=== PATIENT | female | born 1950 | race Caucasian/White ===

== ENCOUNTER → 2017-07-04 16:09 | Outpatient (CLI) | payer OTHER, SELFPAY ==
[2017-07-07 08:16] LABS: Hep C Antibodies <0.1 s/co ratio (0.0-0.9)
== END ==
PROVIDERS: Family Provider Family Medicine; PCP Family Medicine; Visit Provider Family Medicine
DX: E55.9 Vitamin D deficiency, unspecified (principal); Z11.59 Encounter for screening for other viral diseases
CPT/HCPCS: 86803

== ENCOUNTER → 2017-07-11 08:27 | Outpatient (CLI) | payer OTHER, SELFPAY ==
--- NOTE | 2017-07-11 08:33 | HPBI_ITS ---
MAMMOGRAPHY - BILATERAL SCREENING 3-D IVAN SYNTHESIS REASON FOR EXAM: Female, 66 years old. Bilateral Screening 3-D tomosynthesis PERTINENT HISTORY: History of benign breast biopsy.. TECHNIQUE: 2-D mammograms and 3-D Ivan synthesis of the breast (s) were performed. CAD was performed. COMPARISON: None. FINDINGS: The breast composition is heterogeneously dense that can obscure small breast masses. Stable punctate and vascular calcifications.. No dense spiculated masses or suspicious microcalcifications are identified. No architectural distortion is identified. There is no skin thickening or retraction. There has been no significant change since the prior study. HPBI/SCREENING MAMM (CAD), BILAT IMPRESSION: No mammographic signs of malignancy. Routine yearly mammograms recommended. ASSESSMENT CATEGORY: BIRADS Category 2: Benign. A letter regarding these results will be sent to the patient by the facility within 30 days. FOLLOW UP RECOMMENDATION: Yearly follow up mammogram recommended. (A) Approximately 10% of breast cancers are not detected by mammography. A normal mammogram should not delay biopsy of a clinically suspicious abnormality. Electronically Signed: Kem Mckeon MD at 8:35 EDT , Service support ,
== END ==
PROVIDERS: Family Provider Family Medicine; PCP Family Medicine; Visit Provider Family Medicine
DX: Z12.31 Encounter for screening mammogram for malignant neoplasm of breast (principal)
CPT/HCPCS: 77063; 77067

== ENCOUNTER 2018-04-04 20:18 | Observation (INO) | payer OTHER, SELFPAY ==
[2018-04-04 20:19] VITALS: BP 127/90; PULSE 72; RESP 18; TEMP 36.4; O2SAT 96; BMI 32.5
[2018-04-04 20:31] VITALS: BP 127/82; PULSE 75; RESP 18; TEMP 36.4
--- NOTE | 2018-04-04 21:20 | RAD_ITS ---
STUDY: X-RAY CHEST REASON FOR EXAM: Female, 67 years old. Nausea with vomiting and diarrhea TECHNIQUE: AP COMPARISON: None. FINDINGS: The lungs are clear and expanded. There is no demonstrated pleural abnormality. Normal size heart. Normal mediastinum and preeti. Normal visualized pulmonary arteries. Normal visualized aortic arch and descending thoracic aorta. Opacity with air-fluid level in the retrocardiac region likely represents a hiatal hernia. RAD/Chest 1 View (Portable) IMPRESSION: Nonacute portable x-ray examination of the chest. Probable hiatal hernia. Electronically Signed: Vu Mccabe MD at 21:37 EST , Service support ,
--- NOTE | 2018-04-04 21:20 | ED.DCSUM_ITS ---
- ER Visit Summary Date of Service: 04/04/18 Chief Complaint: Nausea, vomiting, diarrhea History of Present Illness: The patient is a 67 F presenting with nausea, vomiting, diarrhea. This started today. She has had 5 episodes of vomiting and 4 episodes of diarrhea today. No blood in her stool or emesis. Her grandchildren have been ill with vomiting. She has had no recent antibiotics. She denies possibility of bad food exposure. Denies fever. She complains of chills. She complains of lightheadedness with standing, denies syncope. She denies chest pain or shortness of breath. Denies abdominal pain. Denies other complaints. Physical Examination: Vitals are stable. Patient is afebrile. Alert no acute distress. HEENT exam is unremarkable. Neck is supple. Lungs are clear and equal bilaterally. Heart is regular rate and rhythm. Abdomen is soft nontender nondistended. No guarding or rebound. Extremities are unremarkable. Skin is warm and dry. No focal neurologic deficit. Remainder of exam is unremarkable. Emergency Department Course and Treatment: Patient given IV fluids, Zofran. EKG is sinus rate of 60 with no acute ischemic changes. Chest x-ray shows no acute process. CBC is unremarkable. Chemistries normal except for glucose 134. Liver lipase are normal. Urinalysis shows 25-50 white blood cells, 50-100 red blood cells. Troponin is negative. Urine culture was sent. She was given Rocephin IV. She continues to deny abdominal pain. With orthostatic vitals patient became very dizzy with standing and her heart rate increased. She was given additional IV fluids. She continues to be very dizzy with standing and does not feel that she can go home. Discussed with the hospitalist for observation. Disposition: Observation Impression: Vomiting, diarrhea, UTI, dehydration This note was generated with [employer] Interactive dictation software. It may contain incorrect words, spelling, and punctuation that were not noted in review of the chart prior to signing ED Disposition - Plan for ED Patient: Chief Complaint: Nausea/Vomiting/Diarrhea Referrals: Stanton Altman MD [Primary Care Provider] -
--- NOTE | 2018-04-04 21:22 | EKG12_ITS ---
Test Reason : VOMITING Blood Pressure : / mmHG Vent. Rate : 060 BPM Atrial Rate : 060 BPM P-R Int : 160 ms QRS Dur : 072 ms QT Int : 438 ms P-R-T Axes : 037 -12 017 degrees QTc Int : 438 ms Normal sinus rhythm Possible Left atrial enlargement Borderline ECG Confirmed by PRESLEY BARLOW, SOLO ([id number]), development editor CECIL HOPPER ([id number]) on 04/08/2018 3:30:20 PM Referred By: ROSELYN Confirmed By:SOLO SHERWOOD MD
--- NOTE | 2018-04-04 21:25 | ED.RN ---
NO OLD EKGS IN MUSE
[2018-04-04 21:28] VITALS: BP 132/83; PULSE 71; RESP 14; TEMP 36.4
[2018-04-04 21:29] LABS: Absolute Lymphocyte Count 1.11 X10^3/ul (0.83-4.51); Absolute Neutrophil Count 6.8 X10^3/uL (2.0-7.7); Basophil# 0.02 X10^3/uL; Basophil% 0.2 % (0-1); Eosinophil# 0.04 X10^3/uL; Eosinophils% 0.5 % (0-5); Hematocrit 39.2 % (37-47); Hemoglobin 13.1 g/dl (12.0-15.0); Lymphocyte # 1.11 X10^3/ul (4.0); Lymphocyte % 13.2 % (19-41); Mean Corp Hgb Conc 33.4 g/gl (32-36); Mean Corpuscular Hgb 30.5 pg (27.0-32.0); Mean Corpuscular Volume 91.2 fL (81-99); Mean Platelet Vol. 8.7 fl (6.2-12.0); Monocyte# 0.42 X10^3/uL; Platelet Count 210 K/mm3 (150-450); RBC Distribution Width CV 13.2 % (11.6-14.6); RBC Distribution Width SD 43.5 fl (35.1-43.9); White Blood Count 8.4 K/mm3 (4.4-11.0)
[2018-04-04] MEDS: Ondansetron 4 MG/2 ML Vial IV (21:29)
[2018-04-04] MEDS: 0.9% Normal Saline 1,000 ML 1000 ML IV (21:29)
[2018-04-04 21:31] LABS: POSITIVE COUNT NO; POSITIVE DIFFERENTIAL NO; POSITIVE MORPHOLOGY NO
[2018-04-04 21:44] LABS: AST(SGOT) 12 U/L (15-37); Alanine Aminotransfer ALT/SGPT 15 U/L (13-56); Albumin, Serum 3.4 g/dL (3.2-5.0); Alkaline Phosphatase 104 U/L (45-117); Anion Gap 9 (5-15); BUN 12 mg/dL (7-18); BUN/Creat Ratio 23.8 RATIO (10-20); Bilirubin, Direct 0.14 mg/dL (0.00-0.30); Calcium,Total 8.1 mg/dL (8.5-10.1); Chloride 110 mmol/L (98-107); EST Glomerular Filtration Rate 130 mL/min (>60); Est Glom Filt Rate - Afr Amer 157 mL/min (>60); Estimated Creatinine Clearance 96.86 ml/min; Globulin 3.3 g/dL (2.2-4.2); Glucose 134 mg/dL (74-106); Lipase 76 U/L (73-393); Potassium 3.6 mmol/L (3.5-5.1); Protein, Total 6.7 g/dL (6.4-8.2); Sodium Level 142 mmol/L (136-145)
[2018-04-04 21:47] VITALS: BP 117/73; BP 128/84; BP 128/96; PULSE 62; PULSE 74; PULSE 84
[2018-04-04 22:15] VITALS: TEMP 36.4
[2018-04-04] MEDS: 0.9% Normal Saline 1,000 ML 500 ML IV (22:33)
[2018-04-04 22:38] VITALS: BP 123/82; PULSE 57; RESP 12; O2SAT 97
[2018-04-04 23:15] LABS: Bacteria 0 SEEN /hpf (None Seen)
[2018-04-04 23:16] LABS: Color, Urine Yellow (Yellow); Glucose, Dipstick Normal (Normal); Ketone-Dipstick 50 mg/dl (Negative); Leukocyte Esterase-Dipstick 500 /ul (Negative); Nitrite-Dipstick Negative (Negative); Occult Blood-Urine 250 /ul (Negative); Protein-Dipstick 30 mg/dl (Negative); Specific Gravity, Urine 1.015 (1.002-1.030); Urine Bilirubin Dipstick Negative (Negative); Urine Clarity Cloudy (Clear); Urine Urobilinogen Normal (Normal)
[2018-04-04 23:24] LABS: Mucous, Urine 2+ /hpf (<or=2+)
[2018-04-04 23:25] LABS: Squamous Epithelial Cells - UA 0-5 SEEN /hpf (5-10); White Blood Cells 25-50 SEEN /hpf (0-5)
[2018-04-04 23:27] LABS: Red Blood Cells-Urine 50-100 SEEN /hpf (0-5)
[2018-04-05] VITALS (9 sets, daily range): BP systolic 114–150; BP diastolic 68–91; PULSE 63–98; RESP 12–18; TEMP 36.4–37; O2SAT 94–98; BMI 31.4
[2018-04-05] MEDS: Ceftriaxone 1 GM/50 ML BAG IV ×2 (00:24→21:15)
--- NOTE | 2018-04-05 04:29 | PCM.HP.STD ---
Problem List (1) UTI (urinary tract infection) Status: Acute (2) BPV (benign positional vertigo) Status: Acute (3) N&V (nausea and vomiting) Status: Acute (4) Diarrhea Status: Acute History of Present Illness Date of Admission: 04/05/18 Chief Complaint: Vertigo The patient is a 67 year old female w/ h/o depression is admitted for benign positional vertigo. She has been caring for her sick grandchildren and daughter. She developed sudden onset dizziness today. Dizziness is worse with the head turn to the right. Dizziness improves if she stays still without moving her head. Her vertigo improves after awhile. However, her vertigo is so severe when she moves that she is unable to walk. She also has 4-5 episodes of loose stool. She also has been nausea secondary to her dizziness. 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 Denies: Abdominal Pain Genitourinary: Denies: Dysuria Musculoskeletal: Denies: Joint Pain, Joint Tenderness Skin: Denies: Rash, Wounds Neurological: Denies: Numbness, Tingling, Focal weakness Psychiatric: Denies: Anxiety, Depression, Homicidal Ideations, Suicidal Ideations Hematologic/ Lymphatic: Denies: Easy Bruising, Easy Bleeding VTE Information - Inpt Only VTE Present on Admission: No VTE Mechan Device Prophylaxis: SCD's VTE Pharm Prophylaxis ordered?: Yes Patient Problems: Active and Suspected Problems UTI (urinary tract infection) (Acute) BPV (benign positional vertigo) (Acute) N&V (nausea and vomiting) (Acute) Diarrhea (Acute) - Physical Exam General: Alert, Oriented x3, Cooperative HEENT: Atraumatic, PERRLA, EOMI, Normocephalic, - - mixed torsional and vertical nystagmus Neck: Supple, No JVD, Negative Carotid Bruits Lungs: Clear to auscultation, Normal air movement Cardiovascular: Regular rate, No murmurs Abdomen: Bowel Sounds Present, Soft, Non Tender Extremities: No edema, Capillary Refill Less than 3 Seconds Skin: No rashes, No breakdown Musculoskeletal: No Tenderness to Palpation of Joints or Extremities Neurological: Cranial nerves II-XII grossly intact Psych/Mental Status: Normal Affect, Appropriate Vital Signs Temp Pulse Resp BP Pulse Ox 97.8 F 66 14 119/81 H 96 04/05/18 01:02 04/05/18 01:02 04/05/18 01:02 04/05/18 01:02 04/05/18 01:02 Oxygen Delivery Method Room Air Weight: 84.4 kg Body Mass Index (BMI) 31.4 Laboratory Tests Past 24 Hrs 04/04/18 04/04/18 04/04/18 21:06 21:06 23:05 WBC 8.4 RBC 4.30 Hgb 13.1 Hct 39.2 MCV 91.2 MCH 30.5 MCHC 33.4 RDW 13.2 RDW Differential 43.5 Plt Count 210 MPV 8.7 Immature Gran % (Auto) 0.100 Neut % (Auto) 81.0 H Lymph % (Auto) 13.2 L [place] % (Auto) 5.0 Eos % (Auto) 0.5 Baso % (Auto) 0.2 Absolute Neuts (auto) 6.8 Absolute Lymphs (auto) 1.11 Total Counted Not Reportable Sodium 142 Potassium 3.6 Chloride 110 H Carbon Dioxide 23.0 Anion Gap 9 BUN 12 Creatinine 0.50 L Estim Creat Clear Calc 96.86 Est GFR (MDRD) Af Amer 157 Est GFR (MDRD) Non-Af 130 BUN/Creatinine Ratio 23.8 H Glucose 134 H Calcium 8.1 L Total Bilirubin 0.40 Direct Bilirubin 0.14 AST 12 L ALT 15 Alkaline Phosphatase 104 Troponin I < 0.015 Total Protein 6.7 Albumin 3.4 Globulin 3.3 Lipase 76 Urine Color Yellow Urine Clarity Cloudy Urine pH 6.0 Ur Specific [place] 1.015 Urine Protein 30 H Urine Glucose (UA) Normal Urine Ketones 50 H Urine Occult Blood 250 H Urine Nitrite Negative Urine Bilirubin Negative Urine Urobilinogen Normal Ur Leukocyte Esterase 500 H Urine RBC 50-100 SEEN Urine WBC 25-50 SEEN Ur Squamous Epith Cells 0-5 SEEN Urine Bacteria 0 SEEN Urine Mucus 2+ Assessment/Plan All Active Problems UTI (urinary tract infection) (Acute) BPV (benign positional vertigo) (Acute) N&V (nausea and vomiting) (Acute) Diarrhea (Acute) 67 year old female w/ h/o depression is admitted for benign positional vertigo. 1) Benign positional vertigo: Probably triggered by viral symptoms and decrease PO intake. Mixed torsional and vertical nystagmus provoked with head movement. Vertigo is provoke with head movement to the right and is paroxysmal and decline over time. Reduction of vertigo noted when head is kept to the right. IVF hydration. Supportive care. 2) UTI: No dyuria. Will hydrate. Will start ceftriaxone. Awaiting cultures. 3) N/V: Probably viral etiology. No electrolytes abnormalities. Supportive care. 4) Diarrhea: Will get C.diff. Supportive care. Code Visit OBSV E&M: 14833 Initial observation care L3
--- NOTE | 2018-04-05 04:36 | HP.PCM_ITS ---
Problem List (1) UTI (urinary tract infection) Status: Acute (2) BPV (benign positional vertigo) Status: Acute (3) N&V (nausea and vomiting) Status: Acute (4) Diarrhea Status: Acute History of Present Illness Date of Admission: 04/05/18 Chief Complaint: Vertigo The patient is a 67 year old female w/ h/o depression is admitted for benign positional vertigo. She has been caring for her sick grandchildren and daughter. She developed sudden onset dizziness today. Dizziness is worse with the head turn to the right. Dizziness improves if she stays still without moving her head. Her vertigo improves after awhile. However, her vertigo is so severe when she moves that she is unable to walk. She also has 4-5 episodes of loose stool. She also has been nausea secondary to her dizziness. 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 Denies: Abdominal Pain Genitourinary: Denies: Dysuria Musculoskeletal: Denies: Joint Pain, Joint Tenderness Skin: Denies: Rash, Wounds Neurological: Denies: Numbness, Tingling, Focal weakness Psychiatric: Denies: Anxiety, Depression, Homicidal Ideations, Suicidal Ideations Hematologic/ Lymphatic: Denies: Easy Bruising, Easy Bleeding VTE Information - Inpt Only VTE Present on Admission: No VTE Mechan Device Prophylaxis: SCD's VTE Pharm Prophylaxis ordered?: Yes Patient Problems: Active and Suspected Problems UTI (urinary tract infection) (Acute) BPV (benign positional vertigo) (Acute) N&V (nausea and vomiting) (Acute) Diarrhea (Acute) - Physical Exam General: Alert, Oriented x3, Cooperative HEENT: Atraumatic, PERRLA, EOMI, Normocephalic, - - mixed torsional and vertical nystagmus Neck: Supple, No JVD, Negative Carotid Bruits Lungs: Clear to auscultation, Normal air movement Cardiovascular: Regular rate, No murmurs Abdomen: Bowel Sounds Present, Soft, Non Tender Extremities: No edema, Capillary Refill Less than 3 Seconds Skin: No rashes, No breakdown Musculoskeletal: No Tenderness to Palpation of Joints or Extremities Neurological: Cranial nerves II-XII grossly intact Psych/Mental Status: Normal Affect, Appropriate Vital Signs Temp Pulse Resp BP Pulse Ox 97.8 F 66 14 119/81 H 96 04/05/18 01:02 04/05/18 01:02 04/05/18 01:02 04/05/18 01:02 04/05/18 01:02 Oxygen Delivery Method Room Air Weight: 84.4 kg Body Mass Index (BMI) 31.4 Laboratory Tests Past 24 Hrs 04/04/18 04/04/18 04/04/18 21:06 21:06 23:05 WBC 8.4 RBC 4.30 Hgb 13.1 Hct 39.2 MCV 91.2 MCH 30.5 MCHC 33.4 RDW 13.2 RDW Differential 43.5 Plt Count 210 MPV 8.7 Immature Gran % (Auto) 0.100 Neut % (Auto) 81.0 H Lymph % (Auto) 13.2 L [place] % (Auto) 5.0 Eos % (Auto) 0.5 Baso % (Auto) 0.2 Absolute Neuts (auto) 6.8 Absolute Lymphs (auto) 1.11 Total Counted Not Reportable Sodium 142 Potassium 3.6 Chloride 110 H Carbon Dioxide 23.0 Anion Gap 9 BUN 12 Creatinine 0.50 L Estim Creat Clear Calc 96.86 Est GFR (MDRD) Af Amer 157 Est GFR (MDRD) Non-Af 130 BUN/Creatinine Ratio 23.8 H Glucose 134 H Calcium 8.1 L Total Bilirubin 0.40 Direct Bilirubin 0.14 AST 12 L ALT 15 Alkaline Phosphatase 104 Troponin I < 0.015 Total Protein 6.7 Albumin 3.4 Globulin 3.3 Lipase 76 Urine Color Yellow Urine Clarity Cloudy Urine pH 6.0 Ur Specific [place] 1.015 Urine Protein 30 H Urine Glucose (UA) Normal Urine Ketones 50 H Urine Occult Blood 250 H Urine Nitrite Negative Urine Bilirubin Negative Urine Urobilinogen Normal Ur Leukocyte Esterase 500 H Urine RBC 50-100 SEEN Urine WBC 25-50 SEEN Ur Squamous Epith Cells 0-5 SEEN Urine Bacteria 0 SEEN Urine Mucus 2+ Assessment/Plan All Active Problems UTI (urinary tract infection) (Acute) BPV (benign positional vertigo) (Acute) N&V (nausea and vomiting) (Acute) Diarrhea (Acute) 67 year old female w/ h/o depression is admitted for benign positional vertigo. 1) Benign positional vertigo: Probably triggered by viral symptoms and decrease PO intake. Mixed torsional and vertical nystagmus provoked with head movement. Vertigo is provoke with head movement to the right and is paroxysmal and decline over time. Reduction of vertigo noted when head is kept to the right. IVF hydration. Supportive care. 2) UTI: No dyuria. Will hydrate. Will start ceftriaxone. Awaiting cultures. 3) N/V: Probably viral etiology. No electrolytes abnormalities. Supportive care. 4) Diarrhea: Will get C.diff. Supportive care. Code Visit OBSV E&M: 16745 Initial observation care L3
[2018-04-05] MEDS: 0.9% Normal Saline 1,000 ML 100 ML IV ×2 (06:48→14:26)
[2018-04-05 06:56] LABS: Absolute Lymphocyte Count 1.29 X10^3/ul (0.83-4.51); Absolute Neutrophil Count 6.1 X10^3/uL (2.0-7.7); Basophil# 0.01 X10^3/uL; Basophil% 0.1 % (0-1); Eosinophil# 0.02 X10^3/uL; Eosinophils% 0.3 % (0-5); Hematocrit 39.1 % (37-47); Hemoglobin 12.7 g/dl (12.0-15.0); Lymphocyte # 1.29 X10^3/ul (4.0); Lymphocyte % 16.3 % (19-41); Mean Corp Hgb Conc 32.5 g/gl (32-36); Mean Corpuscular Hgb 30.4 pg (27.0-32.0); Mean Corpuscular Volume 93.5 fL (81-99); Monocyte# 0.46 X10^3/uL; Monocyte% 5.8 % (0-10); Neutrophil # 6.09 X10^3/uL (2.7-7.7); Neutrophil % 77.2 % (47-70); Platelet Count 227 K/mm3 (150-450); RBC Distribution Width CV 13.3 % (11.6-14.6); RBC Distribution Width SD 44.2 fl (35.1-43.9); Red Blood Count 4.18 M/mm3 (4.2-5.4); White Blood Count 7.9 K/mm3 (4.4-11.0)
[2018-04-05 06:58] LABS: POSITIVE COUNT NO; POSITIVE DIFFERENTIAL NO; POSITIVE MORPHOLOGY NO
[2018-04-05 07:27] LABS: Anion Gap 8 (5-15); BUN 9 mg/dL (7-18); BUN/Creat Ratio 16.2 RATIO (10-20); Calcium,Total 8.5 mg/dL (8.5-10.1); Chloride 111 mmol/L (98-107); Creatinine, Serum 0.56 mg/dL (0.55-1.02); EST Glomerular Filtration Rate 117 mL/min (>60); Est Glom Filt Rate - Afr Amer 141 mL/min (>60); Estimated Creatinine Clearance 86.49 ml/min; Glucose 124 mg/dL (74-106); Potassium 3.7 mmol/L (3.5-5.1); Sodium Level 145 mmol/L (136-145)
--- NOTE | 2018-04-05 12:04 | PCM.PN.BLA ---
Progress Note Patient admitted for nausea, vomiting and diarrhea. Also, she complains of dizziness with skin sensation associated with nausea. Today, she is still symptomatic, complaining of spinning sensation with nausea. Denies chest pain or shortness of breath. Her vital signs are stable, afebrile. Her orthostatic vitals were normal. Physical examination is unremarkable except for nystagmus which is more pronounced when she looks to the right side. Assessment and plan: #1 dizzy spells/vertigo: With nystagmus. Doubt acute stroke at this time. Likely due to BPPV. Plan to start Antivert as needed, Zofran as needed for nausea and vomiting. #2 acute cystitis: On IV Rocephin, urine cultures pending. Plan for DC home tomorrow morning.
[2018-04-05] MEDS: 0.9% NaCl Peripheral Flush Adult/Peds IV (12:14)
[2018-04-05] MEDS: Ondansetron 4 MG/2 ML Vial IV ×2 (12:14→19:37)
[2018-04-05] MEDS: Meclizine HCl 25 MG Tablet PO ×2 (12:15→19:37)
[2018-04-05] MEDS: Enoxaparin 40 MG/0.4 ML Syringe SC (12:16)
[2018-04-06] MEDS: 0.9% Normal Saline 1,000 ML 100 ML IV ×3 (00:13→21:49)
[2018-04-06 05:49] VITALS: BP 102/68; PULSE 60; RESP 16; TEMP 36.8; O2SAT 92
[2018-04-06] MEDS: Ondansetron 4 MG/2 ML Vial IV (06:04)
[2018-04-06] MEDS: Meclizine HCl 25 MG Tablet PO ×2 (06:04→14:49)
--- NOTE | 2018-04-06 10:16 | MRI_ITS ---
STUDY: MRI BRAIN WITHOUT CONTRAST REASON FOR EXAM: Female, 67 years old. Nausea and dizziness x3 days. TECHNIQUE: Standardized multiplanar fat and water weighted pulse sequences were obtained. COMPARISON: None. FINDINGS: No restricted diffusion to suspect acute or subacute ischemic infarct. No remote cortical base ischemic infarct. No midline shift and no mass effects. Normal size of the ventricles and extra-axial spaces for the patient's age. Nonspecific solitary subcortical white matter T2 FLAIR hyperintensity focus in the left frontal operculum (series 7, image 14). The remaining white matter is normal. Normal bilateral basal ganglia. Normal thalami. There is no extra-axial fluid accumulation. Normal flow voids within the major intracranial circulation suggesting patency by spin echo criteria. Normal sella turcica, pituitary gland, infundibular stalk, optic chiasm and hypothalamus. Normal tectal plate and pineal gland. Normal midbrain, woody and medulla. Normal cerebellum. Normal basal cisterns. Normal bilateral temporal bones. Normal bilateral internal auditory canals. No demonstrated orbital abnormality, within the constraints of a routine brain study. Normal visualized paranasal sinuses. Normal calvarium and skull base. Normal visualized soft tissue structures. Normal visualized upper cervical spine. MRI/Brain without Contrast IMPRESSION: 1. No MRI evidence of acute or subacute ischemic infarct. 2. No MRI evidence of remote cortical-based ischemic infarct. 3. Small solitary nonspecific T2 FLAIR hyperintensity focus in the left frontal operculum subcortical white matter may represent gliosis from remote injury. Electronically Signed: Dieudonne Vizcaino MD at 13:54 EST , Service support ,
--- NOTE | 2018-04-06 10:18 | PN_ITS ---
Patient Problems: Active and Suspected Problems UTI (urinary tract infection) (Acute) BPV (benign positional vertigo) (Acute) N&V (nausea and vomiting) (Acute) Diarrhea (Acute) Dizziness (Acute) Subjective: Patient is a 67-year-old lady who presented with acute vertiginous symptoms in addition to generalized weakness. Patient was found to have cystitis treated with antibiotic therapy. Seen this a.m. patient still complains of vertigo and order was given for patient undergo subsequent evaluation with MRI of the head and neck and consultation placed to neurology Objective: GENERAL: cooperative HEENT: Atraumatic; EYES; Anicteric, Normal Conjunctiva NECK; supple, normal thyroid, RESPIRATORY: Diminished to auscultation bilaterally, CARDIOVASCULAR: Regular S1 S2, no audible murmurs GI: soft, non-tender, normoactive bowel sounds, : No Renal angle tenderness; EXTREMITIES: No edema, no clubbing, no cyanosis. MUSCULOSKELETAL: No Joint Tenderness; NEURO: Awake; no lateralizing signs. SKIN: No Rash PSYCH; Normal affect Vitals/I&O's: Vital Signs Temp Pulse Resp BP Pulse Ox 98.2 F 60 16 102/68 92 04/06/18 05:49 04/06/18 05:49 04/06/18 05:49 04/06/18 05:49 04/06/18 05:49 Oxygen Delivery Method Room Air Weight: 84.4 kg Body Mass Index (BMI) 31.4 Intake and Output for Last 24 Hours 04/04/18 04/05/18 04/06/18 23:59 23:59 23:59 Intake Total 1212 / 1212 724 / 724 Output Total 800 / 800 550 / 550 Balance 412 / 412 174 / 174 Current Medications Citalopram Hydrobromide (Celexa) 20 mg PO DAILY [facility] Last Admin: 04/05/18 10:50 Dose: Not Given Enoxaparin Sodium (Lovenox) 40 mg SC DAILY [facility] Last Admin: 04/05/18 12:16 Dose: 40 mg Sodium Chloride () 250 mls @ 15 mls/hr IV .[id number] PRN PRN Reason: SALINE FLUSH Ceftriaxone Sodium (Rocephin) 1 gm in 50 mls @ 100 mls/hr IV Q24@2200 [facility] Last Admin: 04/05/18 21:15 Dose: 100 mls/hr Sodium Chloride () 1,000 mls @ 100 mls/hr IV .Q10H [facility] Last Admin: 04/06/18 00:13 Dose: 100 mls/hr Meclizine HCl (Antivert) 25 mg PO TID PRN PRN PRN Reason: Vertigo Last Admin: 04/06/18 06:04 Dose: 25 mg Nutritional Formula (Lactose Free) (Ensure Clear) 120 ml PO 4X/DAY [facility] Last Admin: 04/05/18 21:13 Dose: Not Given Ondansetron HCl (Zofran) 4 mg IV Q6H PRN PRN PRN Reason: NAUSEA Last Admin: 04/06/18 06:04 Dose: 4 mg Sodium Chloride () 5 - 15 ml IV UD PRN PRN Reason: SALINE FLUSH Last Admin: 04/05/18 12:14 Dose: 10 ml Medical Necessity - Tobacco Use Smoking Status: Former smoker Tobacco Use: Non-smoker Assessment/Plan All Active Problems UTI (urinary tract infection) (Acute) BPV (benign positional vertigo) (Acute) N&V (nausea and vomiting) (Acute) Diarrhea (Acute) Dizziness (Acute) Patient is a 67-year-old lady who presented with acute vertiginous symptoms in addition to generalized weakness. Patient was found to have cystitis treated with antibiotic therapy. 1. Acute vertigo probably related to BPPV given persistent nature patient symptoms ordered MRI of the head and neck to rule out acute CVA consultation was also placed to neurology patient has been seen by Dr. Black. Consultation was also placed to physical therapy for vestibular therapy 2. Acute cystitis urine culture grew only mixed gram-positive organisms antibiotic therapy discontinued on 09/04/2017 3. Obesity with BMI of 31.4 4. Depression with anxiety patient is on SSRI 5. DVT prophylaxis SC Lovenox Active Medications Citalopram Hydrobromide (Celexa) 20 mg PO DAILY [facility] Last Admin: 04/06/18 11:51 Dose: 20 mg Enoxaparin Sodium (Lovenox) 40 mg SC DAILY [facility] Last Admin: 04/06/18 11:51 Dose: 40 mg Sodium Chloride () 250 mls @ 15 mls/hr IV .[id number] PRN PRN Reason: SALINE FLUSH Ceftriaxone Sodium (Rocephin) 1 gm in 50 mls @ 100 mls/hr IV Q24@2200 [facility] Last Admin: 04/05/18 21:15 Dose: 100 mls/hr Sodium Chloride () 1,000 mls @ 100 mls/hr IV .Q10H [facility] Last Admin: 04/06/18 11:44 Dose: 100 mls/hr Meclizine HCl (Antivert) 25 mg PO TID PRN PRN PRN Reason: Vertigo Last Admin: 04/06/18 06:04 Dose: 25 mg Nutritional Formula (Lactose Free) (Ensure Clear) 120 ml PO 4X/DAY [facility] Last Admin: 04/06/18 14:17 Dose: 120 ml Ondansetron HCl (Zofran) 4 mg IV Q6H PRN PRN PRN Reason: NAUSEA Last Admin: 04/06/18 06:04 Dose: 4 mg Sodium Chloride () 5 - 15 ml IV UD PRN PRN Reason: SALINE FLUSH Last Admin: 04/05/18 12:14 Dose: 10 ml Code Visit Inpatient E&M: 44386 Subs Hosp L3
[2018-04-06 11:49] VITALS: BP 117/70; PULSE 65; RESP 16; TEMP 36.9; O2SAT 94
[2018-04-06] MEDS: Enoxaparin 40 MG/0.4 ML Syringe SC (11:51)
[2018-04-06] MEDS: Citalopram 20 MG Tablet PO (11:51)
[2018-04-06] MEDS: LORazepam 2 MG/ML Syringe 1 MG IV (12:05)
--- NOTE | 2018-04-06 12:10 | MRI_ITS ---
STUDY: MRA NECK WITH AND WITHOUT CONTRAST REASON FOR EXAM: Female, 67 years old. Vertigo. Nausea and dizziness x3 days. TECHNIQUE: 3-D [id number] (TOF) imaging was performed in an 1.5 T MRI scanner. 8 ml of Gadavist was administered for the contrast enhanced images. COMPARISON: None. FINDINGS: RIGHT CAROTID ARTERIES: Normal right common carotid artery (CCA). Normal right internal carotid bulb. Normal origin of the right internal carotid (ICA) artery without a hemodynamically significant stenosis. Normal visualized cervical portion of the right internal carotid artery. Normal origin of the right external carotid artery (ECA). LEFT CAROTID ARTERIES: Normal left common carotid artery (CCA). Normal left internal carotid bulb. Normal origin of the left internal carotid (ICA) artery without a hemodynamically significant stenosis. Normal visualized cervical portion of the left internal carotid artery. Normal origin of the left external carotid artery (ECA). VERTEBRAL ARTERIES: Normal antegrade flow within the bilateral vertebral artery without a hemodynamically significant stenosis. AORTIC ARCH: Widely patent aortic arch and origins of the great vessels. The right vertebral artery is mildly hypoplastic. MRI/MRA Neck WITH and W/O Contrast IMPRESSION: 1. Normal MRA of the bilateral common carotid arteries, bilateral, common carotid bifurcations and bilateral internal carotid arteries. 2. Normal MRA of the vertebral arteries, right is hypoplastic. 3. Normal aortic arch and origins of the great vessels. Electronically Signed: Dieudonne Vizcaino MD at 13:58 EST , Service support ,
--- NOTE | 2018-04-06 12:10 | MRI_ITS ---
STUDY: MRA OF THE HEAD WITHOUT CONTRAST REASON FOR EXAM: Female, 67 years old. Vertigo. Nausea and dizziness x3 days. TECHNIQUE: 3-D [id number] (TOF) imaging was performed with MIPs. The study was performed unenhanced. COMPARISON: None. FINDINGS: Normal bilateral petrous carotid arteries. Normal right cavernous carotid artery with a normal supraclinoid bifurcation. Normal left cavernous carotid artery with a normal supraclinoid bifurcation. Normal right A1 segments of the anterior cerebral artery. Normal left A1 segments of the anterior cerebral artery. Normal intact anterior communicating artery (ACOM). Normal bilateral A2 segments of the anterior cerebral arteries. Normal right M1 and M2 segments of the middle cerebral arteries, with a normal M1 bifurcation. Normal left M1 and M2 segments of the middle cerebral arteries, with a normal M1 bifurcation. No visible right posterior communicating artery (PCOM). origin of the left SCALEMAKER off the left internal carotid artery rather than a widely patent left posterior communicating artery (PCOM). Normal bilateral vertebral arteries. Normal basilar artery with a normal basilar bifurcation. The visualized bilateral superior cerebellar (SCA) arteries are normal. 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 Normal right P1 segment. Normal bilateral P2 and visualized P3 segments of both posterior cerebral arteries. There is no demonstrated aneurysm of the craig of [place]. There is no major vessel occlusion or hemodynamically significant stenosis. MRI/MRA Head ONLY without Contrast IMPRESSION: Normal MRA of the head Electronically Signed: Dieudonne Vizcaino MD at 13:56 EST , Service support ,
--- NOTE | 2018-04-06 13:40 | PCM.CONS.GEN ---
Problem List (1) Dizziness Status: Acute Reason for Consult Date of Consultation: 04/06/18 Reason for Consultation: Dizziness History of Present Illness: The patient is a 67 year old CF with PMH Depression, ho macular degeneration admitted with dizziness and vomiting, diarrhea. Neurology consulted for dizziness, Per patient she started having dizziness about 3 days ago, she felt the whole room was spinning, had nausea and vomiting, denies any focal motor weakness, visual disturbances, speech disturbances, or sensory loss. denies any ARREOLA. Lives alone, does drive, denies any falls, and does not need any assistance for her ADLs per patient. Denies any ear ache, tinnitus or ear discharge. 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 Lives: Alone Smoking Status: Former smoker Tobacco Use: Non-smoker Alcohol: None Drugs: None - *Family History Maternal History Items: No pertinent history Review of Systems Constitutional: Reports: - - complete ROS negative except as documented in HPI Patient Problems: Active and Suspected Problems UTI (urinary tract infection) (Acute) BPV (benign positional vertigo) (Acute) N&V (nausea and vomiting) (Acute) Diarrhea (Acute) Dizziness (Acute) - Physical Exam General: Alert HEENT: Normocephalic Neck: Supple Lungs: Normal air movement Cardiovascular: Normal S1, Normal S2 Abdomen: Bowel Sounds Present Extremities: No cyanosis Neurological: - - consious, alert, CN 2-12 grossly intact, power 5/5 all 4 extremities, no sensory loss, no cerebellar signs, Reflexes + B/L B/S/T/K/A, gait deferred Vital Signs Temp Pulse Resp BP Pulse Ox 98.5 F 65 16 117/70 94 04/06/18 11:49 04/06/18 11:49 04/06/18 11:49 04/06/18 11:49 04/06/18 11:49 Oxygen Delivery Method Room Air Weight: 84.4 kg Body Mass Index (BMI) 31.4 Intake and Output for Last 24 Hours 04/04/18 04/05/18 04/06/18 23:59 23:59 23:59 Intake Total 1212 / 1212 724 / 724 Output Total 800 / 800 550 / 550 Balance 412 / 412 174 / 174 Microbiology Past 72 Hours 04/04/18 23:05 Urine Culture - Final Urine, Clean Catch Mixed Gram Positive Organisms Assessment/Plan All Active Problems UTI (urinary tract infection) (Acute) BPV (benign positional vertigo) (Acute) N&V (nausea and vomiting) (Acute) Diarrhea (Acute) Dizziness (Acute) The patient is a 67 year old CF with PMH Depression, h/o macular degeneration admitted with dizziness and vomiting, diarrhea. Neurology consulted for dizziness, Per patient she started having dizziness about 3 days ago, she felt the whole room was spinning, had nausea and vomiting, denies any focal motor weakness, visual disturbances, speech disturbances, or sensory loss. denies any ARREOLA. Lives alone, does drive, denies any falls, and does not need any assistance for her ADLs per patient. Denies any ear ache, tinnitus or ear discharge.Denies any neck pain. Per patient dizziness gets worse when she moves her head. Impression Dizziness-likely peripheral etiology Plan -MRI brain and MRA head/neck -Vestibular therapy -ENT referral -Check TTE -Fall precautions -GI/DVT prophylaxis -Please call with questions if any -Thank you for allowing us to participate in patient's care and management Code Visit Inpatient E&M: 27483 Init Hosp L3
--- NOTE | 2018-04-06 13:48 | CON.PCM_ITS ---
Problem List (1) Dizziness Status: Acute Reason for Consult Date of Consultation: 04/06/18 Reason for Consultation: Dizziness History of Present Illness: The patient is a 67 year old CF with PMH Depression, ho macular degeneration admitted with dizziness and vomiting, diarrhea. Neurology consulted for dizziness, Per patient she started having dizziness about 3 days ago, she felt the whole room was spinning, had nausea and vomiting, denies any focal motor weakness, visual disturbances, speech disturbances, or sensory loss. denies any ARREOLA. Lives alone, does drive, denies any falls, and does not need any assistance for her ADLs per patient. Denies any ear ache, tinnitus or ear discharge. 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 history Lives: Alone Smoking Status: Former smoker Tobacco Use: Non-smoker Alcohol: None Drugs: None - *Family History Maternal History Items: No pertinent history Review of Systems Constitutional: Reports: - - complete ROS negative except as documented in HPI Patient Problems: Active and Suspected Problems UTI (urinary tract infection) (Acute) BPV (benign positional vertigo) (Acute) N&V (nausea and vomiting) (Acute) Diarrhea (Acute) Dizziness (Acute) - Physical Exam General: Alert HEENT: Normocephalic Neck: Supple Lungs: Normal air movement Cardiovascular: Normal S1, Normal S2 Abdomen: Bowel Sounds Present Extremities: No cyanosis Neurological: - - consious, alert, CN 2-12 grossly intact, power 5/5 all 4 extremities, no sensory loss, no cerebellar signs, Reflexes + B/L B/S/T/K/A, gait deferred Vital Signs Temp Pulse Resp BP Pulse Ox 98.5 F 65 16 117/70 94 04/06/18 11:49 04/06/18 11:49 04/06/18 11:49 04/06/18 11:49 04/06/18 11:49 Oxygen Delivery Method Room Air Weight: 84.4 kg Body Mass Index (BMI) 31.4 Intake and Output for Last 24 Hours 04/04/18 04/05/18 04/06/18 23:59 23:59 23:59 Intake Total 1212 / 1212 724 / 724 Output Total 800 / 800 550 / 550 Balance 412 / 412 174 / 174 Microbiology Past 72 Hours 04/04/18 23:05 Urine Culture - Final Urine, Clean Catch Mixed Gram Positive Organisms Assessment/Plan All Active Problems UTI (urinary tract infection) (Acute) BPV (benign positional vertigo) (Acute) N&V (nausea and vomiting) (Acute) Diarrhea (Acute) Dizziness (Acute) The patient is a 67 year old CF with PMH Depression, h/o macular degeneration admitted with dizziness and vomiting, diarrhea. Neurology consulted for dizziness, Per patient she started having dizziness about 3 days ago, she felt the whole room was spinning, had nausea and vomiting, denies any focal motor weakness, visual disturbances, speech disturbances, or sensory loss. denies any ARREOLA. Lives alone, does drive, denies any falls, and does not need any assistance for her ADLs per patient. Denies any ear ache, tinnitus or ear discharge.Denies any neck pain. Per patient dizziness gets worse when she moves her head. Impression Dizziness-likely peripheral etiology Plan -MRI brain and MRA head/neck -Vestibular therapy -ENT referral -Check TTE -Fall precautions -GI/DVT prophylaxis -Please call with questions if any -Thank you for allowing us to participate in patient's care and management Code Visit Inpatient E&M: [id number] Init Hosp L3
--- NOTE | 2018-04-06 14:35 | ECHOD_ITS ---
Reason For Study: TIA/CVA Procedure This was a 2D Doppler, Color Flow transthoracic echocardiogram. Exam performed portable in patient room. Left Ventricle Normal LV size. Left ventricular systolic function is normal. The estimated ejection fraction is 65 %. Normal diastology for age. No regional wall motion abnormalities noted. Right Ventricle Normal RV size. Normal systolic function. Atria Normal left atrium. Normal right atrium. Bubble contrast study negative for right to left interatrial shunt. Mitral Valve Normal mitral valve. Tricuspid Valve Normal tricuspid valve. Mild (1+) tricuspid valve insufficiency. Right ventricular systolic pressure estimated to be 33 mmHg. Aortic Valve The aortic valve is not well visualized. Pulmonic Valve The pulmonic valve is not well visualized. Great Vessels Normal aortic root. The pulmonary artery is normal size. Pericardium/Pleural Small pericardial effusion. Medication Performed a rapid injection of agitated mix of 9 cc saline and 1cc air to assess for atrial septal defect. MMode/2D Measurements & Calculations LVIDd: 4.7 cm IVSd: 0.86 cm Ao root diam: 3.2 cm LVIDs: 3.1 cm LVPWd: 0.79 cm RVDd: 3.9 cm FS: 34.3 % LAV(MOD-bp): 44.4 ml LVAd ap4: 27.2 cm2 SV(MOD-sp4): 55.7 ml LAV(MOD-bp) Indexed: 23.4 ml/m2 EDV(MOD-sp4): 83.3 ml LAV(MOD-sp2): 51.6 ml EDV(sp4-el): 87.5 ml LAV(MOD-sp4): 36.6 ml LVAs ap4: 13.6 cm2 ESV(MOD-sp4): 27.6 ml ESV(sp4-el): 27.5 ml EF(MOD-sp4): 66.9 % EF(sp4-el): 68.5 % SV(sp4-el): 60.0 ml LA A4 area: 17.3 cm2 LA dimension(2D): 3.2 cm RA A4 area: 19.8 cm2 Time Measurements MV dec time: 0.18 sec Doppler Measurements & Calculations MV E max tommy: 123.0 cm/sec Lat Peak E' Tommy: 14.3 cm/sec Med Peak E' Tommy: 14.4 cm/sec MV A max tommy: 96.1 cm/sec E/E' lat: 8.6 E/E' med: 8.5 MV E/A: 1.3 Ao V2 max: 176.5 cm/sec LV V1 max: 130.9 cm/sec PA V2 max: 109.1 cm/sec Ao max P.5 mmHg LV V1 max P.9 mmHg TR max tommy: 289.1 cm/sec TR max P.4 mmHg Interpretation Summary Normal LV size. Left ventricular systolic function is normal. The estimated ejection fraction is 65 %. Normal diastology for age. Bubble contrast study negative for right to left interatrial shunt. Small pericardial effusion. Mild (1+) tricuspid valve insufficiency. Ordering Physician: Олег Denise Referring Physician: APUL HOPPER Performed By: Diana Sotelo RDCS
[2018-04-06] MEDS: 0.9% NaCl Peripheral Flush Adult/Peds IV (14:49)
[2018-04-06 17:49] VITALS: BP 115/63; PULSE 79; RESP 16; TEMP 37.3; O2SAT 94
[2018-04-06] MEDS: Ibuprofen 400 MG Tablet PO (19:07)
[2018-04-06 20:03] VITALS: BP 109/66; PULSE 65; RESP 16; TEMP 37.6; O2SAT 94
[2018-04-07 01:57] VITALS: BP 108/66; PULSE 63; RESP 16; TEMP 36.6; O2SAT 96
[2018-04-07 06:10] LABS: Hematocrit 32.7 % (37-47); Hemoglobin 10.6 g/dl (12.0-15.0); Mean Corp Hgb Conc 32.4 g/gl (32-36); Mean Corpuscular Hgb 30.5 pg (27.0-32.0); Mean Platelet Vol. 8.9 fl (6.2-12.0); Platelet Count 185 K/mm3 (150-450); RBC Distribution Width CV 13.2 % (11.6-14.6); RBC Distribution Width SD 43.5 fl (35.1-43.9); Red Blood Count 3.48 M/mm3 (4.2-5.4); White Blood Count 6.6 K/mm3 (4.4-11.0)
[2018-04-07 06:12] LABS: Scan Indicated on CBC? Y/N NO
[2018-04-07 06:22] LABS: Anion Gap 8 (5-15); BUN 7 mg/dL (7-18); Chloride 108 mmol/L (98-107); Creatinine, Serum 0.54 mg/dL (0.55-1.02); EST Glomerular Filtration Rate 121 mL/min (>60); Est Glom Filt Rate - Afr Amer 146 mL/min (>60); Estimated Creatinine Clearance 89.69 ml/min; Glucose 106 mg/dL (74-106); Magnesium 1.7 mg/dL (1.6-2.6); Potassium 2.9 mmol/L (3.5-5.1); Sodium Level 145 mmol/L (136-145)
[2018-04-07 08:14] VITALS: BP 124/71; PULSE 75; RESP 16; TEMP 36.8; O2SAT 97
[2018-04-07] MEDS: 0.9% Normal Saline 1,000 ML 100 ML IV (08:17)
[2018-04-07] MEDS: Enoxaparin 40 MG/0.4 ML Syringe SC (09:50)
[2018-04-07] MEDS: Citalopram 20 MG Tablet PO (09:50)
[2018-04-07] MEDS: Ibuprofen 400 MG Tablet PO (11:03)
--- NOTE | 2018-04-07 11:59 | DCINST_ITS ---
- Discharge Diagnoses Current Active Problems: Current Active and Chronic Problems UTI (urinary tract infection) (Acute) BPV (benign positional vertigo) (Acute) N&V (nausea and vomiting) (Acute) Diarrhea (Acute) Dizziness (Acute) You will use the following diet at home:: No restrictions Allergies/Adverse Reactions: Allergies No Known Allergies Allergy (Verified 04/04/18 20:21) Medications to take at Discharge Citalopram [Celexa] 20 mg PO DAILY 04/04/18 Ensure Clear 120 ml PO 4X/DAY liquid 04/07/18 Meclizine HCl [Antivert] 25 mg PO TID PRN PRN #30 tablet 04/07/18 Potassium Chloride [K-Dur] 20 meq PO BID #30 tablet 04/07/18 The following prescriptions were given: Meclizine HCl [Antivert] 25 mg PO TID PRN PRN #30 tablet PRN Reason: Vertigo Potassium Chloride [K-Dur] 20 meq PO BID #30 tablet Primary Care Physician: Stanton Altman MD [Primary Care Provider] - Please follow up with your Primary Care Physician in: in 5-7 days Test Results: Test results from this visit will be discussed in further detail at your follow- up appointment, if applicable. Proposed Discharge Date: 04/07/18
--- NOTE | 2018-04-07 11:59 | PCM.DC.SUM ---
Discharge Date and Diagnosis - Problem List Patient Problems: Active and Suspected Problems UTI (urinary tract infection) (Acute) BPV (benign positional vertigo) (Acute) N&V (nausea and vomiting) (Acute) Diarrhea (Acute) Dizziness (Acute) Date of Admission: 04/05/18 Date of Discharge: 04/07/18 - Primary Discharge Diagnosis Active and Suspected Problems UTI (urinary tract infection) (Acute) BPV (benign positional vertigo) (Acute) N&V (nausea and vomiting) (Acute) Diarrhea (Acute) Dizziness (Acute) Hospital Course and Treatment Summary of Care Provided: Patient is a 67-year-old lady who presented with acute vertiginous symptoms in addition to generalized weakness. Patient was found to have cystitis treated with antibiotic therapy. 1. Acute vertigo probably related to BPPV given persistent nature patient symptoms ordered MRI of the head and neck to rule out acute CVA the study was negative. Consultation was also placed to neurology patient was seen by Dr. Black. Consultation was also placed to physical therapy for vestibular therapy with plans for the vestibular therapy to continue as outpatient 2. Acute cystitis urine culture grew only mixed gram-positive organisms antibiotic therapy discontinued on 09/04/2017 3. Obesity with BMI of 31.4 4. Depression with anxiety patient is on SSRI 5. DVT prophylaxis SC Lovenox Patient Problems: Active and Suspected Problems UTI (urinary tract infection) (Acute) BPV (benign positional vertigo) (Acute) N&V (nausea and vomiting) (Acute) Diarrhea (Acute) Dizziness (Acute) - Physical Exam General: Alert, Oriented x3 HEENT: Atraumatic Oral: Moist Mucosa Lungs: Clear to auscultation Neurological: Neuro grossly intact Psych/Mental Status: Normal Affect Vital Signs Temp Pulse Resp BP Pulse Ox 98.3 F 75 16 124/71 H 97 04/07/18 08:14 04/07/18 08:14 04/07/18 08:14 04/07/18 08:14 04/07/18 08:14 Oxygen Delivery Method Room Air Weight: 84.4 kg Body Mass Index (BMI) 31.4 Intake and Output for Last 24 Hours 04/05/18 04/06/18 04/07/18 23:59 23:59 23:59 Intake Total 1212 / 1212 2281 / 2281 805 / 805 Output Total 800 / 800 1250 / 1250 Balance 412 / 412 1031 / 1031 805 / 805 Microbiology Past 72 Hours 04/04/18 23:05 Urine Culture - Final Urine, Clean Catch Mixed Gram Positive Organisms Laboratory Tests Past 24 Hrs 04/07/18 04/07/18 05:50 05:50 WBC 6.6 RBC 3.48 L Hgb 10.6 L Hct 32.7 L MCV 94.0 MCH 30.5 MCHC 32.4 RDW 13.2 RDW Differential 43.5 Plt Count 185 MPV 8.9 Sodium 145 Potassium 2.9 L Chloride 108 H Carbon Dioxide 29.0 Anion Gap 8 BUN 7 Creatinine 0.54 L Estim Creat Clear Calc 89.69 Est GFR (MDRD) Af Amer 146 Est GFR (MDRD) Non-Af 121 BUN/Creatinine Ratio 13.0 Glucose 106 Calcium 8.0 L Magnesium 1.7 Discharge Diet: No Restrictions Home Medications: Medications to take at Discharge Citalopram [Celexa] 20 mg PO DAILY 04/04/18 Ensure Clear 120 ml PO 4X/DAY liquid 04/07/18 Meclizine HCl [Antivert] 25 mg PO TID PRN PRN #30 tablet 04/07/18 Potassium Chloride [K-Dur] 20 meq PO BID #30 tablet 04/07/18 Following Prescrptions Were Given to Patient: Meclizine HCl [Antivert] 25 mg PO TID PRN PRN #30 tablet PRN Reason: Vertigo Potassium Chloride [K-Dur] 20 meq PO BID #30 tablet Primary Care Physician: Stanton Altman MD [Primary Care Provider] - Please follow up with your Primary Care Physician in: in 5-7 days Disposition: Home Minutes spent on discharge:: 35 Patient Condition:: Stable Medical Necessity - Tobacco Use Smoking Status: Former smoker Tobacco Use: Non-smoker Meaningful Use Info Meaningful Use Diagnoses (Choose all that apply): None applicable Code Visit OBSV E&M: 56539 Observation care discharge
[2018-04-07 14:36] VITALS: BP 118/76; PULSE 75; RESP 16; TEMP 37.3; O2SAT 96
--- NOTE | 2018-04-07 15:41 | NURSING ---
Notified Jose A in lab that repeat K+ draw is to be at 1630; she verbalizes understanding.
--- NOTE | 2018-04-07 17:10 | NURSING ---
Nurse contacts lab (spoke with Charo) to inquire about 1630 K+ recheck. Per Charo, they are aware and will be drawing soon.
[2018-04-07 17:40] LABS: Potassium 3.7 mmol/L (3.5-5.1)
[2018-04-07 19:28] VITALS: BP 139/85; PULSE 90; RESP 18; TEMP 37.6; O2SAT 98
--- OUTSIDE RECORDS SUMMARY | 2018-07-08 12:30 | XMS RPT_ITS ---
:1950 Author Organization OHIP Care Team Providers Name Role Phone Paul Hopper Primary Care Unavailable Sariah, Beltran Admitting Unavailable KitОлег nicole Attending Unavailable Wayne, Kd S. Consulting Unavailable Sariah, Beltran Admitting Unavailable Sariah, Beltran Attending Unavailable Hopper, Paul Primary Care Unavailable Sariah, Beltran Consulting Unavailable Sariah, Beltran Admitting Unavailable Kittoe, Олег Attending Unavailable Hopper, Paul Primary Care Unavailable Wayne, Kd S. Consulting Unavailable Kitbonnie, Олег Consulting Unavailable Sariah, Beltran Admitting Unavailable Kittodarinel, Олег Attending Unavailable Hopper, Paul Primary Care Unavailable Wayne, Kd S. Consulting Unavailable KittoОлег tena Consulting Unavailable Kitbonnie, Олег Attending Unavailable Kittoe, Олег Referring Unavailable Hopper, Paul Primary Care Unavailable Christiano Vazquez Attending Unavailable Kittodarinel, Олег Referring Unavailable [facility] Employee Attending Unavailable Hopper, Paul Attending Unavailable Hopper, Paul Primary Care Unavailable Hopper, Paul Attending Unavailable Hopper, Paul Primary Care Unavailable Hopper, Paul Referring Unavailable PROBLEMS PROBLEMS DATE TYPE CONDITION / CODE ATTENDING STATUS SOURCE 05/06/2018 Unknown H81.10 - Benign Олег Denise Active [place] paroxysmal [facility] vertigo, Hospital unspecified ear / Repository H81.10(ICD-10) PROCEDURES PROCEDURES No Procedure Records FoundRESULTS RESULTS PT D/C SUMMARY (1) Observed: 05/07/2018 Status: F Source: [place] 11:41 AM [facility] REPOSITORY [facility] Physical Therapy [facility] [address] [place] [address] / REHABILITATION SERVICES DISCHARGE SUMMARY MR#: [id number] Acct: [id number] Name: NADIA TRENT Rep #: [id number] : 1950 67 From: Malik Lopez DPT, OCS, CSCS Referring Dr.: Олег Denise MD Status: REG RCR Insurance: AET[employer] MEDICARE PART A B HP - PT D/C Summary It has been my pleasure to treat NADIA TRENT under orders from Олег Denise MD, for the diagnosis of BPV for a total of 3 visit(s). Discharge Date: 05/06/18 Please see the following information for a summary of their discharge status. - Subjective Subjective: Doing a lot better. Doesnt bother me to move my head left adn right. Maybe a couple times felt unsteady but no spinning. Activities normal home. Sleeping normal. Work is normal. - Overall Improvement % Improvement: 100 - Objective Objective/Function: No dizzyness with turns or VOR or positional testing today. Balance is good. - Goals Goal 1:: Abolish vertigenous feeling and feel 100% back to normal Goal Progress: Goal Met Goal 2:: FGA to diminish unsteadiness. Goal Progress: Goal Met - Plan Plan: D/C - D/C Information Discharge Comments: Dizzyness abolished adn will contact doctor if it returns. If there are questions or concerns regarding this patient's physical therapy, please feel free to call me at [phone]. Thank you for the referral of this patient. Sincerely, Malik Lopez DPT, OCS, CSCS <Electronically signed by Malik Lopez DPT, TODD, CSCS> 05/07/18 1141 CC: Олег Denise MD; Paul Hopper MD EBG Signed INITAL EVALUATION (1) Observed: 04/23/2018 Status: F Source: [facility] 9:25 AM [facility] Physical [facility] [address] [place] [address] [address] [place] [address] / REHABILITATION SERVICES INITIAL EVALUATION MR#: [id number] Acct: [id number] Name: NADIA TRENT Rep #: [id number] : 1950 67 From: Malik Lopez DPT, OCS, CSCS Referring Dr.: Олег Denise MD Status: REG RCR Insurance: AETNA MEDICARE PART A B Patient's Visit Information NADIA TRENT is a 67 year old F referred to Physical Therapy by Олег Denise MD with a diagnosis of BPV. Date of Evaluation: 04/22/18 Physical Therapist: Malik John, DPT, OCS, CSCS - Visit Plan Frequency: 1-2x /Week Duration: 2-4 Weeks Plan: 1-2x/week for 2-4 as needed for positional treatements and ex adn testing. Balance as needed. - Subjective Findings: Room was spinning last Friday night 2 weeks ago.. Worked the night before and felt a little dizzy. Went to ER as she was vomitting and given antivert adn anti nausea meds. Did a scan of head and heart tests which were OK. In hospital two days. Went home and daughter helped her get home as she was in pain from lying still. Since then has just felt off. Used mom's cane as she felt unsteady. Currently doesn't feel perfect but does not require AD. Doesn't feel stable. When head moves it throws her off for short time. Sleeping OK. 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 Not voerly active at home. feels wierd. - Objective c/s AROM WFL and without pain today. - B hallpike gay. + L roll test (geotropic)(10 sec) treated wtih BBQ roll. Walked safe and I on firm flat surface. - Balance Scores Functional Gait Assessment Score: 24 % Disability: 20.0000 CATSIB Score (Max score 120 seconds): 92 - Goals Goal 1:: Abolish vertigenous feeling and feel 100% back to normal Goal Time Frame: 2-4 Weeks Goal 2:: FGA 28/30 to diminish unsteadiness. Goal Time Frame: 2-4 Weeks - Rehabilitation Potential Physical Therapy Diagnosis: Positional vertigo, likely horizontal canal Rehabilitation Potential: Fair - Anticipated Interventions Patient/Client Instruction: Educate patient on: Condition, Plan of Care For the Purpose of:: To increase tolerance to activity/condition/position, To improve balance Therapeutic Exercise to Include: Balance training Comment: positional treatments For the Purpose of:: To increase tolerance to activity/condition/position Thank you for the opportunity to evaluate your patient. For Medicare and Medicare HMO plans, please review the plan of care and approve it. It will need to be FAXED BACK to us at [phone] for Medicare purposes. For Medicare only, by signing this I certify the plan of care. Please let me know if there are questions or concerns regarding this plan of care. Physician Signature: Date: <Electronically signed by Malik Lopez DPT, OCS, CSCS> 04/23/18 0943 CC: Олег Denise MD; Paul Hopper MD EBG Signed 12 LEAD ELECTROCARDIOGRAM Observed: 04/08/2018 Status: F Source: [place] 3:30 PM [facility] REPOSITORY [facility] Cardiovascular Services [address] [place] [address] 12 Lead EKG 04/04/182131 MR#: [id number] Acct: [id number] Name: NADIA TRENT Rep #: [id number] : 1950 67 From: Christiano Vazquez MD Attending Dr: Олег Denise MD Status: DIS HAN Ordering Dr: Janet Palmer MD Date: 04/04/18 Location: [facility] Sex: F C Admitted: 04/05/18 Test Reason : VOMITING Blood Pressure : / mmHG Vent. Rate : 060 BPM Atrial Rate : 060 BPM P-R Int : 160 ms QRS Dur : 072 ms QT Int : 438 ms P-R-T Axes : 037 -12 017 degrees QTc Int : 438 ms Normal sinus rhythm Possible Left atrial enlargement Borderline ECG Confirmed by PRSELEY BARLOW, CHRISTIANO ([id number]), editor city CECIL HOPPER ([id number]) on 04/08/2018 3:30:20 PM Referred By: ROSELYN Confirmed By:CHRISTIANO VAZQUEZ MD 04/08/18 1530 Date Christiano Vazquez MD CC: Janet Palmer MD; Олег Denise MD; Paul Hopper MD Signed POTASSIUM Collected: 04/07/2018 Status: F Source: [place] 5:05 PM [facility] REPOSITORY Order Comment: TIME CHANGED DUE TO INFUSION TYPE CODE TESTS RESULT OUT OF RANGE REFERENCE UNITS LAB L501.5600 3.5-5.1 mmol/L Normal K 3.7 Performed By: #### L501.5600 #### [facility] Laboratory [address] [place], [address] DISCHARGE SUMMARY Observed: 04/07/2018 Status: F Source: [place] 3:22 PM [facility] REPOSITORY [facility] Medical Records Department [address] [place] [address] Discharge Summary 04/07/18 1159 MR#: [id number] Acct: [id number] Name: NADIA TRENT Rep #: [id number] : 1950 67 From: Олег Denise MD PCP: Paul Hopper MD Status: ADM HAN Y Location: [place] [address] Discharge Date and Diagnosis - Problem List Patient Problems: Active and Suspected Problems UTI (urinary tract infection) (Acute) BPV (benign positional vertigo) (Acute) N AND V (nausea and vomiting) (Acute) Diarrhea (Acute) Dizziness (Acute) Date of Admission: 04/05/18 Date of Discharge: 04/07/18 - Primary Discharge Diagnosis Active and Suspected Problems UTI (urinary tract infection) (Acute) BPV (benign positional vertigo) (Acute) N AND V (nausea and vomiting) (Acute) Diarrhea (Acute) Dizziness (Acute) Hospital Course and Treatment Summary of Care Provided: Patient is a 67-year-old lady who presented with acute vertiginous symptoms in addition to generalized weakness. Patient was found to have cystitis treated with antibiotic therapy. 1. Acute vertigo probably related to BPPV given persistent nature patient symptoms ordered MRI of the head and neck to rule out acute CVA the study was negative. Consultation was also placed to neurology patient was seen by Dr. Black. Consultation was also placed to physical therapy for vestibular therapy with plans for the vestibular therapy to continue as outpatient 2. Acute cystitis urine culture grew only mixed gram-positive organisms antibiotic therapy discontinued on 09/04/2017 3. Obesity with BMI of 31.4 4. Depression with anxiety patient is on SSRI 5. DVT prophylaxis SC Lovenox Patient Problems: Active and Suspected Problems UTI (urinary tract infection) (Acute) BPV (benign positional vertigo) (Acute) N AND V (nausea and vomiting) (Acute) Diarrhea (Acute) Dizziness (Acute) - Physical Exam General: Alert, Oriented x3 HEENT: Atraumatic Oral: Moist Mucosa Lungs: Clear to auscultation Neurological: Neuro grossly intact Psych/Mental Status: Normal Affect Vital Signs Temp Pulse Resp BP Pulse Ox 98.3 F 75 16 124/71 H 97 04/07/18 08:14 04/07/18 08:14 04/07/18 08:14 04/07/18 08:14 04/07/18 08:14 Oxygen Delivery Method Room Air Weight: 84.4 kg Body Mass Index (BMI) 31.4 Intake and Output for Last 24 Hours Intake Total 1212 / 1212 2281 / 2281 805 / 805 Output Total 800 / 800 1250 / 1250 Balance 412 / 412 1031 / 1031 805 / 805 Microbiology Past 72 Hours 04/04/18 23:05 Urine Culture - Final Urine, Clean Catch Mixed Gram Positive Organisms Laboratory Tests Past 24 Hrs WBC 6.6 RBC 3.48 L Hgb 10.6 L Hct 32.7 L MCV 94.0 Discharge Diet: No Restrictions Home Medications: Medications to take at Discharge Citalopram [Celexa] 20 mg PO DAILY 04/04/18 Ensure Clear 120 ml PO 4X/DAY liquid 04/07/18 Meclizine HCl [Antivert] 25 mg PO TID PRN PRN #30 tablet 04/07/18 Potassium Chloride [K-Dur] 20 meq PO BID #30 tablet 04/07/18 Following Prescrptions Were Given to Patient: Meclizine HCl [Antivert] 25 mg PO TID PRN PRN #30 tablet PRN Reason: Vertigo Potassium Chloride [K-Dur] 20 meq PO BID #30 tablet Primary Care Physician: Paul Hopper MD [Primary Care Provider] - Please follow up with your Primary Care Physician in: in 5- 7 days Disposition: Home Minutes spent on discharge:: 35 Patient Condition:: Stable Medical Necessity - Tobacco Use Smoking Status: Former smoker Tobacco Use: Non-smoker Meaningful Use Info Meaningful Use Diagnoses (Choose all that apply): None applicable Code Visit OBSV E AND M: 33786 Observation care discharge 04/07/18 0115 <Electronically signed by Олег Denise MD> Date Олег Denise MD Cosigner Signature (if applicable): Date CC: Олег Denise MD; Paul Hopper MD Signed CONSULTATION Observed: 04/07/2018 Status: F Source: [place] 1:03 PM [facility] REPOSITORY [facility] Medical Records Department [address] [place] [address] Consultation 04/06/18 1340 MR#: [id number] Acct: [id number] Name: NADIA TRENT Rep #: [id number] : 1950 67 From: Kd Black MD PCP: Paul Hopper MD Status: ADM HAN Y Location: [place] [address]463-1 Problem List (1) Dizziness Status: Acute Reason for Consult Date of Consultation: 04/06/18 Reason for Consultation: Dizziness History of Present Illness: The patient is a 67 year old CF with PMH Depression, ho macular degeneration admitted with dizziness and vomiting, diarrhea. Neurology consulted for dizziness, Per patient she started having dizziness about 3 days ago, she felt the whole room was spinning, had nausea and vomiting, denies any focal motor weakness, visual disturbances, speech disturbances, or sensory loss. denies any ARREOLA. Lives alone, does drive, denies any falls, and does not need any assistance for her ADLs per patient. Denies any ear ache, tinnitus or ear discharge. 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 Lives: Alone Smoking Status: Former smoker Tobacco Use: Non-smoker Alcohol: None Drugs: None - *Family History Maternal History Items: No pertinent history Review of Systems Constitutional: Reports: - - complete ROS negative except as documented in HPI Patient Problems: Active and Suspected Problems UTI (urinary tract infection) (Acute) BPV (benign positional vertigo) (Acute) N AND V (nausea and vomiting) (Acute) Diarrhea (Acute) Dizziness (Acute) - Physical Exam General: Alert HEENT: Normocephalic Neck: Supple Lungs: Normal air movement Cardiovascular: Normal S1, Normal S2 Abdomen: Bowel Sounds Present Extremities: No cyanosis Neurological: - - consious, alert, CN 2-12 grossly intact, power 5/5 all 4 extremities, no sensory loss, no cerebellar signs, Reflexes + B/L B/S/T/K/A, gait deferred Vital Signs Temp Pulse Resp BP Pulse Ox 98.5 F 65 16 117/70 94 04/06/18 11:49 04/06/18 11:49 04/06/18 11:49 04/06/18 11:49 04/06/18 11:49 Oxygen Delivery Method Room Air Weight: 84.4 kg Body Mass Index (BMI) 31.4 Intake and Output for Last 24 Hours Intake Total 1212 / 1212 724 / 724 Output Total 800 / 800 550 / 550 Balance 412 / 412 174 / 174 Microbiology Past 72 Hours 04/04/18 23:05 Urine Culture - Final Urine, Clean Catch Mixed Gram Positive Organisms Assessment/Plan All Active Problems UTI (urinary tract infection) (Acute) BPV (benign positional vertigo) (Acute) N AND V (nausea and vomiting) (Acute) Diarrhea (Acute) Dizziness (Acute) The patient is a 67 year old CF with PMH Depression, h/o macular degeneration admitted with dizziness and vomiting, diarrhea. Neurology consulted for dizziness, Per patient she started having dizziness about 3 days ago, she felt the whole room was spinning, had nausea and vomiting, denies any focal motor weakness, visual disturbances, speech disturbances, or sensory loss. denies any ARREOLA. Lives alone, does drive, denies any falls, and does not need any assistance for her ADLs per patient. Denies any ear ache, tinnitus or ear discharge.Denies any neck pain. Per patient dizziness gets worse when she moves her head. Impression Dizziness-likely peripheral etiology Plan -MRI brain and MRA head/neck -Vestibular therapy -ENT referral -Check TTE -Fall precautions -GI/DVT prophylaxis -Please call with questions if any -Thank you for allowing us to participate in patient's care and management Code Visit Inpatient E AND M: 10540 Init Hosp L3 04/07/18 1303 <Electronically signed by Kd Black MD> Date Kd Black MD Cosigner Signature (if applicable): Date CC: Darren Black MD; Paul Hopper MD Signed DISCHARGE INSTRUCTION Observed: 04/07/2018 Status: F Source: [place] 11:59 AM [facility] REPOSITORY [facility] Medical Records Department [address] [place] [address] Instructions for Home/Discharge Instructions 04/07/18 1157 MR#: [id number] Acct: [id number] Name: NADIA TRENT Rep #: [id number] : 1950 67 From: Олег Denise MD PCP: Paul Hopper MD Status: ADM HAN - Discharge Diagnoses Current Active Problems: Current Active and Chronic Problems UTI (urinary tract infection) (Acute) BPV (benign positional vertigo) (Acute) N AND V (nausea and vomiting) (Acute) Diarrhea (Acute) Dizziness (Acute) You will use the following diet at home:: No restrictions Allergies/Adverse Reactions: Allergies No Known Allergies Allergy (Verified 04/04/18 20:21) Medications to take at Discharge Citalopram [Celexa] 20 mg PO DAILY 04/04/18 Ensure Clear 120 ml PO 4X/DAY liquid 04/07/18 Meclizine HCl [Antivert] 25 mg PO TID PRN PRN #30 tablet 04/07/18 Potassium Chloride [K-Dur] 20 meq PO BID #30 tablet 04/07/18 The following prescriptions were given: Meclizine HCl [Antivert] 25 mg PO TID PRN PRN #30 tablet PRN Reason: Vertigo Potassium Chloride [K-Dur] 20 meq PO BID #30 tablet Primary Care Physician: Paul Hopper MD [Primary Care Provider] - Please follow up with your Primary Care Physician in: in 5- 7 days Test Results: Test results from this visit will be discussed in further detail at your follow-up appointment, if applicable. Proposed Discharge Date: 04/07/18 04/07/18 1159 <Electronically signed by Олег Denise MD> Date Олег Denise MD CC: Darren Black MD; Paul Hopper MD ECHOCARDIOGRAM COMPLETE Observed: 04/07/2018 Status: F Source: [place] 10:39 AM [facility] REPOSITORY [facility] Cardiovascular Services [address] [place] [address] Echo Complete 04/07/18 0904 MR#: [id number] Acct: [id number] Name: NADIA TRENT Rep #: [id number] : 1950 67 From: Christiano Vazquez MD Attending Dr: Олег Denise MD Status: ADM HAN Ordering Dr: Олег Denise MD Date: 04/06/18 Location: [facility] Sex: F C Admitted: 04/05/18 Reason For Study: TIA/CVA Procedure This was a 2D Doppler, Color Flow transthoracic echocardiogram. Exam performed portable in patient room. Left Ventricle Normal LV size. Left ventricular systolic function is normal. The estimated ejection fraction is 65 %. Normal diastology for age. No regional wall motion abnormalities noted. Right Ventricle Normal RV size. Normal systolic function. Atria Normal left atrium. Normal right atrium. Bubble contrast study negative for right to left interatrial shunt. Mitral Valve Normal mitral valve. Tricuspid Valve Normal tricuspid valve. Mild (1+) tricuspid valve insufficiency. Right ventricular systolic pressure estimated to be 33 mmHg. Aortic Valve The aortic valve is not well visualized. Pulmonic Valve The pulmonic valve is not well visualized. Great Vessels Normal aortic root. The pulmonary artery is normal size. Pericardium/Pleural Small pericardial effusion. Medication Performed a rapid injection of agitated mix of 9 cc saline and 1cc air to assess for atrial septal defect. MMode/2D Measurements AND Calculations LVIDd: 4.7 cm IVSd: 0.86 cm Ao root diam: 3.2 cm LVIDs: 3.1 cm LVPWd: 0.79 cm RVDd: 3.9 cm FS: 34.3 % LAV(MOD-bp): 44.4 ml LVAd ap4: 27.2 cm2 SV(MOD-sp4): 55.7 ml LAV(MOD-bp) Indexed: 23.4 ml/m2 EDV(MOD-sp4): 83.3 ml LAV(MOD-sp2): 51.6 ml EDV(sp4-el): 87.5 ml LAV(MOD-sp4): 36.6 ml LVAs ap4: 13.6 cm2 ESV(MOD-sp4): 27.6 ml ESV(sp4-el): 27.5 ml EF(MOD-sp4): 66.9 % EF(sp4-el): 68.5 % SV(sp4-el): 60.0 ml LA A4 area: 17.3 cm2 LA dimension(2D): 3.2 cm RA A4 area: 19.8 cm2 Time Measurements MV dec time: 0.18 sec Doppler Measurements AND Calculations MV E max tommy: 123.0 cm/sec Lat Peak E' Tommy: 14.3 cm/sec Med Peak E' Tommy: 14.4 cm/sec MV A max tommy: 96.1 cm/sec E/E' lat: 8.6 E/E' med: 8.5 MV E/A: 1.3 Ao V2 max: 176.5 cm/sec LV V1 max: 130.9 cm/sec PA V2 max: 109.1 cm/sec Ao max P.5 mmHg LV V1 max P.9 mmHg TR max tommy: 289.1 cm/sec TR max P.4 mmHg Interpretation Summary Normal LV size. Left ventricular systolic function is normal. The estimated ejection fraction is 65 %. Normal diastology for age. Bubble contrast study negative for right to left interatrial shunt. Small pericardial effusion. Mild (1+) tricuspid valve insufficiency. Ordering Physician: Олег Denise Referring Physician: PAUL HOPPER Performed By: Diana Sotelo RDCS 04/07/18 1038 Date Christiano Vazquez MD CC: Олег Denise MD; Paul Hopper MD Date Dictated: 04/07/18 0904 Date Transcribed: 04/07/18 1038 Community Organization Worker: Signed CBC-COMPLETE BLOOD CNT Collected: 04/07/2018 Status: F Source: [place] NO DIFF 5:50 AM [facility] REPOSITORY TYPE CODE TESTS RESULT OUT OF RANGE REFERENCE UNITS LAB L100.1000 4.4-11.0 K/mm3 Normal WBC 6.6 LAB L100.1200 4.2-5.4 M/mm3 Low RBC 3.48 LAB L100.1300 12.0-15.0 g/dl Low HGB 10.6 LAB L100.1400 37-47 % Low HCT 32.7 LAB L100.1500 81-99 fL Normal MCV 94.0 LAB L100.1600 27.0-32.0 pg Normal MCH 30.5 LAB L100.1700 32-36 g/gl Normal MCHC 32.4 LAB L100.1810 11.6-14.6 % Normal RDW CV 13.2 LAB L100.1820 35.1-43.9 fl Normal RDW SD 43.5 LAB L100.1900 150-450 K/mm3 Normal PLT 185 LAB L100.2000 6.2-12.0 fl Normal MPV 8.9 Performed By: #### L100.0500 #### [facility] [address] [place], [address] BASIC METABOLIC Collected: 04/07/2018 Status: F Source: [place] PROFILE (BMP) 5:50 AM [facility] REPOSITORY TYPE CODE TESTS RESULT OUT OF RANGE REFERENCE UNITS LAB L501.0100 74-106 mg/dL Normal GLU 106 Result Comment: Fasting Glucose result from 100 to 125 mg/dL suggests IMPAIRED HOMEOSTASIS per A.D.A. criteria. Please note revised GLUCOSE reference range effective 2017. LAB L501.1000 7-18 mg/dL Normal BUN 7 LAB L501.1100 0.55-1.02 mg/dL Low CREAT,SERUM 0.54 Result Comment: The validity of the calculated GFR AND GFRAA in patients over 70 years has not been determined. Clinical correlation is essential. LAB L501.1110 >60 mL/min Normal EST GFR 121 Result Comment: Non- GFR Calc LAB L501.1115 >60 mL/min Normal EST GFR - AA 146 Result Comment: GFR Calc LAB L501.1255 ml/min Normal Estimated CRCL 89.69 LAB L501.1300 10-20 RATIO Normal BUN/CRE 13.0 LAB L501.2200 8.5-10 mg/dL Low .1 CA 8.0 LAB L501.5300 136-14 mmol/L Normal 5 NA 145 LAB L501.5600 3.5-5. mmol/L Low 1 K 2.9 LAB L501.5900 98-107 mmol/L High CL 108 LAB L501.6100 21.0-3 mmol/L Normal 2.0 CO2 29.0 LAB L501.6200 5-15 Normal GAP 8 Performed By: #### L500.2500, L501.5200 #### [facility] [address] [place], [address] MAGNESIUM Collected: 04/07/2018 Status: F Source: [place] 5:50 AM [facility] REPOSITORY TYPE CODE TESTS RESULT OUT OF RANGE REFERENCE UNITS LAB L501.5200 1.6-2.6 mg/dL Normal MG 1.7 Performed By: #### L500.2500, L501.5200 #### [facility] [address] [place], [address] MRA HEAD ONLY WITHOUT Observed: 04/06/2018 Status: F Source: [place] CONTRAST 12:11 PM [facility] REPOSITORY [facility] Imaging Services [address] [place] [address] MRA Head ONLY without Contrast MR#: [id number] Acct: [id number] Name: NADIA TRENT Rep #: [id number] : 1950 F 67 From: Dieudonne Vizcaino MD PCP: Paul Hopper MD Status: ADM HAN Study: MRA Head ONLY without Contrast Date of Exam: 04/06/18 Exam# [id number] Ordering Dr: Kd Black MD STUDY: MRA OF THE HEAD WITHOUT CONTRAST REASON FOR EXAM: Female, 67 years old. Vertigo. Nausea and dizziness x3 days. TECHNIQUE: 3-D izgh-xa-qlilgb (TOF) imaging was performed with MIPs. The study was performed unenhanced. COMPARISON: None. FINDINGS: Normal bilateral petrous carotid arteries. Normal right cavernous carotid artery with a normal supraclinoid bifurcation. Normal left cavernous carotid artery with a normal supraclinoid bifurcation. Normal right A1 segments of the anterior cerebral artery. Normal left A1 segments of the anterior cerebral artery. Normal intact anterior communicating artery (ACOM). Normal bilateral A2 segments of the anterior cerebral arteries. Normal right M1 and M2 segments of the middle cerebral arteries, with a normal M1 bifurcation. Normal left M1 and M2 segments of the middle cerebral arteries, with a normal M1 bifurcation. No visible right posterior communicating artery (PCOM). origin of the left BRIQUETTE OPERATOR off the left internal carotid artery rather than a widely patent left posterior communicating artery (PCOM). Normal bilateral vertebral arteries. Normal basilar artery with a normal basilar bifurcation. The visualized bilateral superior cerebellar (SCA) arteries are normal. 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 Normal right P1 segment. Normal bilateral P2 and visualized P3 segments of both posterior cerebral arteries. There is no demonstrated aneurysm of the [place]. There is no major vessel occlusion or hemodynamically significant stenosis. MRI/MRA Head ONLY without Contrast IMPRESSION: Normal MRA of the head Electronically Signed: Dieudonne Vizcaino MD at 13:56 EST , Service support , CC: Darren Black MD; Paul Hopper MD Community Organization Worker: Signed MRA NECK WITH AND W/O Observed: 04/06/2018 Status: F Source: [place] CONTRAST 12:11 PM [facility] REPOSITORY [facility] Imaging [facility] [address] [place] [address] MRA Neck WITH and W/O Contrast MR#: [id number] Acct: [id number] Name: NADIA TRENT Rep #: [id number] : 1950 F 67 From: Dieudonne Vizcaino MD PCP: Paul Hopper MD Status: ADM HAN Study: MRA Neck WITH and W/O Contrast Date of Exam: 04/06/18 Exam# [id number] Ordering Dr: Kd Black MD STUDY: MRA NECK WITH AND WITHOUT CONTRAST REASON FOR EXAM: Female, 67 years old. Vertigo. Nausea and dizziness x3 days. TECHNIQUE: 3-D qntv-cd-gccfod (TOF) imaging was performed in an 1.5 T MRI scanner. 8 ml of Gadavist was administered for the contrast enhanced images. COMPARISON: None. FINDINGS: RIGHT CAROTID ARTERIES: Normal right common carotid artery (CCA). Normal right internal carotid bulb. Normal origin of the right internal carotid (ICA) artery without a hemodynamically significant stenosis. Normal visualized cervical portion of the right internal carotid artery. Normal origin of the right external carotid artery (ECA). LEFT CAROTID ARTERIES: Normal left common carotid artery (CCA). Normal left internal carotid bulb. Normal origin of the left internal carotid (ICA) artery without a hemodynamically significant stenosis. Normal visualized cervical portion of the left internal carotid artery. Normal origin of the left external carotid artery (ECA). VERTEBRAL ARTERIES: Normal antegrade flow within the bilateral vertebral artery without a hemodynamically significant stenosis. AORTIC ARCH: Widely patent aortic arch and origins of the great vessels. The right vertebral artery is mildly hypoplastic. MRI/MRA Neck WITH and W/O Contrast IMPRESSION: 1. Normal MRA of the bilateral common carotid arteries, bilateral, common carotid bifurcations and bilateral internal carotid arteries. 2. Normal MRA of the vertebral arteries, right is hypoplastic. 3. Normal aortic arch and origins of the great vessels. Electronically Signed: Dieudonne Vizcaino MD at 13:58 EST , Service support , CC: Darren Black MD; Paul Hopper MD Community Organization Worker: Signed BRAIN WITHOUT Observed: 04/06/2018 Status: F Source: [place] CONTRAST 10:17 AM [facility] REPOSITORY [facility] Imaging Services [address] [place] [address] Brain without Contrast MR#: [id number] Acct: [id number] Name: NADIA TRENT Rep #: [id number] : 1950 F 67 From: Dieudonne Vizcaino MD PCP: Paul Hopper MD Status: ADM HAN Study: Brain without Contrast Date of Exam: 04/06/18 Exam# [id number] Ordering Dr: Олег Denise MD STUDY: MRI BRAIN WITHOUT CONTRAST REASON FOR EXAM: Female, 67 years old. Nausea and dizziness x3 days. TECHNIQUE: Standardized multiplanar fat and water weighted pulse sequences were obtained. COMPARISON: None. FINDINGS: No restricted diffusion to suspect acute or subacute ischemic infarct. No remote cortical base ischemic infarct. No midline shift and no mass effects. Normal size of the ventricles and extra-axial spaces for the patient's age. Nonspecific solitary subcortical white matter T2 FLAIR hyperintensity focus in the left frontal operculum (series 7, image 14). The remaining white matter is normal. Normal bilateral basal ganglia. Normal thalami. There is no extra-axial fluid accumulation. Normal flow voids within the major intracranial circulation suggesting patency by spin echo criteria. Normal sella turcica, pituitary gland, infundibular stalk, optic chiasm and hypothalamus. Normal tectal plate and pineal gland. Normal midbrain, woody and medulla. Normal cerebellum. Normal basal cisterns. Normal bilateral temporal bones. Normal bilateral internal auditory canals. No demonstrated orbital abnormality, within the constraints of a routine brain study. Normal visualized paranasal sinuses. Normal calvarium and skull base. Normal visualized soft tissue structures. Normal visualized upper cervical spine. MRI/Brain without Contrast IMPRESSION: 1. No MRI evidence of acute or subacute ischemic infarct. 2. No MRI evidence of remote cortical-based ischemic infarct. 3. Small solitary nonspecific T2 FLAIR hyperintensity focus in the left frontal operculum subcortical white matter may represent gliosis from remote injury. Electronically Signed: Dieudonne Vizcaino MD at 13:54 EST , Service support , CC: Олег Denise MD; Paul Hopper MD Community Organization Worker: Signed CBC W/DIFF, AUTOMATED Collected: 04/05/2018 Status: F Source: [place] 6:25 AM [facility] REPOSITORY TYPE CODE TESTS RESULT OUT OF RANGE REFERENCE UNITS LAB L100.1000 4.4-11.0 K/mm3 Normal WBC 7.9 LAB L100.1200 4.2-5.4 M/mm3 Low RBC 4.18 LAB L100.1300 12.0-15.0 g/dl Normal HGB 12.7 LAB L100.1400 37-47 % Normal HCT 39.1 LAB L100.1500 81-99 fL Normal MCV 93.5 LAB L100.1600 27.0-32.0 pg Normal MCH 30.4 LAB L100.1700 32-36 g/gl Normal MCHC 32.5 LAB L100.1810 11.6-14.6 % Normal RDW CV 13.3 LAB L100.1820 35.1-43.9 fl High RDW SD 44.2 LAB L100.1900 150-450 K/mm3 Normal PLT 227 LAB L100.2000 6.2-12.0 fl Normal MPV 9.0 LAB L100.2100 47-70 % High NEUT% 77.2 LAB L100.2200 19-41 % Low LY% 16.3 LAB L100.2300 0-10 % Normal MONO% 5.8 LAB L100.2400 0-5 % Normal EO% 0.3 LAB L100.2500 0-1 % Normal BASO% 0.1 LAB L100.2550 0.0-0.9 % Normal IM GRAN % 0.300 Result Comment: IG% - Immature Granulocytes (promyelocytes, myelocytes and metamyelocytes) > 1% indicates that a LEFT SHIFT is Present. LAB L100.2620 2.0-7.7 X10 3/uL Normal Absolute Neut 6.1 LAB L100.2720 0.83-4.51 X10 3/ul Normal Absolute Lymph 1.29 Performed By: #### L100.0100 #### [facility] [address] [place], [address] BASIC METABOLIC Collected: 04/05/2018 Status: F Source: [place] PROFILE (BMP) 6:25 AM [facility] REPOSITORY TYPE CODE TESTS RESULT OUT OF RANGE REFERENCE UNITS LAB L501.0100 74-106 mg/dL High GLU 124 Result Comment: Fasting Glucose result from 100 to 125 mg/dL suggests IMPAIRED HOMEOSTASIS per A.D.A. criteria. Please note revised GLUCOSE reference range effective 2017. LAB L501.1000 7-18 mg/dL Normal BUN 9 LAB L501.1100 0.55-1.02 mg/dL Normal CREAT,SERUM 0.56 Result Comment: The validity of the calculated GFR AND GFRAA in patients over 70 years has not been determined. Clinical correlation is essential. LAB L501.1110 >60 mL/min Normal EST GFR 117 Result Comment: Non- GFR Calc LAB L501.1115 >60 mL/min Normal EST GFR - AA 141 Result Comment: GFR Calc LAB L501.1255 ml/min Normal Estimated CRCL 86.49 LAB L501.1300 10-20 RATIO Normal BUN/CRE 16.2 LAB L501.2200 8.5-10 mg/dL Normal .1 CA 8.5 LAB L501.5300 136-14 mmol/L Normal 5 NA 145 LAB L501.5600 3.5-5. mmol/L Normal 1 K 3.7 LAB L501.5900 98-107 mmol/L High CL 111 LAB L501.6100 21.0-3 mmol/L Normal 2.0 CO2 26.0 LAB L501.6200 5-15 Normal GAP 8 Performed By: #### L500.2500 #### [facility] [address] [place], [address] HISTORY AND PHYSICAL Observed: 04/05/2018 Status: F Source: [place] EXAM 4:41 AM [facility] REPOSITORY [facility] Medical Records Department [address] [place] [address] History and Physical 04/05/18 0429 MR#: [id number] Acct: [id number] Name: NADIA TRENT Rep #: [id number] : 1950 67 From: Beltran Rolle MD PCP: Paul Hopper MD Status: ADM HAN Y Location: [facility] AI176-3 Problem List (1) UTI (urinary tract infection) Status: Acute (2) BPV (benign positional vertigo) Status: Acute (3) N AND V (nausea and vomiting) Status: Acute (4) Diarrhea Status: Acute History of Present Illness Date of Admission: 04/05/18 Chief Complaint: Vertigo The patient is a 67 year old female w/ h/o depression is admitted for benign positional vertigo. She has been caring for her sick grandchildren and daughter. She developed sudden onset dizziness today. Dizziness is worse with the head turn to the right. Dizziness improves if she stays still without moving her head. Her vertigo improves after awhile. However, her vertigo is so severe when she moves that she is unable to walk. She also has 4-5 episodes of loose stool. She also has been nausea secondary to her dizziness. 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 Lives: Alone Smoking Status: Former smoker Tobacco Use: Non-smoker Alcohol: None Drugs: None - *Family History Maternal History Items: No pertinent history Review of Systems Constitutional: Denies: Chills, Fever, Weight Change HEENT: Denies: Head Aches, Sinus Congestion, Sinus Drainage Cardiovascular: Denies: Chest Pain, Palpitations Respiratory: Denies: Cough, Shortness of breath at rest, Sputum production Gastrointestinal: Reports: Diarrhea, Nausea, Vomiting. Denies: Abdominal Pain Genitourinary: Denies: Dysuria Musculoskeletal: Denies: Joint Pain, Joint Tenderness Skin: Denies: Rash, Wounds Neurological: Denies: Numbness, Tingling, Focal weakness Psychiatric: Denies: Anxiety, Depression, Homicidal Ideations, Suicidal Ideations Hematologic/ Lymphatic: Denies: Easy Bruising, Easy Bleeding VTE Information - Inpt Only VTE Present on Admission: No VTE Mechan Device Prophylaxis: SCD's VTE Pharm Prophylaxis ordered?: Yes Patient Problems: Active and Suspected Problems UTI (urinary tract infection) (Acute) BPV (benign positional vertigo) (Acute) N AND V (nausea and vomiting) (Acute) Diarrhea (Acute) - Physical Exam General: Alert, Oriented x3, Cooperative HEENT: Atraumatic, PERRLA, EOMI, Normocephalic, - - mixed torsional and vertical nystagmus Neck: Supple, No JVD, Negative Carotid Bruits Lungs: Clear to auscultation, Normal air movement Cardiovascular: Regular rate, No murmurs Abdomen: Bowel Sounds Present, Soft, Non Tender Extremities: No edema, Capillary Refill Less than 3 Seconds Skin: No rashes, No breakdown Musculoskeletal: No Tenderness to Palpation of Joints or Extremities Neurological: Cranial nerves II-XII grossly intact Psych/Mental Status: Normal Affect, Appropriate Vital Signs Temp Pulse Resp BP Pulse Ox 97.8 F 66 14 119/81 H 96 04/05/18 01:02 04/05/18 01:02 04/05/18 01:02 04/05/18 01:02 04/05/18 01:02 Oxygen Delivery Method Room Air Weight: 84.4 kg Body Mass Index (BMI) 31.4 Laboratory Tests Past 24 Hrs Assessment/Plan All Active Problems UTI (urinary tract infection) (Acute) BPV (benign positional vertigo) (Acute) N AND V (nausea and vomiting) (Acute) Diarrhea (Acute) 67 year old female w/ h/o depression is admitted for benign positional vertigo. 1) Benign positional vertigo: Probably triggered by viral symptoms and decrease PO intake. Mixed torsional and vertical nystagmus provoked with head movement. Vertigo is provoke with head movement to the right and is paroxysmal and decline over time. Reduction of vertigo noted when head is kept to the right. IVF hydration. Supportive care. 2) UTI: No dyuria. Will hydrate. Will start ceftriaxone. Awaiting cultures. 3) N/V: Probably viral etiology. No electrolytes abnormalities. Supportive care. 4) Diarrhea: Will get C.diff. Supportive care. Code Visit OBSV E AND M: 65011 Initial observation care L3 04/05/18 0441 <Electronically signed by Beltran Rolle MD> Date Beltran Rolle MD Cosigner Signature: Date (if applicable) CC: Paul Hopper MD; Beltran Rolle MD Signed EMERGENCY DEPARTMENT Observed: 04/05/2018 Status: F Source: [place] SUMMARY 12:08 AM [facility] REPOSITORY [facility] Medical Records Department [address] [place] [address] Emergency Department Summary 04/04/18 2118 MR#: [id number] Acct: [id number] Name: NADIA TRETN Rep #: [id number] : 1950 67 From: Janet Palmer MD PCP: Paul Hopper MD Status: REG ER - ER Visit Summary Date of Service: 04/04/18 Chief Complaint: Nausea, vomiting, diarrhea History of Present Illness: The patient is a 67 F presenting with nausea, vomiting, diarrhea. This started today. She has had 5 episodes of vomiting and 4 episodes of diarrhea today. No blood in her stool or emesis. Her grandchildren have been ill with vomiting. She has had no recent antibiotics. She denies possibility of bad food exposure. Denies fever. She complains of chills. She complains of lightheadedness with standing, denies syncope. She denies chest pain or shortness of breath. Denies abdominal pain. Denies other complaints. Physical Examination: Vitals are stable. Patient is afebrile. Alert no acute distress. HEENT exam is unremarkable. Neck is supple. Lungs are clear and equal bilaterally. Heart is regular rate and rhythm. Abdomen is soft nontender nondistended. No guarding or rebound. Extremities are unremarkable. Skin is warm and dry. No focal neurologic deficit. Remainder of exam is unremarkable. Emergency Department Course and Treatment: Patient given IV fluids, Zofran. EKG is sinus rate of 60 with no acute ischemic changes. Chest x-ray shows no acute process. CBC is unremarkable. Chemistries normal except for glucose 134. Liver lipase are normal. Urinalysis shows 25-50 white blood cells, 50-100 red blood cells. Troponin is negative. Urine culture was sent. She was given Rocephin IV. She continues to deny abdominal pain. With orthostatic vitals patient became very dizzy with standing and her heart rate increased. She was given additional IV fluids. She continues to be very dizzy with standing and does not feel that she can go home. Discussed with the hospitalist for observation. Disposition: Observation Impression: Vomiting, diarrhea, UTI, dehydration This note was generated with Tiltap dictation software. It may contain incorrect words, spelling, and punctuation that were not noted in review of the chart prior to signing ED Disposition - Plan for ED Patient: Chief Complaint: Nausea/Vomiting/Diarrhea Referrals: Paul Hopper MD [Primary Care Provider] - What to do if you have Problems For any increased pain, shortness of breath, bleeding, nausea or vomiting, chest pain, or any unexpected problems, contact your Primary Care Provider. Call [facility] ([phone]) or report to the closest Emergency Room. Call 911 if necessary. 04/05/18 0008 <Electronically signed by Janet Palmer MD> Date Janet Palmer MD Cosigner Signature (If Indicated): Date CC: Paul Hopper MD URINALYSIS, COMPLETE Collected: 04/04/2018 Status: F Source: [place] 11:05 PM [facility] REPOSITORY Order Comment: How was Urine Obtained? CLEAN CATCH TYPE CODE TESTS RESULT OUT OF RANGE REFERENCE UNITS LAB L400.3000 Yellow COLOR Normal Yellow LAB L400.3050 Clear Normal CLARITY Cloudy LAB L400.3200 Normal mg/dl Normal GLUCOSE, UR Normal LAB L400.3300 Negative mg/dL Normal BILIRUBIN URINE Negative LAB L400.3400 Negative mg/dl High 50 KETONE UR LAB L400.3465 1.002-1.030 Normal SP.GR. DIPSTX 1.015 LAB L400.3550 5.0 - 8.0 pH UR Normal 6.0 LAB L400.3600 Negative mg/dl High PROT 30 DIPSTX LAB L400.3700 Normal mg/dl Normal UROBILI Normal LAB L400.3750 Negative Normal NITRITE UR Negative LAB L400.3780 Negative /ul High OCCULT BLOOD-UR 250 LAB L400.3800 Negative /ul High LEUK ESTERASE 500 LAB L400.4050 0-5 /hpf WBC Normal 25-50 SEEN LAB L400.4100 0-5 /hpf Normal RBC-UA 50-100 SEEN LAB L400.4150 5-10 /hpf SQUAM Normal EPI 0-5 SEEN LAB L400.4300 None Seen /hpf 0 Normal BACTERIA SEEN LAB L400.4350 <or=2+ /hpf 2+ Normal MUCUS, URINE Performed By: #### L400.0001 #### [facility] [address] [place], [address] Observed: 04/04/2018 Status: F Source: [place] CULTURE, URINE 11:05 PM [facility] REPOSITORY Urine Culture ORGANISM 1: Mixed Gram Positive Organisms [place] Count 11,000-25,000 MIX CULTURE Mixed contaminants. Submit a new specimen if indicated. Performed By: #### M100.0650 #### [facility] [address] [place], [place], [address] CHEST 1 VIEW Observed: 04/04/2018 Status: F Source: [place] (PORTABLE) 9:23 PM [facility] REPOSITORY [facility] Imaging Services [address] [place] [address] Chest 1 View (Portable) MR#: [id number] Acct: [id number] Name: NADIA TRENT Rep #: [id number] : 1950 F 67 From: Vu Mccabe MD PCP: Paul Hopper MD Status: REG ER Study: Chest 1 View (Portable) Date of Exam: 04/04/18 Exam# [id number] Ordering Dr: Janet Palmer MD STUDY: X-RAY CHEST REASON FOR EXAM: Female, 67 years old. Nausea with vomiting and diarrhea TECHNIQUE: AP COMPARISON: None. FINDINGS: The lungs are clear and expanded. There is no demonstrated pleural abnormality. Normal size heart. Normal mediastinum and preeti. Normal visualized pulmonary arteries. Normal visualized aortic arch and descending thoracic aorta. Opacity with air-fluid level in the retrocardiac region likely represents a hiatal hernia. RAD/Chest 1 View (Portable) IMPRESSION: Nonacute portable x-ray examination of the chest. Probable hiatal hernia. Electronically Signed: Vu Mccabe MD at 21:37 EST , Service support , CC: Janet Palmer MD; Paul Hopper MD Community Organization Worker: Signed CBC W/DIFF, AUTOMATED Collected: 04/04/2018 Status: F Source: [place] 9:06 PM [facility] REPOSITORY TYPE CODE TESTS RESULT OUT OF RANGE REFERENCE UNITS LAB L100.1000 4.4-11.0 K/mm3 Normal WBC 8.4 LAB L100.1200 4.2-5.4 M/mm3 Normal RBC 4.30 LAB L100.1300 12.0-15.0 g/dl Normal HGB 13.1 LAB L100.1400 37-47 % Normal HCT 39.2 LAB L100.1500 81-99 fL Normal MCV 91.2 LAB L100.1600 27.0-32.0 pg Normal MCH 30.5 LAB L100.1700 32-36 g/gl Normal MCHC 33.4 LAB L100.1810 11.6-14.6 % Normal RDW CV 13.2 LAB L100.1820 35.1-43.9 fl Normal RDW SD 43.5 LAB L100.1900 150-450 K/mm3 Normal PLT 210 LAB L100.2000 6.2-12.0 fl Normal MPV 8.7 LAB L100.2100 47-70 % High NEUT% 81.0 LAB L100.2200 19-41 % Low LY% 13.2 LAB L100.2300 0-10 % Normal MONO% 5.0 LAB L100.2400 0-5 % Normal EO% 0.5 LAB L100.2500 0-1 % Normal BASO% 0.2 LAB L100.2550 0.0-0.9 % Normal IM GRAN % 0.100 Result Comment: IG% - Immature Granulocytes (promyelocytes, myelocytes and metamyelocytes) > 1% indicates that a LEFT SHIFT is Present. LAB L100.2620 2.0-7.7 X10 3/uL Normal Absolute Neut 6.8 LAB L100.2720 0.83-4.51 X10 3/ul Normal Absolute Lymph 1.11 Performed By: #### L100.0100 #### [facility] [address] [place], [address] BASIC METABOLIC Collected: 04/04/2018 Status: F Source: [place] PROFILE (BMP) 9:06 PM [facility] REPOSITORY TYPE CODE TESTS RESULT OUT OF RANGE REFERENCE UNITS LAB L501.0100 74-106 mg/dL High GLU 134 Result Comment: Fasting Glucose result greater than or equal to 126 mg/dL suggests DIABETES MELLITUS per A.D.A. criteria. Please note revised GLUCOSE reference range effective 2017. LAB L501.1000 7-18 mg/dL Normal BUN 12 LAB L501.1100 0.55-1.02 mg/dL Low CREAT,SERUM 0.50 Result Comment: The validity of the calculated GFR AND GFRAA in patients over 70 years has not been determined. Clinical correlation is essential. LAB L501.1110 >60 mL/min Normal EST GFR 130 Result Comment: Non- GFR Calc LAB L501.1115 >60 mL/min Normal EST GFR - AA 157 Result Comment: GFR Calc LAB L501.1255 ml/min Normal Estimated CRCL 96.86 LAB L501.1300 10-20 RATIO High BUN/CRE 23.8 LAB L501.2200 8.5-10 mg/dL Low .1 CA 8.1 LAB L501.5300 136-14 mmol/L Normal 5 NA 142 LAB L501.5600 3.5-5. mmol/L Normal 1 K 3.6 LAB L501.5900 98-107 mmol/L High CL 110 LAB L501.6100 21.0-3 mmol/L Normal 2.0 CO2 23.0 LAB L501.6200 5-15 Normal GAP 9 Performed By: #### L500.2500, L500.3400, L501.2450, L501.4010 #### [facility] [address] [place], [place], [id number] LIVER PROFILE Collected: 04/04/2018 Status: F Source: [place] 9:06 PM [facility] REPOSITORY TYPE CODE TESTS RESULT OUT OF RANGE REFERENCE UNITS LAB L501.1500 6.4-8.2 g/dL Normal T PROT 6.7 LAB L501.1800 3.2-5.0 g/dL Normal ALB 3.4 LAB L501.1950 2.2-4.2 g/dL Normal GLOB 3.3 LAB L501.4100 15-37 U/L Low AST 12 LAB L501.4305 45-117 U/L Normal ALK P 104 LAB L501.4405 13-56 U/L Normal ALT 15 LAB L501.4600 0.20-1.00 mg/dL Normal T BILI 0.40 LAB L501.4700 0.00-0.30 mg/dL Normal D BILI 0.14 Performed By: #### L500.2500, L500.3400, L501.2450, L501.4010 #### [facility] [address] [place], [place], [id number] LIPASE Collected: 04/04/2018 Status: F Source: [place] 9:06 PM [facility] REPOSITORY TYPE CODE TESTS RESULT OUT OF RANGE REFERENCE UNITS LAB L501.2450 73-393 U/L Normal LIPASE 76 Performed By: #### L500.2500, L500.3400, L501.2450, L501.4010 #### [facility] [address] [place], [place], [id number] TROPONIN-I Collected: 04/04/2018 Status: F Source: [place] 9:06 PM [facility] REPOSITORY TYPE CODE TESTS RESULT OUT OF RANGE REFERENCE UNITS LAB L501.4010 <0.045 ng/mL Normal < 0.015 TROPONIN-I Result Comment: TROPONIN-I EXPECTED VALUES <0.045 Negative 0.045 - 0.590 Consistent with Cardiac Damage > OR = 0.600 Critical Value Not every elevated troponin is indicative of ND. These values should be used with clinical judgement in examining the patient's clinical picture for diagnosis. To establish a diagnosis of ND versus myocardial injury, there must be a demonstrated rise and/or fall in the troponin values, in addition to ischemic symptoms, EKG changes, new regional wall motion abnormality, and/or angiographical evidence. PLEASE NOTE: REFERENCE RANGES EDITED 17 Performed By: #### L500.2500, L500.3400, L501.2450, L501.4010 #### [facility] [address] [place], [address] SCREENING MAMM (CAD), Observed: 07/11/2017 Status: F Source: [place] BILAT 8:33 AM [facility] REPOSITORY [facility] Imaging Services [address] [place] [address] SCREENING MAMM (CAD), BILAT MR#: [id number] Acct: [id number] Name: Nadia Trent Rep #: [id number] : 1950 F 66 From: Josh Mckeon MD PCP: Paul Hopper MD Status: REG CLI Study: SCREENING MAMM (CAD), BILAT Date of Exam: 07/11/17 Exam# [id number] Ordering Dr: Paul Hopper MD MAMMOGRAPHY - BILATERAL SCREENING 3-D ANEESH SYNTHESIS REASON FOR EXAM: Female, 66 years old. Bilateral Screening 3-D tomosynthesis PERTINENT HISTORY: History of benign breast biopsy.. TECHNIQUE: 2-D mammograms and 3-D Aneesh synthesis of the breast (s) were performed. CAD was performed. COMPARISON: None. FINDINGS: The breast composition is heterogeneously dense that can obscure small breast masses. Stable punctate and vascular calcifications.. No dense spiculated masses or suspicious microcalcifications are identified. No architectural distortion is identified. There is no skin thickening or retraction. There has been no significant change since the prior study. HPBI/SCREENING MAMM (CAD), BILAT IMPRESSION: No mammographic signs of malignancy. Routine yearly mammograms recommended. ASSESSMENT CATEGORY: BIRADS Category 2: Benign. A letter regarding these results will be sent to the patient by the facility within 30 days. FOLLOW UP RECOMMENDATION: Yearly follow up mammogram recommended. (A) Approximately 10% of breast cancers are not detected by mammography. A normal mammogram should not delay biopsy of a clinically suspicious abnormality. Electronically Signed: Kem Mckeon MD at 8:35 EDT , Service support , CC: Paul Hopper MD Community Organization Worker: Signed VITAMIN D,25 HYDROXY Collected: 07/04/2017 Status: F Source: [place] 8:08 AM [facility] REPOSITORY TYPE CODE TESTS RESULT OUT OF REFERENCE UNITS RANGE LAB L506.1000 29.95-100.01 ng/mL Low Vitamin D 17.0 25-OH Result Comment: Vitamin D 25(OH) Status Range Deficiency <20 ng/mL (50nmol/L) Insuffciency 20 - 30 ng/mL (50 - 75 nmol/L) Sufficiency 30 - 100 ng/mL (75 - 250 nmol/L) Toxicity >100 ng/mL (>250 nmol/L) Performed By: #### L506.1000 #### [facility] [place], [address] HEPATITIS C ANTIBODIES Collected: 07/04/2017 Status: F Source: [place] 8:06 AM [facility] REPOSITORY TYPE CODE TESTS RESULT OUT OF RANGE REFERENCE UNITS LAB L3100.0650 0.0-0.9 s/co ratio Normal HEP C AB <0.1 Result Comment: Negative: < 0.8 Indeterminate: 0.8 - 0.9 Positive: > 0.9 The CDC recommends that a positive HCV antibody result be followed up with a HCV Nucleic Acid Amplification test (688740). Performed at: - [facility] [address] [id number] Portfolio Accountant: Filipe Becerra PhD, Phone: [phone] Performed By: #### L3100.0625 #### [facility] (refer to report for specific site) refer to report for address and phone number ALLERGIES ALLERGIES DATE TYPE / CODE NAME / CODE REACTION SEVERITY SOURCE 04/04/2018 Drug No Known Unknown [facility] Allergy/4160 Allergies/F00 Hospital 02905(SNOMED 0412513(RXNOR Repository CT) M) ENCOUNTERS ENCOUNTERS ADMIT/DISCHARGE ACCOUNT ADMITTING ENCOUNTER LOCATION SOURCE NUMBER CLASS 05/06/2018 [id number] Ambulatory Surya Surya 1 [facility] ing:PT Repository 04/07/2018 [id number] Ambulatory BMSBuilding:W Surya 7 [facility] Repository 04/05/2018/ [id number] Beltran Rolle Ambulatory Surya Surya 8 4 [facility] ing:QY3Howr: Repository YK875Huf: 1 04/05/2018 [id number] Beltran Rolle Ambulatory BMSBuilding:B [place] 0 [facility] Repository 04/05/2018 [id number] Sariah Beltran Ambulatory BMSBuilding:B [place] 3 [facility] Repository 04/05/2018 [id number] Sariah Beltran Ambulatory BMSBuilding:B [place] 2 [facility] Repository 07/11/2017 [id number] Ambulatory [place] Surya 8 [facility] ing:BI Repository 07/04/2017 [id number] Ambulatory [place] Surya 7 [facility] ing:[facility] Repository 07/04/2017 [id number] Ambulatory Surya Surya 7 [facility] ing:OLS.EH Repository PAYERS PAYERS ENCOUNTER GUARANTOR PAYER SUBSCRIBER SOURCE 05/06/2018 NADIA Garcia Primary NADIA [place] [id number] W Insurance:AETNAPolicy [facility] [place]: [id number] [id number] Repository [address]Anh: 330) Date:6568-94-96ZU [phone] ( [id number], [place] [address]ZE: 05/06/2018 Secondary NADIA L Surya Insurance:MEDICARE [place]ULL[place]: [facility] PART A [facility] [id number] Hospital Number: Repository [id number] Date:2017-08-19 05/06/2018 Tertiary NOT GIVENUNK Surya Insurance:SELF PAY [facility] Number: Effective Repository Date:2018-04-09 04/07/2018 NADIA Garcia Primary NADIA [place] [id number] W Insurance:AETNAPolicy [place] Number: [id number], [place] [id number] Repository [address]Pqy: (330) Date:2279-77-90MX [phone] () 350201DZ JACKI OTOOLE [address]OQ: 04/07/2018 Secondary NOT GIVENUNK Surya Insurance:SELF PAY [facility] Number: Effective Repository Date:2018-04-07 04/05/2018 NADIA Garcia Primary NADIA Garcia Surya [id number] W Insurance:AETNAPolicy [place] Number: [id number], [place] [id number] Repository [address]Cez: ([phone]) Date:3515-77-80YY [phone] () [id number] JACKI OTOOLE [address]HO: 04/05/2018 Secondary NOT GIVENUNK Surya Insurance:SELF PAY [facility] Number: Effective Repository Date:2018-04-04 04/05/2018 NADIA Garcia Primary NADIA Garcia Surya [id number] W Insurance:AETNAPolicy [facility] Number: [id number], [place] [id number] Repository [address]Rbp: (330) Date:1316-81-62OG [phone] () [id number] [address]DL: 04/05/2018 Secondary NOT GIVENUNK [place] Insurance:SELF PAY [facility] Number: Effective Repository Date:2018-04-05 04/05/2018 NADIA Garcia Primary NADIA Garcia Surya [id number] W Insurance:AETNAPolicy [place] Number: [id number], [place] [id number] Repository [address]Wrj: (330) Date:0829-07-52KM [phone] (HP) [id number] JACKI OTOOLE [address]EG: 04/05/2018 Secondary NOT GIVENUNK [place] Insurance:SELF PAY [facility] Number: Effective Repository Date:2018-04-05 04/05/2018 ANDIA Garcia Primary NADIA Garcia Surya [id number] W Insurance:AETNAPolicy [facility] Number: [id number], [place] [id number] Repository [address]Rna: (330) Date:3815-93-76SM [phone] (HP) 955[place], [place] [address]MW: 04/05/2018 Secondary NOT GIVENUNK [place] Insurance:SELF PAY [facility] Number: Effective Repository Date:2018-04-05 07/11/2017 Nadia Garcia Primary Nadia Garcia Surya [id number] W Insurance:AETNAPolicy MullenDOB: [facility] Number: [id number], [place] [id number] Repository [address]Uya: (330) Date:1375-28-30XH [phone] (HP) [id number] [place] [address]LS: 07/11/2017 Secondary NOT GIVENUNK [place] Insurance:SELF PAY [facility] Number: Effective Repository Date:2017-07-07 07/04/2017 Nadia Garcia Primary Nadia Garcia [place] [id number] W Insurance:AETNAPolicy MullenDOB: [facility] Number: [id number], [place] [id number] Repository [address]Thj: (340) Date:1938-13-24QC [phone] (HP) [id number] COLVIN [address]CU: 07/04/2017 Secondary NOT GIVENUNK Surya Insurance:SELF PAY [facility] Number: Effective Repository Date:2017-06-23 07/04/2017 Nadia Garcia Primary NOT GIVENUNK [place] [id number] W Insurance:SELF PAY [place], [place] Number: Effective Repository [id number]: ([phone]) Date:2017-07-04 [phone] ()
== END 2018-04-07 20:05 | disposition home or self-care (01) ==
LOC: ED 22:32 → MS3 04-05 00:42
PROVIDERS: Admitting Provider Internal Medicine; Emergency Provider Emergency Medicine; Family Provider Family Medicine; PCP Family Medicine; Visit Provider Internal Medicine
DX: H81.10 Benign paroxysmal vertigo, unspecified ear (principal); N30.00 Acute cystitis without hematuria; E66.9 Obesity, unspecified; Z68.31 Body mass index [BMI] 31.0-31.9, adult; Z71.3 Dietary counseling and surveillance; F41.8 Other specified anxiety disorders; Z79.899 Other long term (current) drug therapy; E86.0 Dehydration; Z87.891 Personal history of nicotine dependence
CPT/HCPCS: 36415; 70544; 70549; 70551; 71045; 80048; 80076; 81001; 83690; 83735; 84132; 84484; 85025; 85027; 87086; 87088; 93005; 93306; 96361; 96365; 96366; 96372; 96375; 96376; 97165; 99218; 99285; A9585; J7030; A4216; G0378; J2405

== ENCOUNTER 2018-05-06 08:30 | Outpatient (RCR) | payer OTHER, SELFPAY ==
[2018-04-05 00:59] VITALS: BMI 31.4
--- NOTE | 2018-04-22 16:31 | HP.PTEVAL ---
Patient's Visit Information FELIX TRENT is a 67 year old F referred to Physical Therapy by Олег Denise MD with a diagnosis of BPV. Date of Evaluation: 04/22/18 Physical Therapist: Malik Lopez, PRERNAT, OCS, CSCS - Visit Plan Frequency: 1-2x /Week Duration: 2-4 Weeks Plan: 1-2x/week for 2-4 as needed for positional treatements and ex adn testing. Balance as needed. - Subjective Findings: Room was spinning last Friday night 2 weeks ago.. Worked the night before and felt a little dizzy. Went to ER as she was vomitting and given antivert adn anti nausea meds. Did a scan of head and heart tests which were OK. In hospital two days. Went home and daughter helped her get home as she was in pain from lying still. Since then has just felt off. Used mom's cane as she felt unsteady. Currently doesn't feel perfect but does not require AD. Doesn't feel stable. When head moves it throws her off for short time. Sleeping OK. 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 Not voerly active at home. feels wierd. - Objective c/s AROM WFL and without pain today. - B hallpike gay. + L roll test (geotropic)(10 sec) treated wtih BBQ roll. Walked safe and I on firm flat surface. - Balance Scores Functional Gait Assessment Score: 24 % Disability: 20.0000 CATSIB Score (Max score 120 seconds): 92 - Goals Goal 1:: Abolish vertigenous feeling and feel 100% back to normal Goal Time Frame: 2-4 Weeks Goal 2:: FGA 28/30 to diminish unsteadiness. Goal Time Frame: 2-4 Weeks - Rehabilitation Potential Physical Therapy Diagnosis: Positional vertigo, likely horizontal canal Rehabilitation Potential: Fair - Anticipated Interventions Patient/Client Instruction: Educate patient on: Condition, Plan of Care For the Purpose of:: To increase tolerance to activity/condition/position, To improve balance Therapeutic Exercise to Include: Balance training Comment: positional treatments For the Purpose of:: To increase tolerance to activity/condition/position Thank you for the opportunity to evaluate your patient. For Medicare and Medicare HMO plans, please review the plan of care and approve it. It will need to be FAXED BACK to us at [phone] for Medicare purposes. For Medicare only, by signing this I certify the plan of care. Please let me know if there are questions or concerns regarding this plan of care. Physician Signature: Date:
--- NOTE | 2018-05-06 08:48 | HP.PTDCSUM ---
HP - PT D/C Summary It has been my pleasure to treat FELIX TRENT under orders from Олег Denise MD, for the diagnosis of BPV for a total of 3 visit(s). Discharge Date: 05/06/18 Please see the following information for a summary of their discharge status. - Subjective Subjective: Doing a lot better. Doesnt bother me to move my head left adn right. Maybe a couple times felt unsteady but no spinning. Activities normal home. Sleeping normal. Work is normal. - Overall Improvement % Improvement: 100 - Objective Objective/Function: No dizzyness with turns or VOR or positional testing today. Balance is good. - Goals Goal 1:: Abolish vertigenous feeling and feel 100% back to normal Goal Progress: Goal Met Goal 2:: FGA to diminish unsteadiness. Goal Progress: Goal Met - Plan Plan: D/C - D/C Information Discharge Comments: Dizzyness abolished adn will contact doctor if it returns. If there are questions or concerns regarding this patient's physical therapy, please feel free to call me at [phone]. Thank you for the referral of this patient. Sincerely, Malik Lopez, DPT, OCS, CSCS
== END 2018-05-06 19:00 | disposition home or self-care (01) ==
LOC: PT 08:30
PROVIDERS: Family Provider Family Medicine; PCP Family Medicine; Referring Provider Internal Medicine; Visit Provider Internal Medicine
DX: H81.10 Benign paroxysmal vertigo, unspecified ear (principal)
CPT/HCPCS: 97162; 97530

== ENCOUNTER → 2018-06-02 12:12 | Outpatient (CLI) | payer OTHER, SELFPAY ==
[2018-04-05 00:59] VITALS: BMI 31.4
[2018-06-05 20:47] LABS: HPV Reflexed? NOT INDICATED
== END ==
PROVIDERS: Family Provider Family Medicine; PCP Family Medicine; Referring Provider Family Medicine; Visit Provider Family Medicine
DX: Z01.419 Encounter for gynecological examination (general) (routine) without abnormal findings (principal)
CPT/HCPCS: 88175; G0145

== ENCOUNTER → 2018-07-15 08:12 | Outpatient (CLI) | payer OTHER, SELFPAY ==
[2018-04-05 00:59] VITALS: BMI 31.4
--- NOTE | 2018-07-15 08:15 | BI_ITS ---
MAMMOGRAPHY - BILATERAL SCREENING REASON FOR EXAM: Female, 67 years old. Routine annual screening examination. PERTINENT HISTORY: Non-contributory. Prior right ultrasound-guided breast biopsy. TECHNIQUE: Digital bilateral breast huma (3D mammographic acquisition) in the CC and MLO projections. 2-D mediolateral oblique (MLO) and craniocaudad (CC) views of both breasts were obtained. CAD: Full Field Digital Mammography with Computer Added Detection was performed. COMPARISON: Comparison is made with prior study dated July 11, 2017 and July 08, 2016. FINDINGS: Breast Composition: The breasts are heterogeneously dense, which may obscure small masses. There are no dominant masses or suspicious calcifications. A tissue clip marker is seen within the small nodular density in the deep upper lateral aspect of the right breast. Stable benign-appearing bilateral axillary lymph nodes. No other significant abnormalities are identified. There has been no significant change since the prior study. BI/SCREENING MAMM (CAD), BILAT IMPRESSION: Stable bilateral screening mammogram. Yearly follow-up mammogram recommended. (A) ASSESSMENT CATEGORY: BIRADS Category 2: Benign. A letter regarding these results will be sent to the patient by the facility within 30 days. Approximately 10% of breast cancers are not detected by mammography. A normal mammogram should not delay biopsy of a clinically suspicious abnormality. [id number] Electronically Signed: Kade Duarte, at 9:41 EDT , Service support ,
== END ==
PROVIDERS: Family Provider Family Medicine; PCP Family Medicine; Referring Provider Family Medicine; Visit Provider Family Medicine
DX: Z12.31 Encounter for screening mammogram for malignant neoplasm of breast (principal)
CPT/HCPCS: 77063; 77067

== ENCOUNTER → 2019-08-24 12:41 | Outpatient (CLI) | payer OTHER, SELFPAY ==
[2018-04-05 00:59] VITALS: BMI 31.4
--- NOTE | 2019-08-24 12:44 | BI_ITS ---
MAMMOGRAPHY - BILATERAL SCREENING REASON FOR EXAM: Female, 68 years old. Routine annual screening examination. PERTINENT HISTORY: Non-contributory. History of prior right ultrasound guided biopsy. TECHNIQUE: Digital bilateral breast ivan (3D mammographic acquisition) in the CC and MLO projections. 2-D mediolateral oblique (MLO) and craniocaudad (CC) views of both breasts were obtained. CAD: Full Field Digital Mammography with Computer Added Detection was performed. COMPARISON: Comparison is made with prior study dated July 15, 2018 and July 11, 2017. FINDINGS: Breast Composition: The breasts are heterogeneously dense, which may obscure small masses. There are no dominant masses or suspicious calcifications. A tissue clip marker is once again seen in the small nodular density in the upper lateral aspect of the right breast. Stable benign-appearing bilateral axillary lymph nodes. No other significant abnormalities are identified. There has been no significant change since the prior study. BI/SCREEN MAMM (CAD) W/IVAN BILAT IMPRESSION: Stable bilateral screening mammogram. Yearly follow-up mammogram recommended. (A) ASSESSMENT CATEGORY: BIRADS Category 2: Benign. A letter regarding these results will be sent to the patient by the facility within 30 days. Approximately 10% of breast cancers are not detected by mammography. A normal mammogram should not delay biopsy of a clinically suspicious abnormality. [id number] Electronically Signed: Kade Duarte, at 13:43 EDT , Service support ,
--- NOTE | 2019-08-24 12:46 | BD_ITS ---
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 COMPARISON: Comparison is made with prior examination dated May 26, 2012. FINDINGS: Lumbar Spine (L1-L4): g/cm2 (1.042) / T-score (-1.1) / Z-score (0.6) Findings are suggestive of osteopenia with a low fracture risk. Left Femur Total: g/cm2 (1.134) / T-score (1.0) / Z-score (2.3) Left Femoral Neck: g/cm2 (1.071) / T-score (0.2) / Z-score (1.8) Right Femur Total: g/cm2 (1.102) / T-score (0.7) / Z-score (2.0) Right Femoral Neck: g/cm2 (1.134) / T-score (0.7) / Z-score (2.2) The T-Scores on the most recent prior examination were: Lumbar Spine (L1-L4): There has been worsening of bone density since the previous examination. Left Femur Total: which represents a worsening of 0.2%. Right Femur Total: which represents a worsening of 3%. BD/Dexa Bone Density Study IMPRESSION: The patient is considered osteopenic as outlined below according to World Sina Organization (WHO) criteria with a low fracture risk. There has been worsening of bone density since the previous examination. Reference Information: The T-score is the number of standard deviations above or below the standard which is normal for young adults at their peak bone mineral density. The World Health Organization (WHO) interprets the T-scores as follows: Above -1 Normal bone density Between -1 and -2.5 Osteopenia Equal to / or below -2.5 Osteoporosis As a practical clinical guideline, osteopenia may be graded as follows: Mild -1 through -1.5 Moderate -1.6 through -2.0 Severe -2.1 through -2.4 The Z-score is the number of standard deviations above or below age-matched controls. A Z-score of less than -1.5 would be considered abnormal. References: 1. NIH Osteoporosis and Related Bone Diseases http://www.osteo.org 2. International Society for Clinical Densitometry http://www.iscd.org 3. National Osteoporosis Foundation http://www.nof.org Electronically Signed: Kade Duarte, at 14:08 EDT , Service support ,
== END ==
PROVIDERS: PCP Family Medicine; Referring Provider Family Medicine; Visit Provider Family Medicine
DX: Z13.820 Encounter for screening for osteoporosis (principal); Z78.0 Asymptomatic menopausal state; Z12.31 Encounter for screening mammogram for malignant neoplasm of breast
CPT/HCPCS: 77063; 77067; 77080

== ENCOUNTER → 2019-08-26 13:50 | Outpatient (CLI) | payer OTHER, SELFPAY ==
[2018-04-05 00:59] VITALS: BMI 31.4
--- NOTE | 2019-08-26 13:58 | US_ITS ---
STUDY: THYROID ULTRASOUND REASON FOR EXAM: Female, 68 years old. GOITER TECHNIQUE: Ultrasound evaluation of the thyroid was performed with real-time and static urrutia-scale imaging. COMPARISON: None. FINDINGS: RIGHT LOBE: The right lobe of the thyroid gland is enlarged and measures 5.7 cm x 1.8 cm x 1.4 cm. There is a homogeneous echotexture. There are multiple scattered subcentimeter hypoechoic solid nodules scattered throughout the lobe. The largest is in the lower pole and measures 6 mm x 3 mm x 3 mm. LEFT LOBE: The left lobe of the thyroid gland measures 4.7 cm x 1.7 cm x 0.8 cm. There is a homogeneous echotexture. There are multiple subcentimeter hypoechoic solid nodules in the left lobe of the thyroid. The largest measures 9 mm x 8 mm x 7 mm. This is in the lower pole. ISTHMUS: The isthmus measures 3.0 mm. The regional lymph nodes are normal. US/Thyroid IMPRESSION: Enlargement of the right lobe of the thyroid. Multiple bilateral subcentimeter nodules as described. Electronically Signed: Kade Duarte, at 15:32 EDT , Service support ,
--- NOTE | 2019-08-26 13:58 | ECHOD_ITS ---
Reason For Study: MURMUR Procedure This was a 2D Doppler, Color Flow transthoracic echocardiogram. The study was technically difficult. Due to body habitus. Exam performed in department. Left Ventricle Normal LV size. The estimated ejection fraction is 60 %. Diastolic function is indeterminate. No regional wall motion abnormalities noted. Right Ventricle Normal RV size. Normal systolic function. Atria Normal left atrium. Normal right atrium. No doppler evidence for ASD. Mitral Valve There is no mitral valve stenosis. Trivial mitral valve insufficiency. Tricuspid Valve There is no tricuspid stenosis. Pulmonary artery systolic pressure is 25 mmHg. Trivial tricuspid valve insufficiency. Aortic Valve Trisinus/trileaflet aortic valve. There is no aortic stenosis. No aortic valve insufficiency. Pulmonic Valve There is no pulmonic valvular stenosis. No pulmonic valve insufficiency. Great Vessels Normal aortic root. Pericardium/Pleural No pericardial effusion. MMode/2D Measurements & Calculations LVIDd: 4.8 cm IVSd: 0.93 cm Ao root diam: 3.3 cm LVIDs: 3.1 cm LVPWd: 0.89 cm FS: 35.7 % LAV(MOD-bp): 41.8 ml LA A4 area: 15.3 cm2 LA dimension(2D): 3.0 cm LAV(MOD-bp) Indexed: 22.4 ml/m2 LAV(MOD-sp2): 41.5 ml LAV(MOD-sp4): 40.6 ml RA A4 area: 12.8 cm2 Time Measurements MV dec time: 0.19 sec Doppler Measurements & Calculations MV E max tommy: 60.3 cm/sec Lat Peak E' Tommy: 3.7 cm/sec Med Peak E' Tommy: 3.9 cm/sec MV A max tommy: 80.1 cm/sec E/E' lat: 16.4 E/E' med: 15.6 MV E/A: 0.75 Ao V2 max: 99.9 cm/sec LV V1 max: 85.8 cm/sec PA V2 max: 91.6 cm/sec Ao max P.0 mmHg LV V1 max P.9 mmHg TR max tommy: 225.0 cm/sec TR max P.3 mmHg Interpretation Summary The estimated ejection fraction is 60 %. Diastolic function is indeterminate. Trivial mitral valve insufficiency. Ordering Physician: Stanton Swann Referring Physician: Stanton Swann Performed By: Lisset Valladares RDCS, RVT
== END ==
PROVIDERS: PCP Family Medicine; Referring Provider Family Medicine; Visit Provider Family Medicine
DX: R01.1 Cardiac murmur, unspecified (principal); E04.9 Nontoxic goiter, unspecified
CPT/HCPCS: 76536; 93306

== ENCOUNTER 2019-10-20 13:18 | Outpatient (RCR) | payer OTHER, SELFPAY ==
[2018-04-05 00:59] VITALS: BMI 31.4
--- NOTE | 2019-10-20 13:58 | HP.PTEVAL_ITS ---
Patient's Visit Information FELIX TRETN is a 69 year old F referred to Physical Therapy by Dr. Stanton Swann MD with a diagnosis of BPPV. Date of Evaluation: 10/20/19 Physical Therapist: Malik Lopez DPT, OCS, CSCS - Visit Plan Duration: every other. Plan: Pt without signs or symptoms of pathology today. Will f/u two weeks to ensure no symptoms or prior if needed patient will call and should be scheduled with Shirley for BPPV check. Possibly doctor fixed BPPV in his office as not m any symptoms since doctors visit where she was very dizzy with head movements. - Subjective Had BPPV over a year ago and in hospital and PT helped. Laely been getting dizzy again with bending and lying. Room has not spun yet, balance feels fine. Doc wants vestibular therapy. Activities are normal. 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 Sleep is fine. Just wants to nip it in bud before it gets worse - Objective Walks normal and trasnitions normal and I. Good balance. cervical AROM WNL and painfree. - B hallpike gay, no nystagmus , no dizzyness or symptoms. - roll test. Oculomotor is unremarkable, pt is blind in R eye. pursuit and saccades is normal. VOR is normal, no symptoms. - skew eye deviations. - ocular tilt. nonystagmus with gaze or head shake. - head thrust. - Balance Scores Functional Gait Assessment Score: 29 % Disability: 3.3400 - Goals Goal 1:: Dizzyness aboished for 2 weeks Goal Time Frame: 2-4 Weeks - Rehabilitation Potential Physical Therapy Diagnosis: No obvious symptoms today, possibly fixed at doctors office. Rehabilitation Potential: Good - Anticipated Interventions Patient/Client Instruction: Educate patient on: Condition, Plan of Care Other: decrease dizzyness. Comment: psotional if needed. For the Purpose of:: To increase tolerance to activity/condition/position Thank you for the opportunity to evaluate your patient. For Medicare and Medicare HMO plans, please review the plan of care and approve it. It will need to be FAXED BACK to us at [phone] for Medicare purposes. For Medicare only, by signing this I certify the plan of care. Please let me know if there are questions or concerns regarding this plan of care. Physician Signature: Date:
--- NOTE | 2019-11-02 13:43 | HP.PT.NRP ---
FELIX TRENT was seen in my office for initial evaluation on 10/20/19. The following Plan of Care was established for this patient: Initial Duration: every other. Patient/Client Instruction: Educate patient on: Condition, Plan of Care Other: decrease dizzyness. For the Purpose of:: To increase tolerance to activity/condition/position This patient was last seen in our office 10/20/19. Pertinent comments regarding their Physical therapy will appear below: Pt seen one visit and POC established although dizzyness not ellicited at that time. She was to f/u two weeks later but has called to cancel stating she is not and has not been dizzy. I will discontinue her at this time. At this point I will be discontinuing this patient from physical therapy. I would be happy to see this patient again in the future if found appropriate by the physician. Thank you! Malik Lopez, DPT, OCS, CSCS
== END 2019-10-20 19:00 | disposition home or self-care (01) ==
LOC: PT 13:18
PROVIDERS: PCP Family Medicine; Referring Provider Family Medicine; Visit Provider Family Medicine
DX: H81.10 Benign paroxysmal vertigo, unspecified ear (principal)
CPT/HCPCS: 97161

== ENCOUNTER → 2019-11-10 15:56 | Outpatient (CLI) | payer OTHER, SELFPAY ==
[2018-04-05 00:59] VITALS: BMI 31.4
--- NOTE | 2019-11-10 15:59 | RAD_ITS ---
STUDY: X-RAY - LUMBAR SPINE REASON FOR EXAM: Female, 69 years old. Chronic lower back pain TECHNIQUE: 5 view(s) of the lumbar spine were obtained. COMPARISON: None FINDINGS: Normal lumbar lordosis. There is no substantial scoliosis. There is a normal alignment of the vertebrae. There is multilevel endplate spondylosis of the lumbar vertebrae. There is multi-level degenerative disc disease with multi-level disc space narrowing. There is a moderate amount of stool and gas within the visualized colon. There are phleboliths present. There is a 1.4 cm calcific density within the right upper/mid abdomen. RAD/L/S Spine Min 4 Views IMPRESSION: Degenerative changes of the lumbar spine. Moderate amount of stool and gas throughout the visualized colon. 1.4 cm calcific density within the right upper abdomen which may be secondary to underlying cholelithiasis or may reflect a renal calculus. Electronically Signed: Oksana Munguia MD at 16:55 EDT Tel , Service support ,
== END ==
PROVIDERS: PCP Family Medicine; Referring Provider Family Medicine; Visit Provider Family Medicine
DX: M54.5 Low back pain (principal)
CPT/HCPCS: 72110

== ENCOUNTER → 2019-11-17 08:01 | Outpatient (CLI) | payer OTHER, SELFPAY ==
[2018-04-05 00:59] VITALS: BMI 31.4
--- NOTE | 2019-11-17 08:06 | US_ITS ---
STUDY: ABDOMINAL ULTRASOUND - RIGHT UPPER QUADRANT REASON FOR VISIT: Female, 69 years old ABD MASS SEEN ON RECENT XRAY TECHNIQUE: Ultrasound evaluation of the right upper quadrant was performed with real-time and static urrutia-scale imaging. TECHNICAL QUALITY: Adequate. COMPARISON: None. FINDINGS: Liver: The liver measures 15.8 cm. There is normal echogenicity of the liver. The bile ducts are within normal limits. There is hepatic color flow. The direction of portal flow is hepatopetal. There is no demonstrated mass lesion. Gallbladder: Normal distended gallbladder. The gallbladder wall measures 2.2 mm. There is a negative sonographic Kumar''s sign. There is no pericholecystic fluid. There are no gallstones. Common Bile Duct (C.B.D.): The common bile duct measures 3.0 mm. Pancreas: There is nonvisualization of the pancreas due to overlying bowel gas. Right Kidney: Normal size of the right kidney. The right kidney measures 9.8 cm x 4.1 cm x 3.8 cm. Normal renal cortex. The right cortex measures 1.3 cm. There is no demonstrated renal mass or cyst. There is a 1.7 cm x 1.7 cm x 1.2 cm renal calculus. Mild right hydronephrosis. US/Abdomen Limited IMPRESSION: 1.7 cm x 1.7 cm x 1.2 cm right renal calculus. Mild right hydronephrosis. Electronically Signed: Kade Duarte, at 13:28 EDT , Service support ,
== END ==
PROVIDERS: PCP Family Medicine; Referring Provider Family Medicine; Visit Provider Family Medicine
DX: N13.2 Hydronephrosis with renal and ureteral calculous obstruction (principal); R19.01 Right upper quadrant abdominal swelling, mass and lump
CPT/HCPCS: 76705

== ENCOUNTER → 2019-12-02 16:37 | Outpatient (CLI) | payer OTHER, SELFPAY ==
[2018-04-05 00:59] VITALS: BMI 31.4
--- NOTE | 2019-12-02 16:41 | CT_ITS ---
STUDY: CT ABDOMEN AND PELVIS WITHOUT CONTRAST REASON FOR EXAM: Female, 69 years old. LARGE KIDNEY STONE RIGHT SIDE. SCHEDULED FOR LITHOTRIPSY AND STENT NEXT WEEK. RADIATION DOSAGE (If Supplied By Facility): CTDIvol = ( 13.52 ) mGy, DLP = ( 625.84 ) mGycm TECHNIQUE: Transaxial images were obtained from the dome of the diaphragm to the symphysis pubis without oral contrast, and without intravenous contrast. Sagittal and coronal images were reconstructed. Individualized dose optimization techniques were used for this CT. COMPARISON: None. FINDINGS: The visualized lung bases are unremarkable. The visualized portions of the heart are within normal limits. Normal liver. Normal gallbladder and extrahepatic biliary system. Normal spleen. Normal pancreas. Normal bilateral adrenal glands. The right kidney is mildly atrophic. There is mild right hydronephrosis. There is a calculus in the right renal pelvis measuring 1.5 x 0.8 cm. Normal left kidney. There is a large hiatal hernia. Normal small intestine. Normal colon. The appendix is visualized and appears normal. Normal abdominal aorta. Normal inferior vena cava. Normal retroperitoneum. Normal urinary bladder. The uterus is slightly bulky in size for the patient''s age. There are numerous bilateral pelvic phleboliths. Normal abdominal wall. There mild degenerative changes of the visualized thoracolumbar spine. CT/Abdomen/Pelvis without Cont IMPRESSION: 1. Mildly atrophic right kidney. Mild right hydronephrosis. Right renal pelvic calcification measuring 1.5 x 0.8 cm. 2. Large hiatal hernia. Electronically Signed: Kamran Spence MD at 19:10 EDT , Service support ,
== END ==
PROVIDERS: PCP Family Medicine; Referring Provider Urology; Visit Provider Urology
DX: N20.0 Calculus of kidney (principal)
CPT/HCPCS: 74176

== ENCOUNTER 2019-12-09 08:29 | Day surgery (SDC) | payer OTHER, SELFPAY ==
[2018-04-05 00:59] VITALS: BMI 31.4
[2019-12-09 08:50] VITALS: BP 126/83; PULSE 85; RESP 14; TEMP 36.9; O2SAT 98; BMI 30.9
[2019-12-09] MEDS: Lactated Ringers 1,000 ML 100 ML IV (09:09)
[2019-12-09] MEDS: Cefazolin 2 GM in 0.9% Normal Saline 100 ML IV (15:15)
--- NOTE | 2019-12-09 16:18 | PCM.OPRPT ---
Problem List (1) Right renal stone Status: Acute Report of Operation Date of Procedure: 12/09/19 Pre-Operative Diagnosis: right renal stone Post-Operative Diagnosis: same Surgery/Procedure Performed:: right renal extracorporeal shockwave lithotripsy, cystoscopy, right ureteral stent insertion Type of Anesthesia:: General Specimen's removed: none Description of Procedure: The patient is a 69-year-old female identified with a large right renal calculus. After discussing the risk benefits and alternatives, informed consent was obtained to proceed with surgical intervention. The risks of COVID-19 were specifically addressed as well. The patient was taken to the operating room and placed on the lithotripsy table. Dependent portions of her body were appropriately padded and secured to the table. Anesthesia monitored the head, neck, airway, IV access and vital signs throughout the case. Once anesthesia was appropriately administered, the patient was prepped and draped in usual sterile fashion. The cystoscope was then inserted through the urethra, and the bladder mucosa in its entirety was visualized. There were no masses, lesions, areas of erythema or foreign body identified. The right ureteral orifice was identified and intubated with 8.035 Glidewire. A 6 Belarusian 24 cm stent was then inserted over the wire and into the renal pelvis as visualized on fluoroscopy. There was good positioning in the renal pelvis as well as the urinary bladder. The patient's bladder was then emptied. She was then positioned appropriately, and 3000 shocks were applied to her large right renal stone. At the conclusion of the shocks, the patient was awakened and taken to the recovery room in good condition. There were no complications during the procedure. Grafts/Implants Used: 6 x 24 JJ stent - Complications none - Admit VTE Documentation VTE Present on Admission: Yes VTE Mechan Device Prophylaxis: SCD's VTE Pharm Prophylaxis ordered?: No Reason prophylaxis not ordered:: Treatment Not Indicated
--- NOTE | 2019-12-09 16:33 | DCINST_ITS ---
Discharge Diet: No Restrictions Discharge Activity: Return to Normal Activity, May not drive while taking narcotic pain medications. May resume sexual activity in: No Restrictions Call your doctor if you observe: Fever of 101 or Higher, Inability to urinate, Inability to have a bowel movement, Uncontrolled pain Allergies/Adverse Reactions: Allergies No Known Allergies Allergy (Verified 12/02/19 13:52) Medications to take at Discharge Citalopram [Celexa] 20 mg PO DAILY 04/04/18 Meclizine HCl [Antivert] 25 mg PO TID PRN PRN #30 tablet 04/07/18 Potassium Chloride [K-Dur] 20 meq PO BID #30 tablet 04/07/18 Calcium Carbonate [Calcium] 600 mg PO DAILY 12/02/19 Cholecalciferol (Vitamin D3) [Vitamin D3] 50 mcg PO DAILY 12/02/19 Loratadine [Claritin] 10 mg PO DAILY 12/02/19 Vit C/E/Zn/Coppr/Lutein/Zeaxan [Preservision Areds 2 Softgel] 1 ea PO DAILY 12/02/19 Cephalexin [Keflex] 500 mg PO Q12 3 Days #6 cap 12/09/19 Oxycodone HCl/Acetaminophen [Percocet 5/325] 2 tablet PO Q8H PRN PRN 7 Days #20 tablet 12/09/19 Phenazopyridine HCl [Pyridium] 200 mg PO TID PRN PRN 7 Days #30 tab 12/09/19 The following prescriptions were given: Cephalexin [Keflex] 500 mg PO Q12 3 Days #6 cap Transmission Status: Pending to [id number] Oxycodone HCl/Acetaminophen [Percocet 5/325] 2 tablet PO Q8H PRN PRN 7 Days #20 tablet PRN Reason: Pain Transmission Status: Received by [id number] Phenazopyridine HCl [Pyridium] 200 mg PO TID PRN PRN 7 Days #30 tab PRN Reason: Bladder Spasms Transmission Status: Pending to [id number] Primary Care Physician: Stanton Swann MD [Primary Care Provider] - Test Results: Test results from this visit will be discussed in further detail at your follow- up appointment, if applicable. Please Follow Up With: Callie Pugh MD When: call office for appt with ANEUDY prior Proposed Discharge Date: 12/09/19
[2019-12-09 17:07] VITALS: BP 120/67; BP 126/83; PULSE 77; RESP 16; TEMP 36.4; O2SAT 94
[2019-12-09 17:15] VITALS: BP 122/80; BP 126/83; PULSE 70; RESP 16; O2SAT 96
[2019-12-09 17:30] VITALS: BP 120/80; BP 126/83; PULSE 68; RESP 16; TEMP 36.4; O2SAT 97
[2019-12-09 17:46] VITALS: BP 126/83
[2019-12-09 18:08] VITALS: BP 126/83; BP 129/70; PULSE 71; RESP 16; TEMP 36.5; O2SAT 96
== END 2019-12-09 18:25 | disposition home or self-care (01) ==
LOC: SDC 08:30 → AC 08:31
PROVIDERS: Anesthesiology; PCP Family Medicine; Referring Provider Urology; Visit Provider Urology
PROC: (CPT 50590; principal; 2019-12-09 10:00)
DX: N20.0 Calculus of kidney (principal); F41.9 Anxiety disorder, unspecified; F32.9 Major depressive disorder, single episode, unspecified; Z11.59 Encounter for screening for other viral diseases; Z79.899 Other long term (current) drug therapy
CPT/HCPCS: 00873; 50590; 52332; 87635; 94799; J7120; C1769; C2617; J2405; U0003

== ENCOUNTER → 2019-12-24 08:45 | Outpatient (CLI) | payer OTHER, SELFPAY ==
[2019-12-09 08:50] VITALS: BMI 30.9
--- NOTE | 2019-12-24 08:51 | RAD_ITS ---
STUDY: X-RAY - ABDOMEN/PELVIS REASON FOR EXAM: Female, 69 years old. F/U RIGHT SIDED ESWL AND STENT PLACEMENT FOR KIDNEY CALCULUS TECHNIQUE: Single AP view of the abdomen / pelvis. COMPARISON: None. FINDINGS: There is an abundance of fecal material throughout the colon. A right-sided double-J stent catheter has been placed. The proximal tip is in the region of the right renal pelvis and the distal tip is in the right side of the bladder. There are calcified phleboliths in the pelvis. There are diffuse degenerative changes of the visualized lumbar spine. RAD/Abdomen Single View IMPRESSION: Right-sided double-J stent catheter is present. Multiple rounded calcifications are seen in the pelvis most likely representing phleboliths. Electronically Signed: Kade Duarte, at 12:37 EDT , Service support ,
== END ==
PROVIDERS: PCP Family Medicine; Referring Provider Urology; Visit Provider Urology
DX: N20.0 Calculus of kidney (principal)
CPT/HCPCS: 74018

== ENCOUNTER → 2019-12-31 16:54 | Outpatient (CLI) | payer OTHER, SELFPAY ==
[2019-12-09 08:50] VITALS: BMI 30.9
--- NOTE | 2019-12-31 16:57 | RAD_ITS ---
STUDY: X-RAY - ABDOMEN/PELVIS REASON FOR EXAM: Female, 69 years old. calculus TECHNIQUE: Single AP view of the abdomen / pelvis. COMPARISON: None. FINDINGS: Normal visualized lung bases. There is an unremarkable bowel gas pattern. Right ureteral stent. Suspect small stone in the distal right ureter. Normal soft tissue structures. Normal visualized osseous structures. RAD/Abdomen Single View IMPRESSION: Right ureteral stent with suspected stone in the distal right ureter. Electronically Signed: Ronny Cortes MD at 17:12 EDT Tel , Service support ,
== END ==
PROVIDERS: PCP Family Medicine; Referring Provider Urology; Visit Provider Urology
DX: N20.0 Calculus of kidney (principal)
CPT/HCPCS: 74018

== ENCOUNTER → 2020-01-07 16:55 | Outpatient (CLI) | payer OTHER, SELFPAY ==
[2019-12-09 08:50] VITALS: BMI 30.9
--- NOTE | 2020-01-07 16:58 | RAD_ITS ---
STUDY: X-RAY - ABDOMEN/PELVIS REASON FOR EXAM: Female, 69 years old. kidney stones TECHNIQUE: Single AP view of the abdomen / pelvis. COMPARISON: 12/31/2019 FINDINGS: Right ureteral stent. No definite ureteral stone. There is an unremarkable bowel gas pattern. The visualized liver, spleen and kidneys are grossly normal in size and morphology. Normal soft tissue structures. Normal visualized osseous structures. RAD/Abdomen Single View IMPRESSION: Right ureteral stent. No definite ureteral stone. Electronically Signed: Ronny Cortes MD at 7:30 EDT Tel , Service support ,
== END ==
PROVIDERS: PCP Family Medicine; Referring Provider Urology; Visit Provider Urology
DX: N39.0 Urinary tract infection, site not specified (principal)
CPT/HCPCS: 74018

== ENCOUNTER → 2020-01-18 15:09 | Outpatient (CLI) | payer OTHER, SELFPAY ==
[2020-01-18 18:26] LABS: Uric Acid 3.5 mg/dL (2.6-6.0)
== END ==
PROVIDERS: PCP Family Medicine; Referring Provider Family Medicine; Visit Provider Family Medicine
DX: M10.9 Gout, unspecified (principal)
CPT/HCPCS: 36415; 84550

== ENCOUNTER → 2020-03-01 09:53 | Outpatient (CLI) | payer OTHER, SELFPAY ==
[2018-04-05 00:59] VITALS: BMI 31.4
--- NOTE | 2020-03-01 09:56 | US_ITS ---
STUDY: THYROID ULTRASOUND REASON FOR EXAM: Female, 69 years old. GOITER TECHNIQUE: Ultrasound evaluation of the thyroid was performed with real-time and static urrutia-scale imaging. COMPARISON: Comparison is made with prior examination dated 08/26/2019. FINDINGS: RIGHT LOBE: The right lobe of the thyroid gland is enlarged and measures 5.1 cm x 1.7 cm x 1.6 cm. There is a homogeneous echotexture. Once again, multiple subcentimeter hypoechoic solid nodules scattered throughout the right lobe. The largest is in the lower pole measuring 4 mm x 4 mm x 3 mm. LEFT LOBE: The left lobe of the thyroid gland measures 4.9 cm x 1.7 cm x 1.4 cm. There is a homogeneous echotexture. Multiple subcentimeter hypoechoic nodules are once again seen. The largest measures 1 cm x 1 cm x 0.9 cm. This is in the lower pole. ISTHMUS: The isthmus measures 3 mm. The regional lymph nodes are normal. US/Thyroid IMPRESSION: Mild enlargement of the right lobe of the thyroid. Stable bilateral subcentimeters nodular densities. Electronically Signed: Kade Duarte, at 14:01 EST , Service support ,
== END ==
PROVIDERS: PCP Family Medicine; Referring Provider Family Medicine; Visit Provider Family Medicine
DX: E04.9 Nontoxic goiter, unspecified (principal)
CPT/HCPCS: 76536

== ENCOUNTER → 2020-07-19 09:15 | Outpatient (CLI) | payer MEDICARE, SELFPAY ==
[2020-03-29 08:10] VITALS: BMI 31.1
[2020-07-19 10:18] LABS: Absolute Lymphocyte Count 1.78 X10^3/uL (0.83-4.51); Absolute Neutrophil Count 2.5 X10^3/uL (2.0-7.7); Basophil# 0.06 X10^3/uL; Basophil% 1.2 % (0-1); Eosinophil# 0.12 X10^3/uL; Eosinophils% 2.4 % (0-5); Hematocrit 38.2 % (37-47); Hemoglobin 11.7 g/dL (12.0-15.0); Lymphocyte # 1.78 X10^3/ul (4.0); Lymphocyte % 36.1 % (19-41); Mean Corp Hgb Conc 30.6 g/dL (32-36); Mean Corpuscular Hgb 27.8 pg (27.0-32.0); Mean Corpuscular Volume 90.7 fL (81-99); Mean Platelet Vol. 9.3 fl (6.2-12.0); Monocyte# 0.42 X10^3/uL; Monocyte% 8.5 % (0-10); NRBC Flagged by Analyzer 0 % (0-5); Neutrophil # 2.53 X10^3/uL (2.7-7.7); Neutrophil % 51.4 % (47-70); Platelet Count 311 K/mm3 (150-450); RBC Distribution Width SD 49.7 fl (35.1-43.9); Red Blood Count 4.21 M/mm3 (4.2-5.4); White Blood Count 4.9 K/mm3 (4.4-11.0)
[2020-07-19 11:08] LABS: ALB/GLOB Ratio 0.9 RATIO (0.9-2.4); AST(SGOT) 14 U/L (15-37); Alanine Aminotransfer ALT/SGPT 16 U/L (13-56); Albumin, Serum 3.5 g/dL (3.2-5.0); Alkaline Phosphatase 142 U/L (45-117); Anion Gap 8 (5-15); BUN 11 mg/dL (7-18); BUN/Creat Ratio 16.3 RATIO (10-20); Chloride 105 mmol/L (98-107); Cholesterol 212 mg/dL (200); Creatinine, Serum 0.67 mg/dL (0.55-1.02); EST Glomerular Filtration Rate 93 mL/min (>60); Est Glom Filt Rate - Afr Amer 112 mL/min (>60); Ferritin 6 ng/mL (8-252); Globulin 3.8 g/dL (2.2-4.2); Glucose 101 mg/dL (74-106); High Density Lipoprotein 49 mg/dL; Iron 39 ug/dL (50-170); Iron Binding Capacity,Total 475 ug/dL (250-450); PERCENT IRON SATURATION 8.2 % (15.0-55.0); Phosphorus 3.3 mg/dL (2.5-4.9); Potassium 4.1 mmol/L (3.5-5.1); Protein, Total 7.3 g/dL (6.4-8.2); Sodium Level 139 mmol/L (136-145); Thyroid Stim Hormone (TSH) 1.19 uIU/mL (0.358-3.74); Triglycerides 119 mg/dL; Very Low Density Lipoprotein 24 mg/dL (5-40)
== END ==
PROVIDERS: PCP Family Medicine; Referring Provider Family Medicine; Visit Provider Family Medicine
DX: D50.9 Iron deficiency anemia, unspecified (principal); E78.00 Pure hypercholesterolemia, unspecified; M85.80 Other specified disorders of bone density and structure, unspecified site
CPT/HCPCS: 36415; 80053; 80061; 82728; 83540; 83550; 84100; 84443; 85025

== ENCOUNTER → 2020-08-24 10:31 | Outpatient (CLI) | payer MEDICARE, SELFPAY ==
[2020-03-29 08:10] VITALS: BMI 31.1
--- NOTE | 2020-08-24 10:34 | BI_ITS ---
MAMMOGRAPHY - BILATERAL SCREENING REASON FOR EXAM: Female, 69 years old. Routine annual screening examination. PERTINENT HISTORY: Non-contributory. Prior right ultrasound-guided breast biopsy. TECHNIQUE: Digital bilateral breast ivan (3D mammographic acquisition) in the CC and MLO projections. 2-D mediolateral oblique (MLO) and craniocaudad (CC) views of both breasts were obtained. CAD: Full Field Digital Mammography with Computer Added Detection was performed. COMPARISON: Comparison is made with prior study dated 08/24/2019 and 07/15/2018. FINDINGS: Breast Composition: The breasts are heterogeneously dense, which may obscure small masses. There are no dominant masses or suspicious calcifications. A tissue clip marker is seen in the upper the lateral portion of the right breast. Stable benign-appearing bilateral axillary lymph nodes. No other significant abnormalities are identified. There has been no significant change since the prior study. BI/SCRN MAMM (CAD)W/IVAN BILAT IMPRESSION: Stable bilateral screening mammogram. Yearly follow-up mammogram recommended. (A) ASSESSMENT CATEGORY: BIRADS Category 2: Benign. A letter regarding these results will be sent to the patient by the facility within 30 days. Approximately 10% of breast cancers are not detected by mammography. A normal mammogram should not delay biopsy of a clinically suspicious abnormality. [id number] Electronically Signed: Kade Duarte MD at 11:15 EDT , Service support ,
== END ==
PROVIDERS: PCP Family Medicine; Referring Provider Family Medicine; Visit Provider Family Medicine
DX: Z12.31 Encounter for screening mammogram for malignant neoplasm of breast (principal)
CPT/HCPCS: 77063; 77067

== ENCOUNTER → 2021-03-21 13:46 | Outpatient (CLI) | payer MEDICARE, SELFPAY ==
--- NOTE | 2021-03-21 13:49 | RAD_ITS ---
STUDY: X-RAY - ABDOMEN/PELVIS REASON FOR EXAM: Female, 70 years old. Flank pain TECHNIQUE: AP supine and upright views of the abdomen and pelvis. COMPARISON: None. FINDINGS: Normal visualized lung bases. There is a moderate amount of colonic fecal material. There is no demonstrated free abdominal air. The visualized liver, spleen and kidneys are grossly normal in size and morphology. There are calcified phleboliths in the pelvis. There are diffuse degenerative changes of the visualized lumbar spine. RAD/Abdomen Single View IMPRESSION: No acute findings Retained stool Degenerative bony changes Electronically Signed: Kem Mckeon MD at 14:55 EST , Service support ,
== END ==
PROVIDERS: PCP Family Medicine; Referring Provider Urology; Visit Provider Urology
DX: N20.0 Calculus of kidney (principal)
CPT/HCPCS: 74018

== ENCOUNTER → 2021-10-17 | Outpatient (CLI) | payer MEDICARE, OTHER, SELFPAY ==
[2021-10-17 12:42] LABS: Vitamin D,25 Hydroxy 34.7 ng/mL
[2021-10-17 12:48] LABS: Absolute Lymphocyte Count 1.65 X10^3/uL (0.83-4.51); Absolute Neutrophil Count 2.6 X10^3/uL (2.0-7.7); Basophil# 0.05 X10^3/uL; Eosinophil# 0.09 X10^3/uL; Eosinophils% 1.9 % (0-5); Hematocrit 38.8 % (37-47); Hemoglobin 12.5 g/dL (12.0-15.0); Lymphocyte # 1.65 X10^3/ul (0.83-4.51); Lymphocyte % 34.4 % (19-41); Mean Corp Hgb Conc 32.2 g/dL (32-36); Mean Corpuscular Hgb 29.2 pg (27.0-32.0); Mean Corpuscular Volume 90.7 fL (81-99); Monocyte# 0.39 X10^3/uL; Monocyte% 8.1 % (0-10); NRBC Flagged by Analyzer 0 % (0-5); Neutrophil # 2.58 X10^3/uL (2.7-7.7); Platelet Count 260 K/mm3 (150-450); RBC Distribution Width CV 14.4 % (11.6-14.6); RBC Distribution Width SD 47.6 fl (35.1-43.9); Red Blood Count 4.28 M/mm3 (4.2-5.4); White Blood Count 4.8 K/mm3 (4.4-11.0)
[2021-10-17 13:12] LABS: AST(SGOT) 15 U/L (15-37); Alanine Aminotransfer ALT/SGPT 16 U/L (13-56); Albumin, Serum 3.5 g/dL (3.2-5.0); Alkaline Phosphatase 125 U/L (45-117); Anion Gap 8 (5-15); BUN 14 mg/dL (7-18); BUN/Creat Ratio 19.9 RATIO (10-20); Calcium,Total 9.1 mg/dL (8.5-10.1); Chloride 107 mmol/L (98-107); Cholesterol 217 mg/dL (200); EST Glomerular Filtration Rate 88 mL/min (>60); Est Glom Filt Rate - Afr Amer 106 mL/min (>60); Ferritin 7 ng/mL (8-252); Globulin 3.5 g/dL (2.2-4.2); Glucose 117 mg/dL (74-106); High Density Lipoprotein 48 mg/dL; Potassium 3.8 mmol/L (3.5-5.1); Sodium Level 140 mmol/L (136-145); Thyroid Stim Hormone (TSH) 1.21 uIU/mL (0.358-3.74); Triglycerides 119 mg/dL; Very Low Density Lipoprotein 24 mg/dL (5-40)
[2021-10-17 13:48] LABS: Hemoglobin A1c 6.1 % (3.8-5.6)
== END | disposition home or self-care (01) ==
LOC: MFPLAB 11:05
PROVIDERS: PCP Family Medicine; Visit Provider Family Medicine
DX: D50.9 Iron deficiency anemia, unspecified (principal); E78.00 Pure hypercholesterolemia, unspecified; E66.9 Obesity, unspecified; E55.9 Vitamin D deficiency, unspecified; Z13.228 Encounter for screening for other metabolic disorders
CPT/HCPCS: 36415; 80053; 80061; 82306; 82728; 83036; 84443; 85025

== ENCOUNTER → 2021-11-05 | Outpatient (CLI) | payer MEDICARE, OTHER, SELFPAY ==
--- NOTE | 2021-11-05 10:08 | BI_ITS ---
MAMMOGRAPHY - BILATERAL SCREENING REASON FOR EXAM: Female, 71 years old. Routine annual screening examination. PERTINENT HISTORY: Non-contributory. Prior right ultrasound-guided breast biopsy. TECHNIQUE: Digital bilateral breast ivan (3D mammographic acquisition) in the CC and MLO projections. 2-D mediolateral oblique (MLO) and craniocaudad (CC) views of both breasts were obtained. CAD: Full Field Digital Mammography with Computer Added Detection was performed. COMPARISON: Comparison is made with prior study dated 08/24/2020 and 08/24/2019. FINDINGS: Breast Composition: The breasts are heterogeneously dense, which may obscure small masses. There are no dominant masses or suspicious calcifications. A tissue clip marker is seen in the deep upper lateral aspect of the right breast. Stable benign-appearing bilateral axillary lymph nodes. No other significant abnormalities are identified. There has been no significant change since the prior study. BI/SCRN MAMM (CAD)W/IVAN BILAT IMPRESSION: Stable bilateral screening mammogram. Yearly follow-up mammogram recommended. (A) ASSESSMENT CATEGORY: BIRADS Category 2: Benign. A letter regarding these results will be sent to the patient by the facility within 30 days. Approximately 10% of breast cancers are not detected by mammography. A normal mammogram should not delay biopsy of a clinically suspicious abnormality. [id number] Electronically Signed: Kade Duarte MD at 11:07 EDT ,
== END | disposition home or self-care (01) ==
LOC: OPBI 10:06
PROVIDERS: PCP Family Medicine; Visit Provider Family Medicine
DX: Z12.31 Encounter for screening mammogram for malignant neoplasm of breast (principal)
CPT/HCPCS: 77063; 77067

== ENCOUNTER → 2022-11-07 | Outpatient (CLI) | payer MEDICARE, OTHER, SELFPAY ==
--- NOTE | 2022-11-07 08:58 | BI_ITS ---
MAMMOGRAPHY - BILATERAL SCREENING 3-D TOMOSYNTHESIS REASON FOR EXAM: Female, 72 years old. Routine screening PERTINENT HISTORY: No significant family history. TECHNIQUE: 2-D mammograms and 3-D Tomosynthesis of the breast (s) were performed. CAD was performed. COMPARISON: 08/24/2020 FINDINGS: The breast composition is composed of scattered fibroglandular density. Scattered benign vascular calcifications are seen. No dense spiculated masses or suspicious microcalcifications are identified. No architectural distortion is identified. There is no skin thickening or retraction. There has been no significant change since the prior study. BI/SCRN MAMM (CAD)W/IVAN BILAT IMPRESSION: No mammographic signs of malignancy. Routine yearly mammograms recommended. ASSESSMENT CATEGORY: BIRADS Category 2: Benign. A letter regarding these results will be sent to the patient by the facility within 30 days. FOLLOW UP RECOMMENDATION: Yearly follow up mammogram recommended. (A) Approximately 10% of breast cancers are not detected by mammography. A normal mammogram should not delay biopsy of a clinically suspicious abnormality. Electronically Signed: Kem Mckeon MD at 10:44 EDT ,
== END | disposition home or self-care (01) ==
LOC: OPBI 08:55
PROVIDERS: PCP Family Medicine; Referring Provider Family Medicine; Visit Provider Family Medicine
DX: Z12.31 Encounter for screening mammogram for malignant neoplasm of breast (principal)
CPT/HCPCS: 77063; 77067

== ENCOUNTER → 2022-12-19 | Outpatient (CLI) | payer MEDICARE, OTHER, SELFPAY ==
[2022-12-19 10:04] LABS: Absolute Lymphocyte Count 1.85 X10^3/uL (0.83-4.51); Absolute Neutrophil Count 2.6 X10^3/uL (2.0-7.7); Basophil# 0.04 X10^3/uL; Basophil% 0.8 % (0-1); Eosinophil# 0.08 X10^3/uL; Eosinophils% 1.6 % (0-5); Hematocrit 41.7 % (37-47); Hemoglobin 13.3 g/dL (12.0-15.0); Lymphocyte # 1.85 X10^3/ul (0.83-4.51); Lymphocyte % 37.8 % (19-41); Mean Corp Hgb Conc 31.9 g/dL (32-36); Mean Corpuscular Hgb 30.4 pg (27.0-32.0); Mean Corpuscular Volume 95.2 fL (81-99); Mean Platelet Vol. 9.6 fl (6.2-12.0); Monocyte# 0.34 X10^3/uL; Monocyte% 6.9 % (0-10); NRBC Flagged by Analyzer 0 % (0-5); Neutrophil # 2.58 X10^3/uL (2.7-7.7); Neutrophil % 52.7 % (47-70); Platelet Count 231 K/mm3 (150-450); RBC Distribution Width SD 45.6 fl (35.1-43.9); Red Blood Count 4.38 M/mm3 (4.2-5.4); White Blood Count 4.9 K/mm3 (4.4-11.0)
[2022-12-19 11:00] LABS: AST(SGOT) 15 U/L (15-37); Alanine Aminotransfer ALT/SGPT 17 U/L (13-56); Albumin, Serum 3.5 g/dL (3.2-5.0); Alkaline Phosphatase 112 U/L (45-117); Anion Gap 5 (5-15); BUN 11 mg/dL (7-18); BUN/Creat Ratio 17.6 RATIO (10-20); Calcium,Total 8.9 mg/dL (8.5-10.1); Chloride 108 mmol/L (98-107); Cholesterol 225 mg/dL (200); Creatinine, Serum 0.63 mg/dL (0.55-1.02); EST Glomerular Filtration Rate 100 mL/min (>60); Est Glom Filt Rate - Afr Amer 121 mL/min (>60); Ferritin 32 ng/mL (8-252); Globulin 3.5 g/dL (2.2-4.2); Glucose 92 mg/dL (74-106); High Density Lipoprotein 43 mg/dL; Sodium Level 141 mmol/L (136-145); Thyroid Stim Hormone (TSH) 1.24 uIU/mL (0.358-3.74); Triglycerides 149 mg/dL; Very Low Density Lipoprotein 30 mg/dL (5-40)
[2022-12-19 12:24] LABS: Hemoglobin A1c 5.8 % (3.8-5.6)
== END | disposition home or self-care (01) ==
LOC: MFPLAB 09:25
PROVIDERS: PCP Family Medicine; Visit Provider Family Medicine
DX: E78.00 Pure hypercholesterolemia, unspecified (principal); E55.9 Vitamin D deficiency, unspecified; D50.9 Iron deficiency anemia, unspecified; R73.01 Impaired fasting glucose
CPT/HCPCS: 36415; 80053; 80061; 82306; 82728; 83036; 84443; 85025

== ENCOUNTER → 2024-09-06 | Outpatient (CLI) | payer MEDICARE, OTHER, SELFPAY ==
[2024-09-06 10:04] LABS: Absolute Lymphocyte Count 2.12 X10^3/uL (0.83-4.51); Absolute Neutrophil Count 1.8 X10^3/uL (2.0-7.7); Basophil# 0.07 X10^3/uL; Basophil% 1.6 % (0-1); Eosinophil# 0.09 X10^3/uL; Hematocrit 41.3 % (37-47); Hemoglobin 13.6 g/dL (12.0-15.0); Lymphocyte # 2.12 X10^3/ul (0.83-4.51); Lymphocyte % 48.1 % (19-41); Mean Corp Hgb Conc 32.9 g/dL (32-36); Mean Corpuscular Hgb 31.1 pg (27.0-32.0); Mean Corpuscular Volume 94.3 fL (81-99); Mean Platelet Vol. 10.5 fl (6.2-12.0); Monocyte# 0.33 X10^3/uL; Monocyte% 7.5 % (0-10); NRBC Flagged by Analyzer 0 % (0-5); Neutrophil # 1.79 X10^3/uL (2.7-7.7); Neutrophil % 40.6 % (47-70); Platelet Count 233 K/mm3 (150-450); RBC Distribution Width CV 13.7 % (11.6-14.6); RBC Distribution Width SD 47.8 fl (35.1-43.9); Red Blood Count 4.38 M/mm3 (4.2-5.4); White Blood Count 4.4 K/mm3 (4.4-11.0)
[2024-09-06 10:51] LABS: ALB/GLOB Ratio 1.5 RATIO (0.9-2.4); AST(SGOT) 20 U/L (<=31); Alanine Aminotransfer ALT/SGPT 11 U/L (<=34); Albumin, Serum 4.3 g/dL (3.4-4.8); Alkaline Phosphatase 96 U/L (35-104); Anion Gap 11 (5-15); BUN 9 mg/dL (4-19); BUN/Creat Ratio 14.8 RATIO (10-20); Calcium,Total 9.4 mg/dL (7.6-11.0); Carbon Dioxide 24.3 mmol/L (21.0-32.0); Chloride 105 mmol/L (98-108); Cholesterol 208 mg/dL (<=200); Creatinine, Serum 0.62 mg/dL (0.70-1.20); EST Glomerular Filtration Rate 95 (>60); Globulin 2.8 g/dL (2.2-4.2); Glucose 98 mg/dL (70-99); High Density Lipoprotein 48 mg/dL; Low Density Lipoprotein Calc. 145 mg/dL; Sodium Level 141 mmol/L (133-145); Total Bilirubin 0.54 mg/dL (0.00-1.30); Triglycerides 76 mg/dL; Very Low Density Lipoprotein 15 mg/dL (5-40); cholesterol:hdl ratio screen 4.36
[2024-09-06 10:55] LABS: Vitamin D,25 Hydroxy 28.4 ng/mL (30-100)
== END | disposition home or self-care (01) ==
LOC: MFPLAB 08:49
PROVIDERS: PCP Family Medicine; Referring Provider Family Medicine; Visit Provider Family Medicine
DX: G25.0 Essential tremor (principal); R73.03 Prediabetes; E78.00 Pure hypercholesterolemia, unspecified; E04.9 Nontoxic goiter, unspecified; E55.9 Vitamin D deficiency, unspecified
CPT/HCPCS: 36415; 80053; 80061; 82306; 83036; 84443; 85025

== ENCOUNTER → 2025-02-10 | Outpatient (CLI) | payer MEDICARE, OTHER, SELFPAY | END | disposition home or self-care (01) | PROVIDERS: PCP Family Medicine; Referring Provider Family Medicine; Visit Provider Family Medicine | DX: L72.9 Follicular cyst of the skin and subcutaneous tissue, unspecified (principal) | CPT/HCPCS: 76882 ==

== ENCOUNTER 2025-03-04 09:04 | Day surgery (SDC) | payer MEDICARE, OTHER, SELFPAY ==
--- NOTE | 2025-02-25 15:52 | PAT.ANE_ITS ---
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 When Was Last Pacemaker Check QUESTION #4 FULL TEXT: You/Your Family Experience fever (hyperthermia) with Anesthesia Last Oral Intake Last Oral intake: Last Oral Intake NPO since Meds taken in AM with sips of water? Meds patient instructed to take am of surgery PONV PONV - food trades assistants: PONV - food trades assistants Female Yes 02/25/25 09:22 HX of Motion Sickness No 02/25/25 09:22 HX of N/V After Surgery No 02/25/25 09:22 Non-Smoker Yes 02/25/25 09:22 Duration of Surgery greater No 02/25/25 09:22 than 60 minutes Number of Risk Factors 2 02/25/25 09:22 PONV Score Moderate Risk 02/25/25 09:22 Height & Weight Height & Weight: Anesthesia: Height & Weight Height 5 ft 4 in 02/22/25 09:08 Respiratory Assessment Respiratory Assessment - food trades assistants: Respiratory Tract Infection Hx - food trades assistants Hx Respiratory Tract Infection No 02/25/25 09:22 STOP Sleep Apnea STOP Sleep Apnea - food trades assistants: STOP Sleep Apnea - food trades assistants Hx Hypertension No 02/25/25 09:22 Hx Sleep Apnea No 02/25/25 09:22 CPAP BIPAP Do you snore loudly (louder No 02/25/25 09:22 than talking or can be heard Do you often feel tired/ No 02/25/25 09:22 fatigued/ sleepy during daytime? Has anyone observed you stop No 02/25/25 09:22 breathing during sleep? STOP Results Negative 02/25/25 09:22 QUESTION #5 FULL TEXT : Do you snore loudly (louder than talking or can be heard through closed doors)? 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 Specify any problems Hx of Preganancy in last 3 No 02/25/25 09:22 Months Nurse Filling Out Transfusion DSCHRIBER 02/25/25 09:22 & Questions: Date: 02/25/25 02/25/25 09:22 Time: :24 02/25/25 09:22 Patient unable to answer at this time (ie. confused, unrespo /Reproduction History /Reproductive History - food trades assistants: /Reproductive Hx- food trades assistants Hx Now No 02/25/25 09:22 Gestational Age (in weeks): EDC: Hx Hx Para Hx Section SAB No 02/25/25 09:22 Does the father of the baby or his family experience fever w Father of the baby Malignant Hypertension history comment [facility] Medical History (Updated 02/25/25 @ 09:30 by Lila Alatorre) Post-menopausal Anemia Restless legs Back pain Heartburn Former smoker Leg cramps History of pain when walking History of echocardiogram Mass of buttock Macular degeneration Bilateral carpal tunnel syndrome Raynaud disease Anxiety and depression Dizziness Diarrhea BPV (benign positional vertigo) Home Medications Medication Instructions Recorded Last Taken Type cholecalciferol (vitamin D3) 50 50 mcg PO DAILY Unknown History mcg (2,000 unit) capsule loratadine 10 mg capsule 10 mg PO DAILY PRN allergy s ymptoms 12/02/19 Unknown History citalopram 10 mg tablet (Celexa) 5 mg PO QDAY 02/03/25 Unknown History Allergy/AdvReac Type Severity Reaction Status Date / Time No Known Allergies Allergy Verified 02/25/25 09:20 Family History Mother Diabetes Heart disease CVA (cerebral vascular accident) Hypertension Colon cancer Brother Heart disease Pacemaker Surgical History (Updated 02/25/25 @ 09:30 by Lila Alatorre) Hx of oral surgery History of lithotripsy History of colonoscopy (~05/2019) History of hemorrhoidectomy Social History Smoking Status: Former smoker alcohol intake: never substance use type: does not use caffeine: Yes seatbelt use: always do you feel safe at home: Yes Audit: Pertinent Findings Pertinent Findings EKG Perinent findings: 04/04/2018. Normal sinus rhythm. LAE. Echo (EF%) pertinent findings: 08/26/2019. EF of 60%. PASP is 25 mmHg. No aortic stenosis. Recommendation Anesthesia Recommendation Anesthesia recommendation: OPTIMIZED for anesthesia
[2025-03-04] VITALS (9 sets, daily range): BP systolic 119–129; BP diastolic 59–78; PULSE 63–86; RESP 16–20; TEMP 36.6–37.3; O2SAT 96–100; BMI 28.3
[2025-03-04] MEDS: Lactated Ringers 1,000 ML 15 ML IV (09:31)
--- NOTE | 2025-03-04 09:50 | PRE.ANES_ITS ---
ASA Classification* ASA Classification ASA Classification: 2 Assessment & Plan Anesthesia* Anesthesia Assessment Anesthesia Assessment: Discussed sedation and/or anesthesia options, risks, benefits, and alternatives with patient/parents/legal guardian/POA. Questions invited. The patient/parents/legal guardian/POA seems to understand and agrees to proceed with anesthesia plan. Reviewed the physical assessment, medical history, allergy history and patient home medications list prior to surgery/procedure/anesthetic and documented any changes. Performed airway and anesthesia risk assessments. Anesthesia Type Anesthesia Type: General History Source History Obtained from:: Patient and Chart Anesthesia Focused Assessment* Temperature: 97.9 F Pulse Rate: 63 Blood Pressure: 125/77 Respiratory Rate: 16 Pulse Ox: 96 Oxygen Delivery Method: Room Air Airway Assessment Mouth opens: >3 cm Mallampati Score: III Teeth Condition: Chipped/Broken (Patient does have a broken tooth on the bottom.), Missing (Multiple missing teeth. Remaining teeth are tight.), Partial (Patient has a permanent 3 tooth bridge on the upper jaw. It is tight.) and Implants (Patient has an upper implant. It is tight.) Neck Range of motion (ROM): Limited ROM (Slight Decrease) Labs Anesthesia Preop lab: CBC WBC, (4.4-11.0) 4.4 K/mm3 09/06/24, 08:49 RBC, (4.2-5.4) 4.38 M/mm3 09/06/24, 08:49 Hgb, (12.0-15.0) 13.6 g/dL 09/06/24, 08:49 Hct, (37-47) 41.3 % 09/06/24, 08:49 Plt Count, (150-450) 233 K/mm3 09/06/24, 08:49 CHEMISTRY Potassium, (3.3-5.1) 4.0 mmol/L 09/06/24, 08:49 Sodium, (133-145) 141 mmol/L 09/06/24, 08:49 Magnesium, (1.6-2.6) 1.7 mg/dL 04/07/18, 05:50 Phosphorus, (2.5-4.9) 3.3 mg/dL 07/19/20, 09:29 BUN, (4-19) 9 mg/dL 09/06/24, 08:49 Creatinine, (0.70-1.20) 0.62 mg/dL L 09/06/24, 08:49 Glucose, (70-99) 98 mg/dL 09/06/24, 08:49 TSH, (0.300-4.200) 1.040 uIU/mL 09/06/24, 08:49 COAG Pre-Assessment Diagnosis/Proposed Procedure Planned Operative Procedure(s): EXCISION SUBCUTANEOUS LEFT BUTTOCK X2 Anesthesia History 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 When Was Last Pacemaker Check QUESTION #4 FULL TEXT: You/Your Family Experience fever (hyperthermia) with Anesthesia Last Oral Intake Last Oral intake: Last Oral Intake NPO since 22:30 03/04/25 09:24 Meds taken in AM with sips of No 03/04/25 09:24 water? Meds patient instructed to take am of surgery PONV PONV - etl informatica developer: PONV - etl informatica developer Female Yes 02/25/25 09:22 HX of Motion Sickness No 02/25/25 09:22 HX of N/V After Surgery No 02/25/25 09:22 Non-Smoker Yes 02/25/25 09:22 Duration of Surgery greater No 02/25/25 09:22 than 60 minutes Number of Risk Factors 2 02/25/25 09:22 PONV Score Moderate Risk 02/25/25 09:22 Height & Weight Height & Weight: Anesthesia: Height & Weight Height 5 ft 4 in 03/04/25 09:24 Weight: 75 kg 03/04/25 09:24 Body Mass Index (BMI) 28.3 03/04/25 09:24 Respiratory Assessment Respiratory Assessment - etl informatica developer: Respiratory Tract Infection Hx - etl informatica developer Hx Respiratory Tract Infection No 02/25/25 09:22 STOP Sleep Apnea STOP Sleep Apnea - etl informatica developer: STOP Sleep Apnea - etl informatica developer Hx Hypertension No 02/25/25 09:22 Hx Sleep Apnea No 02/25/25 09:22 CPAP BIPAP Do you snore loudly (louder No 02/25/25 09:22 than talking or can be heard Do you often feel tired/ No 02/25/25 09:22 fatigued/ sleepy during daytime? Has anyone observed you stop No 02/25/25 09:22 breathing during sleep? STOP Results Negative 02/25/25 09:22 QUESTION #5 FULL TEXT : Do you snore loudly (louder than talking or can be heard through closed doors)? 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 Specify any problems Hx of Preganancy in last 3 No 02/25/25 09:22 Months Nurse Filling Out Transfusion DSCHRIBER 02/25/25 09:22 & Questions: Date: 02/25/25 02/25/25 09:22 Time: 09:24 02/25/25 09:22 Patient unable to answer at this time (ie. confused, unrespo /Reproduction History /Reproductive History - etl informatica developer: /Reproductive Hx- etl informatica developer Hx Now No 02/25/25 09:22 Gestational Age (in weeks): EDC: Hx Hx Para Hx Section SAB No 02/25/25 09:22 Does the father of the baby or his family experience fever w Father of the baby Malignant Hypertension history comment Active Medications Active Medications: Current Medications Generic Name Dose Route Start Last Admin Trade Name Freq PRN Reason Stop Dose Admin Lactated Ringer's 1,000 mls @ 15 mls/hr 03/04/25 09:15 03/04/25 09:31 IV 15 mls/hr .Q48H JUSTINO Administration PFSH Medical History Post-menopausal Anemia Restless legs Back pain Heartburn Former smoker Leg cramps History of pain when walking History of echocardiogram Mass of buttock Macular degeneration Bilateral carpal tunnel syndrome Raynaud disease Anxiety and depression Dizziness Diarrhea BPV (benign positional vertigo) Home Medications Medication Instructions Recorded Last Taken Type cholecalciferol (vitamin D3) 50 50 mcg PO DAILY Unknown History mcg (2,000 unit) capsule loratadine 10 mg capsule 10 mg PO DAILY PRN allergy s ymptoms 12/02/19 Unknown History citalopram 10 mg tablet (Celexa) 5 mg PO QDAY 02/03/25 Unknown History Allergy/AdvReac Type Severity Reaction Status Date / Time No Known Allergies Allergy Verified 03/04/25 09:23 Family History Mother Diabetes Heart disease CVA (cerebral vascular accident) Hypertension Colon cancer Brother Heart disease Pacemaker Surgical History Hx of oral surgery History of lithotripsy History of colonoscopy (~05/2019) History of hemorrhoidectomy Social History Smoking Status: Former smoker alcohol intake: never substance use type: does not use caffeine: Yes seatbelt use: always do you feel safe at home: Yes Review of Systems (Anesthesia) ROS Narrative System reviewed and no additional complaints, except as documented.
--- NOTE | 2025-03-04 10:16 | PCM.HP.BLA ---
History and Physical Date of Admission: 03/04/25 Date of Service: 02/22/25 MR#: [id number] Acct: [id number] Name: FELIX TRENT Rep #: [id number] : 1950 Provider: Dr. Lisy Medrano MD Age/Sex: 74/F Location: [facility] Status: Signed Intake Vital Signs 02/04/2508:49 02/22/2509:08 Height 5 ft 4 in 5 ft 4 in Weight: 166 lb 166 lb BMI 28.5 28.5 BP 114/79 142/94 H Blood Pressure Location Rt brachial Rt brachial Position Sitting Sitting Respiration 17 18 Pulse 76 69 Pulse Source Monitor Monitor Temp 96.0 F L Temp Source Temporal Pulse Oximetry (%) 98 95 Oxygen Delivery Method room air room air Intake Visit Reasons: CYST ON BUTTOCK Chief Complaint: cyst buttock Budget And Policy Analyst Required: No Is patient in pain?: No Allergies No Known Allergies Allergy (Verified 02/22/25 09:09) Medications Medication Instructions Recorded Confirmed Type cholecalciferol (vitamin D3) 50 50 mcg PO DAILY 12/02/19 02/22/25 History mcg (2,000 unit) capsule loratadine 10 mg capsule 10 mg PO DAILY 12/02/19 02/22/25 History citalopram 10 mg tablet (Celexa) 5 mg PO QDAY 02/03/25 02/22/25 History Have you fallen in the past year?: No PFSH Medical History Mass of buttock Contact dermatitis due to poison jay Insomnia Macular degeneration Hypercholesterolemia Bilateral carpal tunnel syndrome Raynaud disease Anemia Anxiety and depression External hemorrhoids Multinodular goiter Right renal stone Dizziness Diarrhea N&V (nausea and vomiting) BPV (benign positional vertigo) UTI (urinary tract infection) Surgical History History of lithotripsy History of colonoscopy (~05/2019) History of hemorrhoidectomy Family History Mother Diabetes Heart disease CVA (cerebral vascular accident) Hypertension Colon cancer Brother Heart disease Pacemaker Social History Smoking Status: Former smoker alcohol intake: never substance use type: does not use caffeine: Yes seatbelt use: always do you feel safe at home: Yes HPI HPI HPI: 74-year-old female presents due to left buttock subcutaneous masses. Patient states she has had them for more than a year but states they have been more bothersome slightly sore and itchy. Patient did have an ultrasound done which did show 2 lobulated hyper echoic areas with peripheral calcification 1 is approximately 1.3 x 1.8 x 0.7 cm the other 1 is 4.6 x 4.2 x 1 2.1 cm report also states appearance is nonspecific may represent fat necrosis or heterotopic ossification. ROS General General: Yes weight change; No appetite, fatigue, colon cancer, breast cancer or weakness Additional Details: loss intentional HEENT HEENT: No difficulty swallowing, eye injury, eye surgery, swollen glands or hoarseness Additional Details: has macular degeneration. Endo Endocrine: No thyroid disease, diabetes mellitus, thyroid cancer, Hair loss, heat intolerance or cold intolerance Skin Skin: No rash or changing moles Musc Musculoskeletal: No back problems, arthritis, rheumatoid arthritis, gout or joint pain Cardio Cardiovascular: No murmur, pacemaker, heart disease, atrial fibrillation, high blood pressure, heart attack, heart stent, palpitations, shortness of breath with exertion or chest pain Psych Psychiatric: Yes depression and anxiety; No hearing voices Resp Respiratory: No shortness of breath, No sleep apnea, No cough, No COPD, No asthma, No emphysema and No wheezing Gastro Gastrointestinal: No abdominal pain, No nausea or vomiting, No diarrhea, No constipation, No blood in stool, No acid reflux, No hemorrhoids, No ulcers, No gallbladder problem and No black,tarry stools Johann Hematologic: No blood thinners, No blood disorders, No bleeding, Yes anemia and No blood clots Neuro Neurologic: No system reviewed and no additional complaints, except as documented, No as per HPI, No abnormal gait, No abnormal hearing, No abnormal movements, No abnormal speech, No behavioral changes, No burning sensations, No confusion, No convulsions, No disequilibrium, No dizziness, No localized weakness, No frequent falls, No headache(s), No lack of coordination, No loss of vision, No memory loss, Yes numbness (hands carpel tunnel), No other visual disturbances, No radicular pain, No restless legs, No sensory deficit, No syncope, Yes tingling, No tremor(s), No weakness and No other Exam Const General: cooperative, healthy appearing, comfortable and no acute distress [facility] Head: normocephalic and atraumatic Neck Neck: supple Resp Effort & Inspection: normal respiratory effort Cardio Rate: regular rate GI Inspection: non-distended Palpation: nontender Skin Other: Left inferior gluteal crease subcutaneous mass x 2 1 about 4 cm in about 2 cm adjacent with some thickening of the skin overlying one of them about a centimeter and half by a centimeter half. Neuro General: CN's II-XI intact bilaterally Extrem General: normal to inspection Psych Mental Status: mental status grossly normal Attitude: cooperative Assessment and Plan Assessment and Plan (1) Mass of buttock: Status: Acute Plan Discussed with patient would plan to excise in the OR. Unsure of the etiology until we would get pathology back. Explained risk including not limited to bleeding, infection, need for further surgery. Patient no further questions this time. Lisy Medrano M.D. Pager: [phone] [facility] [address] [place] [address], [address] [place] [address] Office: [phone] Coding Level of Care Code Off vis,est,level 3 Diagnoses Mass of buttock R22.2 Clinical Quality Measures Falls Risk Screening/Assistive Devices Have you fallen in the past year?: No 02/22/25 4375 <Electronically signed by Lisy Medrano MD> Date Lisy Medrano MD
[2025-03-04] MEDS: Midazolam 2 MG/2 ML Syringe IV (10:46)
[2025-03-04] MEDS: Cefazolin 1 GM/5 ML Vial 2 GM IV (10:48)
[2025-03-04] MEDS: Lidocaine 1% (5 ml sdv) 5 ML Vial IV (10:53)
--- NOTE | 2025-03-04 11:00 | MASS_PTH ---
PATIENT: FELIX TRENT [place] [facility] [id number] AGE/SX: 74/F ROOM: RE03/04/[address]: Dr. Lisy Medrano MD : 1950 BED: DIS: 03/04/2025 SPEC #: [id number] RECD: 03/04/25 11:33 STATUS: RUBY REQ #: [id number] DEDE: 03/04/25 11:[address]: Lisy Medrano DEPT: SURGICAL PATHOLOGY RECD BY: Jose A Sarkar ENTERED: 03/04/25 13:29 SP TYPE: Mass OTHR DR: Modesto Newell MD Tissues: A - Buttock, NOS Procedures: Surgery Specimen Level IV HEADER OPERATION: Excision, subcutaneous mass buttocks PRE-OP DIAGNOSIS: Mass of buttock TISSUE SUBMITTED: A- Left buttock mass MICROSCOPIC DIAGNOSIS A. Left buttock mass, excision: * Calcinosis cutis MICROSCOPIC DESCRIPTION Slides are reviewed. GROSS DESCRIPTION A. Received fresh and subsequently placed in formalin labeled patient's name and date of . Designated as "left buttock mass-frozen section" is a 5.4 x 4.3 x 2.2 cm pink-red, lobulated firm and calcified portion of soft tissue surfaced by a 3.4 x 1.8 cm zhang portion of skin, devoid of orientation. Soft tissue is inked black. Sectioning reveals a zhang-pink to white, rubbery cut surfaces with diffuse, patchy white-yellow calcifications throughout. Ethylene Compressor Operator sections are submitted in 5 cassettes, following decalcification. RI 03/04/2025 CPT:53231,86192
[2025-03-04] MEDS: fentaNYL 100 MCG/2 ML Ampul IV (11:06)
--- NOTE | 2025-03-04 11:31 | PCM.OPRPT ---
Operative Report (Standard) Operative Information Date of Procedure: 03/04/25 Pre-Operative Diagnosis: Left buttock subcutaneous mass Post-Operative Diagnosis: Same Surgery/Procedure Performed: Excision of left subcutaneous buttock mass supervisor welding equipment repairer: Yes Highway Administrative Engineer: Tootie Manuel Tasks completed by certified surgical first assistant: Opening & closing Type of Anesthesia: General/Supplemental RN Documented Start/Stop Times: Operation Date: 03/04/25 11:00 Case Time Into Pre-Op 03/04/25 09:10 Out of Pre-Op 03/04/25 10:43 Anesthesia Start 03/04/25 10:46 Into Room 03/04/25 10:46 Procedure Start 03/04/25 11:06 Procedure End 03/04/25 11:40 Anesthesia End 03/04/25 11:44 Out of Room 03/04/25 11:44 Into Recovery 03/04/25 11:47 Out of Recovery 03/04/25 12:12 Into Phase II Recovery 03/04/25 12:13 Out of Phase II 03/04/25 13:01 Procedure Start Time: 11:06 Procedure Stop Time: 11:40 Select all DRAINS/GRAFTS/IMPLANTS that apply: None Special Medications: Ancef 2 g IV x 1 Estimated Blood Loss: 5 cc Specimen collected: Yes Description of specimen(s) removed: Left buttock mass approximately 6 x 6 x 4-1/2 cm–2 areas connected by bridge Description of surgery: Patient was brought into the operating room and placed supine on operating table. A time-out was completed verifying correct patient, procedure, site, position and special equipment prior to beginning procedure. General anesthesia was induced. The patient was placed in right lateral decubitus position with the help of a beanbag with appropriate padding. Local anesthesia of 0.5% Marcaine was used for local anesthesia. Left buttock was identified elliptical incision was made around the more superficial part. This was further dissected with electrocautery. Found the 2 areas actually connected with the bridge of firm tissue which had white drainage. Drainage was cultured. Left buttock mass found to be approximately 6 x 6 x 4-1/2 cm when placed together. Hemostasis was achieved with electrocautery. Wound was irrigated with saline. Incisions were closed with subdermal suture of 3-0 Vicryl interrupted and the skin was closed with horizontal mattress 3-0 nylon x 3 and interrupted interrupted sutures x2. Gauze and tape placed over incision. Patient was extubated. Patient tolerated the procedure well and was taken to the postsurgical care unit in stable condition. Surgical Findings: See operative report Complications Complications: No
[2025-03-04] MEDS: Lactated Ringers 2,000 ML 2000 ML IV (11:35)
--- NOTE | 2025-03-04 11:38 | DCINST_ITS ---
Discharge Instructions Diet Discharge Diet: Light diet - advance as tolerated Activity Discharge Activity: May Not Drive (while taking narcotic pain medications.) May shower in (days): 1 Lifting Restrictions: no strenuous exercise for 1 wk--ok for walking and normal activity Dressing / Incision Call your doctor if your incision/area has: Continuous Slow Oozing, Sudden Increased Bleeding, Increased Pain/ Swelling, Increased Redness, Foul Smelling Discharge and Swelling at the incision site Call your doctor if you observe: Fever of 101 or Higher Change Dressing in: 1 day (Change daily with gauze) Cleanse incision/area with: Soap & Water Follow Up Care Please Follow Up With: Lisy Medrano MD When: Call the office for a follow-up appointment 1 week-for suture removal; after 5 PM and on the weekends call [phone] with any concerns. Test Results: Test results from this visit will be discussed in further detail at your follow- up appointment, if applicable. Discharge Plan Admission Attending Provider: Lisy Medrano Primary Care Provider: Modesto Newell Instructions Additional Instructions / Restrictions: Okay to take ibuprofen 400-600 mg PO q6hr PRN pain and/or Tylenol 650mg PO Q6H PRN pain along with Tramadol. Take all pain meds with food. Tramadol can cause constipation recommend taking daily stool softener (i.e. Colace/docusate) while taking the pain meds. Recommend starting some MiraLAX in 1-2 days if no bowel movement. If still no bowel movement the next day recommend taking magnesium citrate half the bottle and waiting 4-6 hours if still no results take the other half the bottle. Print Language: Luxembourgish Discharge Orders/Prescriptions Prescriptions: No Action citalopram [Celexa] 10 mg tablet 5 mg PO QDAY cholecalciferol (vitamin D3) 50 MCG capsule 50 mcg PO DAILY loratadine 10 MG capsule 10 mg PO DAILY PRN (Reason: allergy symptoms) Referrals / Follow Up: Modesto Newell MD [Primary Care Provider, Family Practice] Disposition Disposition (needs filled in before D/C Order can be placed): Home, Self Care
--- NOTE | 2025-03-04 11:53 | PCM.POST.ANE ---
Anesthesia: Postop Eval I Current Vital Signs Temperature: 98.3 F Pulse Rate: 84 Blood Pressure: 124/64 Respiratory Rate: 20 Pulse Ox: 98 Oxygen Delivery Method: Room Air Assessment Airway patent: Yes Spontaneous unlabored respirations: Yes Mental status: Awake and Calm nausea: No Vomiting: No Anesthesia Complication: No Fluid Hydration Crystalloid volume administer (ml): 1,100 Total IV fluid infused: 1,100 Progress Note Anesthesia document: Postop Eval 1 completed: Yes
--- NOTE | 2025-03-04 13:29 | POSTOPAN2_ITS ---
Anesthesia Postop Eval I Sum Postop Eval Completion status Anesthesia document: Postop Eval 1 completed: Yes Anesthesia Postop Eval I Summary Anesthesia Postop Eval I Summary: Anesthesia Postop Eval I: Assessment Summary Airway patent Yes 03/04/25 11:53 OPEN HEARTH FURNACE OPERATOR [email or web address] Spontaneous unlabored Yes 03/04/25 11:53 OPEN HEARTH FURNACE OPERATOR [email or web address] respirations Mental status Awake,Calm 03/04/25 11:53 OPEN HEARTH FURNACE OPERATOR [email or web address] nausea No 03/04/25 11:53 OPEN HEARTH FURNACE OPERATOR [email or web address] Vomiting No 03/04/25 11:53 OPEN HEARTH FURNACE OPERATOR [email or web address] Anesthesia Postop Eval I: Fluid Summary Crystalloid volume administer 1,100 03/04/25 11:53 OPEN HEARTH FURNACE OPERATOR [email or web address] (ml) Colloids volume administered ( ml) Blood Product volume administered (ml) Total IV fluid infused 1,100 03/04/25 11:53 OPEN HEARTH FURNACE OPERATOR [email or web address] Anesthesia Postop Eval I: Summary Notes Anesthesia Complication No 03/04/25 11:53 OPEN HEARTH FURNACE OPERATOR [email or web address] Anesthesia Complication Comment: Post-operative progress note Anesthesia: Postop Eval II Evaluation Mental status: Awake and Calm Pain Level: 0 nausea: No Vomiting: No Complications Anesthesia Complication: No
--- NOTE | 2025-03-04 13:29 | PCM.POSTANE2 ---
Anesthesia Postop Eval I Sum Postop Eval Completion status Anesthesia document: Postop Eval 1 completed: Yes Anesthesia Postop Eval I Summary Anesthesia Postop Eval I Summary: Anesthesia Postop Eval I: Assessment Summary Airway patent Yes 03/04/25 11:53 CLOTH [email or web address] [email or web address] Spontaneous unlabored Yes 03/04/25 11:53 CLOTH SECONDS [email or web address] respirations Mental status Awake,Calm 03/04/25 11:53 CLOTH SECONDS [email or web address] nausea No 03/04/25 11:53 CLOTH SECONDS [email or web address] Vomiting No 03/04/25 11:53 CLOTH [email or web address] Anesthesia Postop Eval I: Fluid Summary Crystalloid volume administer 1,100 03/04/25 11:53 CLOTH [email or web address] (ml) Colloids volume administered ( ml) Blood Product volume administered (ml) Total IV fluid infused 1,100 03/04/25 11:53 CLOTH [email or web address] Anesthesia Postop Eval I: Summary Notes Anesthesia Complication No 03/04/25 11:53 CLOTH [email or web address] Anesthesia Complication Comment: Post-operative progress note Anesthesia: Postop Eval II Evaluation Mental status: Awake and Calm Pain Level: 0 nausea: No Vomiting: No Complications Anesthesia Complication: No
== END 2025-03-04 13:02 | disposition home or self-care (01) ==
LOC: SDC 09:06 → AC 09:08
PROVIDERS: PCP Family Medicine; Referring Provider Surgery; Visit Provider Surgery
DX: L94.2 Calcinosis cutis (principal); E78.00 Pure hypercholesterolemia, unspecified; F41.9 Anxiety disorder, unspecified; F32.A Depression, unspecified; Z87.891 Personal history of nicotine dependence; Z79.899 Other long term (current) drug therapy
CPT/HCPCS: 27043; 00300; 87070; 87075; 87102; 87205; 87206; 88305; J2405

== ENCOUNTER → 2025-03-16 | Outpatient (CLI) | payer MEDICARE, OTHER, SELFPAY ==
--- NOTE | 2025-03-16 08:26 | BD_ITS ---
PROCEDURE: DEXA BONE DENSITY STUDY 03/16/2025 REASON FOR EXAM: F, age 74 y/o . Postmenopausal. TECHNIQUE: Procedure Code: BDDBD Modality: DX Procedure: DEXA BONE DENSITY STUDY COMPARISON: None FINDINGS: BMD and T-SCORES Lumbar spine: 0.863 g/cm2, T-score -1.7 Levels: L1 through L4 Left femoral neck: 0.896 g/cm2, T-score 0.4 Left total hip: 0.961 g/cm2, T-score 0.2 Right femoral neck: 0.940 g/cm2, T-score 0.8 Right total hip: 0.939 g/cm2, T-score 0 The World Health Organization has defined the following categories based on bone density: Normal bone density: T-score equal to or greater than -1.0 Osteopenia: T-score between -1.0 and -2.5 Osteoporosis: T-score equal to or less than -2.5 FRAX (or Comparable) Fracture Risk Assessment: 10 Year Probability of Fracture: Major Osteoporotic Fracture: 6.8% Hip Fracture: 0.4% (Note: FRAX is not to be reported in setting of normal range bone density, osteoporosis on DEXA, known history of osteoporosis, prior osteoporotic hip or vertebral fracture, or for any patient undergoing pharmacological treatment for bone loss.) The National Osteoporosis Foundation (NOF) recommends pharmacological treatment for patients with a FRAX 10-year risk of 3% or higher for a hip fracture, or 20% or higher for a major osteoporotic fracture, to prevent osteoporosis and reduce fracture risk. The patient does not meet the pharmacological treatment recommendations for prevention of osteoporosis. BD/Dexa Bone Density Study IMPRESSION: OSTEOPENIA. Recommend follow-up as clinically warranted. Reading Location: [id number]
== END | disposition home or self-care (01) ==
LOC: OPBD 08:22
PROVIDERS: PCP Family Medicine
DX: Z13.820 Encounter for screening for osteoporosis (principal); Z78.0 Asymptomatic menopausal state
CPT/HCPCS: 77080

== ENCOUNTER 2025-03-20 12:28 | Emergency (ER) | payer MEDICARE, OTHER, SELFPAY ==
[2025-03-20 12:34] VITALS: BP 148/88; PULSE 80; RESP 18; TEMP 36.6; O2SAT 98; BMI 29.3
--- OUTSIDE RECORDS SUMMARY | 2025-03-20 13:08 | XMS RPT_ITS | CCD ---
Author Organization [facility] Care Team Providers Care Audio Visual Coordinator Name Role Phone Osiris BARLOW, [place] Primary Care Provider [phone] Osiris BARLOW, [place] Attending Provider [phone] Osiris BARLOW, [place] Referring Provider [phone] Osiris BARLOW, [place] Primary Care Physician [phone] Osiris BARLOW, [place] Referring Provider Kassie BARLOW, Dr. Estes Attending Physician Osiris BARLOW, [place] Attending Physician [phone] Osiris, Chalon Primary Care Unavailable Osiris, Nishanton Attending Unavailable Osiris, Chalon Primary Care Unavailable Lisy Medrano Attending Unavailable Osiris, Chalon Referring Unavailable Osiris, Chalon Primary Care Unavailable Franklyn Fernando Attending Unavailable Osiris, Chalon Referring Unavailable Osiris, Chalon Primary Care Unavailable Osiris, Nishanton Attending Unavailable Osiris, Chalon Referring Unavailable Osiris, Chalon Primary Care Unavailable Osiris, [place] Attending Unavailable Osiris, Chalon Referring Unavailable Osiris, Chalon Primary Care Unavailable Franklyn Fernando Attending Unavailable Medications Current Medications Medication Drug Class(es) Dates Sig (Normalized) Sig (Original) cholecalciferol 0.05 mg oral capsule (4 sources) Vitamin D Start: 12-02-2019 take 1 capsule by mouth once daily citalopram 10 mg oral tablet (9 sources) Serotonin Reuptake Inhibitor Start: 02-03-2025 take 5 mg by mouth once daily Start: 10-07-2020 End: 02-03-2025 take 1 tablet by mouth once daily Citalopram (Celexa) 10 mg tablet Discontinued 10 mg PO DAILY October 07, 2020 12:00am February 03, 2025 8:50am Start: 04-04-2018 End: 10-07-2020 take 1 tablet by mouth once daily Citalopram 20 MG tablet Discontinued 20 mg PO DAILY April 04, 2018 1:00am October 07, 2020 9:13am anxiety loratadine 10 mg oral capsule (4 sources) Start: 12-02-2019 take 1 capsule by mouth once daily Vit C,O-Qy-Wpqdd-Lutein-Zeax an (2 sources) Start: 12-02-2019 Vit C,X-Lu-Ijvwg-Lutein- Zeaxan Active 1 EACH PO DAILY December 02, 2019 12:00am Completed/Discontinued Medications Medication Drug Class(es) Dates Sig (Normalized) Sig (Original) acetaminophen 325 mg / oxyCODONE hydrochloride 5 mg oral tablet (4 sources) Opioid Agonist Start: 12-09-2019 End: 12-16-2019 Oxycodone-Acetamino phen 1 TABLET tablet Discontinued 2 {tbl} PO EVERY 8 HOURS NEEDED as needed for Pain 20 7 0 December 09, 2019 December 15, 2019 12:00am December 16, 2019 12:02am Calculus of right kidney Calculus of kidney Start: 12-09-2019 End: 12-16-2019 take 2 tablets by mouth every eight hours as needed Oxycodone-Acetaminophen Discontinued 2 TABLET PO EVERY 8 HOURS NEEDED 20 7 December 09, 2019 December 16, 2019 12:02am calcium carbonate 1500 mg oral tablet (4 sources) Start: 12-02-2019 End: 02-03-2025 take 1 tablet by mouth once daily Calcium Carbonate 600 MG tablet Discontinued 600 mg PO DAILY December 02, 2019 12:00am February 03, 2025 8:50am cephalexin 500 mg oral capsule (4 sources) Cephalosporin Antibacterial Start: 12-09-2019 End: 12-12-2019 take 1 capsule by mouth every twelve hours Cephalexin 500 MG capsule Discontinued 500 mg PO EVERY 12 HOURS 6 3 0 December 09, 2019 12:00am December 11, 2019 12:00am December 12, 2019 12:02am post-operative meclizine hydrochloride 25 mg oral tablet (4 sources) Antiemetic Start: 04-07-2018 End: 03-29-2020 take 1 tablet by mouth three times daily as needed Meclizine 25 MG tablet Discontinued 25 mg PO 3 TIMES DAILY NEEDED as needed for Vertigo 30 0 April 07, 2018 1:00am March 29, 2020 9:13am phenazopyridine hydrochloride 200 mg oral tablet (4 sources) Start: 12-09-2019 End: 12-16-2019 take 1 tablet by mouth three times daily as needed for muscle spasms Phenazopyridine 200 MG tablet Discontinued 200 mg PO 3 TIMES DAILY NEEDED as needed for Bladder Spasms 30 7 0 December 09, 2019 12:00am December 15, 2019 12:00am December 16, 2019 12:02am microencapsulated potassium chloride 20 meq extended release oral tablet (4 sources) Start: 04-07-2018 End: 03-29-2020 take 1 tablet by mouth twice daily Potassium Chloride 20 MEQ tablet Discontinued 20 meq PO TWICE A DAY 30 0 April 07, 2018 1:00am March 29, 2020 9:13am predniSONE 10 mg oral tablet (4 sources) Start: 10-07-2020 End: 02-03-2025 take 4 tablets by mouth once daily, then take 3 tablets by mouth once daily, then take 2 tablets by mouth once daily, then take 1 tablet by mouth once daily Prednisone 10 mg tablet Discontinued 10 mg PO DAILY 30 0 October 07, 2020 12:00am February 03, 2025 8:50am 4 tablets daily for 3 days, then 3 tablets daily for 3 days, then 2 tablet daily for 3 days, then 1 tablet daily for 3 days Vit C,W-Du-Ekdol-Lutein-Ze axan 1 EACH capsule (2 sources) Start: 12-02-2019 End: 02-03-2025 take 1 capsule by mouth once daily Vit C,S-Ug-Dqipm-Lutein -Zeaxan 1 EACH capsule Discontinued 1 NMA PO DAILY December 02, 2019 12:00am February 03, 2025 8:50am Start: 12-02-2019 take 1 capsule by [facility] once daily Vit C,D-Wd-Hsxvm-Lutein-Zeaxan 1 EACH capsule Active 1 NMA PO DAILY December 02, 2019 12:00am Problems Problem Classification Problem Date Documented Da te Episodic/Chronic Allergic reactions (4 sources) Contact dermatitis due to poison jay; Translations: [Allergic contact dermatitis due to plants, except food] 10-07-2020 Episodic Calculus of urinary tract (4 sources) Kidney stone; Translations: [Calculus of kidney] 03-29-2020 Episodic Conditions associated with dizziness or vertigo (8 sources) Benign paroxysmal positional vertigo; Translations: [Benign paroxysmal vertigo, unspecified ear] 03-29-2020 Episodic Nausea and vomiting (4 sources) Nausea and vomiting; Translations: [Nausea with vomiting, unspecified] 03-29-2020 Episodic Other gastrointestinal disorders (4 sources) Diarrhea; Translations: [Diarrhea, unspecified] 03-29-2020 Episodic Other hereditary and degenerative nervous system conditions (1 source) Essential tremor; Translations: [Essential tremor] Onset: 09-08-2024 Chronic Other skin disorders (2 sources) Localized swelling, mass and lump, trunk; Translations: [Mass of buttock] 02-03-2025 Episodic Other skin disorders (1 source) Follicular cyst of the skin and subcutaneous tissue, unspecified; Translations: [Follicular cyst of the skin and subcutaneous tissue, unspecified] Onset: 02-19-2025 Episodic Unclassified (1 source) Unknown / UNK(Unknown) Onset: 01-26-2017 Urinary tract infections (4 sources) Urinary tract infectious disease; Translations: [Urinary tract infection, site not specified] 03-29-2020 Episodic Results Test Name Value Interpretation Reference Range Facility MR/PATMeka 02-25-2025 /PAT.[facility] Medical Records Department [address] [place] [address] PAT - Anesthesia 02/25/25 1552 MR#: [id number] Acct: [id number] Name: FELIX TRENT Rep #: [id number] : 1950 74 From: Andry Ravi MD PCP: Dr. [place] Newell MD Status:PRE [facility] Y Race: C Location: [facility] Pre-Assessment Diagnosis/Proposed Procedure Planned Operative Procedure(s): EXCISION SUBCUTANEOUS LEFT BUTTOCK X2 Anesthesia History Anesthesia History - third loader: Anesthesia History - third loader Hx Hospitalization No 02/25/25 09:22 Any Problems With Anesthesia No 02/25/25 09:22 Cholinesterase deficiency No 02/25/25 09:22 You/Your Family Experience No 02/25/25 09:22 fever (hyperthermia) with Relationship Recent Exposure to Contagious No 12/09/19 08:50 Disease Does patient have nerve No 02/25/25 09:22 stimulator Patient instructed to have device shut off --Does patient have Pacemaker or ICD? When Was Last Pacemaker Check QUESTION #4 FULL TEXT: You/Your Family Experience fever (hyperthermia) with Anesthesia Last Oral Intake Last Oral intake: Last Oral Intake NPO since Meds taken in AM with sips of water? Meds patient instructed to take am of surgery PONV PONV - third loader: PONV - third loader Female Yes 02/25/25 09:22 HX of Motion Sickness No 02/25/25 09:22 HX of N/V After Surgery No 02/25/25 09:22 Non-Smoker Yes 02/25/25 09:22 Duration of Surgery greater No 02/25/25 09:22 than 60 minutes Number of Risk Factors 2 02/25/25 09:22 PONV Score Moderate Risk 02/25/25 09:22 Height Weight Height Weight: Anesthesia: Height Weight Height 5 ft 4 in 02/22/25 09:08 Respiratory Assessment Respiratory Assessment - third loader: Respiratory Tract Infection Hx - third loader Hx Respiratory Tract Infection No 02/25/25 09:22 STOP Sleep Apnea STOP Sleep Apnea - third loader: STOP Sleep Apnea - third loader Hx Hypertension No 02/25/25 09:22 Hx Sleep Apnea No 02/25/25 09:22 CPAP BIPAP Do you snore loudly (louder No 02/25/25 09:22 than talking or can be heard Do you often feel tired/ No 02/25/25 09:22 fatigued/ sleepy during daytime? Has anyone observed you stop No 02/25/25 09:22 breathing during sleep? STOP Results Negative 02/25/25 09:22 QUESTION #5 FULL TEXT : Do you snore loudly (louder than talking or can be heard through closed doors)? 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 Specify any problems Hx of Preganancy in last 3 No 02/25/25 09:22 Months Nurse Filling Out Transfusion DSCHRIBER 02/25/25 09:22 Questions: Date: 02/25/25 02/25/25 09:22 Time: :24 02/25/25 09:22 Patient unable to answer at this time (ie. confused, unrespo /Reproduction History /Reproductive History - third loader: /Reproductive Hx- third loader Hx Now No 02/25/25 09:22 Gestational Age (in weeks): EDC: Hx Hx Para Hx Section SAB No 02/25/25 09:22 Does the father of the baby or his family experience fever w Father of the baby Malignant Hypertension history comment [facility] Medical History (Updated 02/25/25 @ 09:30 by Lila Alatorre) Post-menopausal Anemia Restless legs Back pain Heartburn Former smoker Leg cramps History of pain when walking History of echocardiogram Mass of buttock Macular degeneration Bilateral carpal tunnel syndrome Raynaud disease Anxiety and depression Dizziness Diarrhea BPV (benign positional vertigo) Home Medications ???Medication ???Instructions ???Recorded ???Last Taken ???Type cholecalciferol (vitamin D3) 50 50 mcg PO DAILY 12/02/19 Unknown H istory mcg (2,000 unit) capsule loratadine 10 mg capsule 10 mg PO DAILY PRN allergy symptom s 12/02/19 Unknown History citalopram 10 mg tablet (Celexa) 5 mg PO QDAY 02/03/25 Unk (more content not included)... Normal [facility] Surgery Visit Reporton 02-22 Surgery Visit Report [facility] [address] [place] [address] OFFICE VISIT Date of Service: 02/22/25 MR#: [id number] Acct: [id number] Name: FELIX TRENT Rep #: [id number] : 1950 Provider: Dr. Lisy gordon MD Age/Sex: 74/F Location: [facility] Status: Signed Intake Vital Signs 02/03/25 08:49 02/22/25 09:08 Height 5 ft 4 in 5 ft 4 in Weight: 166 lb 166 lb BMI 28.5 28.5 BP 114/79 142/94 H Blood Pressure Location Rt brachial Rt brachial Position Sitting Sitting Respiration 17 18 Pulse 76 69 Pulse Source Monitor Monitor Temp 96.0 F L Temp Source Temporal Pulse Oximetry (%) 98 95 Oxygen Delivery Method room air room air Intake Visit Reasons: CYST ON BUTTOCK Chief Complaint: cyst buttock [employer] Technician Required: No Is patient in pain?: No Allergies No Known Allergies Allergy (Verified 02/22/25 09:09) Medications ???Medication ???Instructions ???Recorded ???Confirmed ???Type cholecalciferol (vitamin D3) 50 50 mcg PO DAILY 12/02/19 02/22/25 History mcg (2,000 unit) capsule loratadine 10 mg capsule 10 mg PO DAILY 12/02/19 02/22/25 H istory citalopram 10 mg tablet (Celexa) 5 mg PO QDAY 02/03/25 02/22/25 His tory Have you fallen in the past year?: No PFSH Medical History Mass of buttock Contact dermatitis due to poison jay Insomnia Macular degeneration Hypercholesterolemia Bilateral carpal tunnel syndrome Raynaud disease Anemia Anxiety and depression External hemorrhoids Multinodular goiter Right renal stone Dizziness Diarrhea N V (nausea and vomiting) BPV (benign positional vertigo) UTI (urinary tract infection) Surgical History History of lithotripsy History of colonoscopy ( 05/2019) History of hemorrhoidectomy Family History Mother Diabetes Heart disease CVA (cerebral vascular accident) Hypertension Colon cancer Brother Heart disease Pacemaker Social History Smoking Status: Former smoker alcohol intake: never substance use type: does not use caffeine: Yes seatbelt use: always do you feel safe at home: Yes HPI HPI HPI: 74-year-old female presents due to left buttock subcutaneous masses. Patient states she has had them for more than a year but states they have been more bothersome slightly sore and itchy. Patient did have an ultrasound done which did show 2 lobulated hyper echoic areas with peripheral calcification 1 is approximately 1.3 x 1.8 x 0.7 cm the other 1 is 4.6 x 4.2 x 1 2.1 cm report also states appearance is nonspecific may represent fat necrosis or heterotopic ossification. ROS General General: Yes weight change; No appetite, fatigue, colon cancer, breast cancer or weakness Additional Details: loss intentional HEENT HEENT: No difficulty swallowing, eye injury, eye surgery, swollen glands or hoarseness Additional Details: has macular degeneration. Endo Endocrine: No thyroid disease, diabetes mellitus, thyroid cancer, Hair loss, heat intolerance or cold intolerance Skin Skin: No rash or changing moles Musc Musculoskeletal: No back problems, arthritis, rheumatoid arthritis, gout or joint pain Cardio Cardiovascular: No murmur, pacemaker, heart disease, atrial fibrillation, high blood pressure, heart attack, heart stent, palpitations, shortness of breath with exertion or chest pain Psych Psychiatric: Yes depression and anxiety; No hearing voices Resp Respiratory: No shortness of breath, No sleep apnea, No cough, No COPD, No asthma, No emphysema and No wheezing Gastro Gastrointestinal: No abdominal pain, No nausea or vomiting, No diarrhea, No constipation, No blood in stool, No acid reflux, No hemorrhoids, No ulcers, No gallbladder problem and No black,tarry stools Johann Hematologic: No blood thinners, No blood disorders, No bleeding, Yes anemia and No blood clots Neuro Neurologic: No system reviewed and no additional complaints, except as documented, No as per HPI, No abnormal gait, No abnormal hearing, No abnormal movements, No abnormal speech, No behavioral changes, No burning sensations, No confusion, No convulsions, No disequilibrium, No dizziness, No localized weakness, No frequent falls, No headache(s), No lack of coordination, No loss of vision, No memory loss, Yes numbness (hands carpel tunnel), No other visual disturbances, No radicular pain, No restless legs, No sensory deficit, No syncope, Yes tingling, No tremor(s), No weakness and No other Exam Const General: cooperative, healthy appearing, comfortable and no acute distress HENVT Head: normocephalic and atraumatic Nec (more content not included)... Normal [facility] Ext Non Vasc Limited/Soft Ti sson 02-10-2025 Ext Non Vasc Limited/Soft Tiss [facility] [address] [place] [address] Ext Non Vasc Limited/Soft Tiss MR#: [id number] Acct: [id number] Name: FELIX TRENT Rep #: [id number] : 1950 F 74 From: Олег Neely PCP: Dr. Modesto Newell MD Status: REG CLI Study: Ext Non Vasc Limited/Soft Tiss Date of Exam: Exam# [id number] Ordering Dr: Modesto Newell MD PROCEDURE: EXT NON VASC LIMITED/SOFT TISS 02/10/2025 REASON FOR EXAM: CYST LEFT BUTTOCK TECHNIQUE: Procedure Code: [id number] Modality: US Procedure: EXT NON VASC LIMITED/SOFT TISS COMPARISON: None provided. US/Ext Non Vasc Limited/Soft Tiss IMPRESSION: The left buttock area of concern, 2 lobulated hyperechoic areas are seen, with question of areas of peripheral calcification at both, particularly the deeper and larger structure. The more superficial one is measured at approximately 1.3 x 1.8 x 0.7 cm, the more inferior/deeper one at 4.6 x 4.2 x 2.1 cm. A small amount of internal blood flow is noted at the deeper structure, upon color Doppler evaluation. The appearance is nonspecific, but may represent fat necrosis and/or heterotopic ossification. If not already performed, consider plain film correlation. Reading Location: [address] CC: Dr. Modesto Newell MD Seo Consultant: Signed Normal [facility] Surgery Visit Reporton 02-03 Surgery Visit Report [facility] [address] [place] [address] OFFICE VISIT Date of Service: 02/03/25 MR#: [id number] Acct: [id number] Name: FELIX TRENT Rep #: [id number] : 1950 Provider: Dr. Franklyn addison MD Age/Sex: 74/F Location: [facility] Status: Signed Intake Vital Signs 10/07/20 09:12 02/03/25 08:49 Height 5 ft 4.5 in 5 ft 4 in Weight: 166 lb BMI 28.5 BP 114/79 Blood Pressure Location Rt brachial Position Sitting Respiration 17 Pulse 76 Pulse Source Monitor Pulse Oximetry (%) 98 Oxygen Delivery Method room air Intake Visit Reasons: cyst on buttock Chief Complaint: cyst buttock Is patient in pain?: No Allergies No Known Allergies Allergy (Verified 02/03/25 08:50) Medications ???Medication ???Instructions ???Recorded ???Confirmed ???Type cholecalciferol (vitamin D3) 50 50 mcg PO DAILY 12/02/19 02/03/25 History mcg (2,000 unit) capsule loratadine 10 mg capsule 10 mg PO DAILY 12/02/19 02/03/25 H istory citalopram 10 mg tablet (Celexa) 5 mg PO QDAY 02/03/25 02/03/25 His tory Have you fallen in the past year?: No PFSH Medical History (Updated 02/03/25 @ 08:48 by Evelyn Wolf) Contact dermatitis due to poison jay Insomnia Macular degeneration Hypercholesterolemia Bilateral carpal tunnel syndrome Raynaud disease Anemia Anxiety and depression External hemorrhoids Multinodular goiter Right renal stone Dizziness Diarrhea N V (nausea and vomiting) BPV (benign positional vertigo) UTI (urinary tract infection) Surgical History History of lithotripsy History of colonoscopy ( 05/2019) History of hemorrhoidectomy Family History Mother Diabetes Heart disease CVA (cerebral vascular accident) Hypertension Colon cancer Brother Heart disease Pacemaker Social History Smoking Status: Former smoker alcohol intake: never substance use type: does not use caffeine: Yes seatbelt use: always do you feel safe at home: Yes HPI HPI HPI: Patient is a 74-year-old female with a mass on her left buttock. The area is in the inferior portion of the left buttock by where it meets the thigh. She says it has been there for several years and it is growing larger and becoming painful when she sits on something hard. She says it does not drain anything and it has never become infected. ROS General General: Yes weight change; No appetite, fatigue, colon cancer, breast cancer or weakness Additional Details: loss intentional HEENT HEENT: No difficulty swallowing, eye injury, eye surgery, swollen glands or hoarseness Additional Details: has macular degeneration. Endo Endocrine: No thyroid disease, diabetes mellitus, thyroid cancer, Hair loss, heat intolerance or cold intolerance Skin Skin: No rash or changing moles Musc Musculoskeletal: No back problems, arthritis, rheumatoid arthritis, gout or joint pain Cardio Cardiovascular: No murmur, pacemaker, heart disease, atrial fibrillation, high blood pressure, heart attack, heart stent, palpitations, shortness of breath with exertion or chest pain Psych Psychiatric: Yes depression and anxiety; No hearing voices Resp Respiratory: No shortness of breath, No sleep apnea, No cough, No COPD, No asthma, No emphysema and No wheezing Gastro Gastrointestinal: No abdominal pain, No nausea or vomiting, No diarrhea, No constipation, No blood in stool, No acid reflux, No hemorrhoids, No ulcers, No gallbladder problem and No black,tarry stool s Johann Hematologic: No blood thinners, No blood disorders, No bleeding, Yes anemia and No blood clots Neuro Neurologic: No system reviewed and no additional complaints, except as documented, No as per HPI, No abnormal gait, No abnormal hearing, No abnormal movements, No abnormal speech, No behavioral changes, No burning sensations, No confusion, No convulsions, No disequilibrium, No dizziness, No localized weakness, No frequent falls, No headache(s), No lack of coordination, No loss of vision, No memory loss, Yes numbness (hands carpel tunnel), No other visual disturbances, No radicular pain, No restless legs, No sensory deficit, No syncope, Yes tingling, No tremor(s), No weakness and No other Exam Const General: cooperative Orientation: alert and oriented x3 HENMT Head: normal to inspection Neck Neck: normal visual inspection and full ROM Chest Chest palpation inspection: normal inspection of the chest Resp Effort Inspection: normal respiratory effort Auscultation: clear to auscultation bilaterally Cardio Rate: regular rate Rhythm: regular rhythm GI Inspection: non-disten (more content not included)... Normal [facility] Absolute lymphocyte countOrd ered By: Modesto Mehtake on 09-06-2024 Lymphocytes Auto (Unsp spec) [#/Vol] 2.12 10*3/uL 0.83-4.51 [facility] Absolute neutrophil countOrd ered By: Modesto Newell on 09-06-2024 Neutrophils (Bld) [#/Vol] 1.8 10*3/uL Low 2.0-7.7 [facility] Anion gap in Serum or Plasma Ordered By: Modesto Osiris on 09-06-2024 Anion gap [Moles/Vol] 11 mmol/L 5- [facility] Automated lymphocyte count a s percentage of total leukocytesOrdered By: Modesto Osiris on 09-06-2024 Lymphocytes/100 WBC Auto (Unsp spec) 48.1 % High - [facility] BUN/creatinine ratioOrdered By: Modesto Osiris on 09-06-2024 Urea nitrogen/Creatinine [Mass ratio] 14.8 mg/mg 10- [facility] Basophil percentageOrdered B y: Modesto Mehtake on 09-06-2024 Basophils/100 WBC (Bld) 1.6 % High 0- [facility] Bilirubin, totalOrdered By: Modesto Osiris on 09-06-2024 Bilirubin [Mass/Vol] 0.54 mg/dL 0.00-1.30 [facility] CBC W/Diff, Automatedon 08-19 Absolute Lymph 2.12 X10 3/uL Normal 0.83-4.51 [facility] Comment on above: Order Comment: Order Date: 09/03/24 Order Info: [id number] - CBCD Performed By: #### L [id number], L500.4100, L500.4050, L501.9520, L100.0100 #### [facility] [address], [address] Absolute Neut 1.8 X10 3/uL Low 2.0-7.7 [facility] Comment on above: Order Comment: Order Date: 09/03/24 Order Info: [id number] - CBCD Performed By: #### L 501.9985, L500.4100, L500.4050, L501.9520, L100.0100 #### [facility] [address] [place], [address] Basophils/100 WBC (Bld) 1.6 % High 0-1 [facility] Comment on above: Order Comment: Order Date: 09/03/24 Order Info: [id number] - CBCD Performed By: #### L [id number], L500.4100, L500.4050, L501.9520, L100.0100 #### [facility] [address] [place], [address] Eosinophils/100 WBC (Bld) 2.0 % Normal 0-5 [facility] Comment on above: Order Comment: Order Date: 09/03/24 Order Info: [id number] - CBCD Performed By: #### L [id number], L500.4100, L500.4050, L501.9520, L100.0100 #### [facility] [address] [place], [address] Erythrocyte distribution width (RBC) [Ratio] 13.7 % Normal 11.6-14.6 [facility] Comment on above: Order Comment: Order Date: 09/03/24 Order Info: [id number] - CBCD Performed By: #### L 501.9985, L500.4100, L500.4050, L501.9520, L100.0100 #### [facility] [address] [place], [address] Hematocrit (Bld) [Volume fraction] 41.3 % Normal 37-47 [facility] Comment on above: Order Comment: Order Date: 09/03/24 Order Info: [id number] - CBCD Performed By: #### L 501.9985, L500.4100, L500.4050, L501.9520, L100.0100 #### [facility] [address] [place], [address] Hemoglobin (Bld) [Mass/Vol] 13.6 g/dL Normal 12.0-15.0 [facility] Comment on above: Order Comment: Order Date: 09/03/24 Order Info: 018- - CBCD Performed By: #### L 501.9985, L500.4100, L500.4050, L501.9520, L100.0100 #### [facility] [address] [place], [address] IG% 0.200 Normal 0.0-0.9 [facility] Comment on above: Order Comment: Order Date: 09/03/24 Order Info: [id number] - CBCD Result Comment: IG% - Immature Granulocytes (promyelocytes, myelocytes and metamyelocytes) > 1% indicates that a LEFT SHIFT is Present. Performed By: #### L 501.9985, L500.4100, L500.4050, L501.9520, L100.0100 #### [facility] [address] [place], [address] Lymphocytes/100 WBC (Bld) 48.1 % High 19-41 [facility] Comment on above: Order Comment: Order Date: 09/03/24 Order Info: 018- - CBCD Performed By: #### L 501.9985, L500.4100, L500.4050, L501.9520, L100.0100 #### [facility] [address] [place], [address] MCH (RBC) [Entitic mass] 31.1 pg Normal 27.0-32.0 [facility] Comment on above: Order Comment: Order Date: 09/03/24 Order Info: 0184- - CBCD Performed By: #### L 501.9985, L500.4100, L500.4050, L501.9520, L100.0100 #### [facility] [address] [place], [address] MCHC (RBC) [Mass/Vol] 32.9 g/dL Normal 32-36 [facility] Comment on above: Order Comment: Order Date: 09/03/24 Order Info: 018- - CBCD Performed By: #### L 501.9985, L500.4100, L500.4050, L501.9520, L100.0100 #### [facility] [address] [place], [address] MCV (RBC) [Entitic vol] 94.3 fL Normal 81-99 [facility] Comment on above: Order Comment: Order Date: 09/03/24 Order Info: 018- - CBCD Performed By: #### L 501.9985, L500.4100, L500.4050, L501.9520, L100.0100 #### [facility] [address] [place], [address] Monocytes/100 WBC (Bld) 7.5 % Normal 0-10 [facility] Comment on above: Order Comment: Order Date: 09/03/24 Order Info: 018- - CBCD Performed By: #### L 501.9985, L500.4100, L500.4050, L501.9520, L100.0100 #### [facility] [address] [place], [address] Neutrophils/100 WBC (Bld) 40.6 % Low 47-70 [facility] Comment on above: Order Comment: Order Date: 09/03/24 Order Info: 018-1 - CBCD Performed By: #### L 501.9985, L500.4100, L500.4050, L501.9520, L100.0100 #### [facility] [address] [place], [address] Nucleated RBC (Bld) [#/Vol] 0 10*3/uL Normal 0-5 [facility] Comment on above: Order Comment: Order Date: 09/03/24 Order Info: [id number] - CBCD Performed By: #### L 501.9985, L500.4100, L500.4050, L501.9520, L100.0100 #### [facility] [address] [place], [address] Platelet mean volume (Bld) [Entitic vol] 10.5 fL Normal 6.2-12.0 [facility] Comment on above: Order Comment: Order Date: 09/03/24 Order Info: [id number] - CBCD Performed By: #### L 501.9985, L500.4100, L500.4050, L501.9520, L100.0100 #### [facility] [address] [place], [address] Platelets (Bld) [#/Vol] 233 10*3/uL Normal 150-450 [facility] Comment on above: Order Comment: Order Date: 09/03/24 Order Info: [id number] - CBCD Performed By: #### L 501.9985, L500.4100, L500.4050, L501.9520, L100.0100 #### [facility] [address] [place], [address] RBC (Bld) [#/Vol] 4.38 10*6/uL Normal 4.2-5.4 [facility] Comment on above: Order Comment: Order Date: 09/03/24 Order Info: [id number] - CBCD Performed By: #### L 501.9985, L500.4100, L500.4050, L501.9520, L100.0100 #### [facility] [address] [place], [address] RDW SD 47.8 fl High 35.1-43.9 [facility] Comment on above: Order Comment: Order Date: 09/03/24 Order Info: [id number] - CBCD Performed By: #### L 501.9985, L500.4100, L500.4050, L501.9520, L100.0100 #### [facility] [address] [place], [address] WBC (Bld) [#/Vol] 4.4 10*3/uL Normal 4.4-11.0 [facility] Comment on above: Order Comment: Order Date: 09/03/24 Order Info: [id number] - CBCD Performed By: #### L 501.9985, L500.4100, L500.4050, L501.9520, L100.0100 #### [facility] [address] [facility] [place], [address] Calculated very low density lipoprotein (VLDL) cholesterol measurementOrdered By: Modesto Newell on 09-06-2024 Calculated very low density lipoprotein (VLDL) cholesterol measurement 15 mg/dL 5-40 [facility] Carbon dioxide, total [Moles /volume] in Central venous bloodOrdered By: Modesto Newell on 09-06-2024 CO2 [Moles/Vol] 24.3 mmol/L 21.0-32.0 [facility] Chloride assayOrdered By: Luzmaria Newell on 09-06-2024 Chloride [Moles/Vol] 105 mmol/L 98-108 [facility] Comprehensive Metabolic Prof ilon 09-06-2024 Albumin [Mass/Vol] 4.3 g/dL Normal 3.4-4.8 [facility] Comment on above: Order Comment: Order Date: 09/03/24 Order Info: [id number] - CMP Order Info: [id number] - LIPID Order Info: [id number] - TSH Performed By: #### L 501.9985, L500.4100, L500.4050, L501.9520, L100.0100 #### [facility] [address] [place], [address] Albumin/Globulin [Mass ratio] 1.5 {ratio} Normal 0.9-2.4 [facility] Comment on above: Order Comment: Order Date: 09/03/24 Order Info: 07 - CMP Order Info: - LIPID Order Info: [id number] - TSH Performed By: #### L 501.9985, L500.4100, L500.4050, L501.9520, L100.0100 #### [facility] [address] [place], [address] ALK PHOS 96 U/L Normal 35-104 [facility] Comment on above: Order Comment: Order Date: 09/03/24 Order Info: [id number] - CMP Order Info: - LIPID Order Info: [id number] - TSH Performed By: #### L 501.9985, L500.4100, L500.4050, L501.9520, L100.0100 #### [facility] [address] [place], [address] ALT [Catalytic activity/Vol] 11 U/L Normal <=34 [facility] Comment on above: Order Comment: Order Date: 09/03/24 Order Info: [id number] - CMP Order Info: - LIPID Order Info: [id number] - TSH Performed By: #### L 501.9985, L500.4100, L500.4050, L501.9520, L100.0100 #### [facility] [address] [place], [address] AST [Catalytic activity/Vol] 20 U/L Normal <=31 [facility] Comment on above: Order Comment: Order Date: 09/03/24 Order Info: 0786 - CMP Order Info: [id number] - LIPID Order Info: [id number] - TSH Performed By: #### L 501.9985, L500.4100, L500.4050, L501.9520, L100.0100 #### [facility] [address] [place], [address] Bilirubin [Mass/Vol] 0.54 mg/dL Normal 0.00-1.30 [facility] Comment on above: Order Comment: Order Date: 09/03/24 Order Info: 0786- - CMP Order Info: - LIPID Order Info: [id number] - TSH Performed By: #### L 501.9985, L500.4100, L500.4050, L501.9520, L100.0100 #### [facility] [address] [place], [address] BUN/CRE 14.8 RATIO Normal 10-20 [facility] Comment on above: Order Comment: Order Date: 09/03/24 Order Info: 07 - CMP Order Info: [id number] - LIPID Order Info: [id number] - TSH Performed By: #### L 501.9985, L500.4100, L500.4050, L501.9520, L100.0100 #### [facility] [address] [place], [address] Calcium [Mass/Vol] 9.4 mg/dL Normal 7.6-11.0 [facility] Comment on above: Order Comment: Order Date: 09/03/24 Order Info: 0786 - CMP Order Info: [id number] - LIPID Order Info: [id number] - TSH Performed By: #### L 501.9985, L500.4100, L500.4050, L501.9520, L100.0100 #### [facility] [address] [place], [address] Chloride [Moles/Vol] 105 mmol/L Normal 98-108 [facility] Comment on above: Order Comment: Order Date: 09/03/24 Order Info: 0786- - CMP Order Info: [id number] - LIPID Order Info: [id number] - TSH Performed By: #### L 501.9985, L500.4100, L500.4050, L501.9520, L100.0100 #### [facility] [address] [place], [address] CO2 [Moles/Vol] 24.3 mmol/L Normal 21.0-32.0 [facility] Comment on above: Order Comment: Order Date: 09/03/24 Order Info: 07- - CMP Order Info: - LIPID Order Info: [id number] - TSH Performed By: #### L 501.9985, L500.4100, L500.4050, L501.9520, L100.0100 #### [facility] [address] [place], [address] Creatinine [Mass/Vol] 0.62 mg/dL Low 0.70-1.20 [facility] Comment on above: Order Comment: Order Date: 09/03/24 Order Info: [id number] - CMP Order Info: - LIPID Order Info: [id number] - TSH Performed By: #### L 501.9985, L500.4100, L500.4050, L501.9520, L100.0100 #### [facility] [address] [place], [address] GAP 11 Normal 5-15 [facility] Comment on above: Order Comment: Order Date: 09/03/24 Order Info: 0786 - CMP Order Info: [id number] - LIPID Order Info: 3 - TSH Performed By: #### L 501.9985, L500.4100, L500.4050, L501.9520, L100.0100 #### [facility] [address] [place], [place], [address] GFR/1.73 sq M.predicted among non-blacks MDRD (S/P/Bld) [Vol rate/Area] 95 mL/min/{1.73_m2} Normal >60 [facility] Comment on above: Order Comment: Order Date: 09/03/24 Order Info: 0786 - CMP Order Info: - LIPID Order Info: 3 - TSH Result Comment: mL/m in/1.73m2 CKD-EPI Creatinine Equation (2020) Performed By: #### L 501.9985, L500.4100, L500.4050, L501.9520, L100.0100 #### [facility] [address] [place], [address] Globulin (S) [Mass/Vol] 2.8 g/dL Normal 2.2-4.2 [facility] Comment on above: Order Comment: Order Date: 09/03/24 Order Info: [id number] - CMP Order Info: [id number] - LIPID Order Info: 3 - TSH Performed By: #### L 501.9985, L500.4100, L500.4050, L501.9520, L100.0100 #### [facility] [address] [place], [address] Glucose [Mass/Vol] 98 mg/dL Normal 70-99 [facility] Comment on above: Order Comment: Order Date: 09/03/24 Order Info: 0786- - CMP Order Info: [id number] - LIPID Order Info: 3 - TSH Performed By: #### L 501.9985, L500.4100, L500.4050, L501.9520, L100.0100 #### [facility] [address] [place], [address] Potassium [Moles/Vol] 4.0 mmol/L Normal 3.3-5.1 [facility] Comment on above: Order Comment: Order Date: 09/03/24 Order Info: [id number] - CMP Order Info: [id number] - LIPID Order Info: [id number] - TSH Performed By: #### L 501.9985, L500.4100, L500.4050, L501.9520, L100.0100 #### [facility] [address] [place], [address] Sodium [Moles/Vol] 141 mmol/L Normal 133-145 [facility] Comment on above: Order Comment: Order Date: 09/03/24 Order Info: [id number] - CMP Order Info: [id number] - LIPID Order Info: 3 - TSH Performed By: #### L 501.9985, L500.4100, L500.4050, L501.9520, L100.0100 #### [facility] [address] [place], [place], [address] T PROT 7.0 g/dL Normal 5.9-8.4 [facility] Comment on above: Order Comment: Order Date: 09/03/24 Order Info: 0786- - CMP Order Info: [id number] - LIPID Order Info: [id number] - TSH Performed By: #### L 501.9985, L500.4100, L500.4050, L501.9520, L100.0100 #### [facility] [address] [place], [place], [address] Urea nitrogen [Mass/Vol] 9 mg/dL Normal - [facility] Comment on above: Order Comment: Order Date: 09/03/24 Order Info: [id number] - CMP Order Info: [id number] - LIPID Order Info: [id number] - TSH Performed By: #### L 501.9985, L500.4100, L500.4050, L501.9520, L100.0100 #### [facility] [address] [place], [place], [address] Eosinophil percentageOrdered By: Modesto Newell on 09-06-2024 Eosinophils/100 WBC (Bld) 2.0 % 0-5 [facility] Erythrocyte distribution wid th ratioOrdered By: Modesto Newell on 09-06-2024 Erythrocyte distribution width (RBC) [Ratio] 13.7 % 11.6-14.6 [facility] Erythrocyte distribution wid th standard deviationOrdered By: Modesto Newell on 09-06-2024 Erythrocyte distribution width (RBC) [Ratio] 47.8 fl High 35.1-43.9 [facility] Glomerular filtration rate ( GFR) estimation/1.73 sq m using serum, plasma, or whole bOrdered By: Modesto Newell on 09-06-2024 GFR/1.73 sq M.predicted among non-blacks MDRD (S/P/Bld) [Vol rate/Area] 95 mL/min/{1.73_m2} >60 [facility] Comment on above: mL/min/1.73m2 CKD-EP I Creatinine Equation (2020) Hematocrit Auto (Bld) [Volum e fraction]Ordered By: Modesto Newell on 09-06-2024 Hematocrit (Bld) [Volume fraction] 41.3 % 37-47 [facility] Hemoglobin A1con 09-06-2024 HbA1c (Bld) [Mass fraction] 6.0 % High <=5.6 [facility] Comment on above: Order Comment: Order Date: 09/03/24 Order Info: [id number] - A1C Result Comment: Norm al < 5.7 % Prediabetic 5.7 - 6.4 % Diabetic >or= 6.5 % Please note range changes. Performed By: #### L 501.9985, L500.4100, L500.4050, L501.9520, L100.0100 #### [facility] [address] [place], [place] [address]all [facility] [place], [address] Hemoglobin A1c percentageOrd ered By: Modesto Newell on 09-06-2024 HbA1c (Bld) [Mass fraction] 6.0 % High <5.7 [facility] Comment on above: Normal < 5.7 % Predi abetic 5.7 - 6.4 % Diabetic >or= 6.5 % Please note range changes. Hemoglobin measurementOrdere d By: Modesto Newell on 09-06-2024 Hemoglobin (Bld) [Mass/Vol] 13.6 g/dL 12.0-15.0 [facility] Immature granulocytes/100 WB C Auto (Bld)Ordered By: Modesto Newell on 09-06-2024 Immature granulocytes/100 WBC (Bld) 0.200 % 0.0-0.9 [facility] Comment on above: IG% - Immature Granu locytes (promyelocytes, myelocytes and metamyelocytes) > 1% indicates that a LEFT SHIFT is Present. LDL calc ser/plasOrdered By: Modesto Newell on 09-06-2024 Cholesterol in LDL [Mass/Vol] 145 mg/dL [facility] Comment on above: Vtuektphke=781-308 m g/dL & Higher Qxxm=238 mg/dL or greater Laboratory - Chemistry and C hemistry - challengeOrdered By: Modesto Newell on 09-06-2024 AST [Catalytic activity/Vol] 20 U/L <32 [facility] Lipid Profileon 09-06-2024 CHOL:HDL 4.36 Normal [facility] Comment on above: Order Comment: Order Date: 09/03/24 Order Info: [id number] - CMP Order Info: [id number] - LIPID Order Info: [id number] - TSH Performed By: #### L 501.9985, L500.4100, L500.4050, L501.9520, L100.0100 #### [facility] [address] [place], [address] Cholesterol [Mass/Vol] 208 mg/dL High <=200 [facility] Comment on above: Order Comment: Order Date: 09/03/24 Order Info: 0786 - CMP Order Info: [id number] - LIPID Order Info: [id number] - TSH Result Comment: Chol esterol level, Desirable <200 mg/dL Borderline high cholesterol 200-239 mg/dL High cholesterol >=240 mg/dL Recommendations of the NCEP Adult Treatment Panel for the following risk-cutoff thresholds for the [place] population. Performed By: #### L 501.9985, L500.4100, L500.4050, L501.9520, L100.0100 #### [facility] [address] [place], [address] Cholesterol in HDL [Mass/Vol] 48 mg/dL Normal [facility] Comment on above: Order Comment: Order Date: 09/03/24 Order Info: 0786-1 - CMP Order Info: [id number] - LIPID Order Info: [id number] - TSH Result Comment: Randee onal Cholesterol Education Program (NCEP) guidelines: <40 mg/dL: Low HDL-cholesterol (major risk factor for CHD) >= 60 mg/dL: High HDL-cholesterol (negative risk factor for CHD) HDL-cholesterol is affected by a number of factors, e.g. smoking, exercise, hormones, sex and age. Performed By: #### L 501.9985, L500.4100, L500.4050, L501.9520, L100.0100 #### [facility] [address] [place], [address] Cholesterol in LDL [Mass/Vol] 145 mg/dL Normal [facility] Comment on above: Order Comment: Order Date: 09/03/24 Order Info: [id number] - CMP Order Info: [id number] - LIPID Order Info: [id number] - TSH Result Comment: Bord cpoybq=718-053 mg/dL Higher Nbiy=195 mg/dL or greater Performed By: #### L 501.9985, L500.4100, L500.4050, L501.9520, L100.0100 #### [facility] [address] [place], [address] Cholesterol in VLDL [Mass/Vol] 15 mg/dL Normal 5-40 [facility] Comment on above: Order Comment: Order Date: 09/03/24 Order Info: 0786- - CMP Order Info: [id number] - LIPID Order Info: [id number] - TSH Performed By: #### L 501.9985, L500.4100, L500.4050, L501.9520, L100.0100 #### [facility] [address] [place], [address] Triglyceride [Mass/Vol] 76 mg/dL Normal [facility] Comment on above: Order Comment: Order Date: 09/03/24 Order Info: [id number] - CMP Order Info: [id number] - LIPID Order Info: [id number] - TSH Result Comment: The drugs N-Acetylcysteine and Metamizole may falsely depress this assay. Normal range: <150 mg/dL Borderline High: 150-199 mg/dL High: 200-499 mg/dL Very High: >500 mg/dL Performed By: #### L 501.9932, L500.4100, L500.4050, L501.9520, L100.0100 #### [facility] [address] [place], [address] MCV (mean corpuscular volume ) determinationOrdered By: Modesto Newell on 09-06-2024 MCV (RBC) [Entitic vol] 94.3 fL 81-99 [facility] Mean corpuscular hemoglobin (MCH) determinationOrdered By: [facility] on 09-[facility] MCH (RBC) [Entitic mass] 31.1 pg 27.0-32.0 [facility] Mean corpuscular hemoglobin concentration (MCHC) determinationOrdered By: Modesto Newell on 09-06-2024 MCHC (RBC) [Mass/Vol] 32.9 g/dL 32-36 [facility] Mean platelet volume determi nationOrdered By: Modesto Newell on 09-06-2024 Platelet mean volume (Bld) [Entitic vol] 10.5 fL 6.2-12.0 [facility] Monocyte percentageOrdered B y: Modesto Newell on 09-06-2024 Monocytes/100 WBC (Bld) 7.5 % 0-10 [facility] Neutrophil percentageOrdered By: Modesto Newell on 09-06-2024 Neutrophils/100 WBC (Bld) 40.6 % Low 47-70 [facility] Nucleated red blood cell per centageOrdered By: Modesto Newell on 09-06-2024 Nucleated RBC/100 WBC (Bld) [Ratio] 0 % 0-5 [facility] Platelet countOrdered By: Luzmaria Newell on 09-06-2024 Platelets (Bld) [#/Vol] 233 10*3/uL 150-450 [facility] Potassium measurement (mass/ volume)Ordered By: Modesto Newell on 09-06-2024 Potassium (Unsp spec) [Mass/Vol] 4.0 mmol/L 3.3-5.1 [facility] RBC Auto (Bld) [#/Vol]Ordere d By: Modesto Newell on 09-06-2024 RBC (Bld) [#/Vol] 4.38 10*6/uL 4.2-5.4 [facility] Screening total cholesterol/ high density lipoprotein (HDL) cholesterol ratioOrdered By: Modesto Newell on 09-06-2024 Cholesterol.total/Choles terol in HDL [Mass ratio] 4.36 {ratio} [facility] Serum creatinine measurement (mass/volume)Ordered By: Modesto Newell on 09-06-2024 Creatinine [Mass/Vol] 0.62 mg/dL Low 0.70-1.20 [facility] Serum globulin measurementOr dered By: Modesto Newell on 09-06-2024 Globulin (S) [Mass/Vol] 2.8 g/dL 2.2-4.2 [facility] Serum glucose measurement (m ass/volume)Ordered By: Modesto Newell on 09-06-2024 Glucose [Mass/Vol] 98 mg/dL 70-99 [facility] Serum or plasma alanine hui otransferase (ALT) measurementOrdered By: Modesto Newell on 09-06-2024 ALT [Catalytic activity/Vol] 11 U/L <35 [facility] Serum or plasma albumin jennifer urement (mass/volume)Ordered By: Modesto Newell on 09-06-2024 Albumin [Mass/Vol] 4.3 g/dL 3.4-4.8 [facility] Serum or plasma albumin/glob ulin mass ratioOrdered By: Modesto Newell on 09-06-2024 Albumin/Globulin [Mass ratio] 1.5 {ratio} 0.9-2.4 [facility] Serum or plasma alkaline олег sphatase measurementOrdered By: Modesto Newell on 09-06-2024 ALP [Catalytic activity/Vol] 96 U/L 35-104 [facility] Serum or plasma calcium jennifer urement (mass/volume)Ordered By: Modesto Newell on 09-06-2024 Calcium [Mass/Vol] 9.4 mg/dL 7.6-11.0 [facility] Serum or plasma cholesterol in HDL measurement (mass/volume)Ordered By: Modesto Newell on 09-06-2024 Cholesterol in HDL [Mass/Vol] 48 mg/dL >40 [facility] Comment on above: National Cholesterol Education Program (NCEP) guidelines:<40 mg/dL: Low HDL-cholesterol (major risk factor for CHD)>= 60 mg/dL: High HDL-cholesterol (negative risk factor for CHD)HDL-cholesterol is affected by a number of factors, e.g. smoking, exercise, hormones, sex and age. Serum or plasma cholesterol measurement (mass/volume)Ordered By: Modesto Newell on 09-06-2024 Cholesterol [Mass/Vol] 208 mg/dL High <201 [facility] Comment on above: Cholesterol level, D esirable <200 mg/dLBorderline high cholesterol 200-239 mg/dLHigh cholesterol >=240 mg/dLRecommendations of the NCEP Adult Treatment Panel for the following risk-cutoff thresholds for the [place] population. Serum or plasma urea nitroge n measurement (mass/volume)Ordered By: Modesto Newell on 09-06-2024 Urea nitrogen [Mass/Vol] 9 mg/dL 4- [facility] Sodium levelOrdered By: Nishant Newell on 09-06-2024 Sodium [Moles/Vol] 141 mmol/L 133-145 [facility] TSH DL <= 0.005 mIU/L QnOrde red By: Modesto Newell on 09-06-2024 TSH Qn 1.040 uIU/mL 0.300-4.200 [facility] Thyroid Stim Hormone (TSH)on 09-06-2024 TSH 1.040 uIU/mL Normal 0.300-4.200 [facility] Comment on above: Order Comment: Order Date: 09/03/24 Order Info: [id number] - CMP Order Info: [id number] - LIPID Order Info: [id number] - TSH Performed By: #### L 501.9985, L500.4100, L500.4050, L501.9520, L100.0100 #### [facility] [address] [place], [address] Total proteinOrdered By: Sienna Newell on 09-06-2024 Protein [Mass/Vol] 7.0 g/dL 5.9-8.4 [facility] [facility] Triglycerides measurementOrd ered By: Modesto Newell on 09-06-2024 Triglyceride [Mass/Vol] 76 mg/dL <199 [facility] Comment on above: The drugs N-Acetylcy steine and Metamizole may falsely depress this assay. Normal range: <150 mg/dLBorderline High: 150-199 mg/dLHigh: 200-499 mg/dLVery High: >500 mg/dL Vitamin D,25 Hydroxyon 09-06 Vitamin D 25-OH 28.4 ng/mL Low 30-100 [facility] Comment on above: Order Comment: Order Date: 09/03/24 Order Info: [id number] - CMP Order Info: [id number] - LIPID Order Info: [id number] - TSH Result Comment: Brii min D Status Deficiency: <20 ng/mL (50nmol/L) Insufficiency: 20-30 ng/mL (50-75 nmol/L) Sufficiency: 30-100 ng/mL (75-250 nmol/L) Toxicity: >100 ng/mL (>250 nmol/L) Performed By: #### L 506.1001 #### [facility] Laboratory [facility] [place], [address] White blood cell (WBC) count Ordered By: Modesto Newell on 09-06-2024 WBC (Bld) [#/Vol] 4.4 10*3/uL 4.4-11.0 [facility] Absolute lymphocyte countOrd ered By: Maggie Dixon on 12-19-2022 Lymphocytes Auto (Unsp spec) [#/Vol] 1.85 10*3/uL 0.83-4.51 [facility] Basophil percentageOrdered B y: Maggie Dixon on 12-19-2022 Basophils/100 WBC (Bld) 0.8 % 0-1 [facility] Bilirubin [Mass/Vol] 0.60 mg/dL 0.20-1.00 [facility] Comment on above: For patients on eltr ombopag therapy, use of Dimension Early Branch TBIL is not recommended. Chloride [Moles/Vol] 108 mmol/L 98-107 [facility] Cholesterol [Mass/Vol] 225 mg/dL <200 [facility] Comment on above: <200 mg/dL Desirable 200-240 mg/dL Borderline >240 mg/dL High Risk Eosinophils/100 WBC (Bld) 1.6 % 0-5 [facility] Glucose [Mass/Vol] 92 mg/dL 74-106 [facility] Neutrophils (Bld) [#/Vol] 2.6 10*3/uL 2.0-7.7 [facility] Neutrophils/100 WBC (Bld) 52.7 % 47-70 [facility] Potassium [Moles/Vol] 4.0 mmol/L 3.5-5.1 [facility] Protein [Mass/Vol] 7.0 g/dL 6.4-8.2 [facility] Sodium [Moles/Vol] 141 mmol/L 136-145 [facility] Triglyceride [Mass/Vol] 149 mg/dL <[address] [facility] Comment on above: The drugs N-Acetylcy steine and Metamizole may falsely depress this assay.Serum Triglycerides Reference Interval Normal <150 mg/dL Borderline high 150 - 199 mg/dL High 200 - 499 mg/dL Very High > or = 500 mg/dL WBC (Bld) [#/Vol] 4.9 10*3/uL 4.4-11.0 [facility] Blood erythrocytes count (nu mber/volume)Ordered By: Maggie Dixon on 12-19-2022 RBC (Bld) [#/Vol] 4.38 10*6/uL 4.2-5.4 [facility] Blood hemoglobin measurement (mass/volume)Ordered By: Maggie Dixon on 12-19-2022 Hemoglobin (Bld) [Mass/Vol] 13.3 g/dL 12.0-15.0 [facility] Blood lymphocytes/100 leukoc ytesOrdered By: Maggie Dixon on 12-19-2022 Lymphocytes/100 WBC (Bld) 37.8 % 19-41 [facility] Blood monocytes/100 leukocyt esOrdered By: Maggie Dixon on 12-19-2022 Monocytes/100 WBC (Bld) 6.9 % 0-[address] [facility] Blood platelet mean volumeOr dered By: Maggie Dixon on 12-19-2022 Platelet mean volume (Bld) [Entitic vol] 9.6 fL 6.2-12.0 [facility] Determination of erythrocyte mean corpuscular volume (MCV)Ordered By: Maggie Dixon on 12-19-2022 MCV (RBC) [Entitic vol] 95.2 fL 81-99 [facility] Hematocrit Auto (Bld) [Volum e fraction]Ordered By: Maggie Dixon on 12-19-2022 Hematocrit (Bld) [Volume fraction] 41.7 % 37-47 [facility] Laboratory - Chemistry and C hemistry - challengeOrdered By: Maggie Dixon on 12-19-2022 ALP [Catalytic activity/Vol] 112 U/L 45-117 [facility] ALT [Catalytic activity/Vol] 17 U/L 13-56 [facility] CO2 [Moles/Vol] 28.0 mmol/L 21.0-32.0 [facility] Globulin (S) [Mass/Vol] 3.5 g/dL 2.2-4.2 [facility] Urea nitrogen/Creatinine [Mass ratio] 17.6 mg/mg 10-20 [facility] Laboratory - Hematology and Cell countsOrdered By: Maggie Dixon on 12-19-2022 Erythrocyte distribution width (RBC) [Entitic vol] 45.6 fL 35.1-43.9 [facility] Erythrocyte distribution width (RBC) [Ratio] 13.0 % 11.6-14.6 [facility] Immature granulocytes/100 WBC (Bld) 0.200 % 0.0-0.9 [facility] Comment on above: IG% - Immature Granu locytes (promyelocytes, myelocytes and metamyelocytes) > 1% indicates that a LEFT SHIFT is Present. MCH (RBC) [Entitic mass] 30.4 pg 27.0-32.0 [facility] Nucleated RBC/100 WBC (Bld) [Ratio] 0 % 0-5 [facility] MCHC Auto (RBC) [Mass/Vol]Or dered By: Maggie Dixon on 12-19-2022 MCHC (RBC) [Mass/Vol] 31.9 g/dL 32-36 [facility] No Panel InformationOrdered By: Maggie Dixon on 12-19-2022 Estimated GFR (MDRD) Amer 121 mL/min >60 [facility] Comment on above: GFR Calc Estimated GFR (MDRD) Non-Af Amer 100 mL/min >60 [facility] Comment on above: Non- GFR Calc Thyroid Stimulating Hormone (TSH) 1.24 uIU/mL 0.358-3.74 [facility] Vitamin D 25-Hydroxy 38.0 ng/mL [facility] Comment on above: Vitamin D 25(OH) Sta tus Range Deficiency <20 ng/mL (50nmol/L) Insufficiency 20 - 30 ng/mL (50 - 75 nmol/L) Sufficiency 30 - 100 ng/mL (75 - 250 nmol/L) Toxicity >100 ng/mL (>250 nmol/L) Platelets bldOrdered By: Venkatesh Dixon on 12-19-2022 Platelets (Bld) [#/Vol] 231 10*3/uL 150-450 [facility] Serum or plasma albumin jennifer urement (mass/volume)Ordered By: Maggie Dixon on 12-19-2022 Albumin [Mass/Vol] 3.5 g/dL 3.2-5.0 [facility] Serum or plasma albumin/glob ulin mass ratioOrdered By: Maggie Dixon on 12-19-2022 Albumin/Globulin [Mass ratio] 1.0 {ratio} 0.9-2.4 [facility] Serum or plasma calcium jennifer urement (mass/volume)Ordered By: Maggie Dixon on 12-19-2022 Calcium [Mass/Vol] 8.9 mg/dL 8.5-10.1 [facility] Serum or plasma cholesterol in HDL measurement (mass/volume)Ordered By: Maggie Dixon on 12-19-2022 Cholesterol in HDL [Mass/Vol] 43 mg/dL >40 [facility] Comment on above: The drugs N-Acetylcy steine and Metamizole may falsely depress this assay. Reference Range HDL <40 mg/dL Low HDL Cholesterol HDL >or= 60 mg/dL High HDL Cholesterol Serum or plasma cholesterol in VLDL measurement (mass/volume)Ordered By: Maggie Dixon on 12-19-2022 Cholesterol in VLDL [Mass/Vol] 30 mg/dL 5-40 [facility] Serum or plasma creatinine m easurement (mass/volume)Ordered By: Maggie Dixon on 12-19-2022 Creatinine [Mass/Vol] 0.63 mg/dL 0.55-1.02 [facility] Comment on above: The validity of the calculated GFR & GFRAA in patients over 70 years has not been determined. Clinical correlation is essential. Serum or plasma ferritin guilalume surement (mass/volume)Ordered By: Maggie Dixon on 12-19-2022 Ferritin [Mass/Vol] 32 ng/mL 8-252 [facility] Serum or plasma low density lipoprotein (LDL) cholesterol measurement (mass/volume)Ordered By: Maggie Dixon on 12-19-2022 Cholesterol in LDL [Mass/Vol] 152 mg/dL 0-130 [facility] Serum or plasma urea nitroge n measurement (mass/volume)Ordered By: Maggie Dixon on 12-19-2022 Urea nitrogen [Mass/Vol] 11 mg/dL 7-18 [facility] Thin prep Papanicolaou smear with manual screeningOrdered By: Maggie Dixon on 12-19-2022 Thin prep Papanicolaou smear with manual screening 15 U/L 15-37 [facility] Thin prep Papanicolaou smear with manual screening 5 5-15 [facility] Whole blood hemoglobin A1c/t otal hemoglobin ratio (mass fraction)Ordered By: Maggie Dixon on 12-19-2022 HbA1c (Bld) [Mass fraction] 5.8 % 3.8-5.6 [facility] Comment on above: Normal < 5.7 % Predi abetic 5.7 - 6.4 % Diabetic >or= 6.5 % Please note range changes. Absolute lymphocyte counton 10-17-2021 Lymphocytes Auto (Unsp spec) [#/Vol] 1.65 10*3/uL 0.83-4.51 [facility] Work Phone: Basophil percentageon 2021 Basophils/100 WBC (Bld) 1.0 % 0-1 [facility] Work Phone: Bilirubin [Mass/Vol] 0.30 mg/dL 0.20-1.00 [facility] Work Phone: Comment on above: For patients on eltr ombopag therapy, use of Dimension Early Branch TBIL is not recommended. Chloride [Moles/Vol] 107 mmol/L 98-107 [facility] Work Phone: Cholesterol [Mass/Vol] 217 mg/dL <200 [facility] Work Phone: Comment on above: <200 mg/dL Desirable 200-240 mg/dL Borderline >240 mg/dL High Risk Eosinophils/100 WBC (Bld) 1.9 % 0-5 [facility] Work Phone: Glucose [Mass/Vol] 117 mg/dL 74-106 [facility] Work Phone: Comment on above: Fasting Glucose resu lt from 100 to 125 mg/dL suggests IMPAIRED HOMEOSTASIS per A.D.A. criteria. Neutrophils (Bld) [#/Vol] 2.6 10*3/uL 2.0-7.7 [facility] Work Phone: Neutrophils/100 WBC (Bld) 54.0 % 47-70 [facility] Work Phone: Potassium [Moles/Vol] 3.8 mmol/L 3.5-5.1 [facility] Work Phone: Protein [Mass/Vol] 7.0 g/dL 6.4-8.2 [facility] Work Phone: Sodium [Moles/Vol] 140 mmol/L 136-145 [facility] Work Phone: Triglyceride [Mass/Vol] 119 mg/dL <199 [facility] Work Phone: Comment on above: The drugs N-Acetylcy steine and Metamizole may falsely depress this assay.Serum Triglycerides Reference Interval Normal <150 mg/dL Borderline high 150 - 199 mg/dL High 200 - 499 mg/dL Very High > or = 500 mg/dL WBC (Bld) [#/Vol] 4.8 10*3/uL 4.4-11.0 [facility] Work Phone: Blood erythrocytes count (nu mber/volume)on 10-17-2021 RBC (Bld) [#/Vol] 4.28 10*6/uL 4.2-5.4 [facility] Work Phone: Blood hemoglobin measurement (mass/volume)on 10-17-2021 Hemoglobin (Bld) [Mass/Vol] 12.5 g/dL 12.0-15.0 [facility] Work Phone: [phone] Blood lymphocytes/100 leukoc yteson 10-17-2021 Lymphocytes/100 WBC (Bld) 34.4 % 19-41 [facility] Work Phone: [phone] Blood monocytes/100 leukocyt eson 10-17-2021 Monocytes/100 WBC (Bld) 8.1 % 0-10 [facility] Work Phone: [phone] Blood platelet mean volumeon 10-17-2021 Platelet mean volume (Bld) [Entitic vol] 10.0 fL 6.2-12.0 [facility] Work Phone: [phone] Determination of erythrocyte mean corpuscular volume (MCV)on 10-17-2021 MCV (RBC) [Entitic vol] 90.7 fL 81-99 [facility] Work Phone: [phone] Hematocrit Auto (Bld) [Volum e fraction]on 10-17-2021 Hematocrit (Bld) [Volume fraction] 38.8 % 37-47 [facility] Work Phone: Laboratory - Chemistry and C hemistry - challengeon 10-17-2021 ALP [Catalytic activity/Vol] 125 U/L 45-117 [facility] Work Phone: [phone] ALT [Catalytic activity/Vol] 16 U/L 13-56 [facility] Work Phone: [phone] CO2 [Moles/Vol] 25.0 mmol/L 21.0-32.0 [facility] Work Phone: [phone] Globulin (S) [Mass/Vol] 3.5 g/dL 2.2-4.2 [facility] Work Phone: [phone] Urea nitrogen/Creatinine [Mass ratio] 19.9 mg/mg 10-20 [facility] Work Phone: Laboratory - Hematology and Cell countson 10-17-2021 Erythrocyte distribution width (RBC) [Entitic vol] 47.6 fL 35.1-43.9 [facility] Work Phone: [phone] Erythrocyte distribution width (RBC) [Ratio] 14.4 % 11.6-14.6 [facility] Work Phone: [phone] Immature granulocytes/100 WBC (Bld) 0.600 % 0.0-0.9 [facility] Work Phone: [phone] Comment on above: IG% - Immature Granu locytes (promyelocytes, myelocytes and metamyelocytes) > 1% indicates that a LEFT SHIFT is Present. MCH (RBC) [Entitic mass] 29.2 pg 27.0-32.0 [facility] Work Phone: [phone] Nucleated RBC/100 WBC (Bld) [Ratio] 0 % 0-5 [facility] Work Phone: [phone] MCHC Auto (RBC) [Mass/Vol]on 10-17-2021 MCHC (RBC) [Mass/Vol] 32.2 g/dL 32-36 [facility] Work Phone: No Panel Informationon 10-17 Estimated GFR (MDRD) Amer 106 mL/min >60 [facility] Work Phone: Comment on above: GFR Calc Estimated GFR (MDRD) Non-Af Amer 88 mL/min >60 [facility] Work Phone: [phone] Comment on above: Non- GFR Calc Thyroid Stimulating Hormone (TSH) 1.21 uIU/mL 0.358-3.74 [facility] Work Phone: [phone] Vitamin D 25-Hydroxy 34.7 ng/mL [facility] Work Phone: [phone] Comment on above: Vitamin D 25(OH) Sta tus Range Deficiency <20 ng/mL (50nmol/L) Insufficiency 20 - 30 ng/mL (50 - 75 nmol/L) Sufficiency 30 - 100 ng/mL (75 - 250 nmol/L) Toxicity >100 ng/mL (>250 nmol/L) Platelets bldon 06-29-2022 Platelets (Bld) [#/Vol] 260 10*3/uL 150-450 [facility] Work Phone: Serum or plasma albumin jennifer urement (mass/volume)on 10-17-2021 Albumin [Mass/Vol] 3.5 g/dL 3.2-5.0 [facility] Work Phone: Serum or plasma albumin/glob ulin mass ratioon 10-17-2021 Albumin/Globulin [Mass ratio] 1.0 {ratio} 0.9-2.4 [facility] Work Phone: Serum or plasma calcium jennifre urement (mass/volume)on 10-17-2021 Calcium [Mass/Vol] 9.1 mg/dL 8.5-10.1 [facility] Work Phone: Serum or plasma cholesterol in HDL measurement (mass/volume)on 10-17-2021 Cholesterol in HDL [Mass/Vol] 48 mg/dL >40 [facility] Work Phone: Comment on above: The drugs N-Acetylcy steine and Metamizole may falsely depress this assay. Reference Range HDL <40 mg/dL Low HDL Cholesterol HDL >or= 60 mg/dL High HDL Cholesterol Serum or plasma cholesterol in VLDL measurement (mass/volume)on 10-17-2021 Cholesterol in VLDL [Mass/Vol] 24 mg/dL 5-40 [facility] Work Phone: Serum or plasma creatinine m easurement (mass/volume)on 10-17-2021 Creatinine [Mass/Vol] 0.70 mg/dL 0.55-1.02 [facility] Work Phone: Comment on above: The validity of the calculated GFR & GFRAA in patients over 70 years has not been determined. Clinical correlation is essential. Serum or plasma ferritin guillaume surement (mass/volume)on 10-17-2021 Ferritin [Mass/Vol] 7 ng/mL 8-252 [facility] Work Phone: Serum or plasma low density lipoprotein (LDL) cholesterol measurement (mass/volume)on 10-17-2021 Cholesterol in LDL [Mass/Vol] 145 mg/dL 0-130 [facility] Work Phone: Serum or plasma urea nitroge n measurement (mass/volume)on 10-17-2021 Urea nitrogen [Mass/Vol] 14 mg/dL 7-18 [facility] Work Phone: Thin prep Papanicolaou smear with manual screeningon 10-17-2021 Thin prep Papanicolaou smear with manual screening 15 U/L 15-37 [facility] Work Phone: Thin prep Papanicolaou smear with manual screening 8 5-15 [facility] Work Phone: Whole blood hemoglobin A1c/t otal hemoglobin ratio (mass fraction)on 10-17-2021 HbA1c (Bld) [Mass fraction] 6.1 % 3.8-5.6 [facility] Work Phone: Comment on above: Normal < 5.7 % Predi abetic 5.7 - 6.4 % Diabetic >or= 6.5 % Please note range changes. CNOVon 01-26-2017 CNOV Office Visit (UCWSTR) FELIX TRENT ([id number]) 1950 [facility] Time Provider Diaicxkimm72/8/17 11:00 AM JUJU COLES) WSTR During your visit today, we recorded the following information about you: Temperature Pulse Respiration Blood pressure 97.8 degrees 74/minute 16/minute 112/64 Weight 80.7 kgJuju Coles PA-C 01/26/2017 11:59 AM [id number]/26/2017Patient presents with:Cat Bite: right forearm x yesterday, red and swollenSUBJECTIVE: This is a 66 year old that is here today for Complaint(s) of catbite on right forearm x yesterday. It was the patient's cat, UTD onvaccinations. Area is now red and swollen. Does not recall last tetanus,ANDgt;10 years. Denies fever/chills, red streaking.No past medical history on file.ALLERGIES Review of patient's allergies indicates no known allergies.MEDICATIONSC urrent Outpatient Prescriptions:CITALOPR AM HYDROBROMIDE (CELEXA ORAL) Take by mouth.loratadine (CLARITIN) 10 mg tablet Take 10 mg by mouth once daily.FLUTICASONE PROPIONATE (FLONASE NASAL) Use in the nose.amoxicillin-clavu lanic acid (AUGMENTIN) 875-125 mg per tablet Take 1 tablet bymouth twice daily for 10 days.No current facility-administered medications for this visit.SOCIAL HISTORYSocial History Marital status: Unknown Spouse name: Years of education: Number of children:Social History Main Topics Smoking status: Former Smoker Packs/day: 0.00 Years: 0.00REVIEW OF SYSTEMSAll other reviewed and negative other than HPI.OBJECTIVE:BP 112/64 Pulse 74 Temp 36.6 ?C (97.8 ?F) (Tympanic) Resp 16 Wt 80.7 kg(178 lb)APPEARANCE Well appearing, alert, in no acute distress, well-hydrated, wellnourished.EXTREMIT IES puncture wound with surrounding erythema and edema, approximately 3x 4 cm located on dorsal aspect of right forearm. No lymphangitic streaking.Good capillary refill. Sensation grossly intact. Equal pulses STU.ASSESSMENT/PLAN:1. Cat bite of forearm, right, initial encounter - ICD9: 881.00, E906.3, ICD10:S51.851A, W55.01XA (primary diagnosis)Reviewed red flags and when to seek care sooner in ER- AMOXICILLIN 875 MG-POTASSIUM CLAVULANATE 125 MG TABLETTDAP2. Need for vaccination - ICD9: V05.9, ICD10: Z23- TDAP VACCINE AGE 7+ IMThe patient indicates understanding of these issues and agrees with the plan.MEDINA Yap-01/26/2017Referring Provider: SELF [[id number]]Allergies As of Date: 01/26/2017(No Known Allergies)Date Reviewed: 01/26/2017Reviewed by: Liliana Kim Ma - Fully AssessedReason for Visit: Cat Bite [22027] Cmt: right forearm x yesterday, red and swollenPrimary Visit Diagnosis:Cat bite of forearm, right, initial encounter [S51.851A, W55.01XA] Other Visit Diagnosis:Need for vaccination [Z23]Order(s):TDAP VACCINE AGE 7+ IM [19105TTD] Order #: [id number] amoxicillin-clavulanic acid (AUGMENTIN) 875-125 mg per tabletTake 1 tablet by mouth twice daily for 10 days.Disp: 20 tabletRfl: 0Prescriptions as of 01/26/2017 Sig: CELEXA ORAL Take by mouth. LORATADINE 10 MG TABLET Take 10 mg by mouth once arlette* FLONASE NASAL Use in the nose. AMOXICILLIN 875 MG-POTASSIUM * Take 1 tablet by mouth twice *Problem List As Of Date: 01/26/2017(None)Prescr iptions ordered this encounter Disp Refills Start End AMOXICILLIN 875 MG-POTASSIUM CLAVULA* 20 t* 0 01/26/2017 02/05/2017 Route: ORAL Sig: Take 1 tablet by mouth twice daily for 10 days. Status:Closed by JUJU COLES PA-C [facility]/17 [facility] PRO[facility]ESSon 01-26-2017 PROGRESS HNO ID: [id number]: Juju Paige) Shadervice: (none)Author Type: Physician AssistantType: Progress NotesFiled: 01/26/2017 11:59 AMNote Text:01/26/2017Patient presents with:Cat Bite: right forearm x yesterday, red and swollenSUBJECTIVE: This is a 66 year old that is here today for Complaint(s) ofcat bite on right forearm x yesterday. It was the patient's cat, UTD onvaccinations. Area is now red and swollen. Does not recall last tetanus,>10 years. Denies fever/chills, red streaking.No past medical history on file.ALLERGIES Review of patient's allergies indicates no known allergies.MEDICATIONSC urrent Outpatient Prescriptions:CITALOPR AM HYDROBROMIDE (CELEXA ORAL) Take by mouth.loratadine (CLARITIN) 10 mg tablet Take 10 mg by mouth once daily.FLUTICASONE PROPIONATE (FLONASE NASAL) Use in the nose.amoxicillin-clavu lanic acid (AUGMENTIN) 875-125 mg per tablet Take 1tablet by mouth twice daily for 10 days.No current facility-administered medications for this visit.SOCIAL HISTORYSocial History Marital status: Unknown Spouse name: Years of education: Number of children:Social History Main Topics Smoking status: Former Smoker Packs/day: 0.00 Years: 0.00REVIEW OF SYSTEMSAll other reviewed and negative other than HPI.OBJECTIVE:BP 112/64 Pulse 74 Temp 36.6 ?C (97.8 ?F) (Tympanic) Resp 16 Wt80.7 kg (178 lb)APPEARANCE Well appearing, alert, in no acute distress, well-hydrated,well nourished.EXTREMITIES puncture wound with surrounding erythema and edema,approximately 3 x 4 cm located on dorsal aspect of right forearm. Nolymphangitic streaking.Good capillary refill. Sensation grossly intact. Equal pulses STU.ASSESSMENT/PLAN:1. Cat bite of forearm, right, initial encounter - ICD9: 881.00, E906.3,ICD10: S51.851A, W55.01XA (primary diagnosis)Reviewed red flags and when to seek care sooner in ER- AMOXICILLIN 875 MG-POTASSIUM CLAVULANATE 125 MG TABLETTDAP2. Need for vaccination - ICD9: V05.9, ICD10: Z23- TDAP VACCINE AGE 7+ IMThe patient indicates understanding of these issues and agrees with theplan.MEDINA Yap-01/26/2017 Normal [facility] Vital Signs Date Time Vital Sign Value Performing Clinician Faci gifty 02-03-2025 08:49-0400 Body height 162.56 cm Modesto Newell MD Work Phone: [facility] 02-03-2025 08:49-0400 Body mass index (BMI) [Ratio] 28.5 kg/m2 Modesto Newell MD Work Phone: [facility] 02-03-2025 08:49-0400 Body weight 75.29 kg Modesto Newell MD Work Phone: [facility] 02-03-2025 08:49-0400 Diastolic blood pressure 79 mm[Hg] Modesto Newell MD Work Phone: [facility] 02-03-2025 08:49-0400 Heart rate 76 /min Modesto Newell MD Work Phone: [facility] 02-03-2025 08:49-0400 Respiratory rate 17 /min Modesto Newell MD Work Phone: [facility] 02-03-2025 08:49-0400 SaO2% (BldA) [Mass fraction] 98 % Modesto Newell MD Work Phone: [facility] 02-03-2025 08:49-0400 Systolic blood pressure 114 mm[Hg] Modesto Newell MD Work Phone: [facility] Encounters Encounter Date Encounter Type Care Provider Facility Start: 02-22-2025 End: 02-22-2025 ambulatory [place]esto Newell [place] [place]: 02-10-2025 End: 02-10-2025 ambulatory Modesto Newell Facility:[facility] Start: 02-03-2025 End: 02-03-[address] Fraknlyn Fernando MD -[facility] Work Phone: Start: 02-03-2025 End: 02-03-2025 ambulatory Modesto Newell MD Work Phone: -[facility] Start: 12-28-2024 ambulatory Modesto Newell Facility:[facility] Start: 09-06-2024 End: 09-06-2024 ambulatory Modesto Newell MD Work Phone: [facility] Work Phone: Start: 09-06-2024 End: 09-06-[address] Modesto Newell MD -[facility] Start: 09-06-2024 End: 09-06-2024 ambulatory Modesto Newell Facility:[facility] Start: 12-19-2022 End: 12-19-2022 ambulatory [facility] Work Phone: Start: 12-19-2022 End: 12-19-2022 Patient encounter procedure [facility] Start: 11-07-2022 End: 11-07-2022 Patient encounter procedure [facility] Work Phone: Start: 10-17-2021 End: 10-17-2021 Patient encounter procedure [facility] Start: 01-26-2017 End: 01-28-2017 Ambulatory [facility] Procedures Date Procedure Procedure Detail Performing Clinician Start: 09-06-2024 Vitamin D, 25-hydrox y measurement Modesto Newell MD Work Phone: Comment on above: Vitamin D StatusDefi ciency: <20 ng/mL (50nmol/L)Insufficiency: 20-30 ng/mL (50-75 nmol/L)Sufficiency: 30-100 ng/mL (75-250 nmol/L)Toxicity: >100 ng/mL (>250 nmol/L) Start: 11-07-2022 Screening mammography Plan of Treatment Date Care Activity Detail Author Start: 03-04-2025 ambulatory Ambulatory Facility:[facility] Start: 02-10-2025 Ultrasonography of limb Ext Non Vasc Limited/Soft Tiss [facility] Start: 02-10-2025 Patient encounter procedure Registered Clinical -Ultrasound [facility] Work Phone: Payers Date Payer Category Payer Self-pay [id number] 2024 Medicare [id number] 2024 Self-pay [id number] 2024 Unknown [id number] 2011 Private Health Insurance [id number] Medicare [id number] Unknown [id number] [id number] Unknown [id number] 2.16.8 [id number] Unknown [id number] 2.16.8 [id number] Unknown [id number] 2.16.8 [id number] Unknown [id number] [id number] [id number] Unknown [id number] 2.16.8 [id number] Social History Date Type Detail Facility Start: 10-07-2020 Tobacco smoking stat [facility] Unknown if ever smoked [facility] Start: 04-06-2018 None [facility] Start: 04-06-2018 Alone [facility] Start: 12-02-2019 Non-smoker [facility] Start: 1950 Sex Assigned At Female [facility] Start: 10-07-2020 Tobacco smoking stat [facility] Ex-smoker (finding) [facility] Sex Female [facility] Medical Equipment Procedure Code Equipment Code Equipment Origin al Text Equipment Identifier Dates STENT,URETERAL PIGTAIL [id number] FDA Start: 12-09-2019 STENT,URETERAL PIGTAIL [id number] FDA Start: 12-09-2019 STENT,URETERAL PIGTAIL [id number] FDA Start: 12-09-2019 STENT,URETERAL PIGTAIL [id number] FDA Start: 12-09-2019 Progress note 02-03-2025 Note Date & Type Note Facility 02-03-2025 Progress note [facility] Evaluation note Note Date & Type Note Facility Evaluation note No assessment information availa ble [facility] Work Phone: Evaluation note Note Date & Type Note Facility Evaluation note Diagnosis Onset Date Resolution Mass of buttock acute January 192024 8:30am [facility] Work Phone: Progress note Note Date & Type Note Facility Progress note Note Date/Time February 03, 2025 9:08am [facility] [address] [place] [address] OFFICE VISIT Date of Service: 02/03/25 MR#: [id number] Acct: [id number] Name: FELIX TRENT Rep #: [id number] : 1950 Provider: Dr. Gaetano Fernando MD Age/Sex: 74/F Location: [facility] Status: Signed Intake Vital Signs 10/07/20 09:12 02/03/25 08:49 Height 5 ft 4.5 in 5 ft 4 in Weight: 166 lb BMI 28.5 BP 114/79 Blood Pressure Location Rt brachial Position Sitting Respiration 17 Pulse 76 Pulse Source Monitor Pulse Oximetry (%) 98 Oxygen Delivery Method room air Intake Visit Reasons: cyst on buttock Chief Complaint: cyst buttock Is patient in pain?: No Allergies No Known Allergies Allergy (Verified 02/03/25 08:50) Medications ?Medication ?Instructions ?Recorded ?Confirmed ?Type cholecalciferol (vitamin D3) 50 50 mcg PO DAILY 02/03/25 History mcg (2,000 unit) capsule loratadine 10 mg capsule 10 mg PO DAILY 12/02/1901/19 History citalopram 10 mg tablet (Celexa) 5 mg PO QDAY 02/03/25 02/03/25 History Have you fallen in the past year?: No PFSH Medical History (Updated 02/03/25 @ 08:48 by Evelyn Wolf) Contact dermatitis due to poison jay Insomnia Macular degeneration Hypercholesterolemia Bilateral carpal tunnel syndrome Raynaud disease Anemia Anxiety and depression External hemorrhoids Multinodular goiter Right renal stone Dizziness Diarrhea N&V (nausea and vomiting) BPV (benign positional vertigo) UTI (urinary tract infection) Surgical History History of lithotripsy History of colonoscopy (~05/2019) History of hemorrhoidectomy Family History Mother Diabetes Heart disease CVA (cerebral vascular accident) Hypertension Colon cancer Brother Heart disease Pacemaker Social History Smoking Status: Former smoker alcohol intake: never substance use type: does not use caffeine: Yes seatbelt use: always do you feel safe at home: Yes HPI HPI HPI: Patient is a 74-year-old female with a mass on her left buttock. The area is inthe inferior portion of the left buttock by where it meets the thigh. She says it has been there for several years and it is growing larger and becoming painful when she sits on something hard. She says it does not drain anything and it has never become infected. ROS General General: Yes weight change; No appetite, fatigue, colon cancer, breast cancer or weakness Additional Details: loss intentional HEENT HEENT: No difficulty swallowing, eye injury, eye surgery, swollen glands or hoarseness Additional Details: has macular degeneration. Endo Endocrine: No thyroid disease, diabetes mellitus, thyroid cancer, Hair loss, heat intolerance or cold intolerance Skin Skin: No rash or changing moles Musc Musculoskeletal: No back problems, arthritis, rheumatoid arthritis, gout or joint pain Cardio Cardiovascular: No murmur, pacemaker, heart disease, atrial fibrillation, high blood pressure, heart attack, heart stent, palpitations, shortness of breath with exertion or chest pain Psych Psychiatric: Yes depression and anxiety; No hearing voices Resp Respiratory: No shortness of breath, No sleep apnea, No cough, No COPD, No asthma, No emphysema and No wheezing Gastro Gastrointestinal: No abdominal pain, No nausea or vomiting, No diarrhea, No constipation, No blood in stool, No acid reflux, No hemorrhoids, No ulcers, No gallbladder problem and No black,tarry stools Johann Hematologic: No blood thinners, No blood disorders, No bleeding, Yes anemia and No blood clots Neuro Neurologic: No system reviewed and no additional complaints, except as documented, No as per HPI, No abnormal gait, No abnormal hearing, No abnormal movements, No abnormal speech, No behavioral changes, No burning sensations, No confusion, No convulsions, No disequilibrium, No dizziness, No localized weakness, No frequent falls, No headache(s), No lack of coordination, No loss ofvision, No memory loss, Yes numbness (hands carpel tunnel), No other visual disturbances, No radicular pain, No restless legs, No sensory deficit, No syncope, Yes tingling, No tremor(s), No weakness and No other Exam Const General: cooperative Orientation: alert and oriented x3 HENMT Head: normal to inspection Neck Neck: normal visual inspection and full ROM Chest Chest palpation & inspection: normal inspection of the chest Resp Effort & Inspection: normal respiratory effort Auscultation: clear to auscultation bilaterally Cardio Rate: regular rate Rhythm: regular rhythm GI Inspection: non-distended Palpation: soft and nontender Musc Other: Firm mass on the left buttock Skin General: no rashes or lesions noted Neuro General: patient alert and patient oriented x3 Extrem General: full ROM Psych Appearance: grossly normal Mental Status: mental status grossly normal Assessment and Plan Assessment and Plan (1) Mass of buttock: Status: Acute Plan: The patient has a mass on her left buttock that is bothering her when sitting onhard surfaces. It feels like it is firm and mobile. She is scheduled for an ultrasound next week. I would like to get the ultrasound before scheduling her for surgery to make sure this is not malignant. Franklyn Fernando MD Pager: [facility] [address] [place] [address], [address] [place] [address] Office: Coding Level of Care Code Off vis,new,level 3 Diagnoses Mass of buttock R22.2 Clinical Quality Measures Falls Risk Screening/Assistive Devices Have you fallen in the past year?: No 02/03/25 0917 <Electronically signed by Franklyn lieberman MD> Date _ Franklyn Fernando MD Cosigner Signature: Date (if applicable) CC: Dr. Modesto Newell MD ~ [facility] Work Phone: Reason for referral (narrative) Note Date & Type Note Facility Reason for referral (narrative) No reason for referral information available [facility] Work Phone: Summary Purpose Family History No Family History Records Found Relationship Condition Age at Onset Recorded Date/T sajan mother Diabetes mellitus Unknown Cardiac disease Unknown Cerebrovascular accident (CVA) Unknown Hypertension Unknown Malignant neoplasm of colon Unknown brother Cardiac disease Unknown Presence of cardiac pacemaker Unknown Advance Directives No Advanced Directives Records Found Advance Directive Response Recorded Date/ Time Living Will No April 05 018 1:59am Power of Animal Control Officer No April 05, 2018 1:59am Advance Directive Response Recorded Date/ Time Living Will Yes December 01 0 1:55pm Power of Animal Control Officer Yes December 01 020 1:55pm Chief Complaint and Reason for Visit Chief Complaint SCREENING Chief Complaint Admit Date cyst on buttock February 03, 2025 8 :30am CYST LEFT BUTTOCK February 10, 2025 1 0:31am Reason for Visit Admit Date Mass of buttock February 03, 2025 8 :30am Additional Source Comments INFORMATION SOURCE (unrecogn ized section and content) DATE CREATED AUTHOR 10/14/2017 [facility] DATE CREATED AUTHOR AUTHOR'S ORGANIZ ATION 02/26/2025 [facility] Goals (unrecognized section and content) Goals may be documented in a n alternate sectionGoals may be documented in an alternate sectionGoals may be documented in an alternate sectionGoals may be documented in an alternate section Care Teams (unrecognized sec tion and content) Team Status: Active Member Role Status Dates Dr. Stanton Altman MD Family Provider Active Maggie Dixon DO Primary Care Provider Active Team Status: Inactive Member Role Status Dates Maggie Dixon DO Primary Care Provi april, Attending Provider, Referring Provider Active Team Status: Inactive Member Role Status Dates Maggie Dixon DO Primary Care Provider, Attending Provider Active Team Status: Active Member Role Status Dates Dr. Stanton Altman MD Family Provider Active Modesto Newell MD Primary Care Provider Active Team Status: Inactive Member Role Status Dates Modesto Newell MD Primary Care Provider Active St art: September 06, 2024 End: September 06, 2024 Modesto Newell MD Attending Provider Active Start : September 06, 2024 End: September 06, 2024 Modesto Newell MD Referring Provider Active Start : September 06, 2024 End: September 06, 2024 Team Status: Active Member Role/Relationship Status Dates Modesto Newell MD Primary care physician Active Team Status: Inactive Member Role/Relationship Status Dates Modesto Newell MD Primary care physician Active S tart: February 03, 2025 End: February 03, 2025 Modesto Newell MD Referring Provider Active Start : February 03, 2025 End: February 03, 2025 Dr. Franklyn Fernando MD Attending physician Active Start: February 03, 2025 End: February 03, 2025 Team Status: Active Member Role/Relationship Status Dates Modesto Newell MD Primary care physician Active S tart: February 10, 2025 Modesto Newell MD Attending physician Active Star t: February 10, 2025 Modesto Newell MD Referring Provider Active Start : February 10, 2025 FOR RECORDS PERTAINING TO PATIENTS WHO ARE OR HAVE BEEN ENROLLED IN A CHEMICAL DEPENDENCY/SUBSTANCEABUSE PROGRAM, SOME INFORMATION MAY BE OMITTED. This clinical summary was aggregated from multiple sources. Caution should be exercised in using it in the provision of clinical care. This summary normalizes information from multiple sources, and as a consequence, information in this document may materially change the coding, format and clinical context of patient data. In addition, data may be omitted in some cases. CLINICAL DECISIONS SHOULD BE BASED ON THE PRIMARY CLINICAL RECORDS. [facility] [employer] provides no warranty or guarantee of the accuracy or completeness of information in this document.
[2025-03-20 14:06] VITALS: BP 120/62; PULSE 60; RESP 16; TEMP 36.4; O2SAT 100
--- NOTE | 2025-03-20 14:20 | EX.ED.DYSGE1 ---
HPI History of Present Illness Chief Complaint: Wound Check Informant: patient Narrative Narrative: Patient 74-year-old female with history of recent cyst removal of the left buttocks on 03/04/[address] Medrano. She states postoperatively she was told there is a little bit of fluid in the area but has been doing well. Today she noticed bleeding coming from her site. Notes some mild discomfort there that has been there since the surgery. She is otherwise been doing well. Denies any difficulty with bowel movement states it is painful to sit on the toilet still. Denies any nausea or vomiting. No fever or chills reported. Not any blood thinners. No other complaints or concerns at this time. PFSH PFSH Medical History Post-menopausal Anemia Restless legs Back pain Heartburn Former smoker Leg cramps History of pain when walking History of echocardiogram Mass of buttock Macular degeneration Bilateral carpal tunnel syndrome Raynaud disease Anxiety and depression Dizziness Diarrhea BPV (benign positional vertigo) Home Medications Medication Instructions Recorded Last Taken Type cholecalciferol (vitamin D3) 50 50 mcg PO DAILY 12/02/19 Unknown History mcg (2,000 unit) capsule loratadine 10 mg capsule 10 mg PO DAILY PRN allergy symptoms 12/02/19 Unknown History citalopram 10 mg tablet (Celexa) 5 mg PO QDAY 02/03/25 Unknown History tramadol 50 mg tablet 50 mg PO Q6H PRN pain #7 tabs 03/04/25 Unknown Rx Allergy/AdvReac Type Severity Reaction Status Date / Time No Known Allergies Allergy Verified 03/20/25 12:34 Family History Mother Diabetes Heart disease CVA (cerebral vascular accident) Hypertension Colon cancer Brother Heart disease Pacemaker Surgical History Hx of oral surgery History of lithotripsy History of colonoscopy (~05/2019) History of hemorrhoidectomy Social History Smoking Status: Former smoker alcohol intake: never substance use type: does not use caffeine: Yes seatbelt use: always do you feel safe at home: Yes ROS ROS ED Constitutional Constitutional ED: Denies chills or fever(s) Gastrointestinal Gastrointestinal: Denies abdominal pain, diarrhea, nausea or vomiting Musculoskeletal Musculoskeletal: Denies arthralgias or myalgias Integumentary Reports other Details: Surgical wound on the left buttocks Neurologic Neurologic: Denies paresthesias or weakness Hematologic/Lymphatic Hematologic/Lymphatic: Denies easy bleeding or easy bruising EXAM Physical Exam Const Vital Signs: 03/20/25 12:34 03/20/25 14:06 Temperature 98 F 97.5 F L Temperature Source Oral Pulse Rate 80 60 Respiratory Rate 18 16 Blood Pressure 148/88 H 120/62 Blood Pressure Mean 108 81 Pulse Ox 98 100 Oxygen Delivery Method Room Air Positive well nourished and well developed General Appearance ED: well developed and NAD HEENT Reports moist mucous membranes Eyes General Eye ED: Negative for pale conjunctiva Neck supple Chest Wall inspection of chest normal Resp normal respiratory effort and clear to auscultation bilaterally Cardio regular rate and regular rhythm GI normal to inspection, nondistended, normoactive bowel sounds and non-tender Neuro oriented x3 Sensorium / Orientation: alert Motor Exam: Negative for general weakness Psych mental status grossly normal Skin Skin Narrative: Linear surgical incision noted of the left medial/cranial buttocks that is healing. The medial aspect there is a pinprick area with dark blood that is draining out. No associated warmth, purulent discharge or cellulitic changes present. No significant fluctuance appreciated. MDM MDM MDM Narrative Medical decision making narrative: Patient evaluated for drainage at her surgical site of her left buttocks. Differential includes postoperative infection, seroma as well as hematoma that spontaneously started draining. Patient overall is well-appearing. Physical exam not consistent with secondary infection. Case discussed with general surgery, Dr. Barboza. He is able to evaluate the patient in the ER. Agrees that likely this is a draining hematoma. Patient given localized wound care and instructions. Given return precautions. Discharged home in stable condition. No indication for antibiotics or further surgical intervention at this time. Management Discussion w/another healthcare provider: [employer] Discharge Plan Triage Chief Complaint: Wound Check ED Provider: Erica Dior Dx/Rx/DC Orders Clinical Impression: Hematoma of left buttock Instructions: ED Post Op Wound Check, Bleeding Prescriptions: No Action citalopram [Celexa] 10 mg tablet 5 mg PO QDAY cholecalciferol (vitamin D3) 50 MCG capsule 50 mcg PO DAILY loratadine 10 MG capsule 10 mg PO DAILY PRN (Reason: allergy symptoms) tramadol 50 mg tablet 50 mg PO Q6H PRN (Reason: pain) Qty: 7 0RF Primary Care Provider: Modesto Newell Referrals: Modesto Newell MD [Primary Care Provider, Family Practice] Lisy Medrano MD [Med Staff - Active Staff, General Surgery] Activity Restrictions/Additional Instructions: Please follow-up with your surgeon next week for wound check. Keep the site covered with gauze to help with drainage. Try to avoid putting a lot of pressure on the area. At this time there is no signs of secondary infection or surgical complication. It seems that there was a collection of blood that just drained out spontaneously today which is what caused the bleeding today. This is old blood and the drainage should resolve spontaneously as well. Print Language: Urdu Disposition Disposition: Home, Self Care Discharge Date/Time: 03/20/25 14:36
--- NOTE | 2025-03-20 14:25 | EX.PCM.CON.S ---
Assessment & Plan Assessment/Plan (1) Hematoma of left buttock: PLAN: Patient is 74-year-old female status post excision of a subcutaneous mass of the left buttock (final path calcinosis cutis) on 03/04/[address] Medrano. Postoperative sutures were removed on 03/11/2025. Patient then went on to experience spontaneous bloody drainage earlier this morning. On exam this is consistent with spontaneous drainage of a postoperative hematoma. I do not find a significant collection to express on exam. I find no evidence for infection. I counseled patient on expectant management with showering only and keeping an absorbent pad for drainage but avoiding any significant shear trauma. Her daughter was also shown the site given patient's poor vision, generally, and the anatomic location precluding direct evaluation by the patient. They were receptive and understanding. Lastly, I requested the make a follow-up wound check visit with our office sometime later this week. This information was also shared with the emergency medicine. Jose Luis Barboza MD General Surgery Endocrine Surgery Pager: [facility] [address] [place] [address], [address] [place] [address] Office: [phone] HPI Consult Data Date of Consult: 03/20/25 HPI Narrative Reason for Consultation: Postop wound concern HPI Narrative: FELIX TRENT, is a 74 F who presents to [facility] ER with her daughter after experiencing some bloody drainage from a postoperative wound on her buttock earlier today. Patient notes that approximately 11 AM that she was getting out of the shower she observed some blood running down her leg. She admits that she does not see well due to macular degeneration but was convinced that it was freshly bleeding. She denies any recent trauma. She denies any concurrent use of blood thinners. Patient is status post subcutaneous mass excision from the buttock on 03/04/[address] Medrano. She subsequently had her postoperative sutures removed in our outpatient general surgery office on 03/11/2025. She shares that she was told there is some fluid accumulated under the incision at that visit. Upon her ER evaluation patient was felt to have possible draining seroma and I was contacted for further recommendations/evaluation. [facility] Medical History Post-menopausal Anemia Restless legs Back pain Heartburn Former smoker Leg cramps History of pain when walking History of echocardiogram Mass of buttock Macular degeneration Bilateral carpal tunnel syndrome Raynaud disease Anxiety and depression Dizziness Diarrhea BPV (benign positional vertigo) Home Medications Medication Instructions Recorded Last Taken Type cholecalciferol (vitamin D3) 50 50 mcg PO DAILY 12/02/19 Unknown History mcg (2,000 unit) capsule loratadine 10 mg capsule 10 mg PO DAILY PRN allergy symptoms 12/02/19 Unknown History citalopram 10 mg tablet (Celexa) 5 mg PO QDAY 02/03/25 Unknown History tramadol 50 mg tablet 50 mg PO Q6H PRN pain #7 tabs 03/04/25 Unknown Rx Allergy/AdvReac Type Severity Reaction Status Date / Time No Known Allergies Allergy Verified 03/20/25 12:34 Family History Mother Diabetes Heart disease CVA (cerebral vascular accident) Hypertension Colon cancer Brother Heart disease Pacemaker Surgical History Hx of oral surgery History of lithotripsy History of colonoscopy (~05/2019) History of hemorrhoidectomy Social History Smoking Status: Former smoker alcohol intake: never substance use type: does not use caffeine: Yes seatbelt use: always do you feel safe at home: Yes Physical Exam Const alert, oriented x3 and no apparent distress Skin Wound Narrative: Significant ecchymotic changes to the left buttock. Surgical incision closure remains intact. There is a small amount of thin dark bloody drainage from the more medial aspect of this incision. There is no warmth or erythema otherwise. Charges/Coding Visit Charges Office Visits / Consults: 29102 ED Visit; Low/Mod Severity
== END 2025-03-20 14:36 | disposition home or self-care (01) ==
PROVIDERS: Emergency Provider Emergency Medicine; PCP Family Medicine; Visit Provider Emergency Medicine
DX: L76.31 Postprocedural hematoma of skin and subcutaneous tissue following a dermatologic procedure (principal); Z87.891 Personal history of nicotine dependence
CPT/HCPCS: 99284

== ENCOUNTER 2025-04-02 12:58 | Emergency (ER) | payer MEDICARE, OTHER, SELFPAY ==
[2025-04-02 12:59] VITALS: BP 141/79; PULSE 103; RESP 18; TEMP 36.5; O2SAT 97; BMI 28.5
--- NOTE | 2025-04-02 13:10 | EDS_ITS ---
HPI History of Present Illness Chief Complaint: Wound PFSH PFSH Medical History Post-menopausal Anemia Restless legs Back pain Heartburn Former smoker Leg cramps History of pain when walking History of echocardiogram Mass of buttock Macular degeneration Bilateral carpal tunnel syndrome Raynaud disease Anxiety and depression Dizziness Diarrhea BPV (benign positional vertigo) Home Medications ?Medication ?Instructions ?Recorded ?Last Taken ?Type cholecalciferol (vitamin D3) 50 50 mcg PO DAILY Unknown History mcg (2,000 unit) capsule loratadine 10 mg capsule 10 mg PO DAILY PRN allergy s ymptoms 12/02/19 Unknown History citalopram 10 mg tablet (Celexa) 5 mg PO QDAY 02/03/25 Unknown History tramadol 50 mg tablet 50 mg PO Q6H PRN pain #7 tab s 03/04/25 Unknown Rx sulfamethoxazole 800 1 tab PO BID 10 days #20 tab s 04/02/25 Unknown Rx mg-trimethoprim 160 mg tablet (Bactrim DS) Allergy/AdvReac Type Severity Reaction Status Date / Time No Known Allergies Allergy Verified 04/02/25 13:04 Family History Mother Diabetes Heart disease CVA (cerebral vascular accident) Hypertension Colon cancer Brother Heart disease Pacemaker Surgical History Hx of oral surgery History of lithotripsy History of colonoscopy (~05/2019) History of hemorrhoidectomy Social History Smoking Status: Former smoker alcohol intake: never substance use type: does not use caffeine: Yes seatbelt use: always do you feel safe at home: Yes EXAM Physical Exam Const Vital Signs: 04/02/25 12:59 04/02/25 14:00 04/02/25 15:00 Temperature 97.7 F L Temperature Source Oral Pulse Rate 103 H 88 77 Respiratory Rate 18 17 11 L Blood Pressure 141/79 H 146/85 H 120/78 Blood Pressure Mean 99 105 92 Pulse Ox 97 96 96 Oxygen Delivery Method Room Air Room Air MDM MDM MDM Narrative Medical decision making narrative: HISTORY OF PRESENT ILLNESS: Chief complaint: Wound 74-year-old female history of GERD, tobacco use, buttock mass presents with left hip wound. Notes she was recently evaluated for cysts that were removed. No antibiotics have been prescribed since wound was noticed. REVIEW OF SYSTEMS: Pertinent positives: Wound Pertinent negatives: Fevers or vomit PHYSICAL EXAM: Nursing triage notes reviewed, Vital signs reviewed Constitutional: please see [facility] Extremities: Left lower extremity neurovascularly intact Neuro: Intact sensation L1-S1 dermatomal distributions. Intact 5/5 strength in hip flexion (T12-L3). Knee extension (L2-L4). Ankle dorsiflexion (L4-L5). Ankle plantar flexion (S1). Great toe extension (L5). 2+ patellar and Achilles DTRs. Skin: Approximately 3 x 3 area of a chronic appearing ulcer noted to the most dependent portion of left buttocks area covered ischial tuberosity. There is surrounding erythema, there appears to be serosanguineous to purulent drainage. There is warm. The area is not exquisitely tender. There is no crepitus or bullae noted MEDICAL DECISION MAKING: Chief Complaint: please see [facility] External records reviewed: Evaluated prior ED visit from 03/10/2025. This note reported cyst removal from left buttocks on 03/04/2025 Factors affecting care: as per [facility] Social determinants of health: none History obtained from others: none Consults: none [facility] Narrative: The patient was initially hemodynamically stable, afebrile and nontoxic- appearing. Exam consistent with likely acute infection or chronic wound. No crepitus or bullae to suggest necrotizing fasciitis. I considered the following differential diagnosis: Left buttock abscess, cellulitis I obtained a broad lab and imaging work to further determine if the patient was suffering from a life-threatening etiology. Initially give the patient IV dose of vancomycin to cover MRSA another skin pathogens. ALL IMAGES (IF OBTAINED) HAVE BEEN PERSONALLY REVIEWED AND INTERPRETED BY MYSELF. CBC without leukocytosis, severe anemia, no thrombocytopenia. Lactate is wnl indicating no end-organ hypoperfusion and/or hypoxia. BMP without evidence of significant electrolyte abnormalities, no anion gap, no acute kidney injury. CT scan abdomen/pelvis showed large left buttock abscess Abscess was drained at the bedside with the assistance of lidocaine. Abscess was probed with 11 blade as well as vigorously deloculated. There is return of only 10 cc of purulent fluid as well as some serosanguineous drainage. Procedure: Incision and Drainage simple The procedure was performed by myself. Location: Left buttock Risks and benefits: Risks, benefits, and alternatives were discussed. Questions were sought and answered, and verbal consent provided for the procedure. Anesthesia: 1% lidocaine without epinephrine Procedure Description: Wound was probed 11 blade as well as hemostat. Deloculated. No packing. The patient tolerated the procedure well without complications. Will have the patient take oral antibiotics and follow-up with her surgeon as well as wound care. The patient and/or family, caregivers express understanding. The patient and/or family, caregivers agrees with the plan. Shared decision making: I will have a discussion with the patient and or visitors regarding risk/benefits of further testing or admission. They will be made aware of of the risk/benefits inherent in this decision they will be given the opportunity to voice understanding. Total critical care time today provided was at least 0 minutes. This excludes separately billable procedures. Critical care time (if documented) is secondary to the patient having high probability of clinically significant/life threatening deterioration in the patient's condition which required my urgent intervention. Impression: 1. Left buttock wound 2. History of buttock cyst Dispo: Discharge home This note was generated with We[employer] dictation software. It may contain incorrect words, spelling, and punctuation that were not noted in review of the chart prior to signing. Lab Data Labs: Laboratory Results - last 24 hr 04/02/25 13:37 WBC 5.2 RBC 4.29 Hgb 13.2 Hct 40.7 MCV 94.9 MCH 30.8 MCHC 32.4 RDW Std Deviation 46.5 H RDW Coeff of Romaine 13.3 Plt Count 264 MPV 9.9 Immature Gran % (Auto) 0.400 Neut % (Auto) 52.2 Lymph % (Auto) 36.1 [place] % (Auto) 8.4 Eos % (Auto) 2.3 Baso % (Auto) 0.6 Absolute Neuts (auto) 2.7 Absolute Lymphs (auto) 1.88 Nucleated RBC % 0 Sodium 142 Potassium 4.0 Chloride 104 Carbon Dioxide 24.1 Anion Gap 15 BUN 13 Creatinine 0.62 L Estim Creat Clear Calc 63.16 Est GFR (MDRD) Non-Af 94 BUN/Creatinine Ratio 20.0 Glucose 133 H Lactic Acid 1.6 Calcium 9.5 Radiography Diagnostic Testing: Clinical Impression(s) from Imaging Studies Abdomen/Pelvis CT 04/02/25 13:24 IMPRESSION: Left subcutaneous peripherally enhancing collection measures 4.3 x 5.6 x 5.8 cm in the left portal consistent with an abscess. No acute intrapelvic or abdominal abnormalities. Reading Location: [facility] Discharge Plan Triage Chief Complaint: Wound ED Provider: Ozzy Vasquez Dx/Rx/DC Orders Clinical Impression: Buttock wound Instructions: Wound Care, Pressure Injury Dc Prescriptions: New sulfamethoxazole-trimethoprim [Bactrim DS] 800-160 mg tablet 1 tab PO BID 10 Days Qty: 20 0RF No Action citalopram [Celexa] 10 mg tablet 5 mg PO QDAY cholecalciferol (vitamin D3) 50 MCG capsule 50 mcg PO DAILY loratadine 10 MG capsule 10 mg PO DAILY PRN (Reason: allergy symptoms) tramadol 50 mg tablet 50 mg PO Q6H PRN (Reason: pain) Qty: 7 0RF Primary Care Provider: Modesto Newell Referrals: Lisy Medrano MD [Med Staff - Active Staff, General Surgery] Hyperbaric Medicine,[facility] and [Non-Staff, Wound Care] Activity Restrictions/Additional Instructions: Thank you for trusting us with your care today! Your labs were reassuring. No signs of severe systemic inflammation or signs of sepsis. Please take Tylenol (2 pills, 650 mg), ibuprofen (2 pills, 400 mg) every 6 hours as needed for pain and fever control. Please take antibiotics as prescribed until course complete. Please keep your wound covered. Please cleanse with soap and water. Please return to the emergency department if your symptoms change or worsen. Please follow with Wound Care for further outpatient evaluation and management. Print Language: Kinyarwanda Disposition Disposition: Home, Self Care
--- NOTE | 2025-04-02 13:24 | CT_ITS ---
PROCEDURE: ABDOMEN/PELVIS W IV CONT ONLY 04/02/2025 REASON FOR EXAM: LEFT BUTTOCK WOUND RULE OUT DEEPER ABSCESS TECHNIQUE: Procedure Code: [id number] Modality: CT Procedure: ABDOMEN/PELVIS W IV CONT ONLY Coronal and Sagittal reconstruction series were provided. CONTRAST: Isovue 370 VOLUME: 75 mL One or more dose reduction techniques were used (e.g., Automated exposure control, adjustment of the mA and/or kV according to patient size, use of iterative reconstruction technique. RADIATION DOSE SUMMARY: CTDlvol: 20.47 mGy DLP: 1140.7 mGycm COMPARISON: None. FINDINGS: Lung bases: Clear. Hiatal hernia measures 6.3 x 6.4 x 12 cm. Liver: Unremarkable. Gallbladder: Unremarkable. No biliary dilation. Spleen: Unremarkable Pancreas: Unremarkable Adrenals: Unremarkable Kidneys: No hydronephrosis. No nephrolithiasis. Bladder: Unremarkable. Reproductive Organs: Unremarkable. Bowel: No bowel wall thickening. No bowel obstruction. Appendix: Unremarkable. Lymph nodes: No lymphadenopathy. Vasculature: No aneurysm. Peritoneum / Retroperitoneum: No free air or free fluid Bones: No acute bony abnormalities. Soft tissues: Left subcutaneous peripherally enhancing collection measures 4.3 x 5.6 x 5.8 cm in the left portal consistent with an abscess. CT/Abdomen/Pelvis W IV Cont ONLY IMPRESSION: Left subcutaneous peripherally enhancing collection measures 4.3 x 5.6 x 5.8 cm in the left portal consistent with an abscess. No acute intrapelvic or abdominal abnormalities. Reading Location: [facility]
[2025-04-02 13:44] LABS: Hematocrit 40.7 % (37-47); Hemoglobin 13.2 g/dL (12.0-15.0); Immature Granulocytes Count 0.020 X10^3/uL (0.0-0.0); Mean Corp Hgb Conc 32.4 g/dL (32-36); Mean Corpuscular Volume 94.9 fL (81-99); Mean Platelet Vol. 9.9 fl (6.2-12.0); NRBC Flagged by Analyzer 0 % (0-5); Platelet Count 264 K/mm3 (150-450); RBC Distribution Width CV 13.3 % (11.6-14.6); RBC Distribution Width SD 46.5 fl (35.1-43.9); Red Blood Count 4.29 M/mm3 (4.2-5.4); White Blood Count 5.2 K/mm3 (4.4-11.0)
[2025-04-02 14:00] VITALS: BP 146/85; PULSE 88; RESP 17; O2SAT 96
[2025-04-02 14:10] LABS: Anion Gap 15 (5-15); BUN 13 mg/dL (4-19); BUN/Creat Ratio 20.0 RATIO (10-20); Calcium,Total 9.5 mg/dL (7.6-11.0); Carbon Dioxide 24.1 mmol/L (21.0-32.0); Chloride 104 mmol/L (98-108); Estimated Creatinine Clearance 63.16 ml/min (50-250); Glucose 133 mg/dL (70-99); Potassium 4.0 mmol/L (3.3-5.1)
--- OUTSIDE RECORDS SUMMARY | 2025-04-02 14:14 | XMS RPT_ITS | CCD ---
Author Organization [facility] Care Team Providers Care Superintendent Menagerie Name Role Phone Osiris BARLOW, [place] Primary Care Provider Osiris BARLOW, [place] Attending Provider [phone] Osiris BARLOW, [place] Referring Provider [phone] Osiris BARLOW, [place] Primary Care Physician [phone] Osiris BARLOW, [place] Referring Provider [phone] Kassie BARLOW, Dr. Estes Attending Physician Osiris BARLOW, [place] Attending Physician [phone] Osiris, Chalon Primary Care Unavailable Osiris, Nishanton [...] 1 capsule by mouth once daily Vit C,G-Gd-Fdcgj-Lutein-Zeax an (2 sources) Start: 12-02-2019 Vit C,I-It-Sppwo-Lutein- Zeaxan Active 1 EACH PO DAILY December [...] 1 tablet daily for 3 days Vit C,T-Ib-Gsrlo-Lutein-Ze axan 1 EACH capsule (2 sources) Start: 12-02-2019 End: 02-03-2025 take 1 capsule by mouth once daily Vit C,V-Mx-Fomqc-Lutein -Zeaxan 1 EACH capsule Discontinued 1 NMA PO DAILY December 02, 2019 12:00am February 03, 2025 8:50am Start: 12-02-2019 take 1 capsule by [facility] once daily Vit C,A-Ud-Drvsf-Lutein-Zeaxan 1 EACH capsule Active 1 NMA PO [...] Value Interpretation Reference Range Facility MR/PATMeka 02-25-2025 /PAT.[facility] Medical Records Department [address] [place] [address] PAT - Anesthesia 02/25/25 1552 MR#: [id number] Acct: [id number] Name: FELIX TRENT Rep #: [id number] : 1950 74 From: Andry Ravi MD PCP: Dr. 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 Hx Hospitalization No 02/25/25 09:22 Any Problems [...] take am of surgery PONV PONV - building inspector: PONV - building inspector Female Yes 02/25/25 09:22 HX of Motion [...] 02/22/25 09:08 Respiratory Assessment Respiratory Assessment - building inspector: Respiratory Tract Infection Hx - building inspector Hx Respiratory Tract Infection No 02/25/25 09:22 STOP Sleep Apnea STOP Sleep Apnea - building inspector: STOP Sleep Apnea - building inspector Hx Hypertension No 02/25/25 09:22 Hx Sleep [...] Tobacco Use History Tobacco Use History - building inspector: Tobacco Use History - building inspector Tobacco Use Smoking Status Former smoker 02/25/25 09:22 Hx Tobacco Use No 02/25/25 09:22 Years Smoking Packs Smoked per Day Smoking Cessation Date was No - quit smoking greater 02/25/25 09:22 within the last 15 years than 15 years ago Hx Smoking Cessation Date 04/21/81 02/25/25 09:22 Hx Smoking Cessation No 02/25/25 09:22 Counseling Hematologic Medial History Hematologic Hx - building inspector: Hematologic Medical Hx - [place] Hx of Blood Transfusion No 02/25/25 09:22 [...] confused, unrespo /Reproduction History /Reproductive History - building inspector: /Reproductive Hx- building inspector Hx Now No 02/25/25 09:22 Gestational Age (in weeks): EDC: Hx Hx Para Hx Section SAB No 02/25/25 09:22 Does the father of the baby or his family experience fever w Father of the baby Malignant Hypertension history comment ON LICENSE OF [facility] Medical History (Updated 02/25/25 @ 09:30 by [...] 02/03/25 Unk (more content not included)... Normal [facility] Surgery Visit Reporton 02-22 Surgery Visit Report [facility] [address] [place] [address] OFFICE VISIT Date of Service: 02/22/25 MR#: [id number] Acct: [id number] Name: FELIX TRENT Rep #: [id number] : 1950 Provider: Dr. 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 Normal [facility] Ext Non Vasc Limited/Soft Ti sson 02-10-2025 Ext Non Vasc Limited/Soft Tiss [facility] [address] [place] [address] Ext Non Vasc Limited/Soft Tiss MR#: [id number] Acct: [id number] Name: FELIX TRENT Rep #: [id number] : 1950 F 74 From: Олег Neely PCP: Dr. [place] Newell MD Status: REG CLI Study: Ext Non Vasc Limited/Soft Tiss Date of Exam: Exam# [id number] Ordering Dr: [place] Newell MD PROCEDURE: EXT [...] performed, consider plain film correlation. Reading Location: [address] CC: Dr. [place] Newell MD Lab Instructor: Signed Normal [facility] Surgery Visit Reporton 02-03 Surgery Visit Report [facility] [address] [place] [address] OFFICE VISIT Date of Service: 02/03/25 MR#: [id number] Acct: [id number] Name: FELIX TRENT Rep #: [id number] : 1950 Provider: Dr. Franklyn addison MD Age/Sex: 74/F Location: [facility] Status: Signed Intake Vital Signs 10/07/20 09:12 [...] Inspection: non-disten (more content not included)... Normal [facility] Absolute lymphocyte countOrd ered By: [place] Mehtake on 09-06-2024 Lymphocytes Auto (Unsp spec) [#/Vol] 2.12 10*3/uL 0.83-4.51 [facility] Absolute neutrophil countOrd ered By: [place] Newell on 09-06-2024 Neutrophils (Bld) [#/Vol] 1.8 10*3/uL Low 2.0-7.7 [facility] Anion gap in Serum or Plasma Ordered By: [place] Osiris on 09-06-2024 Anion gap [Moles/Vol] 11 mmol/L 5- [facility] Automated lymphocyte count a s percentage of total leukocytesOrdered By: [place] Osiris on 09-06-2024 Lymphocytes/100 WBC Auto (Unsp spec) 48.1 % High - [facility] BUN/creatinine ratioOrdered By: [place] Osiris on 09-06-2024 Urea nitrogen/Creatinine [Mass ratio] 14.8 mg/mg 10- [facility] Basophil percentageOrdered B y: Modesto Mehtake on 09-06-2024 Basophils/100 WBC (Bld) 1.6 % High 0- [facility] Bilirubin, totalOrdered By: [place] Osiris on 09-06-2024 Bilirubin [Mass/Vol] 0.54 mg/dL 0.00-1.30 [facility] CBC W/Diff, Automatedon 08-19 Absolute Lymph 2.12 X10 3/uL Normal 0.83-4.51 [facility] Comment on above: Order Comment: Order Date: 09/03/24 Order Info: 0184-1 - CBCD Performed By: #### L 501.9950, L500.4100, L500.4050, L501.9520, L100.0100 #### [facility] [address] [place], [address] Absolute Neut 1.8 X10 3/uL Low 2.0-7.7 [facility] Comment on above: Order Comment: Order Date: 09/03/24 Order Info: 0184-1 - CBCD Performed By: #### L 501.9985, L500.4100, L500.4050, L501.9520, L100.0100 #### [facility] [address] [place], [address] Basophils/100 WBC (Bld) 1.6 % High 0-1 [facility] Comment on above: Order Comment: Order Date: 09/03/24 Order Info: 0184-1 - CBCD Performed By: #### L 501.9985, L500.4100, L500.4050, L501.9520, L100.0100 #### [facility] [address] [place], [address] Eosinophils/100 WBC (Bld) 2.0 % Normal 0-5 [facility] Comment on above: Order Comment: Order Date: 09/03/24 Order Info: 0184-1 - CBCD Performed By: #### L 501.9985, L500.4100, L500.4050, L501.9520, L100.0100 #### [facility] [address] [place], [address] Erythrocyte distribution width (RBC) [Ratio] 13.7 % Normal 11.6-14.6 [facility] Comment on above: Order Comment: Order Date: 09/03/24 Order Info: 0184-1 - CBCD Performed By: #### L 501.9985, L500.4100, L500.4050, L501.9520, L100.0100 #### [facility] [address] [place], [address] Hematocrit (Bld) [Volume fraction] 41.3 % Normal 37-47 [facility] Comment on above: Order Comment: Order Date: 09/03/24 Order Info: 0184-1 - CBCD Performed By: #### L 501.9985, L500.4100, L500.4050, L501.9520, L100.0100 #### [facility] [address] [place], [address] Hemoglobin (Bld) [Mass/Vol] 13.6 g/dL Normal 12.0-15.0 [facility] Comment on above: Order Comment: Order Date: 09/03/24 Order Info: 018- - CBCD Performed By: #### L 501.9985, L500.4100, L500.4050, L501.9520, L100.0100 #### [facility] [address] [place], [address] IG% 0.200 Normal 0.0-0.9 [facility] Comment on above: Order Comment: Order Date: 09/03/24 Order Info: [id number] - CBCD Result Comment: IG% - Immature Granulocytes (promyelocytes, myelocytes and metamyelocytes) > 1% indicates that a LEFT SHIFT is Present. Performed By: #### L 501.9985, L500.4100, L500.4050, L501.9520, L100.0100 #### [facility] [address] [place], [address] Lymphocytes/100 WBC (Bld) 48.1 % High 19-41 [facility] Comment on above: Order Comment: Order Date: 09/03/24 Order Info: 018- - CBCD Performed By: #### L 501.9985, L500.4100, L500.4050, L501.9520, L100.0100 #### [facility] [address] [place], [address] MCH (RBC) [Entitic mass] 31.1 pg Normal 27.0-32.0 [facility] Comment on above: Order Comment: Order Date: 09/03/24 Order Info: 0184- - CBCD Performed By: #### L 501.9985, L500.4100, L500.4050, L501.9520, L100.0100 #### [facility] [address] [place], [address] MCHC (RBC) [Mass/Vol] 32.9 g/dL Normal 32-36 [facility] Comment on above: Order Comment: Order Date: 09/03/24 Order Info: 018- - CBCD Performed By: #### L 501.9985, L500.4100, L500.4050, L501.9520, L100.0100 #### [facility] [address] [place], [address] MCV (RBC) [Entitic vol] 94.3 fL Normal 81-99 [facility] Comment on above: Order Comment: Order Date: 09/03/24 Order Info: 018- - CBCD Performed By: #### L 501.9985, L500.4100, L500.4050, L501.9520, L100.0100 #### [facility] [address] [place], [address] Monocytes/100 WBC (Bld) 7.5 % Normal 0-10 [facility] Comment on above: Order Comment: Order Date: 09/03/24 Order Info: 018- - CBCD Performed By: #### L 501.9985, L500.4100, L500.4050, L501.9520, L100.0100 #### [facility] [address] [place], [address] Neutrophils/100 WBC (Bld) 40.6 % Low 47-70 [facility] Comment on above: Order Comment: Order Date: 09/03/24 Order Info: 018-1 - CBCD Performed By: #### L 501.9985, L500.4100, L500.4050, L501.9520, L100.0100 #### [facility] [address] [place], [address] Nucleated RBC (Bld) [#/Vol] 0 10*3/uL Normal 0-5 [facility] Comment on above: Order Comment: Order Date: 09/03/24 Order Info: 0184-1 - CBCD Performed By: #### L 501.9985, L500.4100, L500.4050, L501.9520, L100.0100 #### [facility] [address] [place], [address] Platelet mean volume (Bld) [Entitic vol] 10.5 fL Normal 6.2-12.0 [facility] Comment on above: Order Comment: Order Date: 09/03/24 Order Info: 0184-1 - CBCD Performed By: #### L 501.9985, L500.4100, L500.4050, L501.9520, L100.0100 #### [facility] [address] [place], [address] Platelets (Bld) [#/Vol] 233 10*3/uL Normal 150-450 [facility] Comment on above: Order Comment: Order Date: 09/03/24 Order Info: 0184-1 - CBCD Performed By: #### L 501.9985, L500.4100, L500.4050, L501.9520, L100.0100 #### [facility] [address] [place], [address] RBC (Bld) [#/Vol] 4.38 10*6/uL Normal 4.2-5.4 [facility] Comment on above: Order Comment: Order Date: 09/03/24 Order Info: 0184-1 - CBCD Performed By: #### L 501.9985, L500.4100, L500.4050, L501.9520, L100.0100 #### [facility] [address] [place], [address] RDW SD 47.8 fl High 35.1-43.9 [facility] Comment on above: Order Comment: Order Date: 09/03/24 Order Info: 0184-1 - CBCD Performed By: #### L 501.9985, L500.4100, L500.4050, L501.9520, L100.0100 #### [facility] [address] [place], [address] WBC (Bld) [#/Vol] 4.4 10*3/uL Normal 4.4-11.0 [facility] Comment on above: Order Comment: Order Date: 09/03/24 Order Info: 0184-1 - CBCD Performed By: #### L 501.9985, L500.4100, L500.4050, L501.9520, L100.0100 #### [facility] [address] [facility], [address] Calculated very low density lipoprotein (VLDL) cholesterol measurementOrdered By: Modesto Newell on 09-06-2024 Calculated very low density lipoprotein (VLDL) cholesterol measurement 15 mg/dL 5-40 [facility] Carbon dioxide, total [Moles /volume] in Central venous bloodOrdered By: Modesto Newell on 09-06-2024 CO2 [Moles/Vol] 24.3 mmol/L 21.0-32.0 [facility] Chloride assayOrdered By: Luzmaria Newell on 09-06-2024 Chloride [Moles/Vol] 105 mmol/L 98-108 [facility] Comprehensive Metabolic Prof ilon 09-06-2024 Albumin [Mass/Vol] 4.3 g/dL Normal 3.4-4.8 [facility] Comment on above: Order Comment: Order Date: 09/03/24 Order Info: 0786-1 - CMP Order Info: [id number] - LIPID Order Info: [id number] - TSH Performed By: #### L 501.9985, L500.4100, L500.4050, L501.9520, L100.0100 #### [facility] [address] [place], [address] Albumin/Globulin [Mass ratio] 1.5 {ratio} Normal 0.9-2.4 [facility] Comment on above: Order Comment: Order Date: 09/03/24 Order Info: 07 - CMP Order Info: - LIPID Order Info: [id number] - TSH Performed By: #### L 501.9985, L500.4100, L500.4050, L501.9520, L100.0100 #### [facility] [address] [place], [address] ALK PHOS 96 U/L Normal 35-104 [facility] Comment on above: Order Comment: Order Date: 09/03/24 Order Info: [id number] - CMP Order Info: - LIPID Order Info: [id number] - TSH Performed By: #### L 501.9985, L500.4100, L500.4050, L501.9520, L100.0100 #### [facility] [address] [place], [address] ALT [Catalytic activity/Vol] 11 U/L Normal <=34 [facility] Comment on above: Order Comment: Order Date: 09/03/24 Order Info: 785-04 - CMP Order Info: - LIPID Order Info: [id number] - TSH Performed By: #### L 501.9985, L500.4100, L500.4050, L501.9520, L100.0100 #### [facility] [address] [place], [address] AST [Catalytic activity/Vol] 20 U/L Normal <=31 [facility] Comment on above: Order Comment: Order Date: 09/03/24 Order Info: 0786 - CMP Order Info: [id number] - LIPID Order Info: [id number] - TSH Performed By: #### L 501.9985, L500.4100, L500.4050, L501.9520, L100.0100 #### [facility] [address] [place], [address] Bilirubin [Mass/Vol] 0.54 mg/dL Normal 0.00-1.30 [facility] Comment on above: Order Comment: Order Date: 09/03/24 Order Info: 0786- - CMP Order Info: - LIPID Order Info: [id number] - TSH Performed By: #### L 501.9985, L500.4100, L500.4050, L501.9520, L100.0100 #### [facility] [address] [place], [address] BUN/CRE 14.8 RATIO Normal 10-20 [facility] Comment on above: Order Comment: Order Date: 09/03/24 Order Info: 07 - CMP Order Info: [id number] - LIPID Order Info: [id number] - TSH Performed By: #### L 501.9985, L500.4100, L500.4050, L501.9520, L100.0100 #### [facility] [address] [place], [address] Calcium [Mass/Vol] 9.4 mg/dL Normal 7.6-11.0 [facility] Comment on above: Order Comment: Order Date: 09/03/24 Order Info: 0786 - CMP Order Info: [id number] - LIPID Order Info: [id number] - TSH Performed By: #### L 501.9985, L500.4100, L500.4050, L501.9520, L100.0100 #### [facility] [address] [place], [address] Chloride [Moles/Vol] 105 mmol/L Normal 98-108 [facility] Comment on above: Order Comment: Order Date: 09/03/24 Order Info: 0786- - CMP Order Info: [id number] - LIPID Order Info: [id number] - TSH Performed By: #### L 501.9985, L500.4100, L500.4050, L501.9520, L100.0100 #### [facility] [address] [place], [address] CO2 [Moles/Vol] 24.3 mmol/L Normal 21.0-32.0 [facility] Comment on above: Order Comment: Order Date: 09/03/24 Order Info: 07- - CMP Order Info: - LIPID Order Info: [id number] - TSH Performed By: #### L 501.9985, L500.4100, L500.4050, L501.9520, L100.0100 #### [facility] [address] [place], [address] Creatinine [Mass/Vol] 0.62 mg/dL Low 0.70-1.20 [facility] Comment on above: Order Comment: Order Date: 09/03/24 Order Info: 785-04 - CMP Order Info: - LIPID Order Info: [id number] - TSH Performed By: #### L 501.9985, L500.4100, L500.4050, L501.9520, L100.0100 #### [facility] [address] [place], [address] GAP 11 Normal 5-15 [facility] Comment on above: Order Comment: Order Date: 09/03/24 Order Info: 0786 - CMP Order Info: [id number] - LIPID Order Info: 3 - TSH Performed By: #### L 501.9985, L500.4100, L500.4050, L501.9520, L100.0100 #### [facility] [address] [place], [place], [address] GFR/1.73 sq M.predicted among non-blacks MDRD (S/P/Bld) [Vol rate/Area] 95 mL/min/{1.73_m2} Normal >60 [facility] Comment on above: Order Comment: Order Date: 09/03/24 Order Info: 0786 - CMP Order Info: - LIPID Order Info: 3 - TSH Result Comment: mL/m in/1.73m2 CKD-EPI Creatinine Equation (2020) Performed By: #### L 501.9985, L500.4100, L500.4050, L501.9520, L100.0100 #### [facility] [address] [place], [address] Globulin (S) [Mass/Vol] 2.8 g/dL Normal 2.2-4.2 [facility] Comment on above: Order Comment: Order Date: 09/03/24 Order Info: 0786-1 - CMP Order Info: [id number] - LIPID Order Info: 3 - TSH Performed By: #### L 501.9985, L500.4100, L500.4050, L501.9520, L100.0100 #### [facility] [address] [place], [address] Glucose [Mass/Vol] 98 mg/dL Normal 70-99 [facility] Comment on above: Order Comment: Order Date: 09/03/24 Order Info: 0786- - CMP Order Info: [id number] - LIPID Order Info: 3 - TSH Performed By: #### L 501.9985, L500.4100, L500.4050, L501.9520, L100.0100 #### [facility] [address] [place], [address] Potassium [Moles/Vol] 4.0 mmol/L Normal 3.3-5.1 [facility] Comment on above: Order Comment: Order Date: 09/03/24 Order Info: 0786-1 - CMP Order Info: [id number] - LIPID Order Info: [id number] - TSH Performed By: #### L 501.9985, L500.4100, L500.4050, L501.9520, L100.0100 #### [facility] [address] [place], [address] Sodium [Moles/Vol] 141 mmol/L Normal 133-145 [facility] Comment on above: Order Comment: Order Date: 09/03/24 Order Info: 0786-1 - CMP Order Info: [id number] - LIPID Order Info: 3 - TSH Performed By: #### L 501.9985, L500.4100, L500.4050, L501.9520, L100.0100 #### [facility] [address] [place], [place], [address] T PROT 7.0 g/dL Normal 5.9-8.4 [facility] Comment on above: Order Comment: Order Date: 09/03/24 Order Info: 0786- - CMP Order Info: [id number] - LIPID Order Info: [id number] - TSH Performed By: #### L 501.9985, L500.4100, L500.4050, L501.9520, L100.0100 #### [facility] [address] [place], [place], [address] Urea nitrogen [Mass/Vol] 9 mg/dL Normal - [facility] Comment on above: Order Comment: Order Date: 09/03/24 Order Info: 0786-1 - CMP Order Info: [id number] - LIPID Order Info: [id number] - TSH Performed By: #### L 501.9985, L500.4100, L500.4050, L501.9520, L100.0100 #### [facility] [address] [place], [place], [address] Eosinophil percentageOrdered By: Modesto Newell on 09-06-2024 Eosinophils/100 WBC (Bld) 2.0 % 0-5 [facility] Erythrocyte distribution wid th ratioOrdered By: Modesto Newell on 09-06-2024 Erythrocyte distribution width (RBC) [Ratio] 13.7 % 11.6-14.6 [facility] Erythrocyte distribution wid th standard deviationOrdered By: Modesto Newell on 09-06-2024 Erythrocyte distribution width (RBC) [Ratio] 47.8 fl High 35.1-43.9 [facility] Glomerular filtration rate ( GFR) estimation/1.73 sq m using serum, plasma, or whole bOrdered By: Modesto Newell on 09-06-2024 GFR/1.73 sq M.predicted among non-blacks MDRD (S/P/Bld) [Vol rate/Area] 95 mL/min/{1.73_m2} >60 [facility] Comment on above: mL/min/1.73m2 CKD-EP I Creatinine Equation (2020) Hematocrit Auto (Bld) [Volum e fraction]Ordered By: Modesto Newell on 09-06-2024 Hematocrit (Bld) [Volume fraction] 41.3 % 37-47 [facility] Hemoglobin A1con 09-06-2024 HbA1c (Bld) [Mass fraction] 6.0 % High <=5.6 [facility] Comment on above: Order Comment: Order Date: 09/03/24 Order Info: [id number] - A1C Result Comment: Norm al < 5.7 % Prediabetic 5.7 - 6.4 % Diabetic >or= 6.5 % Please note range changes. Performed By: #### L 501.9985, L500.4100, L500.4050, L501.9520, L100.0100 #### [facility] [address] [place], [place] [address]all [facility] [place], [address] Hemoglobin A1c percentageOrd ered By: Modesto Newell on 09-06-2024 HbA1c (Bld) [Mass fraction] 6.0 % High <5.7 [facility] Comment on above: Normal < 5.7 % Predi abetic 5.7 - 6.4 % Diabetic >or= 6.5 % Please note range changes. Hemoglobin measurementOrdere d By: Modesto Newell on 09-06-2024 Hemoglobin (Bld) [Mass/Vol] 13.6 g/dL 12.0-15.0 [facility] Immature granulocytes/100 WB C Auto (Bld)Ordered By: Modesto Newell on 09-06-2024 Immature granulocytes/100 WBC (Bld) 0.200 % 0.0-0.9 [facility] Comment on above: IG% - Immature Granu locytes (promyelocytes, myelocytes and metamyelocytes) > 1% indicates that a LEFT SHIFT is Present. LDL calc ser/plasOrdered By: Moedsto Newell on 09-06-2024 Cholesterol in LDL [Mass/Vol] 145 mg/dL [facility] Comment on above: Psqxhbetxb=378-937 m g/dL & Higher Puaz=476 mg/dL or greater Laboratory - Chemistry and C hemistry - challengeOrdered By: Modesto Newell on 09-06-2024 AST [Catalytic activity/Vol] 20 U/L <32 [facility] Lipid Profileon 09-06-2024 CHOL:HDL 4.36 Normal [facility] Comment on above: Order Comment: Order Date: 09/03/24 Order Info: 0786-1 - CMP Order Info: [id number] - LIPID Order Info: 301-3 - TSH Performed By: #### L 501.9985, L500.4100, L500.4050, L501.9520, L100.0100 #### [facility] [address] [place], [address] Cholesterol [Mass/Vol] 208 mg/dL High <=200 [facility] Comment on above: Order Comment: Order Date: 09/03/24 Order Info: 0786 - CMP Order Info: [id number] - LIPID Order Info: [id number] - TSH Result Comment: Chol esterol level, Desirable <200 mg/dL Borderline high cholesterol 200-239 mg/dL High cholesterol >=240 mg/dL Recommendations of the NCEP Adult Treatment Panel for the following risk-cutoff thresholds for the [place] population. Performed By: #### L 501.9985, L500.4100, L500.4050, L501.9520, L100.0100 #### [facility] [address] [place], [address] Cholesterol in HDL [Mass/Vol] 48 mg/dL Normal [facility] Comment on above: Order Comment: Order Date: 09/03/24 Order Info: 0786-1 - CMP Order Info: [id number] - LIPID Order Info: [id number] - TSH Result Comment: [place] onal Cholesterol Education Program (NCEP) guidelines: <40 mg/dL: Low HDL-cholesterol (major risk factor for CHD) >= 60 mg/dL: High HDL-cholesterol (negative risk factor for CHD) HDL-cholesterol is affected by a number of factors, e.g. smoking, exercise, hormones, sex and age. Performed By: #### L 501.9985, L500.4100, L500.4050, L501.9520, L100.0100 #### [facility] [address] [place], [address] Cholesterol in LDL [Mass/Vol] 145 mg/dL Normal [facility] Comment on above: Order Comment: Order Date: 09/03/24 Order Info: 0786-1 - CMP Order Info: [id number] - LIPID Order Info: [id number] - TSH Result Comment: Bord syibuc=656-017 mg/dL Higher Dzvq=867 mg/dL or greater Performed By: #### L 501.9985, L500.4100, L500.4050, L501.9520, L100.0100 #### [facility] [address] [place], [address] Cholesterol in VLDL [Mass/Vol] 15 mg/dL Normal 5-40 [facility] Comment on above: Order Comment: Order Date: 09/03/24 Order Info: [id number] CMP Order Info: [id number] - LIPID Order Info: [id number] - TSH Performed By: #### L 501.9985, L500.4100, L500.4050, L501.9520, L100.0100 #### [facility] [address] [place], [address] Triglyceride [Mass/Vol] 76 mg/dL Normal [facility] Comment on above: Order Comment: Order Date: 09/03/24 Order Info: [id number] - CMP Order Info: [id number] - LIPID Order Info: [id number] - TSH Result Comment: The drugs N-Acetylcysteine and Metamizole may falsely depress this assay. Normal range: <150 mg/dL Borderline High: 150-199 mg/dL High: 200-499 mg/dL Very High: >500 mg/dL Performed By: #### L 501.9937, L500.4100, L500.4050, L501.9520, L100.0100 #### [facility] [address] [place], [address] MCV (mean corpuscular volume ) determinationOrdered By: Modesto Newell on 09-06-2024 MCV (RBC) [Entitic vol] 94.3 fL 81-99 [facility] Mean corpuscular hemoglobin (MCH) determinationOrdered By: [facility] on 09-06-2024 MCH (RBC) [Entitic mass] 31.1 pg 27.0-32.0 [facility] Mean corpuscular hemoglobin concentration (MCHC) determinationOrdered By: Modesto Newell on 09-06-2024 MCHC (RBC) [Mass/Vol] 32.9 g/dL 32-36 [facility] Mean platelet volume determi nationOrdered By: Modesto Newell on 09-06-2024 Platelet mean volume (Bld) [Entitic vol] 10.5 fL 6.2-12.0 [facility] Monocyte percentageOrdered B y: Modesto Newell on 09-06-2024 Monocytes/100 WBC (Bld) 7.5 % 0-10 [facility] Neutrophil percentageOrdered By: Modesto Newell on 09-06-2024 Neutrophils/100 WBC (Bld) 40.6 % Low 47-70 [facility] Nucleated red blood cell per centageOrdered By: Modesto Newell on 09-06-2024 Nucleated RBC/100 WBC (Bld) [Ratio] 0 % 0-5 [facility] Platelet countOrdered By: Luzmaria Newell on 09-06-2024 Platelets (Bld) [#/Vol] 233 10*3/uL 150-450 [facility] Potassium measurement (mass/ volume)Ordered By: Modesto Newell on 09-06-2024 Potassium (Unsp spec) [Mass/Vol] 4.0 mmol/L 3.3-5.1 [facility] RBC Auto (Bld) [#/Vol]Ordere d By: Modesto Newell on 09-06-2024 RBC (Bld) [#/Vol] 4.38 10*6/uL 4.2-5.4 [facility] Screening total cholesterol/ high density lipoprotein (HDL) cholesterol ratioOrdered By: Modesto Newell on 09-06-2024 Cholesterol.total/Choles terol in HDL [Mass ratio] 4.36 {ratio} [facility] Serum creatinine measurement (mass/volume)Ordered By: Modesto Newell on 09-06-2024 Creatinine [Mass/Vol] 0.62 mg/dL Low 0.70-1.20 [facility] Serum globulin measurementOr dered By: Modesto Newell on 09-06-2024 Globulin (S) [Mass/Vol] 2.8 g/dL 2.2-4.2 [facility] Serum glucose measurement (m ass/volume)Ordered By: Modesto Newell on 09-06-2024 Glucose [Mass/Vol] 98 mg/dL 70-99 [facility] Serum or plasma alanine hui otransferase (ALT) measurementOrdered By: Modesto Newell on 09-06-2024 ALT [Catalytic activity/Vol] 11 U/L <35 [facility] Serum or plasma albumin jennifer urement (mass/volume)Ordered By: Modesto Newell on 09-06-2024 Albumin [Mass/Vol] 4.3 g/dL 3.4-4.8 [facility] Serum or plasma albumin/glob ulin mass ratioOrdered By: Modesto Newell on 09-06-2024 Albumin/Globulin [Mass ratio] 1.5 {ratio} 0.9-2.4 [facility] Serum or plasma alkaline олег sphatase measurementOrdered By: Modesto Newell on 09-06-2024 ALP [Catalytic activity/Vol] 96 U/L 35-104 [facility] Serum or plasma calcium jennifer urement (mass/volume)Ordered By: Modesto Newell on 09-06-2024 Calcium [Mass/Vol] 9.4 mg/dL 7.6-11.0 [facility] Serum or plasma cholesterol in HDL measurement (mass/volume)Ordered By: Modesto Newell on 09-06-2024 Cholesterol in HDL [Mass/Vol] 48 mg/dL >40 [facility] Comment on above: National Cholesterol Education Program (NCEP) guidelines:<40 mg/dL: Low HDL-cholesterol (major risk factor for CHD)>= 60 mg/dL: High HDL-cholesterol (negative risk factor for CHD)HDL-cholesterol is affected by a number of factors, e.g. smoking, exercise, hormones, sex and age. Serum or plasma cholesterol measurement (mass/volume)Ordered By: Modesto Newell on 09-06-2024 Cholesterol [Mass/Vol] 208 mg/dL High <201 [facility] Comment on above: Cholesterol level, D esirable <200 mg/dLBorderline high cholesterol 200-239 mg/dLHigh cholesterol >=240 mg/dLRecommendations of the NCEP Adult Treatment Panel for the following risk-cutoff thresholds for the [place] population. Serum or plasma urea nitroge n measurement (mass/volume)Ordered By: Modesto Newell on 09-06-2024 Urea nitrogen [Mass/Vol] 9 mg/dL 4- [facility] Sodium levelOrdered By: Nishant Newell on 09-06-2024 Sodium [Moles/Vol] 141 mmol/L 133-145 [facility] TSH DL <= 0.005 mIU/L QnOrde red By: Moedsto Newell on 09-06-2024 TSH Qn 1.040 uIU/mL 0.300-4.200 [facility] Thyroid Stim Hormone (TSH)on 09-06-2024 TSH 1.040 uIU/mL Normal 0.300-4.200 [facility] Comment on above: Order Comment: Order Date: 09/03/24 Order Info: [id number] - CMP Order Info: [id number] - LIPID Order Info: [id number] - TSH Performed By: #### L 501.9985, L500.4100, L500.4050, L501.9520, L100.0100 #### [facility] [address] [place], [address] Total proteinOrdered By: Sienna Newell on 09-06-2024 Protein [Mass/Vol] 7.0 g/dL 5.9-8.4 [facility] Triglycerides measurementOrd ered By: Modesto Newell on 09-06-2024 Triglyceride [Mass/Vol] 76 mg/dL <199 [facility] Comment on above: The drugs N-Acetylcy steine and Metamizole may falsely depress this assay. Normal range: <150 mg/dLBorderline High: 150-199 mg/dLHigh: 200-499 mg/dLVery High: >500 mg/dL Vitamin D,25 Hydroxyon 09-06 Vitamin D 25-OH 28.4 ng/mL Low 30-100 [facility] Comment on above: Order Comment: Order Date: 09/03/24 Order Info: [id number] - CMP Order Info: [id number] - LIPID Order Info: [id number] - TSH Result Comment: Brii min D Status Deficiency: <20 ng/mL (50nmol/L) Insufficiency: 20-30 ng/mL (50-75 nmol/L) Sufficiency: 30-100 ng/mL (75-250 nmol/L) Toxicity: >100 ng/mL (>250 nmol/L) Performed By: #### L 506.1001 #### [facility] [place], [address] White blood cell (WBC) count Ordered By: Modesto Newell on 09-06-2024 WBC (Bld) [#/Vol] 4.4 10*3/uL 4.4-11.0 [facility] Absolute lymphocyte countOrd ered By: Maggie Dixon on 12-19-2022 Lymphocytes Auto (Unsp spec) [#/Vol] 1.85 10*3/uL 0.83-4.51 [facility] Basophil percentageOrdered B y: Maggie Dixon on 12-19-2022 Basophils/100 WBC (Bld) 0.8 % 0-1 [facility] Bilirubin [Mass/Vol] 0.60 mg/dL 0.20-1.00 [facility] Comment on above: For patients on eltr ombopag therapy, use of Dimension Morris TBIL is not recommended. Chloride [Moles/Vol] 108 mmol/L 98-107 [facility] Cholesterol [Mass/Vol] 225 mg/dL <200 [facility] Comment on above: <200 mg/dL Desirable 200-240 mg/dL Borderline >240 mg/dL High Risk Eosinophils/100 WBC (Bld) 1.6 % 0-5 [facility] Glucose [Mass/Vol] 92 mg/dL 74-106 [facility] Neutrophils (Bld) [#/Vol] 2.6 10*3/uL 2.0-7.7 [facility] Neutrophils/100 WBC (Bld) 52.7 % 47-70 [facility] Potassium [Moles/Vol] 4.0 mmol/L 3.5-5.1 [facility] Protein [Mass/Vol] 7.0 g/dL 6.4-8.2 [facility] Sodium [Moles/Vol] 141 mmol/L 136-145 [facility] Triglyceride [Mass/Vol] 149 mg/dL <199 [facility] Comment on above: The drugs N-Acetylcy steine and Metamizole may falsely depress this assay.Serum Triglycerides Reference Interval Normal <150 mg/dL Borderline high 150 - 199 mg/dL High 200 - 499 mg/dL Very High > or = 500 mg/dL WBC (Bld) [#/Vol] 4.9 10*3/uL 4.4-11.0 [facility] Blood erythrocytes count (nu mber/volume)Ordered By: Maggie Dixon on 12-19-2022 RBC (Bld) [#/Vol] 4.38 10*6/uL 4.2-5.4 [facility] Blood hemoglobin measurement (mass/volume)Ordered By: Maggie Dixon on 12-19-2022 Hemoglobin (Bld) [Mass/Vol] 13.3 g/dL 12.0-15.0 [facility] Blood lymphocytes/100 leukoc ytesOrdered By: Maggie Dixon on 12-19-2022 Lymphocytes/100 WBC (Bld) 37.8 % 19-41 [facility] Blood monocytes/100 leukocyt esOrdered By: Maggie Dixon on 12-19-2022 Monocytes/100 WBC (Bld) 6.9 % 0-10 [facility] Blood platelet mean volumeOr dered By: Maggie Dixon on 12-19-2022 Platelet mean volume (Bld) [Entitic vol] 9.6 fL 6.2-12.0 [facility] Determination of erythrocyte mean corpuscular volume (MCV)Ordered By: Maggie Dixon on 12-19-2022 MCV (RBC) [Entitic vol] 95.2 fL 81-99 [facility] Hematocrit Auto (Bld) [Volum e fraction]Ordered By: Maggie Dixon on 12-19-2022 Hematocrit (Bld) [Volume fraction] 41.7 % 37-47 [facility] - Chemistry and C hemistry - challengeOrdered By: Maggie Dixon on 12-19-2022 ALP [Catalytic activity/Vol] 112 U/L 45-117 [facility] ALT [Catalytic activity/Vol] 17 U/L 13-56 [facility] CO2 [Moles/Vol] 28.0 mmol/L 21.0-32.0 [facility] Globulin (S) [Mass/Vol] 3.5 g/dL 2.2-4.2 [facility] Urea nitrogen/Creatinine [Mass ratio] 17.6 mg/mg 10-20 [facility] - Hematology and Cell countsOrdered By: Maggie Dixon on 12-19-2022 Erythrocyte distribution width (RBC) [Entitic vol] 45.6 fL 35.1-43.9 [facility] Erythrocyte distribution width (RBC) [Ratio] 13.0 % 11.6-14.6 [facility] Immature granulocytes/100 WBC (Bld) 0.200 % 0.0-0.9 [facility] Comment on above: IG% - Immature Granu locytes (promyelocytes, myelocytes and metamyelocytes) > 1% indicates that a LEFT SHIFT is Present. MCH (RBC) [Entitic mass] 30.4 pg 27.0-32.0 [facility] Nucleated RBC/100 WBC (Bld) [Ratio] 0 % 0-5 [facility] MCHC Auto (RBC) [Mass/Vol]Or dered By: Maggie Dixon on 12-19-2022 MCHC (RBC) [Mass/Vol] 31.9 g/dL 32-36 [facility] No Panel InformationOrdered By: Maggie Dixon on 12-19-2022 Estimated GFR (MDRD) Amer 121 mL/min >60 [facility] Comment on above: GFR Calc Estimated GFR (MDRD) Non-Af Amer 100 mL/min >60 [facility] Comment on above: Non- GFR Calc Thyroid Stimulating Hormone (TSH) 1.24 uIU/mL 0.358-3.74 [facility] Vitamin D 25-Hydroxy 38.0 ng/mL [facility] Comment on above: Vitamin D 25(OH) Sta tus Range Deficiency <20 ng/mL (50nmol/L) Insufficiency 20 - 30 ng/mL (50 - 75 nmol/L) Sufficiency 30 - 100 ng/mL (75 - 250 nmol/L) Toxicity >100 ng/mL (>250 nmol/L) Platelets bldOrdered By: Venkatesh Dixon on 12-19-2022 Platelets (Bld) [#/Vol] 231 10*3/uL 150-450 [facility] Serum or plasma albumin jennifer urement (mass/volume)Ordered By: Maggie Dixon on 12-19-2022 Albumin [Mass/Vol] 3.5 g/dL 3.2-5.0 [facility] Serum or plasma albumin/glob ulin mass ratioOrdered By: Maggie Dixon on 12-19-2022 Albumin/Globulin [Mass ratio] 1.0 {ratio} 0.9-2.4 [facility] Serum or plasma calcium jennifer urement (mass/volume)Ordered By: Maggie Dixon on 12-19-2022 Calcium [Mass/Vol] 8.9 mg/dL 8.5-10.1 [facility] Serum or plasma cholesterol in HDL measurement (mass/volume)Ordered By: Maggie Dixon on 12-19-2022 Cholesterol in HDL [Mass/Vol] 43 mg/dL >40 [facility] Comment on above: The drugs N-Acetylcy steine and Metamizole may falsely depress this assay. Reference Range HDL <40 mg/dL Low HDL Cholesterol HDL >or= 60 mg/dL High HDL Cholesterol Serum or plasma cholesterol in VLDL measurement (mass/volume)Ordered By: Maggie Dixon on 12-19-2022 Cholesterol in VLDL [Mass/Vol] 30 mg/dL 5-40 [facility] Serum or plasma creatinine m easurement (mass/volume)Ordered By: Maggie Dixon on 12-19-2022 Creatinine [Mass/Vol] 0.63 mg/dL 0.55-1.02 [facility] Comment on above: The validity of the calculated GFR & GFRAA in patients over 70 years has not been determined. Clinical correlation is essential. Serum or plasma ferritin guillaume surement (mass/volume)Ordered By: Maggie Dixon on 12-19-2022 Ferritin [Mass/Vol] 32 ng/mL 8-252 [facility] Serum or plasma low density lipoprotein (LDL) cholesterol measurement (mass/volume)Ordered By: Maggie Dixon on 12-19-2022 Cholesterol in LDL [Mass/Vol] 152 mg/dL 0-130 [facility] Serum or plasma urea nitroge n measurement (mass/volume)Ordered By: Maggie Dixon on 12-19-2022 Urea nitrogen [Mass/Vol] 11 mg/dL 7-18 [facility] Thin prep Papanicolaou smear with manual screeningOrdered By: Maggie Dixon on 12-19-2022 Thin prep Papanicolaou smear with manual screening 15 U/L 15-37 [facility] Thin prep Papanicolaou smear with manual screening 5 5-15 [facility] Whole blood hemoglobin A1c/t otal hemoglobin ratio (mass fraction)Ordered By: Maggie Dixon on 12-19-2022 HbA1c (Bld) [Mass fraction] 5.8 % 3.8-5.6 [facility] Comment on above: Normal < 5.7 % Predi abetic 5.7 - 6.4 % Diabetic >or= 6.5 % Please note range changes. Absolute lymphocyte counton 10-17-2021 Lymphocytes Auto (Unsp spec) [#/Vol] 1.65 10*3/uL 0.83-4.51 [facility] Work Phone: Basophil percentageon 2021 Basophils/100 WBC (Bld) 1.0 % 0-1 [facility] Work Phone: Bilirubin [Mass/Vol] 0.30 mg/dL 0.20-1.00 [facility] Work Phone: Comment on above: For patients on eltr ombopag therapy, use of Dimension [place] TBIL is not recommended. Chloride [Moles/Vol] 107 mmol/L 98-107 [facility]: Cholesterol [Mass/Vol] 217 mg/dL <200 [facility] Work Phone: Comment on above: <200 mg/dL Desirable 200-240 mg/dL Borderline >240 mg/dL High Risk Eosinophils/100 WBC (Bld) 1.9 % 0-5 [facility] Work Phone: Glucose [Mass/Vol] 117 mg/dL 74-106 [facility] Work Phone: Comment on above: Fasting Glucose resu lt from 100 to 125 mg/dL suggests IMPAIRED HOMEOSTASIS per A.D.A. criteria. Neutrophils (Bld) [#/Vol] 2.6 10*3/uL 2.0-7.7 [facility] Work Phone: Neutrophils/100 WBC (Bld) 54.0 % 47-70 [facility] Work Phone: Potassium [Moles/Vol] 3.8 mmol/L 3.5-5.1 [facility] Work Phone: Protein [Mass/Vol] 7.0 g/dL 6.4-8.2 [facility] Work Phone: Sodium [Moles/Vol] 140 mmol/L 136-145 [facility] Work Phone: Triglyceride [Mass/Vol] 119 mg/dL <199 [facility] Work Phone: Comment on above: The drugs N-Acetylcy steine and Metamizole may falsely depress this assay.Serum Triglycerides Reference Interval Normal <150 mg/dL Borderline high 150 - 199 mg/dL High 200 - 499 mg/dL Very High > or = 500 mg/dL WBC (Bld) [#/Vol] 4.8 10*3/uL 4.4-11.0 [facility] Work Phone: Blood erythrocytes count (nu mber/volume)on 10-17-2021 RBC (Bld) [#/Vol] 4.28 10*6/uL 4.2-5.4 [facility] Work Phone: Blood hemoglobin measurement (mass/volume)on 10-17-2021 Hemoglobin (Bld) [Mass/Vol] 12.5 g/dL 12.0-15.0 [facility] Work Phone: [phone] Blood lymphocytes/100 leukoc yteson 10-17-2021 Lymphocytes/100 WBC (Bld) 34.4 % 19-41 [facility] Work Phone: [phone] Blood monocytes/100 leukocyt eson 10-17-2021 Monocytes/100 WBC (Bld) 8.1 % 0-10 [facility] Work Phone: [phone] Blood platelet mean volumeon 10-17-2021 Platelet mean volume (Bld) [Entitic vol] 10.0 fL 6.2-12.0 [facility] Work Phone: [phone] Determination of erythrocyte mean corpuscular volume (MCV)on 10-17-2021 MCV (RBC) [Entitic vol] 90.7 fL 81-99 [facility] Work Phone: [phone] Hematocrit Auto (Bld) [Volum e fraction]on 10-17-2021 Hematocrit (Bld) [Volume fraction] 38.8 % 37-47 [facility] Work Phone: Laboratory - Chemistry and C hemistry - challengeon 10-17-2021 ALP [Catalytic activity/Vol] 125 U/L 45-117 [facility] Work Phone: [phone] ALT [Catalytic activity/Vol] 16 U/L 13-56 [facility] Work Phone: [phone] CO2 [Moles/Vol] 25.0 mmol/L 21.0-32.0 [facility] Work Phone: [phone] Globulin (S) [Mass/Vol] 3.5 g/dL 2.2-4.2 [facility] Work Phone: [phone] Urea nitrogen/Creatinine [Mass ratio] 19.9 mg/mg 10-20 [facility] Work Phone: Laboratory - Hematology and Cell countson 10-17-2021 Erythrocyte distribution width (RBC) [Entitic vol] 47.6 fL 35.1-43.9 [facility] Work Phone: [phone] Erythrocyte distribution width (RBC) [Ratio] 14.4 % 11.6-14.6 [facility] Work Phone: [phone] Immature granulocytes/100 WBC (Bld) 0.600 % 0.0-0.9 [facility] Work Phone: [phone] Comment on above: IG% - Immature Granu locytes (promyelocytes, myelocytes and metamyelocytes) > 1% indicates that a LEFT SHIFT is Present. MCH (RBC) [Entitic mass] 29.2 pg 27.0-32.0 [facility] Work Phone: [phone] Nucleated RBC/100 WBC (Bld) [Ratio] 0 % 0-5 [facility] Work Phone: [phone] MCHC Auto (RBC) [Mass/Vol]on 10-17-2021 MCHC (RBC) [Mass/Vol] 32.2 g/dL 32-36 [facility] Work Phone: No Panel Informationon 10-17 Estimated GFR (MDRD) Amer 106 mL/min >60 [facility] Work Phone: Comment on above: GFR Calc Estimated GFR (MDRD) Non-Af Amer 88 mL/min >60 [facility] Work Phone: [phone] Comment on above: Non- GFR Calc Thyroid Stimulating Hormone (TSH) 1.21 uIU/mL 0.358-3.74 [facility] Work Phone: [phone] Vitamin D 25-Hydroxy 34.7 ng/mL [facility] Work Phone: [phone] Comment on above: Vitamin D 25(OH) Sta tus Range Deficiency <20 ng/mL (50nmol/L) Insufficiency 20 - 30 ng/mL (50 - 75 nmol/L) Sufficiency 30 - 100 ng/mL (75 - 250 nmol/L) Toxicity >100 ng/mL (>250 nmol/L) Platelets bldon 06-29-2022 Platelets (Bld) [#/Vol] 260 10*3/uL 150-450 [facility] Work Phone: Serum or plasma albumin jennifer urement (mass/volume)on 10-17-2021 Albumin [Mass/Vol] 3.5 g/dL 3.2-5.0 [facility] Work Phone: Serum or plasma albumin/glob ulin mass ratioon 10-17-2021 Albumin/Globulin [Mass ratio] 1.0 {ratio} 0.9-2.4 [facility] Work Phone: Serum or plasma calcium jennifer urement (mass/volume)on 10-17-2021 Calcium [Mass/Vol] 9.1 mg/dL 8.5-10.1 [facility] Work Phone: Serum or plasma cholesterol in HDL measurement (mass/volume)on 10-17-2021 Cholesterol in HDL [Mass/Vol] 48 mg/dL >40 [facility] Work Phone: Comment on above: The drugs N-Acetylcy steine and Metamizole may falsely depress this assay. Reference Range HDL <40 mg/dL Low HDL Cholesterol HDL >or= 60 mg/dL High HDL Cholesterol Serum or plasma cholesterol in VLDL measurement (mass/volume)on 10-17-2021 Cholesterol in VLDL [Mass/Vol] 24 mg/dL 5-40 [facility] Work Phone: Serum or plasma creatinine m easurement (mass/volume)on 10-17-2021 Creatinine [Mass/Vol] 0.70 mg/dL 0.55-1.02 [facility] Work Phone: Comment on above: The validity of the calculated GFR & GFRAA in patients over 70 years has not been determined. Clinical correlation is essential. Serum or plasma ferritin guillaume surement (mass/volume)on 10-17-2021 Ferritin [Mass/Vol] 7 ng/mL 8-252 [facility] Work Phone: Serum or plasma low density lipoprotein (LDL) cholesterol measurement (mass/volume)on 10-17-2021 Cholesterol in LDL [Mass/Vol] 145 mg/dL 0-130 [facility] Work Phone: Serum or plasma urea nitroge n measurement (mass/volume)on 10-17-2021 Urea nitrogen [Mass/Vol] 14 mg/dL 7-18 [facility] Work Phone: Thin prep Papanicolaou smear with manual screeningon 10-17-2021 Thin prep Papanicolaou smear with manual screening 15 U/L 15-37 [facility] Work Phone: Thin prep Papanicolaou smear with manual screening 8 5-15 [facility] Work Phone: Whole blood hemoglobin A1c/t otal hemoglobin ratio (mass fraction)on 10-17-2021 HbA1c (Bld) [Mass fraction] 6.1 % 3.8-5.6 [facility] Work Phone: Comment on above: Normal < 5.7 % Predi abetic 5.7 - 6.4 % Diabetic >or= 6.5 % Please note range changes. CNOVon 01-26-2017 CNOV Office Visit (UCWSTR) FELIX TRENT ([id number]) 1950 [facility] Time Provider Zxfavrccif07/8/17 11:00 AM JUJU OCLES) WSTR During your visit today, we recorded the following information about you: Temperature Pulse Respiration Blood pressure 97.8 degrees 74/minute 16/minute 112/64 Weight 80.7 kgJuju Coles PA-C 01/26/2017 11:59 AM Yrwkvr0801/26/2017Patient presents with:Cat Bite: right forearm x yesterday, [...] - Fully AssessedReason for Visit: Cat Bite [60007] Cmt: right forearm x yesterday, red and swollenPrimary Visit Diagnosis:Cat bite of forearm, right, initial encounter [S51.851A, W55.01XA] Other Visit Diagnosis:Need for vaccination [Z23]Order(s):TDAP VACCINE AGE 7+ IM [[id number]] Order #: [id number] amoxicillin-clavulanic acid (AUGMENTIN) 875-125 mg per tabletTake [...] Status:Closed by JUJU COLES PA-C [facility]26/17 [facility] PRO[facility]ESSon 01-26-2017 PROGRESS HNO ID: [id number]: Juju Paige) Shadervice: (none)Author Type: Physician AssistantType: [...] issues and agrees with theplan.MEDINA Yap-01/26/2017 Normal [facility] Vital Signs Date Time Vital Sign Value Performing Clinician Faci gifty 02-03-2025 08:49-0400 Body height 162.56 cm Modesto Newell MD Work Phone: [facility] 02-03-2025 08:49-0400 Body mass index (BMI) [Ratio] 28.5 kg/m2 Modesto Newell MD Work Phone: [facility] 02-03-2025 08:49-0400 Body weight 75.29 kg Modesto Newell MD Work Phone: [facility] 02-03-2025 08:49-0400 Diastolic blood pressure 79 mm[Hg] Modesto Newell MD Work Phone: [facility] 02-03-2025 08:49-0400 Heart rate 76 /min Modesto Newell MD Work Phone: [facility] 02-03-2025 08:49-0400 Respiratory rate 17 /min Modesto Newell MD Work Phone: [facility] 02-03-2025 08:49-0400 SaO2% (BldA) [Mass fraction] 98 % Modesto Newell MD Work Phone: [facility] 02-03-2025 08:49-0400 Systolic blood pressure 114 mm[Hg] Modesto Newell MD Work Phone: [facility] Encounters Encounter Date Encounter Type Care Provider Facility Start: 02-22-2025 End: 02-22-2025 ambulatory Modesto Newell Facility[facility] Start: 02-10-2025 End: 02-10-2025 ambulatory Modesto Newell Facility:[facility] Start: 02-03-2025 End: 02-03-[address] Franklyn Fernando MD -[facility] Work Phone: Start: 02-03-2025 End: 02-03-2025 ambulatory Modesto Newell MD Work Phone: -[facility] Start: 12-28-2024 ambulatory Modesto Newell Facility:[facility] Start: 09-06-2024 End: 09-06-2024 ambulatory Modesto Newell MD Work Phone: [facility] Work Phone: Start: 09-06-2024 End: 09-06-[address] Modesto Newell [facility] -[facility] Start: 09-06-2024 End: 09-06-2024 ambulatory Modesto Newell Facility:[facility] Start: 12-19-2022 End: 12-19-2022 ambulatory [facility] Work Phone: Start: 12-19-2022 End: 12-19-2022 Patient encounter procedure [facility] Start: 11-07-2022 End: 11-07-2022 Patient encounter procedure [facility] Work Phone: Start: 10-17-2021 End: 10-17-2021 Patient encounter procedure [facility] Start: 01-26-2017 End: 01-28-2017 Ambulatory [facility] [place] Procedures Date Procedure Procedure Detail Performing Clinician Start: 09-06-2024 Vitamin D, 25-hydrox y measurement Modesto Newell MD Work Phone: Comment on above: Vitamin D StatusDefi ciency: <20 ng/mL (50nmol/L)Insufficiency: 20-30 ng/mL (50-75 nmol/L)Sufficiency: 30-100 ng/mL (75-250 nmol/L)Toxicity: >100 ng/mL (>250 nmol/L) Start: 11-07-2022 Screening mammography Plan of Treatment Date Care Activity Detail Author Start: 03-04-2025 ambulatory Ambulatory Facility:[facility] Start: 02-10-2025 Ultrasonography of limb Ext Non Vasc Limited/Soft Tiss [facility] Start: 02-10-2025 Patient encounter procedure Registered Clinical -Ultrasound [facility] Work Phone: Payers Date Payer Category Payer Self-pay [id number] 2024 Medicare [id number] 2024 Self-pay [id number] 2024 Unknown [id number] 2011 Private Health Insurance [id number] Medicare [id number] Unknown [id number] 2.16.8 [id number] Unknown [id number] 2.16.8 [id number] Unknown [id number] 2.16.8 [id number] Unknown [id number] 2.16.8 [id number] Unknown [id number] 2.16.8 [id number] Unknown [id number] 2.16.8 [id number] Social History Date Type Detail Facility Start: 10-07-2020 Tobacco smoking stat [facility] Unknown if ever smoked [facility] Start: 04-06-2018 None [facility] Start: 04-06-2018 Alone [facility] Start: 12-02-2019 Non-smoker [facility] Start: 1950 Sex Assigned At Female [facility] Start: 10-07-2020 Tobacco smoking stat [facility] Ex-smoker (finding) [facility] Sex Female [facility] Medical Equipment Procedure Code Equipment Code Equipment Origin al Text Equipment Identifier Dates STENT,URETERAL PIGTAIL [id number] FDA Start: 12-09-2019 STENT,URETERAL PIGTAIL [id number] FDA Start: 12-09-2019 STENT,URETERAL PIGTAIL [id number] FDA Start: 12-09-2019 STENT,URETERAL PIGTAIL [id number] FDA Start: 12-09-2019 Progress note 02-03-2025 Note Date & Type Note Facility 02-03-2025 Progress note [facility] Evaluation note Note Date & Type Note Facility Evaluation note No assessment information availa ble [facility] Work Phone: Evaluation note Note Date & Type Note Facility Evaluation note Diagnosis Onset Date Resolution Mass of buttock acute January 192024 8:30am [facility] Work Phone: Progress note Note Date & Type Note Facility Progress note Note Date/Time February 03, 2025 9:08am [facility] [address] [place] [address] OFFICE VISIT Date of Service: 02/03/25 MR#: [id number] Acct: [id number] Name: FELIX TRENT Rep #: [id number] : 1950 Provider: Dr. Gaetano Fernando MD Age/Sex: 74/F Location: [facility] Status: Signed Intake Vital Signs 10/07/20 09:12 [...] is not malignant. Franklyn Fernando MD Pager: [facility] [address] [place] [address], [address] [place] [address] Office: Coding Level of Care Code Off vis,new,level 3 Diagnoses Mass of buttock R22.2 Clinical Quality Measures Falls Risk Screening/Assistive Devices Have you fallen in the past year?: No 02/03/25 0917 <Electronically signed by Franklyn lieberman MD> Date _ Franklyn Fernando MD Cosigner Signature: Date (if applicable) CC: Dr. Modesto Newell MD ~ [facility] [employer] Work Phone: Reason for referral (narrative) Note Date & Type Note Facility Reason for referral (narrative) No reason for referral information available [facility] Work Phone: Summary Purpose Family History No [...] No April 05 018 1:59am Power of Formwork Carpenter No April 05, 2018 1:59am Advance Directive Response Recorded Date/ Time Living Will Yes December 01 0 1:55pm Power of [employer]work Carpenter Yes December 01 020 1:55pm Chief Complaint and Reason for Visit Chief Complaint SCREENING Chief Complaint Admit Date cyst on buttock February 03, 2025 8 :30am CYST LEFT BUTTOCK February 10, 2025 1 0:31am Reason for Visit Admit Date Mass of buttock February 03, 2025 8 :30am Additional Source Comments INFORMATION SOURCE (unrecogn ized section and content) DATE CREATED AUTHOR 10/14/2017 [facility] DATE CREATED AUTHOR AUTHOR'S ORGANIZ ATION 02/26/2025 [facility] Goals (unrecognized section and content) Goals may [...] BE BASED ON THE PRIMARY CLINICAL RECORDS. [facility] [employer] provides no warranty or guarantee of the accuracy or completeness of information in this document.
[2025-04-02] MEDS: Vancomycin HCl 1,250 MG in 0.9% Normal Saline (250mL Bag) 250 ML 167 MG IV (14:36)
[2025-04-02 15:00] VITALS: BP 120/78; PULSE 77; RESP 11; O2SAT 96
[2025-04-02] MEDS: Lidocaine 1% (20 ml mdv) 20 ML Vial 5 ML INFILT (15:53)
[2025-04-02 15:54] VITALS: BP 120/78; PULSE 81; RESP 16; O2SAT 98
[2025-04-02 16:22] VITALS: BP 120/78; PULSE 81; RESP 16; TEMP 36.5; O2SAT 98
== END 2025-04-02 16:23 | disposition home or self-care (01) ==
PROVIDERS: Emergency Provider Emergency Medicine; PCP Family Medicine; Visit Provider Emergency Medicine
DX: L02.31 Cutaneous abscess of buttock (principal); Z87.891 Personal history of nicotine dependence
CPT/HCPCS: 10060; 74177; 80048; 83605; 85025; 96365; 96366; 99283; Q9967; A4216

== ENCOUNTER → 2025-04-04 | Outpatient (CLI) | payer MEDICARE, OTHER, SELFPAY ==
--- OUTSIDE RECORDS SUMMARY | 2025-04-04 20:41 | XMS RPT_ITS | CCD ---
Author Organization [facility] Care Team Providers Care Chlorination Operator Name Role Phone Osiris BARLOW, [place] Primary Care Provider Osiris BARLOW, [place] Attending Provider [phone] Osiris BARLOW, [place] Referring Provider [phone] Osiris BARLOW, [place] Primary Care Physician [phone] Osiris BARLOW, [place] Referring Provider [phone] Kassie BARLOW, Dr. Estes Attending Physician Osiris BARLOW, [place] Attending Physician [phone] Osiris, Chalon Primary Care Unavailable Osiris, Nishanton [...] 1 capsule by mouth once daily Vit C,A-Sf-Ntogo-Lutein-Zeax an (2 sources) Start: 12-02-2019 Vit C,R-Pp-Aovfh-Lutein- Zeaxan Active 1 EACH PO DAILY December [...] 1 tablet daily for 3 days Vit C,E-Xa-Hvtjm-Lutein-Ze axan 1 EACH capsule (2 sources) Start: 12-02-2019 End: 02-03-2025 take 1 capsule by mouth once daily Vit C,U-Rw-Bcrpi-Lutein -Zeaxan 1 EACH capsule Discontinued 1 NMA PO DAILY December 02, 2019 12:00am February 03, 2025 8:50am Start: 12-02-2019 take 1 capsule by [facility] once daily Vit C,B-Dn-Njglo-Lutein-Zeaxan 1 EACH capsule Active 1 NMA PO [...] Value Interpretation Reference Range Facility MR/PATMeka 02-25-2025 /PAT.[facility] Medical Records Department [address] [place] [address] PAT - Anesthesia 02/25/25 1552 MR#: [id number] Acct: [id number] Name: FELIX TRENT Rep #: [id number] : 1950 74 From: Andry Ravi MD PCP: Dr. 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 Female Yes 02/25/25 09:22 HX of Motion [...] 02/22/25 09:08 Respiratory Assessment Respiratory Assessment - 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: Respiratory Tract Infection Hx - 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 Hx Respiratory Tract Infection No 02/25/25 09:22 STOP Sleep Apnea STOP Sleep Apnea - 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: STOP Sleep Apnea - 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 Hx Hypertension No 02/25/25 09:22 Hx Sleep [...] Tobacco Use History Tobacco Use 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: Tobacco Use 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 Tobacco Use Smoking Status Former smoker 02/25/25 09:22 Hx Tobacco Use No 02/25/25 09:22 Years Smoking Packs Smoked per Day Smoking Cessation Date was No - quit smoking greater 02/25/25 09:22 within the last 15 years than 15 years ago Hx Smoking Cessation Date 04/21/81 02/25/25 09:22 Hx Smoking Cessation No 02/25/25 09:22 Counseling Hematologic Medial History Hematologic Hx - 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 Normal [facility] Surgery Visit Reporton 02-22 Surgery Visit Report [facility] [address] [place] [address] OFFICE VISIT Date of Service: 02/22/25 MR#: [id number] Acct: [id number] Name: FELIX TRENT Rep #: [id number] : 1950 Provider: Dr. 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 Normal [facility] Ext Non Vasc Limited/Soft Ti sson 02-10-2025 Ext Non Vasc Limited/Soft Tiss [facility] Imaging Services [address] [place] [address] Ext Non Vasc Limited/Soft Tiss MR#: [id number] Acct: [id number] Name: FELIX TRENT Rep #: [id number] : 1950 F 74 From: Олег Neely PCP: Dr. [place] Newell MD Status: REG CLI Study: Ext Non Vasc Limited/Soft Tiss Date of Exam: Exam# [id number] Ordering Dr: [place] Newell MD PROCEDURE: EXT [...] performed, consider plain film correlation. Reading Location: [address] CC: Dr. [place] Newell MD Television Repairer: Signed Normal [facility] Surgery Visit Reporton 02-03 Surgery Visit Report [facility] [address] [place] [address] OFFICE VISIT Date of Service: 02/03/25 MR#: [id number] Acct: [id number] Name: FELIX TRENT Rep #: [id number] : 1950 Provider: Dr. Franklyn addison MD Age/Sex: 74/F Location: [facility] Status: Signed Intake Vital Signs 10/07/20 [...] Inspection: non-disten (more content not included)... Normal [facility] Absolute lymphocyte countOrd ered By: [place]esto Mehtake on 09-06-2024 Lymphocytes Auto (Unsp spec) [#/Vol] 2.12 10*3/uL 0.83-4.51 [facility] Absolute neutrophil countOrd ered By: [place] Newell on 09-06-2024 Neutrophils (Bld) [#/Vol] 1.8 10*3/uL Low 2.0-7.7 [facility] Anion gap in Serum or Plasma Ordered By: [place] Osiris on 09-06-2024 Anion gap [Moles/Vol] 11 mmol/L 5- [facility] Automated lymphocyte count a s percentage of total leukocytesOrdered By: [place] Osiris on 09-06-2024 Lymphocytes/100 WBC Auto (Unsp spec) 48.1 % High - [facility] BUN/creatinine ratioOrdered By: [place] Osiris on 09-06-2024 Urea nitrogen/Creatinine [Mass ratio] 14.8 mg/mg 10- [facility] Basophil percentageOrdered B y: Modesto Mehtake on 09-06-2024 Basophils/100 WBC (Bld) 1.6 % High 0- [facility] Bilirubin, totalOrdered By: [place] Osiris on 09-06-2024 Bilirubin [Mass/Vol] 0.54 mg/dL 0.00-1.30 [facility] CBC W/Diff, Automatedon 08-19 Absolute Lymph 2.12 X10 3/uL Normal 0.83-4.51 [facility] Comment on above: Order Comment: Order Date: 09/03/24 Order Info: 0184-1 - CBCD Performed By: #### L 501.9983, L500.4100, L500.4050, L501.9520, L100.0100 #### [facility] [address], [address] Absolute Neut 1.8 X10 3/uL Low 2.0-7.7 [facility] Comment on above: Order Comment: Order Date: 09/03/24 Order Info: 0184-1 - CBCD Performed By: #### L 501.9985, L500.4100, L500.4050, L501.9520, L100.0100 #### [facility] [address] [place], [address] Basophils/100 WBC (Bld) 1.6 % High 0-1 [facility] Comment on above: Order Comment: Order Date: 09/03/24 Order Info: 0184-1 - CBCD Performed By: #### L 501.9985, L500.4100, L500.4050, L501.9520, L100.0100 #### [facility] [address] [place], [address] Eosinophils/100 WBC (Bld) 2.0 % Normal 0-5 [facility] Comment on above: Order Comment: Order Date: 09/03/24 Order Info: 0184-1 - CBCD Performed By: #### L 501.9985, L500.4100, L500.4050, L501.9520, L100.0100 #### [facility] [address] [place], [address] Erythrocyte distribution width (RBC) [Ratio] 13.7 % Normal 11.6-14.6 [facility] Comment on above: Order Comment: Order Date: 09/03/24 Order Info: 0184-1 - CBCD Performed By: #### L 501.9985, L500.4100, L500.4050, L501.9520, L100.0100 #### [facility] [address] [place], [address] Hematocrit (Bld) [Volume fraction] 41.3 % Normal 37-47 [facility] Comment on above: Order Comment: Order Date: 09/03/24 Order Info: 0184-1 - CBCD Performed By: #### L 501.9985, L500.4100, L500.4050, L501.9520, L100.0100 #### [facility] [address] [place], [address] Hemoglobin (Bld) [Mass/Vol] 13.6 g/dL Normal 12.0-15.0 [facility] Comment on above: Order Comment: Order Date: 09/03/24 Order Info: 018- - CBCD Performed By: #### L 501.9985, L500.4100, L500.4050, L501.9520, L100.0100 #### [facility] [address] [place], [address] IG% 0.200 Normal 0.0-0.9 [facility] Comment on above: Order Comment: Order Date: 09/03/24 Order Info: [id number] - CBCD Result Comment: IG% - Immature Granulocytes (promyelocytes, myelocytes and metamyelocytes) > 1% indicates that a LEFT SHIFT is Present. Performed By: #### L 501.9985, L500.4100, L500.4050, L501.9520, L100.0100 #### [facility] [address] [place], [address] Lymphocytes/100 WBC (Bld) 48.1 % High 19-41 [facility] Comment on above: Order Comment: Order Date: 09/03/24 Order Info: 018- - CBCD Performed By: #### L 501.9985, L500.4100, L500.4050, L501.9520, L100.0100 #### [facility] [address] [place], [address] MCH (RBC) [Entitic mass] 31.1 pg Normal 27.0-32.0 [facility] Comment on above: Order Comment: Order Date: 09/03/24 Order Info: 0184- - CBCD Performed By: #### L 501.9985, L500.4100, L500.4050, L501.9520, L100.0100 #### [facility] [address] [place], [address] MCHC (RBC) [Mass/Vol] 32.9 g/dL Normal 32-36 [facility] Comment on above: Order Comment: Order Date: 09/03/24 Order Info: 018- - CBCD Performed By: #### L 501.9985, L500.4100, L500.4050, L501.9520, L100.0100 #### [facility] [address] [place], [address] MCV (RBC) [Entitic vol] 94.3 fL Normal 81-99 [facility] Comment on above: Order Comment: Order Date: 09/03/24 Order Info: 018- - CBCD Performed By: #### L 501.9985, L500.4100, L500.4050, L501.9520, L100.0100 #### [facility] [address] [place], [address] Monocytes/100 WBC (Bld) 7.5 % Normal 0-10 [facility] Comment on above: Order Comment: Order Date: 09/03/24 Order Info: 018- - CBCD Performed By: #### L 501.9985, L500.4100, L500.4050, L501.9520, L100.0100 #### [facility] [address] [place], [address] Neutrophils/100 WBC (Bld) 40.6 % Low 47-70 [facility] Comment on above: Order Comment: Order Date: 09/03/24 Order Info: 018-1 - CBCD Performed By: #### L 501.9985, L500.4100, L500.4050, L501.9520, L100.0100 #### [facility] [address] [place], [address] Nucleated RBC (Bld) [#/Vol] 0 10*3/uL Normal 0-5 [facility] Comment on above: Order Comment: Order Date: 09/03/24 Order Info: 0184-1 - CBCD Performed By: #### L 501.9985, L500.4100, L500.4050, L501.9520, L100.0100 #### [facility] [address] [place], [address] Platelet mean volume (Bld) [Entitic vol] 10.5 fL Normal 6.2-12.0 [facility] Comment on above: Order Comment: Order Date: 09/03/24 Order Info: 0184-1 - CBCD Performed By: #### L 501.9985, L500.4100, L500.4050, L501.9520, L100.0100 #### [facility] [address] [place], [address] Platelets (Bld) [#/Vol] 233 10*3/uL Normal 150-450 [facility] Comment on above: Order Comment: Order Date: 09/03/24 Order Info: 0184-1 - CBCD Performed By: #### L 501.9985, L500.4100, L500.4050, L501.9520, L100.0100 #### [facility] [address] [place], [address] RBC (Bld) [#/Vol] 4.38 10*6/uL Normal 4.2-5.4 [facility] Comment on above: Order Comment: Order Date: 09/03/24 Order Info: 0184-1 - CBCD Performed By: #### L 501.9985, L500.4100, L500.4050, L501.9520, L100.0100 #### [facility] [address] [place], [address] RDW SD 47.8 fl High 35.1-43.9 [facility] Comment on above: Order Comment: Order Date: 09/03/24 Order Info: 0184-1 - CBCD Performed By: #### L 501.9985, L500.4100, L500.4050, L501.9520, L100.0100 #### [facility] [address] [place], [address] WBC (Bld) [#/Vol] 4.4 10*3/uL Normal 4.4-11.0 [facility] Comment on above: Order Comment: Order Date: 09/03/24 Order Info: 0184-1 - CBCD Performed By: #### L 501.9985, L500.4100, L500.4050, L501.9520, L100.0100 #### [facility] [address] [facility] [place], [address] Calculated very low density lipoprotein (VLDL) cholesterol measurementOrdered By: Modesto Newell on 09-06-2024 Calculated very low density lipoprotein (VLDL) cholesterol measurement 15 mg/dL 5-40 [facility] Carbon dioxide, total [Moles /volume] in Central venous bloodOrdered By: Modesto Newell on 09-06-2024 CO2 [Moles/Vol] 24.3 mmol/L 21.0-32.0 [facility] Chloride assayOrdered By: Luzmaria Newell on 09-06-2024 Chloride [Moles/Vol] 105 mmol/L 98-108 [facility] Comprehensive Metabolic Prof ilon 09-06-2024 Albumin [Mass/Vol] 4.3 g/dL Normal 3.4-4.8 [facility] Comment on above: Order Comment: Order Date: 09/03/24 Order Info: 0786-1 - CMP Order Info: [id number] - LIPID Order Info: 3016-3 - TSH Performed By: #### L 501.9985, L500.4100, L500.4050, L501.9520, L100.0100 #### [facility] [address] [place], [address] Albumin/Globulin [Mass ratio] 1.5 {ratio} Normal 0.9-2.4 [facility] Comment on above: Order Comment: Order Date: 09/03/24 Order Info: 07 - CMP Order Info: - LIPID Order Info: 3015-06 - TSH Performed By: #### L 501.9985, L500.4100, L500.4050, L501.9520, L100.0100 #### [facility] [address] [place], [address] ALK PHOS 96 U/L Normal 35-104 [facility] Comment on above: Order Comment: Order Date: 09/03/24 Order Info: [id number] - CMP Order Info: - LIPID Order Info: 3015-06 - TSH Performed By: #### L 501.9985, L500.4100, L500.4050, L501.9520, L100.0100 #### [facility] [address] [place], [address] ALT [Catalytic activity/Vol] 11 U/L Normal <=34 [facility] Comment on above: Order Comment: Order Date: 09/03/24 Order Info: [id number] - CMP Order Info: - LIPID Order Info: 3015-06 - TSH Performed By: #### L 501.9985, L500.4100, L500.4050, L501.9520, L100.0100 #### [facility] [address] [place], [address] AST [Catalytic activity/Vol] 20 U/L Normal <=31 [facility] Comment on above: Order Comment: Order Date: 09/03/24 Order Info: 0786 - CMP Order Info: [id number] - LIPID Order Info: 3015-06 - TSH Performed By: #### L 501.9985, L500.4100, L500.4050, L501.9520, L100.0100 #### [facility] [address] [place], [address] Bilirubin [Mass/Vol] 0.54 mg/dL Normal 0.00-1.30 [facility] Comment on above: Order Comment: Order Date: 09/03/24 Order Info: 0786- - CMP Order Info: - LIPID Order Info: 3015-06 - TSH Performed By: #### L 501.9985, L500.4100, L500.4050, L501.9520, L100.0100 #### [facility] [address] [place], [address] BUN/CRE 14.8 RATIO Normal 10-20 [facility] Comment on above: Order Comment: Order Date: 09/03/24 Order Info: 07 - CMP Order Info: [id number] - LIPID Order Info: 3015-06 - TSH Performed By: #### L 501.9985, L500.4100, L500.4050, L501.9520, L100.0100 #### [facility] [address] [place], [address] Calcium [Mass/Vol] 9.4 mg/dL Normal 7.6-11.0 [facility] Comment on above: Order Comment: Order Date: 09/03/24 Order Info: 0786 - CMP Order Info: [id number] - LIPID Order Info: 3015-06 - TSH Performed By: #### L 501.9985, L500.4100, L500.4050, L501.9520, L100.0100 #### [facility] [address] [place], [address] Chloride [Moles/Vol] 105 mmol/L Normal 98-108 [facility] Comment on above: Order Comment: Order Date: 09/03/24 Order Info: 0786- - CMP Order Info: [id number] - LIPID Order Info: [id number] - TSH Performed By: #### L 501.9985, L500.4100, L500.4050, L501.9520, L100.0100 #### [facility] [address] [place], [address] CO2 [Moles/Vol] 24.3 mmol/L Normal 21.0-32.0 [facility] Comment on above: Order Comment: Order Date: 09/03/24 Order Info: 07- - CMP Order Info: - LIPID Order Info: [id number] - TSH Performed By: #### L 501.9985, L500.4100, L500.4050, L501.9520, L100.0100 #### [facility] [address] [place], [address] Creatinine [Mass/Vol] 0.62 mg/dL Low 0.70-1.20 [facility] Comment on above: Order Comment: Order Date: 09/03/24 Order Info: [id number] - CMP Order Info: - LIPID Order Info: [id number] - TSH Performed By: #### L 501.9985, L500.4100, L500.4050, L501.9520, L100.0100 #### [facility] [address] [place], [address] GAP 11 Normal 5-15 [facility] Comment on above: Order Comment: Order Date: 09/03/24 Order Info: 0786 - CMP Order Info: [id number] - LIPID Order Info: 3 - TSH Performed By: #### L 501.9985, L500.4100, L500.4050, L501.9520, L100.0100 #### [facility] [address] [place], [place], [address] GFR/1.73 sq M.predicted among non-blacks MDRD (S/P/Bld) [Vol rate/Area] 95 mL/min/{1.73_m2} Normal >60 [facility] Comment on above: Order Comment: Order Date: 09/03/24 Order Info: 0786 - CMP Order Info: - LIPID Order Info: 3 - TSH Result Comment: mL/m in/1.73m2 CKD-EPI Creatinine Equation (2020) Performed By: #### L 501.9985, L500.4100, L500.4050, L501.9520, L100.0100 #### [facility] [address] [place], [address] Globulin (S) [Mass/Vol] 2.8 g/dL Normal 2.2-4.2 [facility] Comment on above: Order Comment: Order Date: 09/03/24 Order Info: 0786-1 - CMP Order Info: [id number] - LIPID Order Info: 3 - TSH Performed By: #### L 501.9985, L500.4100, L500.4050, L501.9520, L100.0100 #### [facility] [address] [place], [address] Glucose [Mass/Vol] 98 mg/dL Normal 70-99 [facility] Comment on above: Order Comment: Order Date: 09/03/24 Order Info: 0786- - CMP Order Info: [id number] - LIPID Order Info: 3 - TSH Performed By: #### L 501.9985, L500.4100, L500.4050, L501.9520, L100.0100 #### [facility] [address] [place], [address] Potassium [Moles/Vol] 4.0 mmol/L Normal 3.3-5.1 [facility] Comment on above: Order Comment: Order Date: 09/03/24 Order Info: 0786-1 - CMP Order Info: [id number] - LIPID Order Info: [id number] - TSH Performed By: #### L 501.9985, L500.4100, L500.4050, L501.9520, L100.0100 #### [facility] [address] [place], [address] Sodium [Moles/Vol] 141 mmol/L Normal 133-145 [facility] Comment on above: Order Comment: Order Date: 09/03/24 Order Info: 0786-1 - CMP Order Info: [id number] - LIPID Order Info: 3 - TSH Performed By: #### L 501.9985, L500.4100, L500.4050, L501.9520, L100.0100 #### [facility] [address] [place], [place], [address] T PROT 7.0 g/dL Normal 5.9-8.4 [facility] Comment on above: Order Comment: Order Date: 09/03/24 Order Info: 0786- - CMP Order Info: [id number] - LIPID Order Info: 3015-06 - TSH Performed By: #### L 501.9985, L500.4100, L500.4050, L501.9520, L100.0100 #### [facility] [address] [place], [place], [address] Urea nitrogen [Mass/Vol] 9 mg/dL Normal - [facility] Comment on above: Order Comment: Order Date: 09/03/24 Order Info: 0786-1 - CMP Order Info: [id number] - LIPID Order Info: [id number] - TSH Performed By: #### L 501.9985, L500.4100, L500.4050, L501.9520, L100.0100 #### [facility] [address] [place], [place], [address] Eosinophil percentageOrdered By: Modesto Newell on 09-06-2024 Eosinophils/100 WBC (Bld) 2.0 % 0-5 [facility] Erythrocyte distribution wid th ratioOrdered By: Modesto Newell on 09-06-2024 Erythrocyte distribution width (RBC) [Ratio] 13.7 % 11.6-14.6 [facility] Erythrocyte distribution wid th standard deviationOrdered By: Modesto Newell on 09-06-2024 Erythrocyte distribution width (RBC) [Ratio] 47.8 fl High 35.1-43.9 [facility] Glomerular filtration rate ( GFR) estimation/1.73 sq m using serum, plasma, or whole bOrdered By: Modesto Newell on 09-06-2024 GFR/1.73 sq M.predicted among non-blacks MDRD (S/P/Bld) [Vol rate/Area] 95 mL/min/{1.73_m2} >60 [facility] Comment on above: mL/min/1.73m2 CKD-EP I Creatinine Equation (2020) Hematocrit Auto (Bld) [Volum e fraction]Ordered By: Modesto Newell on 09-06-2024 Hematocrit (Bld) [Volume fraction] 41.3 % 37-47 [facility] Hemoglobin A1con 09-06-2024 HbA1c (Bld) [Mass fraction] 6.0 % High <=5.6 [facility] Comment on above: Order Comment: Order Date: 09/03/24 Order Info: [id number] - A1C Result Comment: Norm al < 5.7 % Prediabetic 5.7 - 6.4 % Diabetic >or= 6.5 % Please note range changes. Performed By: #### L 501.9985, L500.4100, L500.4050, L501.9520, L100.0100 #### [facility] [address] [place], [place] [address] [place], [address] Hemoglobin A1c percentageOrd ered By: Modesto Newell on 09-06-2024 HbA1c (Bld) [Mass fraction] 6.0 % High <5.7 [facility] Comment on above: Normal < 5.7 % Predi abetic 5.7 - 6.4 % Diabetic >or= 6.5 % Please note range changes. Hemoglobin measurementOrdere d By: Modesto Newell on 09-06-2024 Hemoglobin (Bld) [Mass/Vol] 13.6 g/dL 12.0-15.0 [facility] Immature granulocytes/100 WB C Auto (Bld)Ordered By: Modesto Newell on 09-06-2024 Immature granulocytes/100 WBC (Bld) 0.200 % 0.0-0.9 [facility] Comment on above: IG% - Immature Granu locytes (promyelocytes, myelocytes and metamyelocytes) > 1% indicates that a LEFT SHIFT is Present. LDL calc ser/plasOrdered By: Modesto Newell on 09-06-2024 Cholesterol in LDL [Mass/Vol] 145 mg/dL [facility] Comment on above: Unaqbxfuqu=858-351 m g/dL & Higher Ejcu=402 mg/dL or greater Laboratory - Chemistry and C hemistry - challengeOrdered By: Modesto Newell on 09-06-2024 AST [Catalytic activity/Vol] 20 U/L <32 [facility] Lipid Profileon 09-06-2024 CHOL:HDL 4.36 Normal [facility] Comment on above: Order Comment: Order Date: 09/03/24 Order Info: [id number] - CMP Order Info: [id number] - LIPID Order Info: [id number] - TSH Performed By: #### L 501.9985, L500.4100, L500.4050, L501.9520, L100.0100 #### [facility] Laboratory [address] [place], [address] Cholesterol [Mass/Vol] 208 mg/dL High <=200 [facility] Comment on above: Order Comment: Order Date: 09/03/24 Order Info: [id number] - CMP Order Info: [id number] - LIPID Order Info: [id number] - TSH Result Comment: Chol esterol level, Desirable <200 mg/dL Borderline high cholesterol 200-239 mg/dL High cholesterol >=240 mg/dL Recommendations of the NCEP Adult Treatment Panel for the following risk-cutoff thresholds for the [place] population. Performed By: #### L 501.9985, L500.4100, L500.4050, L501.9520, L100.0100 #### [facility] [address] [place], [address] Cholesterol in HDL [Mass/Vol] 48 mg/dL Normal [facility] Comment on above: Order Comment: Order Date: 09/03/24 Order Info: [id number] - CMP Order Info: [id number] - LIPID Order Info: [id number] - TSH Result Comment: Randee onal Cholesterol Education Program (NCEP) guidelines: <40 mg/dL: Low HDL-cholesterol (major risk factor for CHD) >= 60 mg/dL: High HDL-cholesterol (negative risk factor for CHD) HDL-cholesterol is affected by a number of factors, e.g. smoking, exercise, hormones, sex and age. Performed By: #### L 501.9985, L500.4100, L500.4050, L501.9520, L100.0100 #### [facility] [address] [place], [address] Cholesterol in LDL [Mass/Vol] 145 mg/dL Normal [facility] Comment on above: Order Comment: Order Date: 09/03/24 Order Info: [id number] - CMP Order Info: [id number] - LIPID Order Info: [id number] - TSH Result Comment: Bord spsrqz=955-262 mg/dL Higher Sfln=131 mg/dL or greater Performed By: #### L 501.9985, L500.4100, L500.4050, L501.9520, L100.0100 #### [facility] [address] [place], [address] Cholesterol in VLDL [Mass/Vol] 15 mg/dL Normal 5-40 [facility] Comment on above: Order Comment: Order Date: 09/03/24 Order Info: [id number] - CMP Order Info: [id number] - LIPID Order Info: [id number] - TSH Performed By: #### L 501.9985, L500.4100, L500.4050, L501.9520, L100.0100 #### [facility] [address] [place], [address] Triglyceride [Mass/Vol] 76 mg/dL Normal [facility] Comment on above: Order Comment: Order Date: 09/03/24 Order Info: [id number] - CMP Order Info: [id number] - LIPID Order Info: [id number] - TSH Result Comment: The drugs N-Acetylcysteine and Metamizole may falsely depress this assay. Normal range: <150 mg/dL Borderline High: 150-199 mg/dL High: 200-499 mg/dL Very High: >500 mg/dL Performed By: #### L 501.9962, L500.4100, L500.4050, L501.9520, L100.0100 #### [facility] [address] [place], [address] MCV (mean corpuscular volume ) determinationOrdered By: Modesto Newell on 09-06-2024 MCV (RBC) [Entitic vol] 94.3 fL 81-99 [facility] Mean corpuscular hemoglobin (MCH) determinationOrdered By: [facility] on 09-06-2024 MCH (RBC) [Entitic mass] 31.1 pg 27.0-32.0 [facility] Mean corpuscular hemoglobin concentration (MCHC) determinationOrdered By: Modesto Newell on 09-06-2024 MCHC (RBC) [Mass/Vol] 32.9 g/dL 32-36 [facility] Mean platelet volume determi nationOrdered By: Modesto Newell on 09-06-2024 Platelet mean volume (Bld) [Entitic vol] 10.5 fL 6.2-12.0 [facility] Monocyte percentageOrdered B y: Modesto Newell on 09-06-2024 Monocytes/100 WBC (Bld) 7.5 % 0-10 [facility] Neutrophil percentageOrdered By: Modesto Newell on 09-06-2024 Neutrophils/100 WBC (Bld) 40.6 % Low 47-70 [facility] Nucleated red blood cell per centageOrdered By: Modesto Newell on 09-06-2024 Nucleated RBC/100 WBC (Bld) [Ratio] 0 % 0-5 [facility] Platelet countOrdered By: Luzmaria Newell on 09-06-2024 Platelets (Bld) [#/Vol] 233 10*3/uL 150-450 [facility] Potassium measurement (mass/ volume)Ordered By: Modesto Newell on 09-06-2024 Potassium (Unsp spec) [Mass/Vol] 4.0 mmol/L 3.3-5.1 [facility] RBC Auto (Bld) [#/Vol]Ordere d By: Modesto Newell on 09-06-2024 RBC (Bld) [#/Vol] 4.38 10*6/uL 4.2-5.4 [facility] Screening total cholesterol/ high density lipoprotein (HDL) cholesterol ratioOrdered By: Modesto Newell on 09-06-2024 Cholesterol.total/Choles terol in HDL [Mass ratio] 4.36 {ratio} [facility] Serum creatinine measurement (mass/volume)Ordered By: Modesto Newell on 09-06-2024 Creatinine [Mass/Vol] 0.62 mg/dL Low 0.70-1.20 [facility] Serum globulin measurementOr dered By: Modesto Newell on 09-06-2024 Globulin (S) [Mass/Vol] 2.8 g/dL 2.2-4.2 [facility] Serum glucose measurement (m ass/volume)Ordered By: Modesto Newell on 09-06-2024 Glucose [Mass/Vol] 98 mg/dL 70-99 [facility] Serum or plasma alanine hui otransferase (ALT) measurementOrdered By: Modesto Newell on 09-06-2024 ALT [Catalytic activity/Vol] 11 U/L <35 [facility] Serum or plasma albumin jennifer urement (mass/volume)Ordered By: Modesto Newell on 09-06-2024 Albumin [Mass/Vol] 4.3 g/dL 3.4-4.8 [facility] Serum or plasma albumin/glob ulin mass ratioOrdered By: Modesto Newell on 09-06-2024 Albumin/Globulin [Mass ratio] 1.5 {ratio} 0.9-2.4 [facility] Serum or plasma alkaline олег sphatase measurementOrdered By: Modesto Newell on 09-06-2024 ALP [Catalytic activity/Vol] 96 U/L 35-104 [facility] Serum or plasma calcium jennifer urement (mass/volume)Ordered By: Modesto Newell on 09-06-2024 Calcium [Mass/Vol] 9.4 mg/dL 7.6-11.0 [facility] Serum or plasma cholesterol in HDL measurement (mass/volume)Ordered By: Modesto Newell on 09-06-2024 Cholesterol in HDL [Mass/Vol] 48 mg/dL >40 [facility] Comment on above: National Cholesterol Education Program (NCEP) guidelines:<40 mg/dL: Low HDL-cholesterol (major risk factor for CHD)>= 60 mg/dL: High HDL-cholesterol (negative risk factor for CHD)HDL-cholesterol is affected by a number of factors, e.g. smoking, exercise, hormones, sex and age. Serum or plasma cholesterol measurement (mass/volume)Ordered By: Modesto Newell on 09-06-2024 Cholesterol [Mass/Vol] 208 mg/dL High <201 [facility] Comment on above: Cholesterol level, D esirable <200 mg/dLBorderline high cholesterol 200-239 mg/dLHigh cholesterol >=240 mg/dLRecommendations of the NCEP Adult Treatment Panel for the following risk-cutoff thresholds for the [place]. Serum or plasma urea nitroge n measurement (mass/volume)Ordered By: Modesto Newell on 09-06-2024 Urea nitrogen [Mass/Vol] 9 mg/dL 4- [facility] Sodium levelOrdered By: Nishant Newell on 09-06-2024 Sodium [Moles/Vol] 141 mmol/L 133-145 [facility] TSH DL <= 0.005 mIU/L QnOrde red By: Modesto Newell on 09-06-2024 TSH Qn 1.040 uIU/mL 0.300-4.200 [facility] Thyroid Stim Hormone (TSH)on 09-06-2024 TSH 1.040 uIU/mL Normal 0.300-4.200 [facility] Comment on above: Order Comment: Order Date: 09/03/24 Order Info: [id number] - CMP Order Info: [id number] - LIPID Order Info: [id number] - TSH Performed By: #### L 501.9985, L500.4100, L500.4050, L501.9520, L100.0100 #### [facility] Laboratory [address] [place], [address] Total proteinOrdered By: Sienna Newell on 09-06-2024 Protein [Mass/Vol] 7.0 g/dL 5.9-8.4 [facility] Triglycerides measurementOrd ered By: Moedsto Newell on 09-06-2024 Triglyceride [Mass/Vol] 76 mg/dL <199 [facility] Comment on above: The drugs N-Acetylcy steine and Metamizole may falsely depress this assay. Normal range: <150 mg/dLBorderline High: 150-199 mg/dLHigh: 200-499 mg/dLVery High: >500 mg/dL Vitamin D,25 Hydroxyon 09-06 Vitamin D 25-OH 28.4 ng/mL Low 30-100 [facility] Comment on above: Order Comment: Order Date: 09/03/24 Order Info: [id number] - CMP Order Info: [id number] - LIPID Order Info: [id number] - TSH Result Comment: Brii min D Status Deficiency: <20 ng/mL (50nmol/L) Insufficiency: 20-30 ng/mL (50-75 nmol/L) Sufficiency: 30-100 ng/mL (75-250 nmol/L) Toxicity: >100 ng/mL (>250 nmol/L) Performed By: #### L 506.1001 #### [facility] Laboratory [facility] [place], [address] White blood cell (WBC) count Ordered By: Modesto Newell on 09-06-2024 WBC (Bld) [#/Vol] 4.4 10*3/uL 4.4-11.0 [facility] Absolute lymphocyte countOrd ered By: Maggie Dixon on 12-19-2022 Lymphocytes Auto (Unsp spec) [#/Vol] 1.85 10*3/uL 0.83-4.51 [facility] Basophil percentageOrdered B y: Maggie Dixon on 12-19-2022 Basophils/100 WBC (Bld) 0.8 % 0-1 [facility] Bilirubin [Mass/Vol] 0.60 mg/dL 0.20-1.00 [facility] Comment on above: For patients on eltr ombopag therapy, use of [place] TBIL is not recommended. Chloride [Moles/Vol] 108 mmol/L 98-107 [facility] Cholesterol [Mass/Vol] 225 mg/dL <200 [facility] Comment on above: <200 mg/dL Desirable 200-240 mg/dL Borderline >240 mg/dL High Risk Eosinophils/100 WBC (Bld) 1.6 % 0-5 [facility] Glucose [Mass/Vol] 92 mg/dL 74-106 [facility] Neutrophils (Bld) [#/Vol] 2.6 10*3/uL 2.0-7.7 [facility] Neutrophils/100 WBC (Bld) 52.7 % 47-70 [facility] Potassium [Moles/Vol] 4.0 mmol/L 3.5-5.1 [facility] Protein [Mass/Vol] 7.0 g/dL 6.4-8.2 [facility] Sodium [Moles/Vol] 141 mmol/L 136-145 [facility] Triglyceride [Mass/Vol] 149 mg/dL <199 [facility] Comment on above: The drugs N-Acetylcy steine and Metamizole may falsely depress this assay.Serum Triglycerides Reference Interval Normal <150 mg/dL Borderline high 150 - 199 mg/dL High 200 - 499 mg/dL Very High > or = 500 mg/dL WBC (Bld) [#/Vol] 4.9 10*3/uL 4.4-11.0 [facility] Blood erythrocytes count (nu mber/volume)Ordered By: Maggie Dixon on 12-19-2022 RBC (Bld) [#/Vol] 4.38 10*6/uL 4.2-5.4 [facility] Blood hemoglobin measurement (mass/volume)Ordered By: Maggie Dixon on 12-19-2022 Hemoglobin (Bld) [Mass/Vol] 13.3 g/dL 12.0-15.0 [facility] Blood lymphocytes/100 leukoc ytesOrdered By: Maggie Dixon on 12-19-2022 Lymphocytes/100 WBC (Bld) 37.8 % 19-41 [facility] Blood monocytes/100 leukocyt esOrdered By: Maggie Dixon on 12-19-2022 Monocytes/100 WBC (Bld) 6.9 % 0-10 [facility] Blood platelet mean volumeOr dered By: Maggie Dixon on 12-19-2022 Platelet mean volume (Bld) [Entitic vol] 9.6 fL 6.2-12.0 [facility] Determination of erythrocyte mean corpuscular volume (MCV)Ordered By: Maggie Dixon on 12-19-2022 MCV (RBC) [Entitic vol] 95.2 fL 81-99 [facility] Hematocrit Auto (Bld) [Volum e fraction]Ordered By: Maggie Dixon on 12-19-2022 Hematocrit (Bld) [Volume fraction] 41.7 % 37-47 [facility] Laboratory - Chemistry and C hemistry - challengeOrdered By: Maggie Dixon on 12-19-2022 ALP [Catalytic activity/Vol] 112 U/L 45-117 [facility] ALT [Catalytic activity/Vol] 17 U/L 13-56 [facility] CO2 [Moles/Vol] 28.0 mmol/L 21.0-32.0 [facility] Globulin (S) [Mass/Vol] 3.5 g/dL 2.2-4.2 [facility] Urea nitrogen/Creatinine [Mass ratio] 17.6 mg/mg 10-20 [facility] Laboratory - Hematology and Cell countsOrdered By: Maggie Dixon on 12-19-2022 Erythrocyte distribution width (RBC) [Entitic vol] 45.6 fL 35.1-43.9 [facility] Erythrocyte distribution width (RBC) [Ratio] 13.0 % 11.6-14.6 [facility] Immature granulocytes/100 WBC (Bld) 0.200 % 0.0-0.9 [facility] Comment on above: IG% - Immature Granu locytes (promyelocytes, myelocytes and metamyelocytes) > 1% indicates that a LEFT SHIFT is Present. MCH (RBC) [Entitic mass] 30.4 pg 27.0-32.0 [facility] Nucleated RBC/100 WBC (Bld) [Ratio] 0 % 0-5 [facility] MCHC Auto (RBC) [Mass/Vol]Or dered By: Maggie Dixon on 12-19-2022 MCHC (RBC) [Mass/Vol] 31.9 g/dL 32-36 [facility] No Panel InformationOrdered By: Maggie Dixon on 12-19-2022 Estimated GFR (MDRD) Amer 121 mL/min >60 [facility] Comment on above: GFR Calc Estimated GFR (MDRD) Non-Af Amer 100 mL/min >60 [facility] Comment on above: Non- GFR Calc Thyroid Stimulating Hormone (TSH) 1.24 uIU/mL 0.358-3.74 [facility] Vitamin D 25-Hydroxy 38.0 ng/mL [facility] Comment on above: Vitamin D 25(OH) Sta tus Range Deficiency <20 ng/mL (50nmol/L) Insufficiency 20 - 30 ng/mL (50 - 75 nmol/L) Sufficiency 30 - 100 ng/mL (75 - 250 nmol/L) Toxicity >100 ng/mL (>250 nmol/L) Platelets bldOrdered By: Venkatesh Dixon on 12-19-2022 Platelets (Bld) [#/Vol] 231 10*3/uL 150-450 [facility] Serum or plasma albumin jennifer urement (mass/volume)Ordered By: Maggie Dixon on 12-19-2022 Albumin [Mass/Vol] 3.5 g/dL 3.2-5.0 [facility] Serum or plasma albumin/glob ulin mass ratioOrdered By: Maggie Dixon on 12-19-2022 Albumin/Globulin [Mass ratio] 1.0 {ratio} 0.9-2.4 [facility] Serum or plasma calcium jennifer urement (mass/volume)Ordered By: Maggie Dixon on 12-19-2022 Calcium [Mass/Vol] 8.9 mg/dL 8.5-10.1 [facility] Serum or plasma cholesterol in HDL measurement (mass/volume)Ordered By: Maggie Dixon on 12-19-2022 Cholesterol in HDL [Mass/Vol] 43 mg/dL >40 [facility] Comment on above: The drugs N-Acetylcy steine and Metamizole may falsely depress this assay. Reference Range HDL <40 mg/dL Low HDL Cholesterol HDL >or= 60 mg/dL High HDL Cholesterol Serum or plasma cholesterol in VLDL measurement (mass/volume)Ordered By: Maggie Dixon on 12-19-2022 Cholesterol in VLDL [Mass/Vol] 30 mg/dL 5-40 [facility] Serum or plasma creatinine m easurement (mass/volume)Ordered By: Maggie Dixon on 12-19-2022 Creatinine [Mass/Vol] 0.63 mg/dL 0.55-1.02 [facility] Comment on above: The validity of the calculated GFR & GFRAA in patients over 70 years has not been determined. Clinical correlation is essential. Serum or plasma ferritin guillaume surement (mass/volume)Ordered By: Maggie Dixon on 12-19-2022 Ferritin [Mass/Vol] 32 ng/mL 8-252 [facility] Serum or plasma low density lipoprotein (LDL) cholesterol measurement (mass/volume)Ordered By: Maggie Dixon on 12-19-2022 Cholesterol in LDL [Mass/Vol] 152 mg/dL 0-130 [facility] Serum or plasma urea nitroge n measurement (mass/volume)Ordered By: Maggie Dixon on 12-19-2022 Urea nitrogen [Mass/Vol] 11 mg/dL 7-18 [facility] Thin prep Papanicolaou smear with manual screeningOrdered By: Maggie Dixon on 12-19-2022 Thin prep Papanicolaou smear with manual screening 15 U/L 15-37 [facility] Thin prep Papanicolaou smear with manual screening 5 5-15 [facility] Whole blood hemoglobin A1c/t otal hemoglobin ratio (mass fraction)Ordered By: Maggie Dixon on 12-19-2022 HbA1c (Bld) [Mass fraction] 5.8 % 3.8-5.6 [facility] Comment on above: Normal < 5.7 % Predi abetic 5.7 - 6.4 % Diabetic >or= 6.5 % Please note range changes. Absolute lymphocyte counton 10-17-2021 Lymphocytes Auto (Unsp spec) [#/Vol] 1.65 10*3/uL 0.83-4.51 [facility] Work Phone: Basophil percentageon 2021 Basophils/100 WBC (Bld) 1.0 % 0-1 [facility] Work Phone: Bilirubin [Mass/Vol] 0.30 mg/dL 0.20-1.00 [facility] Work Phone: Comment on above: For patients on eltr ombopag therapy, use of [place] TBIL is not recommended. Chloride [Moles/Vol] 107 mmol/L 98-107 [facility]: Cholesterol [Mass/Vol] 217 mg/dL <200 [facility] Work Phone: Comment on above: <200 mg/dL Desirable 200-240 mg/dL Borderline >240 mg/dL High Risk Eosinophils/100 WBC (Bld) 1.9 % 0-5 [facility] Work Phone: Glucose [Mass/Vol] 117 mg/dL 74-106 [facility] Work Phone: Comment on above: Fasting Glucose resu lt from 100 to 125 mg/dL suggests IMPAIRED HOMEOSTASIS per A.D.A. criteria. Neutrophils (Bld) [#/Vol] 2.6 10*3/uL 2.0-7.7 [facility] Work Phone: Neutrophils/100 WBC (Bld) 54.0 % 47-70 [facility] Work Phone: Potassium [Moles/Vol] 3.8 mmol/L 3.5-5.1 [facility] Work Phone: Protein [Mass/Vol] 7.0 g/dL 6.4-8.2 [facility] Work Phone: Sodium [Moles/Vol] 140 mmol/L 136-145 [facility] Work Phone: Triglyceride [Mass/Vol] 119 mg/dL <199 [facility] Work Phone: Comment on above: The drugs N-Acetylcy steine and Metamizole may falsely depress this assay.Serum Triglycerides Reference Interval Normal <150 mg/dL Borderline high 150 - 199 mg/dL High 200 - 499 mg/dL Very High > or = 500 mg/dL WBC (Bld) [#/Vol] 4.8 10*3/uL 4.4-11.0 [facility] Work Phone: Blood erythrocytes count (nu mber/volume)on 10-17-2021 RBC (Bld) [#/Vol] 4.28 10*6/uL 4.2-5.4 [facility] Work Phone: Blood hemoglobin measurement (mass/volume)on 10-17-2021 Hemoglobin (Bld) [Mass/Vol] 12.5 g/dL 12.0-15.0 [facility] Work Phone: [phone] Blood lymphocytes/100 leukoc yteson 10-17-2021 Lymphocytes/100 WBC (Bld) 34.4 % 19-41 [facility] Work Phone: [phone] Blood monocytes/100 leukocyt eson 10-17-2021 Monocytes/100 WBC (Bld) 8.1 % 0-10 [facility] Work Phone: [phone] Blood platelet mean volumeon 10-17-2021 Platelet mean volume (Bld) [Entitic vol] 10.0 fL 6.2-12.0 [facility] Work Phone: [phone] Determination of erythrocyte mean corpuscular volume (MCV)on 10-17-2021 MCV (RBC) [Entitic vol] 90.7 fL 81-99 [facility] Work Phone: [phone] Hematocrit Auto (Bld) [Volum e fraction]on 10-17-2021 Hematocrit (Bld) [Volume fraction] 38.8 % 37-47 [facility] Work Phone: Laboratory - Chemistry and C hemistry - challengeon 10-17-2021 ALP [Catalytic activity/Vol] 125 U/L 45-117 [facility] Work Phone: [phone] ALT [Catalytic activity/Vol] 16 U/L 13-56 [facility] Work Phone: [phone] CO2 [Moles/Vol] 25.0 mmol/L 21.0-32.0 [facility] Work Phone: [phone] Globulin (S) [Mass/Vol] 3.5 g/dL 2.2-4.2 [facility] Work Phone: [phone] Urea nitrogen/Creatinine [Mass ratio] 19.9 mg/mg 10-20 [facility] Work Phone: Laboratory - Hematology and Cell countson 10-17-2021 Erythrocyte distribution width (RBC) [Entitic vol] 47.6 fL 35.1-43.9 [facility] Work Phone: [phone] Erythrocyte distribution width (RBC) [Ratio] 14.4 % 11.6-14.6 [facility] Work Phone: [phone] Immature granulocytes/100 WBC (Bld) 0.600 % 0.0-0.9 [facility] Work Phone: [phone] Comment on above: IG% - Immature Granu locytes (promyelocytes, myelocytes and metamyelocytes) > 1% indicates that a LEFT SHIFT is Present. MCH (RBC) [Entitic mass] 29.2 pg 27.0-32.0 [facility] Work Phone: [phone] Nucleated RBC/100 WBC (Bld) [Ratio] 0 % 0-5 [facility] Work Phone: [phone] MCHC Auto (RBC) [Mass/Vol]on 10-17-2021 MCHC (RBC) [Mass/Vol] 32.2 g/dL 32-36 [facility] Work Phone: No Panel Informationon 10-17 Estimated GFR (MDRD) Amer 106 mL/min >60 [facility] Work Phone: Comment on above: GFR Calc Estimated GFR (MDRD) Non-Af Amer 88 mL/min >60 [facility] Work Phone: [phone] Comment on above: Non- GFR Calc Thyroid Stimulating Hormone (TSH) 1.21 uIU/mL 0.358-3.74 [facility] Work Phone: [phone] Vitamin D 25-Hydroxy 34.7 ng/mL [facility] Work Phone: [phone] Comment on above: Vitamin D 25(OH) Sta tus Range Deficiency <20 ng/mL (50nmol/L) Insufficiency 20 - 30 ng/mL (50 - 75 nmol/L) Sufficiency 30 - 100 ng/mL (75 - 250 nmol/L) Toxicity >100 ng/mL (>250 nmol/L) Platelets bldon 06-29-2022 Platelets (Bld) [#/Vol] 260 10*3/uL 150-450 [facility] Work Phone: Serum or plasma albumin jennifer urement (mass/volume)on 10-17-2021 Albumin [Mass/Vol] 3.5 g/dL 3.2-5.0 [facility] Work Phone: Serum or plasma albumin/glob ulin mass ratioon 10-17-2021 Albumin/Globulin [Mass ratio] 1.0 {ratio} 0.9-2.4 [facility] Work Phone: Serum or plasma calcium jennifer urement (mass/volume)on 10-17-2021 Calcium [Mass/Vol] 9.1 mg/dL 8.5-10.1 [facility] Work Phone: Serum or plasma cholesterol in HDL measurement (mass/volume)on 10-17-2021 Cholesterol in HDL [Mass/Vol] 48 mg/dL >40 [facility] Work Phone: Comment on above: The drugs N-Acetylcy steine and Metamizole may falsely depress this assay. Reference Range HDL <40 mg/dL Low HDL Cholesterol HDL >or= 60 mg/dL High HDL Cholesterol Serum or plasma cholesterol in VLDL measurement (mass/volume)on 10-17-2021 Cholesterol in VLDL [Mass/Vol] 24 mg/dL 5-40 [facility] Work Phone: Serum or plasma creatinine m easurement (mass/volume)on 10-17-2021 Creatinine [Mass/Vol] 0.70 mg/dL 0.55-1.02 [facility] Work Phone: Comment on above: The validity of the calculated GFR & GFRAA in patients over 70 years has not been determined. Clinical correlation is essential. Serum or plasma ferritin guillaume surement (mass/volume)on 10-17-2021 Ferritin [Mass/Vol] 7 ng/mL 8-252 [facility] Work Phone: Serum or plasma low density lipoprotein (LDL) cholesterol measurement (mass/volume)on 10-17-2021 Cholesterol in LDL [Mass/Vol] 145 mg/dL 0-130 [facility] Work Phone: Serum or plasma urea nitroge n measurement (mass/volume)on 10-17-2021 Urea nitrogen [Mass/Vol] 14 mg/dL 7-18 [facility] Work Phone: Thin prep Papanicolaou smear with manual screeningon 10-17-2021 Thin prep Papanicolaou smear with manual screening 15 U/L 15-37 [facility] Work Phone: Thin prep Papanicolaou smear with manual screening 8 5-15 [facility] Work Phone: Whole blood hemoglobin A1c/t otal hemoglobin ratio (mass fraction)on 10-17-2021 HbA1c (Bld) [Mass fraction] 6.1 % 3.8-5.6 [facility] Work Phone: Comment on above: Normal < 5.7 % Predi abetic 5.7 - 6.4 % Diabetic >or= 6.5 % Please note range changes. CNOVon 01-26-2017 CNOV Office Visit (UCWSTR) FELIX TRENT ([id number]) 1950 [facility] Time Provider Akmimqjkto91/8/17 11:00 AM JUJU COLES) WSTR During your visit today, we recorded the following information about you: Temperature Pulse Respiration Blood pressure 97.8 degrees 74/minute 16/minute 112/64 Weight 80.7 kgJuju Coles PA-C 01/26/2017 11:59 AM Edudwn2001/26/2017Patient presents with:Cat Bite: right forearm x yesterday, [...] - Fully AssessedReason for Visit: Cat Bite [51226] Cmt: right forearm x yesterday, red and swollenPrimary Visit Diagnosis:Cat bite of forearm, right, initial encounter [S51.851A, W55.01XA] Other Visit Diagnosis:Need for vaccination [Z23]Order(s):TDAP VACCINE AGE 7+ IM [[id number]] Order #: [id number] amoxicillin-clavulanic acid (AUGMENTIN) 875-125 mg per tabletTake [...] Status:Closed by JUJU COLES PA-C [facility] 01-26-2017 PROGRESS HNO ID: [id number]: Juju Paige) Shadervice: (none)Author Type: Physician AssistantType: [...] issues and agrees with theplan.MEDINA Yap-01/26/2017 Normal [facility] Vital Signs Date Time Vital Sign Value Performing Clinician Faci gifty 02-03-2025 08:49-0400 Body height 162.56 cm Modesto Newell MD Work Phone: [facility] 02-03-2025 08:49-0400 Body mass index (BMI) [Ratio] 28.5 kg/m2 Modesto Newell MD Work Phone: [facility] 02-03-2025 08:49-0400 Body weight 75.29 kg Modesto Newell MD Work Phone: [facility] 02-03-2025 08:49-0400 Diastolic blood pressure 79 mm[Hg] Modesto Newell MD Work Phone: [facility] 02-03-2025 08:49-0400 Heart rate 76 /min Modesto Newell MD Work Phone: [facility] 02-03-2025 08:49-0400 Respiratory rate 17 /min Modesto Newell MD Work Phone: [facility] 02-03-2025 08:49-0400 SaO2% (BldA) [Mass fraction] 98 % Modesto Newell MD Work Phone: [facility] 02-03-2025 08:49-0400 Systolic blood pressure 114 mm[Hg] Modesto Newell MD Work Phone: [facility] Encounters Encounter Date Encounter Type Care Provider Facility Start: 02-22-2025 End: 02-22-2025 ambulatory Modesto Newell Facility:[facility] Start: 02-10-2025 End: 02-10-2025 ambulatory Modesto Newell Facility:[facility] Start: 02-03-2025 End: 02-03-[address] Franklyn Fernando MD -[facility] Work Phone: Start: 02-03-2025 End: 02-03-2025 ambulatory Modesto Newell MD Work Phone: -[facility] Start: 12-28-2024 ambulatory Modesto Newell Facility:[facility] Start: 09-06-2024 End: 09-06-2024 ambulatory Modesto Newell MD Work Phone: [facility] Work Phone: Start: 09-06-2024 End: 09-06-[address] Modesto Newell [facility] -[facility] Start: 09-06-2024 End: 09-06-2024 ambulatory Modesto Newell Facility:[facility] Start: 12-19-2022 End: 12-19-2022 ambulatory [facility] Work Phone: Start: 12-19-2022 End: 12-19-2022 Patient encounter procedure [facility] Start: 11-07-2022 End: 11-07-2022 Patient encounter procedure [facility] Work Phone: Start: 10-17-2021 End: 10-17-2021 Patient encounter procedure [facility] Start: 01-26-2017 End: 01-28-2017 Ambulatory [facility] Procedures Date Procedure Procedure Detail Performing Clinician Start: 09-06-2024 Vitamin D, 25-hydrox y measurement Modesto Newell MD Work Phone: Comment on above: Vitamin D StatusDefi ciency: <20 ng/mL (50nmol/L)Insufficiency: 20-30 ng/mL (50-75 nmol/L)Sufficiency: 30-100 ng/mL (75-250 nmol/L)Toxicity: >100 ng/mL (>250 nmol/L) Start: 11-07-2022 Screening mammography Plan of Treatment Date Care Activity Detail Author Start: 03-04-2025 ambulatory Ambulatory Facility:[facility] Start: 02-10-2025 Ultrasonography of limb Ext Non Vasc Limited/Soft Tiss [facility] Start: 02-10-2025 Patient encounter procedure Registered Clinical -Ultrasound [facility] Work Phone: Payers Date Payer Category Payer Self-pay [id number] 2024 Medicare [id number] 2024 Self-pay [id number] 2024 Unknown [id number] Private Health Insurance [id number] Medicare [id number] Unknown [id number] 2.16.8 [id number] Unknown [id number] 2.16.8 [id number] Unknown [id number] 2.16.8 [id number] Unknown [id number] 2.16.8 [id number] Unknown [id number] 2.16.8 [id number] Unknown [id number] 2.16.8 [id number] Social History Date Type Detail Facility Start: 10-07-2020 Tobacco smoking stat [facility] Unknown if ever smoked [facility] Start: 04-06-2018 None [facility] Start: 04-06-2018 Alone [facility] Start: 12-02-2019 Non-smoker [facility] Start: 1950 Sex Assigned At Female W [facility] Start: 10-07-2020 Tobacco smoking stat [facility] Ex-smoker (finding) [facility] Sex Female [facility] Medical Equipment Procedure Code Equipment Code Equipment Origin al Text Equipment Identifier Dates STENT,URETERAL PIGTAIL [id number] FDA Start: 12-09-2019 STENT,URETERAL PIGTAIL [id number] FDA Start: 12-09-2019 STENT,URETERAL PIGTAIL [id number] FDA Start: 12-09-2019 STENT,URETERAL PIGTAIL [id number] FDA Start: 12-09-2019 Progress note 02-03-2025 Note Date & Type Note Facility 02-03-2025 Progress note [facility] Evaluation note Note Date & Type Note Facility Evaluation note No assessment information availa ble [facility] Work Phone: Evaluation note Note Date & Type Note Facility Evaluation note Diagnosis Onset Date Resolution Mass of buttock acute January 192024 8:30am [facility] Work Phone: Progress note Note Date & Type Note Facility Progress note Note Date/Time February 03, 2025 9:08am [facility] [address] [place] [address] OFFICE VISIT Date of Service: 02/03/25 MR#: [id number] Acct: [id number] Name: FELIX TRENT Rep #: [id number] : 1950 Provider: Dr. Gaetano Fernando MD Age/Sex: 74/F Location: [facility] Status: Signed Intake Vital Signs 10/07/20 [...] is not malignant. Franklyn Fernando MD Pager: [facility] [address] [place] [address], [address] [place] [address] Office: Coding Level of Care Code Off vis,new,level 3 Diagnoses Mass of buttock R22.2 Clinical Quality Measures Falls Risk Screening/Assistive Devices Have you fallen in the past year?: No 02/03/25 0917 <Electronically signed by Franklyn lieberman MD> Date _ Franklyn Fernando MD Cosigner Signature: Date (if applicable) CC: Dr. Modesto Newell MD ~ [facility] [employer] Work Phone: Reason for referral (narrative) Note Date & Type Note Facility Reason for referral (narrative) No reason for referral information available [facility] Work Phone: Summary Purpose Family History [...] No April 05 018 1:59am Power of Printer Operator No April 05, 2018 1:59am Advance Directive Response Recorded Date/ Time Living Will Yes December 01 0 1:55pm Power of Printer Operator Yes December 01 020 1:55pm Chief Complaint and Reason for Visit Chief Complaint SCREENING Chief Complaint Admit Date cyst on buttock February 03, 2025 8 :30am CYST LEFT BUTTOCK February 10, 2025 1 0:31am Reason for Visit Admit Date Mass of buttock February 03, 2025 8 :30am Additional Source Comments INFORMATION SOURCE (unrecogn ized section and content) DATE CREATED AUTHOR 10/14/2017 [facility] DATE CREATED AUTHOR AUTHOR'S ORGANIZ ATION 02/26/2025 [facility] Goals (unrecognized section and content) Goals may [...] BE BASED ON THE PRIMARY CLINICAL RECORDS. [facility] [employer] provides no warranty or guarantee of the accuracy or completeness of information in this document.
== END | disposition home or self-care (01) ==
LOC: LABSPEC 15:42
PROVIDERS: PCP Family Medicine; Referring Provider Physician Assistant; Visit Provider Physician Assistant
DX: L02.31 Cutaneous abscess of buttock (principal)
CPT/HCPCS: 87070; 87075; 87077; 87186; 87205

== ENCOUNTER → 2025-04-12 | Outpatient (CLI) | payer MEDICARE, OTHER, SELFPAY ==
[2025-04-12 08:51] LABS: Hematocrit 40.6 % (37-47); Hemoglobin 13.1 g/dL (12.0-15.0); Immature Granulocytes Count 0.020 X10^3/uL (0.0-0.0); Mean Corp Hgb Conc 32.3 g/dL (32-36); Mean Corpuscular Volume 95.1 fL (81-99); Mean Platelet Vol. 8.9 fl (6.2-12.0); NRBC Flagged by Analyzer 0 % (0-5); Platelet Count 249 K/mm3 (150-450); RBC Distribution Width CV 13.3 % (11.6-14.6); RBC Distribution Width SD 46.5 fl (35.1-43.9); Red Blood Count 4.27 M/mm3 (4.2-5.4); White Blood Count 5.1 K/mm3 (4.4-11.0)
[2025-04-12 09:10] LABS: Anion Gap 8 (7-18); BUN 16 mg/dL (4-19); BUN/Creat Ratio 24.2 RATIO (10-20); Calcium,Total 9.6 mg/dL (7.6-11.0); Carbon Dioxide 27.1 mmol/L (20.0-29.0); Chloride 103 mmol/L (96-106); Glucose 103 mg/dL (70-99); Potassium 4.3 mmol/L (3.5-5.1)
== END | disposition home or self-care (01) ==
LOC: PAVLAB 08:39
PROVIDERS: PCP Family Medicine; Referring Provider Physician Assistant; Visit Provider Physician Assistant
DX: R53.83 Other fatigue (principal)
CPT/HCPCS: 36415; 80048; 85025